=== PATIENT | male | born 1990 | race Caucasian/White ===

== ENCOUNTER 2017-01-29 08:45 | Emergency (ER) | payer OTHER ==
[~2017-01-29] VITALS: Ht 175.3 cm; Wt 83.9 kg
[~2017-01-29 08:45] MED LIST: LEVETIRACETAM500 MG PO; ONDANSETRON ODT8 MG PO; PHENYTOIN SODI100 MG PO; PHENYTOIN SODI300 MG PO; ZOFRAN ODT4 MG PO
== END 2017-01-29 14:54 | disposition home or self-care (01) ==
LOC: ED 08:45
DX: G40.909 Epilepsy, unspecified, not intractable, without status epilepticus (principal); S00.83XA Contusion of other part of head, initial encounter; X58.XXXA Exposure to other specified factors, initial encounter; Z79.899 Other long term (current) drug therapy
CPT/HCPCS: 70486; 80048; 80185; 81001; 85025; 86703; 96361; 96365; 96372; 99284; J1165; J3486; J7030; J7050

== ENCOUNTER 2019-05-11 05:39 | Emergency (ER) | payer OTHER ==
[~2019-05-11] VITALS: Ht 175.3 cm; Wt 83.9 kg
--- OUTSIDE RECORDS SUMMARY | 2019-05-11 05:42 | XMS ---
PreManage Notification: ANGELO KRAUS Security Certified Credit Counselor Events No recent Security Events currently on file CRITERIA MET - Group Notification CARE PROVIDERS APOLLO DIAS Primary Care 08/08/2016-Current PHONE: [phone] Rudolph has no Care Guidelines for this patient. E.DJenn VISIT COUNT (12 MO.) [address] [facility] 1 [facility] 1 BE Valdez Jenn TOTAL 3 NOTE: Visits indicate total known visits. ED/UCC VISIT TRACKING (12 MO.) 05/11/2019 05:[address] [facility] [address] [facility] TYPE: Emergency COMPLAINT: - SEIZURE 08/25/2018 07:04 [facility] Marga RHODES TYPE: Emergency DIAGNOSES: - Unspecified convulsions - Elevated white blood cell count, unspecified 06/16/2018 20:09 [facility] TYPE: Emergency DIAGNOSES: - Unspecified convulsions - Contusion of eyeball and orbital tissues, right eye, init - Seizures - seizure INPATIENT VISIT TRACKING (12 MO.) No inpatient visits to display in this time frame [id number]
[2019-05-11] MEDS ORDERED: TRILEPTAL300 MG PO (05:49)
== END 2019-05-11 07:01 | disposition home or self-care (01) ==
LOC: ED 05:39
DX: G40.909 Epilepsy, unspecified, not intractable, without status epilepticus (principal); Z79.899 Other long term (current) drug therapy
CPT/HCPCS: 80156; 82542; 96374; 99284-25; J1953; J7060

== ENCOUNTER 2019-07-15 06:37 | Emergency (ER) | payer OTHER ==
[~2019-07-15] VITALS: Ht 175.3 cm; Wt 83.9 kg
[~2019-07-15 06:37] MED LIST changes: +TRILEPTAL300 MG PO
--- OUTSIDE RECORDS SUMMARY | 2019-07-15 06:38 | XMS ---
PreManage Notification: ANGELO KRAUS Security Crystal Evaluator Events No recent Security Events currently on file CRITERIA MET - Group Notification CARE PROVIDERS APOLLO DIAS Nurse Practitioner: Family 05/12/2019-Current PHONE: Unknown APOLLO DIAS Primary Care 08/08/2016-Current PHONE: [phone] Rudolph has no Care Guidelines for this patient. Care History Medical/Surgical 05/12/2019 [facility] - PATIENT HAS AN ESTABLISHING CARE APT WITH APOLLO DIAS ON 05/15/19 @ 10: 00AM. - Patient is currently established with [facility]. If patient is seen in the ED during business hours. Please contact CHWs at [facility]. Care Recommendation: If this patient has had 5 or more Emergency Department visits in the last 12 months.\T\nbsp; Patient will require education on the scope and purpose of the ED as an acute care provider not a Primary Care Provider and should not be utilized for chronic conditions.\T\nbsp; These are guidelines and the provider should exercise clinical judgment when providing care. E.D. VISIT COUNT (12 MO.) 1 [facility] 2 BE [facility]ello TOTAL 3 NOTE: Visits indicate total known visits. ED/UCC VISIT TRACKING (12 MO.) 07/15/2019 06:37 [facility] [place] [place] TYPE: Emergency COMPLAINT: - SEIZURE 05/11/2019 05:39 [facility] TYPE: Emergency COMPLAINT: - SEIZURE DIAGNOSES: - Epilepsy, unsp, not intractable, without status epilepticus - Unspecified convulsions - Other terminal supervisor (current) drug therapy [facility] DIAGNOSES: - Unspecified convulsions - Elevated white blood cell count, unspecified INPATIENT VISIT TRACKING (12 MO.) No inpatient visits to display in this time frame [id number]
--- NOTE | 2019-07-15 13:27 | NUR ---
WAS CONTACTED BY BEAN BOURNE REGARDING POSSIBLE RIDE FOR PTS' MOTHER CARMEN TO [facility]. PT IS BEING TRANSFERRED THERE AND FEELS SHE NEEDS TO BE WITH HIM BECAUSE OF HOW HE REACTIONS AFTER SEIZURES. WORKING WITH CM, THEY WERE ABLE TO OBTAIN A RIDE FOR MOM IN AMBULANCE DURING TRANSFER. WILL FOLLOW NEEDED
== END 2019-07-15 13:47 | disposition short-term general hospital (02) ==
LOC: ED 06:37
DX: G40.409 Other generalized epilepsy and epileptic syndromes, not intractable, without status epilepticus (principal); Z79.899 Other long term (current) drug therapy
CPT/HCPCS: 70450; 80053; 80176; 81001; 84443; 85025; 96361; 96365; 96375; 96376; 99285-25; G0480; J1200; J1630; J1953; J2060; J2250; J2405; J2765; J7030

== ENCOUNTER 2019-08-27 07:45 | Emergency (ER) | payer OTHER ==
[~2019-08-27] VITALS: Ht 175.3 cm; Wt 83.9 kg
--- OUTSIDE RECORDS SUMMARY | 2019-08-27 07:48 | XMS ---
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 Care History Medical/Surgical 07/16/2019 [facility] Patient has scheduled appointment with Apollo Dias on 08/12/2019.\T\nbsp;\T\ nbsp;Transferred to\T\nbsp;inpatient care\T\nbsp;at [facility] 05/12/2019 [facility] - PATIENT HAS AN ESTABLISHING CARE APT WITH APOLLO DIAS ON 05/15/19 @ 10: 00AM. - Patient is currently established with [facility]. If patient is seen in the ED during business hours. Please contact CHWs at [facility]. Care Recommendation: If this patient has had [...] care. E.D. VISIT COUNT (12 MO.) 1 [facility] 3 BE [facility]ello TOTAL 4 NOTE: Visits indicate total known visits. ED/UCC VISIT TRACKING (12 MO.) 08/27/2019 07:46 [facility] [place] TYPE: Emergency COMPLAINT: - SEIZURE 07/15/2019 14:59 [facility] TYPE: Emergency DIAGNOSES: - Seizure (Adult - Prior Hx Of) - Epilepsy, unsp, intractable, without status epilepticus 07/15/2019 06:37 [facility] [place] TYPE: Emergency COMPLAINT: - SEIZURE DIAGNOSES: - Other intermediate (current) drug therapy - Epilepsy, unsp, not intractable, without status epilepticus - Oth generalized epilepsy, not intractable, w/o stat epi 05/11/2019 05:39 [facility] [place] [place] TYPE: Emergency COMPLAINT: - SEIZURE DIAGNOSES: - Epilepsy, unsp, not intractable, without status epilepticus - Unspecified convulsions - Other intermediate (current) drug therapy INPATIENT VISIT TRACKING (12 MO.) No inpatient visits to display in this time frame [email or web address]
[2019-08-27] MEDS ORDERED: LEVETIRACETAM1000 MG PO (07:53)
[2019-08-27] MEDS ORDERED: KEPPRA500 MG PO (09:12)
--- NOTE | 2019-08-27 15:58 | EKG ---
[facility] [address] [facility] [place], [place] [address] Signed Normal sinus rhythm Normal ECG No previous ECGs available Confirmed by TAMIKO NAVARRO DO ([id number]) on 08/27/2019 3:57:54 PM Electronically Signed By: TAMIKO NAVARRO DO 08/27/19 1558 PATIENT NAME: ANGELO KRAUS Electrocardiogram DATE OF : [birth year] PHYSICIAN: TAMIKO NAVARRO DO REPORT #: [id number] REPORT IS CONFIDENTIAL AND NOT TO BE RELEASED WITHOUT AUTHORIZATION
== END 2019-08-27 09:34 | disposition home or self-care (01) ==
LOC: ED 07:45
DX: G40.909 Epilepsy, unspecified, not intractable, without status epilepticus (principal); Z79.899 Other long term (current) drug therapy
CPT/HCPCS: 80053; 82542; 85025; 93005; 93010; 99284-25

== ENCOUNTER 2020-03-20 05:10 | Emergency (ER) | payer OTHER ==
[~2020-03-20] VITALS: Ht 175.3 cm; Wt 81.6 kg
--- OUTSIDE RECORDS SUMMARY | ~2020-03-20 | XMS | Encounter Summary ---
Demographics + + + | Address | [address] | | | [place] [address] | + + + | Home Phone | | + + + | Preferred Language | Unknown | + + + | Marital Status | Single | + + + | Anabaptism Affiliation | [id number] | + + + | Race | White | + + + | Ethnic Group | Not or | + + + Author + + + | Author | [facility] | | | and [place] | + + + | Organization | [facility] | | | and [place] | + + + | Address | Unknown | + + + | Phone | Unavailable | + + + Support + + +---------+ + | Name | Relationship | Address | Phone | + + +---------+ + | Cherelle Howe | ECON | Unknown | | + + +---------+ + Care Team Providers + +------+ + | Care Dev Ops Engineer Name | Role | Phone | + +------+ + | Adria Artis NP | PCP | | + +------+ + Reason for Visit +--------+--------+ + | Reason | Onset | Comments | | | Date | | +--------+--------+ + | Other | 08/26/ | | | | 2020 | | +--------+--------+ + Encounter Details +--------+ + + + + | Date | Type | Department | Care Team | Description | +--------+ + + + + | 08/26/ | Telephone | [facility] | Mendoza Mcgarry MD | Other | | 2020 | | HOSPITAL NEUROLOGY | [address] | | | | | CL[address] | [place] | | | | | [address] [place], | [address] | | | | | [place] [address] | | | | | | [phone] | | | +--------+ + + + + Social History + +-------+ +--------+------+ | Tobacco Use | Types | Packs/Day | Years | Date | | | | | Used | | + +-------+ +--------+------+ | Never Smoker | | | | | + +-------+ +--------+------+ + +---+---+---+ | Smokeless Tobacco: | | | | | Never Used | | | | + +---+---+---+ + + +---------+ + | Alcohol Use | Drinks/Week | oz/Week | Comments | + + +---------+ + | Yes | | | Alcoholic | | | | | Drinks/day: heavy | | | | | drinker 18-19 years, | | | | | 12 packs of beer/ | | | | | week | + + +---------+ + + + + + | Alcohol Habits | Answer | Date Recorded | + + + + | How often do you have a drink containing | Monthly or less | 08/05/2019 | | alcohol? | | | + + + + | How many drinks containing alcohol do you | 1 or 2 | 08/05/2019 | | have on a typical day when you are | | | | drinking? | | | + + + + | How often do you have six or more drinks on | Never | 08/05/2019 | | one occasion? | | | + + + + + + + | Sex Assigned at | Date Recorded | | | | + + + | Not on file | | + + + documented as of this encounter Miscellaneous Notes Telephone Encounter - Gifty Ayala - 08/27/2019 8:19 AM Jamshid Peñaloza called from th e ED at [facility] in [place]. He would like to speak with Dr Mcgarry about the mutual pt. Please call [phone] signed by Gifty Ayala at 08/27/2019 8:20 AM PDTdocumented in this encounter Plan of Treatment +--------+---------+ + + + | Date | Type | Specialty | Care Team | Description | +--------+---------+ + + + | 07/04/ | Office | Neurology | Mendoza Mcgarry MD | | | 2020 | Visit | | [address] | | | | | | [place] | | | | | | [address] | | | | | | | | +--------+---------+ + + + documented as of this encounter Visit Diagnoses Not on filedocumented in this encounter"
--- OUTSIDE RECORDS SUMMARY | ~2020-03-20 | XMS | Encounter Summary ---
Demographics + + + | Address | [address] | | | [place] [address] | + + + | Home Phone | | + + + | Preferred Language | Unknown | + + + | Marital Status | Unknown | + + + | Taoist Affiliation | Unknown | + + + | Race | Unknown | + + + | Ethnic Group | Unknown | + + + Author + + + | Author | [facility] | + + + | Organization | [facility] | + + + | Address | Unknown | + + + | Phone | Unavailable | + + + Care Team Providers + +------+ + | Care Basketball Commentator Name | Role | Phone | + +------+ + PCP | Unavailable | + +------+ + Encounter Details +--------+ + + + + | Date | Type | Department | Care Team | Description | +--------+ + + + + | 07/27/ | Document-Sc | Neurophysiology | Adria Artis, | | | 2017 | anned | EEG at [facility] [address] | [address] | | | | | [address] | [facility] | | | | | [facility] | CLINIC [address] | | | | | [place], [address] | [place], [place] | | | | | [place], [place] | [address] | | | | | [address] | | | | | | [phone] | | | +--------+ + + + + Social History + +-------+ +--------+------+ | Tobacco Use | Types | Packs/Day | Years | Date | | | | | Used | | + +-------+ +--------+------+ | Never Assessed | | | | | + +-------+ +--------+------+ + + + | Sex Assigned at | Date Recorded | | | | + + + | Not on file | | + + + documented as of this encounter Plan of Treatment Not on filedocumented as of this encounter Visit Diagnoses Not on filedocumented in this encounter"
--- OUTSIDE RECORDS SUMMARY | ~2020-03-20 | XMS | Clinical Summary ---
Demographics + + + | Address | [address] | | | [place] [address] | + + + | Home Phone | | + + + | Preferred Language | Unknown | + + + | Marital Status | Unknown | + + + | Samaritan Affiliation | Unknown | + + + | Race | Unknown | + + + | Ethnic Group | Unknown | + + + Author + + + | Author | [facility] | + + + | Organization | [facility] | + + + | Address | Unknown | + + + | Phone | Unavailable | + + + Care Team Providers + +------+ + | Care Clinical Psychologist Licensed Name | Role | Phone | + +------+ + PCP | Unavailable | + +------+ + Source Comments [facility] and [facility] Allergies Not on File Medications Not on file Active Problems Not on file Social History + +-------+ +--------+------+ | Tobacco [...] on file | | + + + Last Filed Vital Signs Not on file Plan of Treatment + + + + + | Health Maintenance | Due Date | Last | Comments | | | | Done | | + + + + + | Influenza (Flu) | | 07/16/19 | | | vaccination (#1) | 0 | 18 | | + + + + + | Pneumococcal | Aged Out | 07/18/19 | No longer eligible based on patient's age | | vaccination | | 18 | to complete this topic | + + + + + Results Not on filefrom Last 3 Months"
--- OUTSIDE RECORDS SUMMARY | ~2020-03-20 | XMS | Encounter Summary ---
Demographics + + + | Address | [address] | | | [place] [address] | + + + | Home Phone | | + + + | Preferred Language | Unknown | + + + | Marital Status | Single | + + + | Shinto Affiliation | 1041 | + + + | Race | White | + + + | Ethnic Group | Not or | + + + Author + + + | Author | [facility] | | | and [place] | + + + | Organization | [facility] | | | and [...] Team Providers + +------+ + | Care Sheet Metal Helper Name | Role | Phone | + +------+ + | Kun Artis MD | PCP | | + +------+ + Encounter Details +--------+ + + + + | Date | Type | Department | Care Team | Description | +--------+ + + + + | 08/17/ | Hospital | [facility] | Mendoza Mcgarry MD | Partial symptomatic | | 2019 | Encounter | HOSPITAL RESPIRATORY | [address] | epilepsy with | | | | THERAPY [address] | [place], [place] | complex partial | | | | [place], [place] | [address] | seizures, | | | | [address] | | intractable, without | | | | [phone] | | status epilepticus | | | | | | (HCC) | +--------+ + + + + Social [...] + + documented as of this encounter Medications at Time of Discharge + + + +---------+ + + | Medication | Sig | Dispensed | Refills | Start | End Date | | | | | | Date | | + + + +---------+ + + | levETIRAcetam | Take 1,000 mg by | | 0 | 08/14/19 | | | (KEPPRA) 1000 MG | mouth 2 times daily. | | | 20 | | | tablet | | | | | | + + + +---------+ + + | OXcarbazepine | TAKE 1 TABLET BY | | 0 | 06/22/19 | | | (TRILEPTAL) 300 mg | MOUTH TWICE DAILY | | | 20 | 0 | | tablet | FOR 30 DAYS | | | | | + + + +---------+ + + documented as of this encounter Progress Notes Magan Nye RRT - 08/18/2019 8:00 AM PDTAwake and drowsy EEG performed, patient maeve ated study well. docum ented in this encounter Procedure Notes Cherelle Best MD - 08/18/2019 8:00 AM PDTAssociated Order(s): EEGProcedure(s): EEGP re-Procedure Diagnose(s): Partial symptomatic epilepsy with complex partial seizures, intrac table, without status epilepticus (HCC)Name:Syed Shah [place] :1990 DATE OF SERVICE: 08/18/2019 STUDY: ELECTROENCEPHALOGRAM INTRODUCTION: This is a digital EEG recording with a record length of 20 minutes. The ace smith is a 28 y.o. year-old male with complex partial seizures. BACKGROUND RHYTHM: The patient has a well defined background pattern of 7-8 hz. This acti vity is more prominent posteriorly, symmetrical, and synchronous. It attenuates with eye op ening and returns with eye closing. Drowsiness is appreciated by the attenuation and furthe r slowing of the patient's background activities. ABNORMAL POTENTIALS: Occasional brief bursts of generalized theta-delta activity are noted throughout the recording. HYPERVENTILATION/PHOTIC STIMULATION: Hyperventilation was not completed as the patient com plained of dizziness. Photic stimulation was without significant effect. IMPRESSION: Abnormal EEG demonstrating the presence of mild bilateral cerebral dysfunction. No epileptiform discharges were seen. However, if seizures are strongly suspected clinica lly, a repeat EEG with prolonged sleep recording is recommended. Thank you for the opportunity to participate in the care of this patient. Cherelle Best MD08/18/20199:45 AM documented in thi s encounter Plan of Treatment +--------+---------+ + + + | Date | Type | Specialty | Care Team | Description | +--------+---------+ + + + | 07/04/ | Office | Neurology | Mendoza Mcgarry MD | | | 2020 | Visit | | [address] | | | | | | [place], [place] | | | | | | [address] | | | | | | | | +--------+---------+ + + + documented as of this encounter Procedures + +--------+ + + + | Procedure Name | Priori | Date/Time | Associated Diagnosis | Comments | | | ty | | | | + +--------+ + + + | EEG | Routin | 08/18/2019 | Partial | Results for this | | | e | 8:00 AM | symptomatic epilepsy | procedure are in the | | | | PDT | with complex | results section. | | | | | partial seizures, | | | | | | intractable, without | | | | | | status epilepticus | | | | | | (HCC) | | + +--------+ + + + documented in this encounter Results EEG (08/18/2019 8:00 AM PDT) + + + | Narrative | Performed At | + + + | Cherelle Best MD 08/18/2019 9:48 AM Name:Syed Shah | | | [place] :1990 DATE OF SERVICE: 08/18/2019 | | | STUDY: ELECTROENCEPHALOGRAM INTRODUCTION: This is a | | | digital EEG recording with a record length of 20 minutes. The | | | patient is a 28 y.o. year-old male with complex partial seizures. | | | BACKGROUND RHYTHM: The patient has a well defined background | | | pattern of 7-8 hz. This activity is more prominent posteriorly, | | | symmetrical, and synchronous. It attenuates with eye opening and | | | returns with eye closing. Drowsiness is appreciated by the | | | attenuation and further slowing of the patient's background | | | activities. ABNORMAL POTENTIALS: Occasional brief bursts of | | | generalized theta-delta activity are noted throughout the recording. | | | HYPERVENTILATION/PHOTIC STIMULATION: Hyperventilation was not | | | completed as the patient complained of dizziness. Photic | | | stimulation was without significant effect. IMPRESSION: Abnormal | | | EEG demonstrating the presence of mild bilateral cerebral | | | dysfunction. No epileptiform discharges were seen. However, if | | | seizures are strongly suspected clinically, a repeat EEG with | | | prolonged sleep recording is recommended. Thank you for the | | | opportunity to participate in the care of this patient. | | | Cherelle Best MD08/18/20199:45 AM Electronically signed | | + + + documented in this encounter Visit Diagnoses + + | Diagnosis | + + | Partial symptomatic epilepsy with complex partial seizures, intractable, without | | status epilepticus (HCC) | + + documented in this encounter"
--- OUTSIDE RECORDS SUMMARY | ~2020-03-20 | XMS | Encounter Summary ---
Demographics + + + | Address | [address] | | | [place] [address] | + + + | Home Phone | | + + + | Preferred Language | Unknown | + + + | Marital Status | Unknown | + + + | Restorationist Affiliation | Unknown | + + + | Race | Unknown | + + + | Ethnic Group | Unknown | + + + Author + + + | Author | [facility] | + + + | Organization | [facility] | + + + | Address | Unknown | + + + | Phone | Unavailable | + + + Care Team Providers + +------+ + | Care Machine Pack Assembler Name | Role | Phone | + +------+ + PCP | Unavailable | + +------+ + Encounter Details +--------+ + + + + | Date | Type | Department | Care Team | Description | +--------+ + + + + | 11/15/ | Document-Sc | Health Information | Unknown . | | | 2017 | anned | Services [id number] | | | | | | E[address]iel [address] | | | | | | Mailcode: [id number] | | | | | | [facility] | | | | | | [place], [place] | | | | | | [address] | | | | | | [phone] | | | +--------+ + + + [...]
--- OUTSIDE RECORDS SUMMARY | ~2020-03-20 | XMS | Encounter Summary ---
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 | Phone | + +------+ + PCP | Unavailable | + +------+ + Encounter Details +--------+ + + + + | Date | Type | Department | Care Team | Description | +--------+ + + + + | 07/15/ | Hospital | [facility] | Mohit Hernandez, | ABRAHAM (acute kidney | | 2016 - | Encounter | [facility] | MD Patricio CANNON | injury) ([facility]); | | | | CLINICAL DECISION | [place] [address] | Seizure disorder | | 07/22/ | | [address] | [phone] | ([facility]); Subarachnoid | | 2015 | | [place], [place] | | hemorrhage, | | | | [phone] | | nontraumatic ([facility]); | | | | [phone] | | Acidosis; Acute | | | | | | renal disease; Acute | | | | | | pulmonary edema | | | | | | ([facility]); Hypervolemia, | | | | | | unspecified | | | | | | hypervolemia type; | | | | | | Non-traumatic | | | | | | rhabdomyolysis | +--------+ + + + + Social History + +-------+ +--------+------+ | Tobacco Use | Types | Packs/Day | Years | Date | | | | | Used | | + +-------+ +--------+------+ | Current Some Day | | | | | | Smoker | | | | | + +-------+ +--------+------+ + + + | Sex Assigned at | Date Recorded | | | | + + + | Not on file | | + + + documented as of this encounter Last Filed Vital Signs + + + + + | Vital Sign | Reading | Time Taken | Comments | + + + + + | Blood Pressure | 122/88 | 07/22/2015 7:05 AM | | | | | PST | | + + + + + | Pulse | 75 | 07/22/2015 7:05 AM | | | | | PST | | + + + + + | Temperature | 36.6 C (97.8 F) | 07/22/2015 7:05 AM | | | | | PST | | + + + + + | Respiratory Rate | 16 | 07/22/2015 7:05 AM | | | | | PST | | + + + + + | Oxygen Saturation | - | - | | + + + + + | Inhaled Oxygen | - | - | | | Concentration | | | | + + + + + | Weight | 69.4 kg (153 lb) | 07/22/2015 7:05 AM | | | | | PST | | + + + + + | Height | 175.3 cm (5' 9") | 07/22/2015 7:05 AM | | | | | PST | | + + + + + | Body Mass Index | 22.59 | 07/22/2015 7:05 AM | | | | | PST | | + + + + + documented in this encounter Discharge Summaries Nia Carter MD - 07/22/2015 10:57 AM PST Discharge Summaries by Nia Carter MD at 07/22/15 1057 Author: Nia Carter MD Service: (none) Author Type: Physician Filed: 07/22/15 1608 Date of Service: 07/22/15 1057 Status: Signed Gusset Ripper: Nia Carter MD (Physician) Related Notes: Original Note by Nia Carter MD (Physician) filed at 07/22/[address] [place] [address] Service: Hospitalist Physician Discharge Summary Patient ID: Syed Koenig 1990 24 y.o. Admit date: 07/15/2015 Discharge date: 07/22/2015 Admitting Physician: Mohit Hernandez MD Discharge Physician: Nia Carter MD Consultants: Treatment Team: Consulting Physician: Josué Lima MD Admitting Provider: Mohit Hernandez MD Primary Discharge Diagnoses: Subarachnoid hemorrhage, nontraumatic (HCC) Secondary Discharge Diagnoses: Rhabdomyolysis Seizure disorder (HCC) ABRAHAM (acute kidney injury) (HCC) resolved Acute pulmonary edema (HCC) resolved HPI and Hospital Course: This is a 24-year-old male with a history of seizure disorder diagnosed 2 years ago. He was transferred from an outside facility after a witnessed seizure. The patient had not taken h is Keppra for several days and was given Ativan and Haldol. Keppra was also given after he b ecame agitated. CT scan at the outside facility showed subarachnoid hemorrhage in the cerebe llum bilaterally, and the patient was transferred to the intensive care unit with neurosurge ry consult. HOSPITAL COURSE The patient was admitted to the Intensive Care Unit with subarachnoid hemorrhage. Neurosurg misha was consulted. He did not require any surgical intervention. Neurology was also consulte d, and he was started IV Keppra at 750 mg twice daily. The patient subsequently went into acute renal failure secondary to rhabdomyolysis and acut e pulmonary edema requiring emergent dialysis. This is completely resolved. His creatinine i s back to normal. He was significantly polyuric, which has also subsided. I discussed with n ephrology, and he is stable for discharge. He will be discharged on an increased dose of Kep pra and will follow up with his neurologist in [place]. The patient also was noted to be hypertensive and was started on Norvasc. The patient plan has been discussed in detail with the patient. All data was reviewed with him. All questions have been answered. Past Medical History: No past medical history on file. No past surgical history on file. Discharged Condition: Stable for discharge as stated above. Significant Diagnostic Studies: Cta Head Neck 07/16/[address] without with contrast: Stable appearance to blood products within the p osterior fossa bilaterally, no evidence of interval hemorrhage. No abnormal enhancement. 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 CT angiogram neck: No carotid or vertebral artery narrowing in the neck. No evidence of dissection. CT angiogram brain: No evidence of major vessel stenosis, occlus ion, aneurysm, dissection, thrombi or vascular malformation. No abnormal vascularity in the posterior fossa. Findings discussed with Dr. Hernandez by telephone at 0535 hours. Electron icallmarco a signed by Mohit Loepz MD on Jul 16 2015 5:45AM Referring Provider Line: [phone] 5SITE ID: [id number] X-ray Chest 2 View Frontal & Lateral 07/18/2015 1. Findings suggestive of pulmonary edema. Given history of subarachnoid hemorr dago, these findings may indicate neurogenic pulmonary edema. Differential considerations i nclude atypical infection such as viral pneumonia or interstitial lung disease. Electronica lly signed by Sarah Tovar on 07/18/2015 11:42 AM X-ray Chest Ap Only 07/18/2015 1. No pneumothorax. 2. Mild worsening pulmonary edema. Ultrasound Kidneys And Bladder 07/17/2015 1. Increased echogenicity of both kidneys as can be seen with medical renal dis ease . Mild right perinephric fluid. No hydronephrosis. RADIA Electronically signed by Andres Hamm MD on Jul 17 2015 12:38AM Referring Provider Line: [phone] ID: [id number] Discharge Vitals: Filed Vitals: 07/21/15 1907 07/21/15 2259 07/22/15 0251 07/22/15 0705 BP: 146/94 138/70 131/82 122/88 Pulse: 77 78 73 75 Temp: 97.8 F (36.6 C) 98 F (36.7 C) 98.3 F (36.8 C) 97.8 F (36.6 C) TempSrc: Oral Oral Oral Oral Resp: 18 18 18 16 Height: Weight: 69.4 kg (153 lb) SpO2: 99% 94% 97% 98% Discharge Exam: General: Well nourished. Psych: Alert and oriented x 3. Calm, cooperative. Cardiovascular: Regular rate and rhythm, no murmurs, no thrills. Normal PMI. Respiratory: Clear to auscultation, no wheezing or crackles, breathing non labored. Gastrointestinal: Soft, non-tender, non-distended, positive bowel sounds. No HSM. Musculoskeletal: No edema in bilateral lower extremities. No joint swelling. Skin: Warm and dry, no rashes. Neck: No JVD, Trachea midline. Neurological: Non focal. Motor grossly intact. LABS: Recent Labs Lab 07/20/15 0508 07/19/15 0422 07/18/15 0405 WBC 10.20 14.43* 12.90* RBC 3.83* 3.88* 3.86* HGB 11.9* 12.2* 11.9* HCT 35.6* 35.3* 34.6* MCV 92.9 91.1 89.6 MCH 31.2 31.3 30.9 MCHC 33.6 34.4 34.5 RDW 39.8 39.4 38.5 PLT 167 146* 155 MPV 9.3 9.5 9.3 DIFFTYPE MANUAL AUTOMATED AUTOMATED Recent Labs Lab 07/22/15 0418 07/21/15 0524 07/20/15 1302 07/20/15 0508 NA 136 134* -- 134* K 3.9 3.8 3.7 3.3* CL 102 100 -- 98* CO2 29 25 -- 28 BUN 22 20 -- 24 CREATININE 1.20 1.40* -- 2.19* GLUF 90 98 -- 102* Recent Labs Lab 07/17/15 0823 07/16/15 2350 07/16/15 1547 CKTOTAL 3420* 4365* 5606* Recent Labs Lab 07/22/158 07/21/15 0524 07/20/15 0508 PHOS 3.5 2.4 2.9 Recent Labs Lab 07/22/158 07/21/15 0524 07/20/15 0508 MG 1.7 1.9 2.1 Invalid input(s): ABG Disposition: Home Follow up: Tal Dias MD [facility] [address] Schedule an appointment as soon as possible for a visit in 2 days Raji Moore MD [address] [facility] [address] Schedule an appointment as soon as possible for a visit in 1 week Medication List START taking these medications amLODIPine 5 MG tablet QTY: 30 tablet Refills: 0 Commonly known as: NORVASC Take 1 tablet by mouth daily. CHANGE how you take these medications levetiracetam 750 MG tablet QTY: 60 tablet Refills: 0 Commonly known as: KEPPRA Take 1 tablet by mouth 2 (two) times daily. 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 You may get the following medications from any pharmacy - amLODIPine 5 MG tablet - levetiracetam 750 MG tablet Nia Carter MD 07/22/2015 10:57 AM Discharge took 40 minutes, to include final examination, discussion of admission, and prep aration of prescriptions, instructions for ongoing care, follow up and dictation of summary. This entry has been created using [employer] Speech Recognition software and [employer]. The entry has been reviewed and there may still exist sound alike word errors. documented in th is encounter Medications at Time of Discharge + + + +---------+ + + | Medication | Sig | Dispensed | Refills | Start | End Date | | | | | | Date | | + + + +---------+ + + | amLODIPine | Take 5 mg by mouth. | | 0 | 07/22/19 | | | (NORVASC) 5 mg | | | | 16 | 0 | | tablet | | | | | | + + + +---------+ + + documented as of this encounter Progress Notes Conversion Transaction, Provider Unknown - 07/22/2015 4:03 PM PSTFormatting of this note m ight be different from the original. Case Management by Su Nam RN at 07/22/15 0655 Author: Su Nam RN Service: (none) Author Type: Registered Nurse Filed: 02/12/16 1605 Date of Service: 07/22/15 1603 Status: Signed Gusset Ripper: Su Nam RN (Registered Nurse) Case Management: Pt has been discharged and left the hospital. Noted a case management co nsult "for discharge planning" placed by MD today. Reviewed chart and no dc concerns noted. Pt has medication coverage thru his insurance. Has family to assist. No needs determine d. SU NAM 07/22/2015 4:05 PM onver gina Transaction, Provider Unknown - 07/22/2015 11:13 AM PST Nurse Progress Note by Teena Haynes RN at 07/22/151112 Author: Teena Haynes RN Service: (none) Author Type: Registered Nurse Filed: 07/22/151115 Date of Service: 07/22/151112 Status: Signed Gusset Ripper: Teena Haynes RN (Registered Nurse) Pt's VSS and afebrile throughout shift. Asked pt if he'd like something for constipation d /t his last BM being 07/18, he refused saying he'll probably go when he gets home. Education given on stroke and seizure. Gave krames print out on new medications amlodipine and keppra (not new, just had questions). Assessment complete, visualized hourly, call light within reach, IV removed, escorted to or chard pavilion entrance. Jacey Bella MD - 07/22/2015 8:11 AM PSTFormatting of this note might be different from th e original. Progress Notes by Jacey Batres MD at 07/22/15 0811 Author: Jacey Batres MD Service: Nephrology Author Type: Physician Filed: 07/25/152155 Date of Service: 07/22/15810 Status: Signed Gusset Ripper: Jacey Batres MD (Physician) [facility] Service: Nephrology Progress Note Hospital Problem List: Principal Problem: Subarachnoid hemorrhage, nontraumatic (HCC) Active Problems: Rhabdomyolysis Seizure disorder (HCC) ABRAHAM (acute kidney injury) (HCC) The patient says that he feels 'ok' today. he denies any cp, sob, abd pain, n/v. his urine output is adequate. The following portions of the patient's history were reviewed and updated as appropriate: l aboratory data, radiologic studies, allergies, current medications, and problem list. As in History of Present Illness & Assessment below. All the pertinent systems were reviewe d and were otherwise negative. P.E. BP 122/88 mmHg | Pulse 75 | Temp(Src) 97.8 F (36.6 C) (Oral) | Resp 16 | Ht 1.753 m (5' 9") | Wt 69.4 kg (153 lb) | BMI 22.58 kg/m2 | SpO2 98% General appearance: Pleasant, not in acute distress. Neck: Supple without tracheal deviation or jugular venous distension. Head and ENT: Head is atraumatic. The oropharynx is without erythema or thrush. Eyes: Anicteric. The extraocular muscle movements are normal. Lungs: Clear to auscultation bilaterally. There are no wheezes. Heart: Regular rate and rhythm without any rub, gallop. no murmur. Abdominal exam: Soft and nontender with normal bowel sounds. Musculoskeletal: No costovertebral angle tenderness bilaterally. Extremities: Warm to touch with no leg edema. There is no cyanosis. Skin: There are no rashes, petechiae, or ecchymosis. Neurological: Awake, alert, and oriented to time, place, and person. Normal gross motor po wer. There is no asterixis. Psychiatric: The patient s behavior is normal. Judgment and thought content are normal. Lab Results Component Value Date BUN 22 07/22/2015 CREATININE 1.20 07/22/2015 EGFR >60 07/22/2015 NA 136 07/22/2015 K 3.9 07/22/2015 CL 102 07/22/2015 CO2 29 07/22/2015 CA 9.3 07/22/2015 PHOS 3.5 07/22/2015 MG 1.7 07/22/2015 ALB 4.0 07/16/2015 HGB 11.9* 07/20/2015 Assessment: Mr. Koenig is a 24 y.o. male patient with an improved stage 3 (severe) ABRAHAM (acute kidney i njury). RENAL FUNCTION: Almost to normal GFR BLOOD PRESSURE: ok ELECTROLYTES: Improved. Normal now ALBUMIN: ok ANEMIA: mild URINALYSIS: Minimal microscopic hematuria; no UTI VOLUME STATUS: euvolumic Recommendations: 1. No acute DIRECTOR INPATIENT HEADACHE PROGRAM indication 2. No Epo need 3. No PRBC transfusion need 4. Close monitoring of resting BP's 5. 6. Strict I/O & daily weights. 7. Dose all of his meds to his current estimated GFR. 8. Continue to avoid all kinds of nephrotoxins. 9. Target euvolumia with a MAP>75 mmHg as possible. 10. Given his tendency for anasarca: Encourage adequate intake & close dietitian F/U. Encou rage ambulation safely. Encourage the adequate use of an incentive spirometer. I discussed with the primary team the case at the time of this encounter this morning. I spent 35 total minutes today in interviewing & examining the patient, reviewing & updatin g the patient's chart, formulating a plan, in addition to patient education and discussions with the primary/consulting team. JACEY BATRES MD 07/22/2015 onversion Transa ction, Provider Unknown - 07/21/2015 6:05 PM PST Nurse Progress Note by Teena Haynes RN at 07/21/151804 Author: Teena Haynes RN Service: (none) Author Type: Registered Nurse Filed: 07/21/151807 Date of Service: 07/21/151804 Status: Signed Gusset Ripper: Teena Haynes RN (Registered Nurse) Pt's VSS with one slight febrile episode at noon (99.1), not treated and resolved on its ow n. Kaushik catheter removed, pt tolerated well, dressing in place. Plan is to discharge pt home tomorrow. Continue to monitor electrolytes, urine output, and kidney function. Assessment complete, visualized hourly, call light within reach, pt calls appropriately, wi ll continue to monitor. onver gina Transaction, Provider Unknown - 07/21/2015 3:15 PM PST Therapy Progress Note by Yasmine Wheat PTA at 07/21/15 1515 Author: Yasmine Wheat PTA Service: (none) Author Type: It Audit Manager Filed: 07/21/15 1533 Date of Service: 07/21/155 Status: Signed Gusset Ripper: Yasmine Wheat PTA (It Audit Manager) 07/21/15 1515 PT Last Visit PT Received On 07/21/15 Reason for Treatment Stroke Requires PT Follow Up No Follow up PT Only? No Other Comments Comments Pt sitting at EOB with RN in room agreeable to PT. Pt reports that he has been ind ep in his room and with showering. He reports that he has no longer been light headed or diz zy. BP at start of session 144/94. Pt performed stairs and returned to room sitting at EOB. BP at end of session 140/91, HR 82 bpm. No pain reported at his right knee during session. Cognition Overall Cognitive Status WFL Orientation Level Oriented Transfers Sit to/from Stand Modified independent Mobility Weight Bearing Status WBAT RLE;WBAT LLE Ambulation Assistance Modified independent Maximal Ambulation Distance (feet) 350 Total Ambulation Distance (feet) 350 Distance limited by? Therapist/staff discretion Pattern WFL Assistive Device None Stairs Assistance Supervision Number of Stairs 12 Number of stairs limited by? Therapist/staff discretion Stair Management Technique [id number];Rail on right ascending Activity Tolerance Activity Tolerance Patient tolerated treatment without report of fatigue Nurse Made Aware yes Plan Treatment/Interventions Discharge skilled PT services Recommendation Recommendations Prior Setting Equipment Recommended None PT Ready for Discharge Yes Nia Lovelace MD - 07/21/2015 9:59 AM PSTFormatting of this note might be different from t blanca original. Progress Notes by Nia Carter MD at 07/21/15 2459 Author: Nia Carter MD Service: (none) Author Type: Physician Filed: 07/21/15 1408 Date of Service: 07/21/1559 Status: Signed Gusset Ripper: Nia Carter MD (Physician) [facility] Service: Hospitalist Progress Note Hospital Day: LOS: 6 days SUBJECTIVE Patient Summary: 24-year-old male with history of seizure disorder admitted to the in tensive care unit with the seizure and subarachnoid hemorrhage. Neurosurgery and neurology were consulted. Nephrology consulted for acute renal failure injury to rhabdomyolysis. He has been initiated on hemodialysis. Events Overnight: Patient denies shortness of breath. Doing well. He wants to go ho me. Scheduled Medications amLODIPine 5 mg Oral Daily heparin (porcine) Intracatheter Daily levETIRAcetam 750 mg Oral BID Continuous Infusions PRN Medications acetaminophen OR acetaminophen, diphenhydrAMINE, ipratropium-albuterol, labetalol, Britton zepam, magnesium sulfate OR magnesium sulfate OR magnesium sulfate, ondansetron OR ondansetron, [DISCONTINUED] potassium OR [DISCONTINUED] potassium OR [DISCONTINUE D] potassium OR potassium chloride OR potassium chloride OR potassium chloride, prochlorperazine, promethazine, sodium chloride 0.9 % OBJECTIVE Vital Signs: BP 137/85 mmHg | Pulse 76 | Temp(Src) 98.1 F (36.7 C) (Oral) | Resp 16 | Ht 1.753 m (5' 9") | Wt 69.718 kg (153 lb 11.2 oz) | BMI 22.69 kg/m2 | SpO2 97% Patient Vitals for the past 24 hrs: BP Temp Temp src Pulse Resp SpO2 Weight 07/21/15 0735 137/85 mmHg 98.1 F (36.7 C) Oral 76 16 97 % - 07/21/15 0400 - - - - - - 69.718 kg (153 lb 11.2 oz) 07/21/15 0357 145/81 mmHg 97.9 F (36.6 C) Oral 80 18 97 % - 07/20/15 2326 (!) 146/98 mmHg 98.6 F (37 C) Oral 79 16 97 % - 07/20/15 1918 146/90 mmHg 98.6 F (37 C) Oral 90 18 95 % - 07/20/15 1539 (!) 146/92 mmHg 98.3 F (36.8 C) Oral 86 20 96 % - 07/20/15 1200 (!) 154/103 mmHg 98.1 F (36.7 C) Axillary 84 18 96 % - 07/20/15 1152 (!) 137/99 mmHg - - - - - 69.4 kg (153 lb) 07/20/15 1145 (!) 132/95 mmHg - - - - - - 07/20/15 1130 143/89 mmHg - - - - - - 07/20/15 1115 (!) 139/102 mmHg - - - - 97 % - 07/20/15 1100 (!) 154/103 mmHg - - - - - - 07/20/15 1045 (!) 153/98 mmHg - - - - 96 % - 07/20/15 1030 (!) 140/91 mmHg - - - - - - 07/20/15 1015 (!) 149/107 mmHg - - - - - - 07/20/15 1000 149/88 mmHg - - - - - - Intake/Output Summary (Last 24 hours) at 07/21/15 0959 Last data filed at 07/21/15 0950 Gross per 24 hour Intake 4290 ml Output 8025 ml Net -3735 ml Physical Exam: Constitutional: Alert and oriented to person, place, and time. Appears well-developed and w ell-nourished. HEENT: Neck supple, no JVD, non icteric sclera. Cardiovascular: Normal rate, regular rhythm, normal heart sounds with S1 and S2, Exam re veals no gallop and no friction rub. No murmur heard. No S3, No S4 Pulmonary/Chest: Effort normal and bilaterally clear to auscultation. Abdominal: Soft. Bowel sounds are normal. exhibits no distension and no mass. There is no t enderness. There is no rebound and no guarding. Extremeties/Musculoskeletal: Normal range of motion. exhibits no edema. Neurological: Alert and oriented to person, place, and time. Skin: Skin is warm and dry. Psychiatric: Has a normal mood and affect. DATA Recent Labs Lab 07/20/15 0508 07/19/15 0422 07/18/15 0405 WBC 10.20 14.43* 12.90* RBC 3.83* 3.88* 3.86* HGB 11.9* 12.2* 11.9* HCT 35.6* 35.3* 34.6* MCV 92.9 91.1 89.6 MCH 31.2 31.3 30.9 MCHC 33.6 34.4 34.5 RDW 39.8 39.4 38.5 PLT 167 146* 155 MPV 9.3 9.5 9.3 DIFFTYPE MANUAL AUTOMATED AUTOMATED Recent Labs Lab 07/21/15 0524 07/20/15 1302 07/20/15 0508 07/19/15 0422 NA 134* -- 134* 134* K 3.8 3.7 3.3* 3.2* CL 100 -- 98* 95* CO2 25 -- 28 29 BUN 20 -- 24 29* CREATININE 1.40* -- 2.19* 3.24* GLUF 98 -- 102* 109* Recent Labs Lab 07/17/15 0823 07/16/15 2350 07/16/15 1547 CKTOTAL 3420* 4365* 5606* Recent Labs Lab 07/21/15 0524 07/20/15 0508 07/19/15 0422 PHOS 2.4 2.9 3.3 Recent Labs Lab 07/21/15 0524 07/20/15 0508 07/19/15 0422 MG 1.9 2.1 2.1 Invalid input(s): ABG PROBLEM LIST Principal Problem: Subarachnoid hemorrhage, nontraumatic (HCC) Active Problems: Rhabdomyolysis Seizure disorder (HCC) ABRAHAM (acute kidney injury) (HCC) Hypervolemia Acute pulmonary edema (HCC) ASSESSMENT & PLAN Cerebellar hemorrhage on CT scan. No surgical intervention needed at this time. Seizure disorder. Will continue Keppra. Acute renal failure secondary to rhabdomyolysis. Acute Renal failure is resolving. Patien t continues to have significant urine output. Discussed with Dr. Lima , will monitor for 24 hours Management per nephrology DVT prophylaxis will use only mechanical agents Hypertension. Blood pressure controlled on Norvasc The plan has explained in detail to the patient , all questions were answered.All data was reviewed. Disposition: Inpatient Code Status: Full Code Nia Carter MD 07/21/2015 9:59 AM This entry has been created using [employer] Speech [employer]ognition software and [employer]. The entry has been reviewed and there may still exist sound alike word errors. Josué Bauer ed, MD - 07/21/2015 9:32 AM PST . Progress Notes by Josué Lima MD at 07/21/15931 Author: Josué Lima MD Service: Nephrology Author Type: Physician Filed: 07/21/15 2318 Date of Service: 07/21/15931 Status: Signed Gusset Ripper: Josué Lima MD (Physician) [facility] Service: NEPHROLOGY Progress Note Syed Koenig 24 y.o. [id number] male TAL [facility] Day: LOS: 6 days 24-year-old male with past medical history significant for seizure disorder diagnosed about 2 years ago admitted with Seizure/ ABRAHAM/ ACUTE RHABDOMYOLYSIS. Nephrology consulted for evaluation and management of ABRAHAM Lab Results Component Value Date BUN 20 07/21/2015 BUN 24 07/20/2015 BUN 29* 07/19/2015 BUN 30* 07/18/2015 BUN 49* 07/18/2015 CREATININE 1.40* 07/21/2015 CREATININE 2.19* 07/20/2015 CREATININE 3.24* 07/19/2015 CREATININE 3.4* 07/18/2015 CREATININE 4.95* 07/18/2015 ONSET ACUTE severity SEVERE Associated with fluid electrolyte acid base imbalances RF: ACUTE RHABDOMYOLYSIS/ CT angiogram on July 16, 2015 Seen and examined Off hd now, improving renal function Says feel better, Wants to go home High urine output Denies cp, nausea, vomiting, diarrhea, fever, headache, rash No past medical history on file. No past surgical history on file. Prescriptions prior to admission Medication Sig Dispense Refill Last Dose levETIRAcetam (KEPPRA) 500 MG tablet Take 500 mg by mouth 2 (two) times daily. Indicati ons: Prevention of Seizures After Bleed in Brain Unknown at Unknown time No Known Allergies Family History Problem Relation Age of Onset Other (see comments) Mother cerebral bleed Alcohol abuse Mother Kidney disease Neg Hx History Social History Marital Status: Unknown Spouse Name: N/A Number of Children: N/A Years of Education: N/A Occupational History Not on file. 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 Single No kids Scheduled Medications amLODIPine 5 mg Oral Daily heparin (porcine) Intracatheter Daily levETIRAcetam 750 mg Oral BID Continuous Infusions PRN Medications acetaminophen OR acetaminophen, diphenhydrAMINE, ipratropium-albuterol, labetalol, Britton zepam, magnesium sulfate OR magnesium sulfate OR magnesium sulfate, ondansetron OR ondansetron, [DISCONTINUED] potassium OR [DISCONTINUED] potassium OR [DISCONTINUE D] potassium OR potassium chloride OR potassium chloride OR potassium chloride, prochlorperazine, promethazine, sodium chloride 0.9 % Allergy: No Known Allergies OBJECTIVE Vital Signs: BP 137/85 mmHg | Pulse 76 | Temp(Src) 98.1 F (36.7 C) (Oral) | Resp 16 | Ht 1.753 m (5' 9") | Wt 69.718 kg (153 lb 11.2 oz) | BMI 22.69 kg/m2 | SpO2 97% I&O Detailed Table: I/O last 3 completed shifts: In: 5910 [P.O.:3610; Other:2300] Out: 7950 [Urine:2950; Other:5000] Weight change: -4.8 kg (-10 lb 9.3 oz) Examination: APPEARANCE: The patient is lying in no apparent distress VITALS: Reviewed as listed. HEAD: NC/AT. EYES: Non-icteric sclera. ENT: No gross ear or nasal problems noted. NECK: Supple. No raised JVD LUNGS: Good A/E on auscultation bilaterally. HEART: S1, S2, no pericardial rub noted. ABDOMEN: Full, soft, no tenderness. Bowel sounds are present. EXTREMITIES: trace pedal edema noted. SKIN: Warm to touch. No rash or ecchymosis noted. NEUROLOGIC: No gross focal motor deficit noted. PSYCH: The patient is alert and oriented x 3, mood and affect looks ok BACK: no CVA tenderness noted R IJ NON TUNNELED CATHETER IN PLACE LABS: Recent Results (from the past 24 hour(s)) Potassium Collection Time: 07/20/15 1:02 PM Result Value Ref Range POTASSIUM 3.7 3.5 - 4.9 mmol/L Basic metabolic panel Collection Time: 07/21/15 5:24 AM Result Value Ref Range SODIUM 134 (L) 135 - 143 mmol/L POTASSIUM 3.8 3.5 - 4.9 mmol/L CHLORIDE 100 99 - 109 mmol/L CO2 25 23 - 32 mmol/L ANION GAP AGAP 13 5 - 20 mmol/L GLUCOSE 98 65 - 99 mg/dL BUN 20 8 - 25 mg/dL CREATININE 1.40 (H) 0.70 - 1.30 mg/dL BUN/CREAT 14 CALCIUM 9.2 8.5 - 10.5 mg/dL EGFR >60 >60 mL/min/1.73m2 Magnesium Collection Time: 07/21/15 5:24 AM Result Value Ref Range MAGNESIUM 1.9 1.7 - 2.4 mg/dL Phosphorus Collection Time: 07/21/15 5:24 AM Result Value Ref Range PHOSPHORUS 2.4 2.3 - 4.8 mg/dL IMAGING: Cta Head Neck 07/16/2015 CT angiogram head and neck without and with contrast. INDICATION: Posterior fos sa hemorrhage. Seizure. Technique: Head CT without contrast. CT angiogram from the vertex t o the aortic arch after 100 cc Isovue-300 IV. 3-D MIP reconstructions. NASCET criteria used for stenosis measurements. Head CT after contrast. COMPARISON: Outside study 07/15/2015, 18 52 hours FINDINGS: Head CT without and with contrast: Stable, linear regions of blood produ cts are seen within the cerebellar hemispheres bilaterally, left more so right. These may be intraparenchymal, at least in part. Subarachnoid blood products could have a similar appear ance. There is no significant mass effect. No evidence of interval hemorrhage or hydrocephal us. No abnormal enhancement. Supratentorium is unremarkable. CT angiogram neck: Aortic arch and origins of the great vessels are patent. Brachiocephalic and both subclavian arteries are patent Both common carotid arteries, their bifurcations and both internal carotid arter ies are patent without evidence of stenosis Both vertebral arteries are patent throughout t he neck, they are codominant. No evidence of dissection CT angiogram brain: Vertebral jan riaz are codominant. Basilar artery and both posterior cerebral arteries are patent and unre markable. There is a patent posterior communicating artery on the left. Right posterior comm unicating artery is not seen Both internal carotid arteries, anterior and middle cerebral a rteries are patent and unremarkable. A definite anterior communicating artery is not seen N o abnormal vascularity is identified in the posterior fossa to explain the patient's hemorrh ages. Dural venous sinuses appear patent and unremarkable 07/16/[address] without with contrast: Stable appearance to blood products within the p osterior fossa bilaterally, no evidence of interval hemorrhage. No abnormal enhancement. 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 CT angiogram neck: No carotid or vertebral artery narrowing in the neck. No evidence of dissection. CT angiogram brain: No evidence of major vessel stenosis, occlus ion, aneurysm, dissection, thrombi or vascular malformation. No abnormal vascularity in the posterior fossa. Findings discussed with Dr. Hernandez by telephone at 0535 hours. Electron ically signed by Mohit Lopez MD on Jul 16 2015 5:45AM Referring Provider Line: [phone] 5SITE ID: [id number] X-ray Chest 2 View Frontal & Lateral 07/18/2015 SYED HOWE XR CHEST 2 VIEW FRONTAL AND LATERAL 07/18/2015 11:28 AM HISTORY: 24 years. Male. New cough TECHNIQUE: XR CHEST 2 VIEW FRONTAL AND LATERAL. 2 view(s) obta ined. COMPARISON: None. FINDINGS: Normal cardiac size. There is no widening of vascular pe dicles. There are diffuse interstitial opacities in both lungs. Diffuse bronchial wall thick ening with peribronchial cuffing. Mild thickening of lung fissures. No pleural effusion or p neumothorax. No focal airspace opacity. No acute fracture. Visualized portion of abdomen is unremarkable. 07/18/2015 1. Findings suggestive of pulmonary edema. Given history of subarachnoid hemorr dago, these findings may indicate neurogenic pulmonary edema. Differential considerations i nclude atypical infection such as viral pneumonia or interstitial lung disease. Electronica lly signed by Sarah Tovar on 07/18/2015 11:[address] Head Without Contrast 07/15/2015 This is a non-reportable procedure without a radiologist report and is used for image storage only X-ray Chest Ap Only 07/18/2015 SYED HOWE XR CHEST 1 VIEW HISTORY: 24 years. Male. Dialysis catheter plac ement. TECHNIQUE: Single portable anterior view of the chest was obtained. COMPARISON: 07/18 FINDINGS: The heart is normal in size. Right IJ central venous catheter tip located i n region of the superior vena cava. Diffuse interstitial opacities to likely represent inter stitial edema which is minimally progressed from the previous examination. No pneumothorax. No pleural effusion. 07/18/2015 1. No pneumothorax. 2. Mild worsening pulmonary edema. Ultrasound Kidneys And Bladder 07/17/2015 EXAM: RENAL ULTRASOUND EXAM DATE: 07/16/2015 10:40 PM. CLINICAL HISTORY: Acute r enal failure COMPARISON: None. TECHNIQUE: Real-time scanning was performed with static harris ges obtained. FINDINGS: Right Kidney: 10.5 x 6 x 5.8 cm. Volume 191.3 cc . Increased echog enicity diffusely. Mild amount of right perinephric fluid . No masses identified. No hydrone phrosis. Left Kidney: 10.8 x 6.9 x 5.9 cm. Volume 230.2 cc. No hydronephrosis. Increased ec hogenicity of the kidney diffusely. Bladder: Bilateral jets seen. The prevoid bladder volum e was 144 cc cc. The postvoid bladder volume was 0 cc. 07/17/2015 1. Increased echogenicity of both kidneys as can be seen with medical renal dis ease . Mild right perinephric fluid. No hydronephrosis. RADIA Electronically signed by Andres Hamm MD on Jul 17 2015 12:38AM Referring Provider Line: [phone] ID: [id number] Patient's old records and labs were reviewed in detail and summarized. PROBLEM LIST Principal Problem: Subarachnoid hemorrhage, nontraumatic (HCC) Active Problems: Rhabdomyolysis Seizure disorder (HCC) ABRAHAM (acute kidney injury) (HCC) Hypervolemia Acute pulmonary edema (HCC) ASSESSMENT & PLAN FLUID OVERLOAD/ pulmonary EDEMA Improved with hd with uf, no need for hd/uf any more Will remove hd catheter today Improving urine out put LOW NA DIET 2GM/ 24 HOURS FLUID RESTRICTION 1.2 LITERS / 24 HOURS DAILY WEIGHTS STRICT I/O ABRAHAM Improving renal fucntion Likely in the setting of acute rhabdomyolysis/ ATN We will watch renal function closely as patient got CT head with IV contrast 07/16/15 Ruled out HYDRONEPHROSIS per us renal reviewed Serological w/u neg except low c3 S/p hd x 3 treatments Will remove hd catheter today Improving urine out put NO ROBERTO CARLOS-I/ ARBS Urine studies reviewed Strict I & O, Daily weights Daily RFP Renal diet AVOID NSAIDS/ BRITTON-2 INHIBITORS AVOID NEPHROTOXIC MEDS INCLUDING AMINOGLYCOSIDES/ IV CONTRAST Assess daily for need for hd Lab Results Component Value Date BUN 20 07/21/2015 BUN 24 07/20/2015 BUN 29* 07/19/2015 BUN 30* 07/18/2015 BUN 49* 07/18/2015 CREATININE 1.40* 07/21/2015 CREATININE 2.19* 07/20/2015 CREATININE 3.24* 07/19/2015 CREATININE 3.4* 07/18/2015 CREATININE 4.95* 07/18/2015 Acute rhabdomyolysis improving likely in this setting of acute seizure follow serial CPKs closely Acidosis resolved Likely the setting of worsening renal failure Lab Results Component Value Date CO2 25 07/21/2015 CO2 28 07/20/2015 CO2 29 07/19/2015 Hyponatremia Likely in the setting of renal failure Watch closely for now Lab Results Component Value Date NA 134* 07/21/2015 NA 134* 07/20/2015 NA 134* 07/19/2015 SEIZURE controlled per neurology and hospitalist CASE DISCUSSED IN DETAIL WITH PATIENT/ HOSPITALIST, ANSWERS ALL QUESTIONS IN DETAIL, VERBAL IZES UNDERSTANDING JOSUÉ LIMA MD 07/21/2015 TAL DIAS onversion Transa ction, Provider Unknown - 07/20/2015 5:05 PM PST Progress Notes by Laura Echols RN at 07/20/151704 Author: Laura Echols RN Service: (none) Author Type: Registered Nurse Filed: 07/20/151704 Date of Service: 07/20/151704 Status: Signed Gusset Ripper: Laura Echols RN (Registered Nurse) Vitals stable and patient denied pain. No changes from this morning's assessment. Laura Echols RN onver gina Transaction, Provider Unknown - 07/20/2015 12:41 PM PST Progress Notes by Laura Echols RN at 07/20/15 1241 Author: Laura Echols RN Service: (none) Author Type: Registered Nurse Filed: 07/20/15 1242 Date of Service: 07/20/15 1241 Status: Signed Gusset Ripper: Laura Echols RN (Registered Nurse) Patient had dialysis today tolerated well. 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 Will recheck potassium before replacing per protocol. Will continue to monitor. Te Echols RN Nia Lovelace MD - 07/20/2015 12:28 PM PSTFormatting of this note might be different from t he original. Progress Notes by Nia Carter MD at 07/20/15 1228 Author: Nia Carter MD Service: (none) Author Type: Physician Filed: 07/20/15 1450 Date of Service: 07/20/15 1228 Status: Signed Gusset Ripper: Nia Carter MD (Physician) [facility] Service: Hospitalist Progress Note Hospital Day: LOS: 5 days SUBJECTIVE Patient Summary: 24-year-old male with history of seizure disorder admitted to the in tensive care unit with the seizure and subarachnoid hemorrhage. Neurosurgery and neurology were consulted. Nephrology consulted for acute renal failure injury to rhabdomyolysis. He has been initiated on hemodialysis. Events Overnight: Patient denies shortness of breath. He states that he feels well. Scheduled Medications heparin (porcine) Intracatheter Daily ipratropium-albuterol 3 mL Nebulization Q6H levETIRAcetam 750 mg Intravenous Q12H Continuous Infusions PRN Medications acetaminophen OR acetaminophen, diphenhydrAMINE, labetalol, LORazepam, magnesium sulfat e OR magnesium sulfate OR magnesium sulfate, ondansetron OR ondansetron, [DISCON TINUED] potassium OR [DISCONTINUED] potassium OR [DISCONTINUED] potassium OR pot assium chloride OR potassium chloride OR potassium chloride, prochlorperazine, prome thazine, sodium chloride 0.9 % OBJECTIVE Vital Signs: BP 154/103 mmHg | Pulse 84 | Temp(Src) 98.1 F (36.7 C) (Axillary) | Resp 18 | Ht 1.753 m (5' 9") | Wt 69.4 kg (153 lb) | BMI 22.58 kg/m2 | SpO2 96% Patient Vitals for the past 24 hrs: BP Temp Temp src Pulse Resp SpO2 Weight 07/20/15 1200 (!) 154/103 mmHg 98.1 F (36.7 C) Axillary 84 18 96 % - 07/20/15 1152 (!) 137/99 mmHg - - - - - 69.4 kg (153 lb) 07/20/15 1145 (!) 132/95 mmHg - - - - - - 07/20/15 1130 143/89 mmHg - - - - - - 07/20/15 1115 (!) 139/102 mmHg - - - - 97 % - 07/20/15 1100 (!) 154/103 mmHg - - - - - - 07/20/15 1045 (!) 153/98 mmHg - - - - 96 % - 07/20/15 1030 (!) 140/91 mmHg - - - - - - 07/20/15 1015 (!) 149/107 mmHg - - - - - - 07/20/15 1000 149/88 mmHg - - - - - - 07/20/15 0945 (!) 143/95 mmHg - - - - - - 07/20/15 0930 (!) 146/95 mmHg - - - - - - 07/20/15 0915 (!) 143/93 mmHg - - - - - - 07/20/15 0900 (!) 147/94 mmHg - - - - - - 07/20/15 0845 (!) 155/107 mmHg - - - - - - 07/20/15 0830 (!) 150/104 mmHg - - - - - - 07/20/15 0822 (!) 155/106 mmHg - - - - - - 07/20/15 0800 (!) 146/101 mmHg 98.8 F (37.1 C) Oral 101 18 94 % 72.7 kg (160 lb 4.4 oz) 07/20/15 0727 - - - 90 16 93 % - 07/20/15 0721 - - - 90 16 97 % - 07/20/15 0348 (!) 146/101 mmHg 99.4 F (37.4 C) Oral 92 16 96 % 72.2 kg (159 lb 2.8 oz) 07/20/15 0103 - - - 88 16 - - 07/20/15 0055 - - - 88 16 93 % - 07/19/15 2342 (!) 145/97 mmHg 99.5 F (37.5 C) Oral 87 18 94 % - 07/19/15 194 - - - 94 18 - - 07/19/15 1938 (!) 152/115 mmHg 98.9 F (37.2 C) Oral 92 22 97 % - 07/19/15 1930 - - - 94 18 - - 07/19/15 1641 (!) 143/108 mmHg 98.2 F (36.8 C) Oral 93 19 95 % - 07/19/15 1340 - - - 96 20 99 % - 07/19/15 1335 (!) 150/109 mmHg 98.1 F (36.7 C) Oral 86 19 - - 07/19/15 1330 (!) 147/102 mmHg - - - - - 74 kg (163 lb 2.3 oz) 07/19/15 1329 - - - 77 20 97 % - 07/19/15 1315 130/88 mmHg - - - - - - 07/19/15 1300 148/89 mmHg - - - - - - 07/19/15 1245 (!) 138/98 mmHg - - - - - - 07/19/15 1230 (!) 138/100 mmHg - - - - - - Intake/Output Summary (Last 24 hours) at 07/20/15 1228 Last data filed at 07/20/15 1152 Gross per 24 hour Intake 5220 ml Output 63596 ml Net -5755 ml Physical Exam: Constitutional: Alert and oriented to person, place, and time. Appears well-developed and w ell-nourished. HEENT: Neck supple, no JVD, non icteric sclera. Cardiovascular: Normal rate, regular rhythm, normal heart sounds with S1 and S2, Exam re veals no gallop and no friction rub. No murmur heard. No S3, No S4 Pulmonary/Chest: Effort normal and bibasilar Rales present. Abdominal: Soft. Bowel sounds are normal. exhibits no distension and no mass. There is no t enderness. There is no rebound and no guarding. Extremeties/Musculoskeletal: Normal range of motion. exhibits no edema. Neurological: Alert and oriented to person, place, and time. Skin: Skin is warm and dry. Psychiatric: Has a normal mood and affect. DATA Recent Labs Lab 07/20/15 05007/19/1542107/18/15 0405 WBC 10.20 14.43* 12.90* RBC 3.83* 3.88* 3.86* HGB 11.9* 12.2* 11.9* HCT 35.6* 35.3* 34.6* MCV 92.9 91.1 89.6 MCH 31.2 31.3 30.9 MCHC 33.6 34.4 34.5 RDW 39.8 39.4 38.5 PLT 167 146* 155 MPV 9.3 9.5 9.3 DIFFTYPE MANUAL AUTOMATED AUTOMATED Recent Labs Lab 07/20/15 05007/19/1542107/18/15 2312 NA 134* 134* 135 K 3.3* 3.2* 2.9* CL 98* 95* 94* CO2 28 29 31 BUN 24 29* 30* CREATININE 2.19* 3.24* 3.4* GLUF 102* 109* 103* Recent Labs Lab 07/17/15 0823 07/16/15 2350 07/16/15 1547 CKTOTAL 3420* 4365* 5606* Recent Labs Lab 07/20/15 0508 07/19/15 0422 07/18/15 0405 PHOS 2.9 3.3 3.6 Recent Labs Lab 07/20/15 05007/19/15 0422 07/18/15 0405 MG 2.1 2.1 2.5* Invalid input(s): ABG PROBLEM LIST Principal Problem: Subarachnoid hemorrhage, nontraumatic (HCC) Active Problems: Rhabdomyolysis Seizure disorder (HCC) ABRAHAM (acute kidney injury) (HCC) Hypervolemia Acute pulmonary edema (HCC) ASSESSMENT & PLAN Cerebellar hemorrhage on CT scan. No surgical intervention needed at this time. Seizure disorder. Will continue Keppra. Acute renal failure secondary to rhabdomyolysis. Patient initiated on hemodialysis. Manag ement per nephrology Leukocytosis. Resolved. Hypokalemia. Will replenish Acute pulmonary edema leading to acute hypoxic respiratory failure resolved. DVT prophylaxis will use only mechanical agents Hypertension. We will monitor. Will start patient on Norvasc. The plan has explained in detail to the patient , all questions were answered.All data was reviewed. Disposition: Inpatient Code Status: Full Code Nia Carter MD 07/20/2015 12:28 PM This entry has been created using [employer] Speech Recognition software and [employer]. The entry has been reviewed and there may still exist sound alike word errors. Josué Bauer ed, MD - 07/20/2015 9:57 AM PST . Progress Notes by Josué Lima MD at 07/20/15956 Author: Josué Lima MD Service: Nephrology Author Type: Physician Filed: 07/27/152009 Date of Service: 07/20/15956 Status: Signed Gusset Ripper: Josué Lima MD (Physician) [facility] Service: NEPHROLOGY Dialysis Note Syed Ingram Jaspreetfranciscorajat 24 y.o. [phone]/[id number] male TAL Vinod [facility] Day: LOS: 5 days 24-year-old male with past medical history significant for seizure disorder diagnosed about 2 years ago admitted with Seizure/ ABRAHAM/ ACUTE RHABDOMYOLYSIS. Nephrology consulted for evaluation and management of ABRAHAM Lab Results Component Value Date BUN 24 07/20/2015 BUN 29* 07/19/2015 BUN 30* 07/18/2015 BUN 49* 07/18/2015 BUN 45* 07/17/2015 CREATININE 2.19* 07/20/2015 CREATININE 3.24* 07/19/2015 CREATININE 3.4* 07/18/2015 CREATININE 4.95* 07/18/2015 CREATININE 4.47* 07/17/2015 ONSET ACUTE severity SEVERE Associated with fluid electrolyte acid base imbalances RF: ACUTE RHABDOMYOLYSIS Watch renal function closely as patient got CT angiogram today on July 16, 2015 Seen and examined on hd tolerating hd/ uf well Access functioning well HD FLOW SHEET REVIEWED Says feel weak, improved sob after uf with hd yesterday Improving urine output Denies cp, nausea, vomiting, diarrhea, fever, headache, rash No past medical history on file. No past surgical history on file. Prescriptions prior to admission Medication Sig Dispense Refill Last Dose levETIRAcetam (KEPPRA) 500 MG tablet Take 500 mg by mouth 2 (two) times daily. Indicati ons: Prevention of Seizures After Bleed in Brain Unknown at Unknown time No Known Allergies Family History Problem Relation Age of Onset Other (see comments) Mother cerebral bleed Alcohol abuse Mother Kidney disease Neg Hx History Social History Marital Status: Unknown Spouse Name: N/A Number of Children: N/A Years of Education: N/A Occupational History Not on file. 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 Single No kids Scheduled Medications docusate sodium 100 mg Oral BID Or docusate 100 mg Per OG Tube BID heparin (porcine) Intracatheter Daily ipratropium-albuterol 3 mL Nebulization Q6H levETIRAcetam 750 mg Intravenous Q12H Continuous Infusions PRN Medications acetaminophen OR acetaminophen, diphenhydrAMINE, labetalol, LORazepam, magnesium sulfat e OR magnesium sulfate OR magnesium sulfate, ondansetron OR ondansetron, [DISCON TINUED] potassium OR [DISCONTINUED] potassium OR [DISCONTINUED] potassium OR pot assium chloride OR potassium chloride OR potassium chloride, prochlorperazine, prome thazine, sodium chloride 0.9 % Allergy: No Known Allergies OBJECTIVE Vital Signs: BP 146/95 mmHg | Pulse 101 | Temp(Src) 98.8 F (37.1 C) (Oral) | Resp 18 | Ht 1.753 m (5 ' 9") | Wt 72.7 kg (160 lb 4.4 oz) | BMI 23.66 kg/m2 | SpO2 94% I&O Detailed Table: I/O last 3 completed shifts: In: 5200 [P.O.:2600; Other:2600] Out: 20026 [Urine:3575; Other:8100] Weight change: -0.7 kg (-1 lb 8.7 oz) Examination: SEEN ON HD WITH HD RN APPEARANCE: The patient is lying in no apparent distress on fm o2. VITALS: Reviewed as listed. HEAD: NC/AT. EYES: Non-icteric sclera. ENT: No gross ear or nasal problems noted. NECK: Supple. No raised JVD LUNGS: Bibasilar rales on auscultation bilaterally. HEART: S1, S2, no pericardial rub noted. ABDOMEN: Full, soft, no tenderness. Bowel sounds are present. EXTREMITIES: +ve trace pedal edema noted. SKIN: Warm to touch. No rash or ecchymosis noted. NEUROLOGIC: No gross focal motor deficit noted. PSYCH: The patient is alert and oriented x 3, mood and affect looks ok BACK: no CVA tenderness noted R IJ NON TUNNELED CATHETER FUNCTIONING WELL LABS: Recent Results (from the past 24 hour(s)) Basic metabolic panel Collection Time: 07/20/15 5:08 AM Result Value Ref Range SODIUM 134 (L) 135 - 143 mmol/L POTASSIUM 3.3 (L) 3.5 - 4.9 mmol/L CHLORIDE 98 (L) 99 - 109 mmol/L CO2 28 23 - 32 mmol/L ANION GAP AGAP 11 5 - 20 mmol/L GLUCOSE 102 (H) 65 - 99 mg/dL BUN 24 8 - 25 mg/dL CREATININE 2.19 (H) 0.70 - 1.30 mg/dL BUN/CREAT 11 CALCIUM 8.6 8.5 - 10.5 mg/dL EGFR 40 (L) >60 mL/min/1.73m2 CBC w/auto diff (reflex to manual) Collection Time: 07/20/15 5:08 AM Result Value Ref Range WBC 10.20 3.80 - 11.00 K/uL RBC 3.83 (L) 4.20 - 5.70 M/uL HGB 11.9 (L) 13.2 - 17.0 g/dL HCT 35.6 (L) 39.0 - 50.0 % MCV 92.9 80.0 - 100.0 fl MCH 31.2 27.0 - 34.0 pg MCHC 33.6 32.0 - 35.5 g/dL RDW SD 39.8 37 - 53 fl PLT 167 150 - 400 K/uL MPV 9.3 fl DIFF TYPE MANUAL Neutrophils Manual 66 % Lymphocytes Manual 20 % Monocytes Manual 13 % Eosinophils Manual 1 % Neutrophils Absolute 6.73 1.90 - 7.40 K/uL Lymphocytes Absolute 2.04 1.00 - 3.90 K/uL Monocytes Absolute 1.33 (H) 0.00 - 0.80 K/uL Eosinophils Absolute 0.10 0.00 - 0.50 K/uL MORPHOLOGY RBC AND PLT MORPHOLOGY APPEAR NORMAL Magnesium Collection Time: 07/20/15 5:08 AM Result Value Ref Range MAGNESIUM 2.1 1.7 - 2.4 mg/dL Phosphorus Collection Time: 07/20/15 5:08 AM Result Value Ref Range PHOSPHORUS 2.9 2.3 - 4.8 mg/dL IMAGING: Cta Head Neck 07/16/2015 CT angiogram head and neck without and with contrast. INDICATION: Posterior fos sa hemorrhage. Seizure. Technique: Head CT without contrast. CT angiogram from the vertex t o the aortic arch after 100 cc Isovue-300 IV. 3-D MIP reconstructions. NASCET criteria used for stenosis measurements. Head CT after contrast. COMPARISON: Outside study 07/15/2015, 18 52 hours FINDINGS: Head CT without and with contrast: Stable, linear regions of blood produ cts are seen within the cerebellar hemispheres bilaterally, left more so right. These may be intraparenchymal, at least in part. Subarachnoid blood products could have a similar appear ance. There is no significant mass effect. No evidence of interval hemorrhage or hydrocephal us. No abnormal enhancement. Supratentorium is unremarkable. CT angiogram neck: Aortic arch and origins of the great vessels are patent. Brachiocephalic and both subclavian arteries are patent Both common carotid arteries, their bifurcations and both internal carotid arter ies are patent without evidence of stenosis Both vertebral arteries are patent throughout t he neck, they are codominant. No evidence of dissection CT angiogram brain: Vertebral jan riaz are codominant. Basilar artery and both posterior cerebral arteries are patent and unre markable. There is a patent posterior communicating artery on the left. Right posterior comm unicating artery is not seen Both internal carotid arteries, anterior and middle cerebral a rteries are patent and unremarkable. A definite anterior communicating artery is not seen N o abnormal vascularity is identified in the posterior fossa to explain the patient's hemorrh ages. Dural venous sinuses appear patent and unremarkable 07/16/[address] without with contrast: Stable appearance to blood products within the p osterior fossa bilaterally, no evidence of interval hemorrhage. No abnormal enhancement. 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 CT angiogram neck: No carotid or vertebral artery narrowing in the neck. No evidence of dissection. CT angiogram brain: No evidence of major vessel stenosis, occlus ion, aneurysm, dissection, thrombi or vascular malformation. No abnormal vascularity in the posterior fossa. Findings discussed with Dr. Hernandez by telephone at 0535 hours. Electron ically signed by Mohit Lopez MD on Jul 16 2015 5:45AM Referring Provider Line: [phone] 5SITE ID: [id number] X-ray Chest 2 View Frontal & Lateral 07/18/2015 SYED T ROTELLO XR CHEST 2 VIEW FRONTAL AND LATERAL 07/18/2015 11:28 AM HISTORY: 24 years. Male. New cough TECHNIQUE: XR CHEST 2 VIEW FRONTAL AND LATERAL. 2 view(s) obta ined. COMPARISON: None. FINDINGS: Normal cardiac size. There is no widening of vascular pe dicles. There are diffuse interstitial opacities in both lungs. Diffuse bronchial wall thick ening with peribronchial cuffing. Mild thickening of lung fissures. No pleural effusion or p neumothorax. No focal airspace opacity. No acute fracture. Visualized portion of abdomen is unremarkable. 07/18/2015 1. Findings suggestive of pulmonary edema. Given history of subarachnoid hemorr dago, these findings may indicate neurogenic pulmonary edema. Differential considerations i nclude atypical infection such as viral pneumonia or interstitial lung disease. Electronica lly signed by Sarah Tovar on 07/18/2015 11:[address] Head Without Contrast 07/15/2015 This is a non-reportable procedure without a radiologist report and is used for image storage only X-ray Chest Ap Only 07/18/2015 SYED T ROTELLO XR CHEST 1 VIEW HISTORY: 24 years. Male. Dialysis catheter plac ement. TECHNIQUE: Single portable anterior view of the chest was obtained. COMPARISON: 07/18 FINDINGS: The heart is normal in size. Right IJ central venous catheter tip located i n region of the superior vena cava. Diffuse interstitial opacities to likely represent inter stitial edema which is minimally progressed from the previous examination. No pneumothorax. No pleural effusion. 07/18/2015 1. No pneumothorax. 2. Mild worsening pulmonary edema. Ultrasound Kidneys And Bladder 07/17/2015 EXAM: RENAL ULTRASOUND EXAM DATE: 07/16/2015 10:40 PM. CLINICAL HISTORY: Acute r enal failure COMPARISON: None. TECHNIQUE: Real-time scanning was performed with static harris ges obtained. FINDINGS: Right Kidney: 10.5 x 6 x 5.8 cm. Volume 191.3 cc . Increased echog enicity diffusely. Mild amount of right perinephric fluid . No masses identified. No hydrone phrosis. Left Kidney: 10.8 x 6.9 x 5.9 cm. Volume 230.2 cc. No hydronephrosis. Increased ec hogenicity of the kidney diffusely. Bladder: Bilateral jets seen. The prevoid bladder volum e was 144 cc cc. The postvoid bladder volume was 0 cc. 07/17/2015 1. Increased echogenicity of both kidneys as can be seen with medical renal dis ease . Mild right perinephric fluid. No hydronephrosis. RADIA Electronically signed by Andres Hamm MD on Jul 17 2015 12:38AM Referring Provider Line: [phone] ID: [id number] Patient's old records and labs were reviewed in detail and summarized. PROBLEM LIST Principal Problem: Subarachnoid hemorrhage, nontraumatic (HCC) Active Problems: Rhabdomyolysis Seizure disorder (HCC) ABRAHAM (acute kidney injury) (HCC) Hypervolemia Acute pulmonary edema (HCC) ASSESSMENT & PLAN FLUID OVERLOAD/ pulmonary EDEMA Getting hd with uf Seen and examined on hd tolerating hd/ uf well Access functioning well HD FLOW SHEET REVIEWED LOW NA DIET 2GM/ 24 HOURS FLUID RESTRICTION 1.2 LITERS / 24 HOURS DAILY WEIGHTS STRICT I/O ABRAHAM Worsening got fluid overload Getting daily hd with uf Improving urine output Likely in the setting of acute rhabdomyolysis/ ATN We will watch renal function closely as patient got CT head with IV contrast 07/16/15 Ruled out HYDRONEPHROSIS per us renal reviewed Serological w/u neg except low c3 STOP IV FLUIDS NO ROBERTO CARLOS-I/ ARBS Urine studies reviewed Strict I & O, Daily weights Daily RFP Renal diet AVOID NSAIDS/ BRITTON-2 INHIBITORS AVOID NEPHROTOXIC MEDS INCLUDING AMINOGLYCOSIDES/ IV CONTRAST Assess daily for need for hd Dose all meds for crcl less than 15 mls/min Lab Results Component Value Date BUN 24 07/20/2015 BUN 29* 07/19/2015 BUN 30* 07/18/2015 BUN 49* 07/18/2015 BUN 45* 07/17/2015 CREATININE 2.19* 07/20/2015 CREATININE 3.24* 07/19/2015 CREATININE 3.4* 07/18/2015 CREATININE 4.95* 07/18/2015 CREATININE 4.47* 07/17/2015 Acute rhabdomyolysis improved likely in this setting of acute seizure follow serial CPKs closely Acidosis resolved Likely the setting of worsening renal failure On hd Lab Results Component Value Date CO2 28 07/20/2015 CO2 29 07/19/2015 CO2 31 07/18/2015 Hyponatremia Likely in the setting of renal failure Watch closely for now Lab Results Component Value Date NA 134* 07/20/2015 NA 134* 07/19/2015 NA 135 07/18/2015 SEIZURE per neurology and hospitalist CASE DISCUSSED IN DETAIL WITH PATIENT/ HOSPITALIST, ANSWERS ALL QUESTIONS IN DETAIL, VERBAL IZES UNDERSTANDING JOSUÉ LIMA MD 07/20/2015 TAL DIAS onversion Transa ction, Provider Unknown - 07/20/2015 6:52 AM PST Nurse Progress Note by Pam Villar RN at 07/20/1552 Author: Pam Villar RN Service: (none) Author Type: Registered Nurse Filed: 07/20/15 0657 Date of Service: 07/20/15651 Status: Signed Gusset Ripper: Pam Villar RN (Registered Nurse) Patient remains hypertensive SBP in 140s DBP 90-100. Tmax 99.5F. Patient weaned down on o xygen demands and maintaining O2 sats >92% on 8L Oxymask. New IV placed in R forearm. Anamika ent is to receive third round of dialysis today. Will continue to monitor. Pam Villar RN onver gina Transaction, Provider Unknown - 07/19/2015 6:51 PM PST Progress Notes by Rosie Santos RN at 07/19/151850 Author: Rosie Santos RN Service: (none) Author Type: Registered Nurse Filed: 07/19/151852 Date of Service: 07/19/151850 Status: Signed Gusset Ripper: Rosie Santos RN (Registered Nurse) Pt received HD again today, 3 L removed. Pt continues to require 10L oxygen via oxy mask. P t SBP remains elevated 140-150. Pt reports feeling significantly better than day before. No seizures, Neuros WNL. No other acute changes from previous assessment. Will continue to mon itor.ROSIE SANTOS RN onver gina Transaction, Provider Unknown - 07/19/2015 3:53 PM PST Case Management by Leila Roy RN at 07/19/15 4352 Author: Leila Roy RN Service: (none) Author Type: Registered Nurse Filed: 07/19/15 1601 Date of Service: 07/19/15 1553 Status: Signed Gusset Ripper: Leila Roy RN (Registered Nurse) Spoke with patient about discharge plans. He will discharge to home in [place] where he lives and patient's Mother will provide transportation. Patient's Father, Rebel will provi de airline ticket to [place] where Rebel lives and works with hemodialysis patients. Yessenia Friend PT - 07/19/2015 2:05 PM PSTFormatting of this note might be different from th e original. Therapy Progress Note by Yessenia Apple PT at 07/19/15 3077 Author: Yessenia L Wells, PT Service: (none) Author Type: Physical Therapist Filed: 07/19/15 1415 Date of Service: 07/19/15 1405 Status: Signed Gusset Ripper: Yessenia Apple PT (Physical Therapist) 07/19/15 1405 PT Last Visit PT Received On 07/19/15 Reason for Treatment Stroke Requires PT Follow Up On hold Other Comments Comments PT went into see patient he was in agreement, but then B/P too high 154/111 and HR 125- spoke with Rosie CASTAÑEDA Nia Perez MD - 07/19/2015 11:22 AM PST . Progress Notes by Nia Carter MD at 07/19/15 1122 Author: Nia Carter MD Service: (none) Author Type: Physician Filed: 07/19/15 1537 Date of Service: 07/19/15 1122 Status: Signed Gusset Ripper: Nia Carter MD (Physician) [facility] Service: Hospitalist Progress Note Hospital Day: LOS: 4 days SUBJECTIVE Patient Summary: 24-year-old male with history of seizure disorder admitted to the in tensive care unit with the seizure and subarachnoid hemorrhage. Neurosurgery and neurology were consulted. Nephrology consulted for acute renal failure injury to rhabdomyolysis. He has been initiated on hemodialysis. Events Overnight: Patient states that he feels much better today. He denies shortnes s of breath. He states he was able to eat. Denies any cough. Scheduled Medications docusate sodium 100 mg Oral BID Or docusate 100 mg Per OG Tube BID heparin (porcine) Intracatheter Daily ipratropium-albuterol 3 mL Nebulization Q6H levETIRAcetam 750 mg Intravenous Q12H Continuous Infusions PRN Medications acetaminophen OR acetaminophen, diphenhydrAMINE, labetalol, LORazepam, magnesium sulfat e OR magnesium sulfate OR magnesium sulfate, ondansetron OR ondansetron, [DISCON TINUED] potassium OR [DISCONTINUED] potassium OR [DISCONTINUED] potassium OR pot assium chloride OR potassium chloride OR potassium chloride, prochlorperazine, prome thazine, sodium chloride 0.9 % OBJECTIVE Vital Signs: BP 149/104 mmHg | Pulse 89 | Temp(Src) 98.1 F (36.7 C) (Oral) | Resp 18 | Ht 1.753 m (5 ' 9") | Wt 77.5 kg (170 lb 13.7 oz) | BMI 25.22 kg/m2 | SpO2 97% Patient Vitals for the past 24 hrs: BP Temp Temp src Pulse Resp SpO2 Weight 07/19/15 1115 (!) 149/104 mmHg - - - - - - 07/19/15 1100 (!) 153/108 mmHg - - - - - - 07/19/15 1045 (!) 165/111 mmHg - - - - - - 07/19/15 1030 (!) 131/98 mmHg - - - - - - 07/19/15 1020 (!) 146/113 mmHg 98.1 F (36.7 C) Oral 89 18 - 77.5 kg (170 lb 13.7 oz) 07/19/15 0813 131/85 mmHg 98.3 F (36.8 C) Oral 89 17 97 % - 07/19/15 0716 - - - 82 18 97 % - 07/19/15 0500 - - - - - 94 % - 07/19/15 0337 147/87 mmHg 98.6 F (37 C) Oral 86 22 90 % - 07/19/15 0050 (!) 153/96 mmHg 99.5 F (37.5 C) Oral 84 22 97 % - 07/19/15 0045 (!) 147/99 mmHg - - - - - 77.5 kg (170 lb 13.7 oz) 07/19/15 0030 (!) 146/96 mmHg - - - - - - 07/19/15 0015 (!) 147/95 mmHg - - - - - - 07/19/15 0000 (!) 147/96 mmHg - - - - - - 07/18/15 2349 - - - - - 95 % - 07/18/15 2345 144/90 mmHg - - - - - - 07/18/15 2330 (!) 146/99 mmHg - - - - - - 07/18/15 2315 (!) 146/100 mmHg - - - - - - 07/18/15 2300 (!) 145/95 mmHg - - - - - - 07/18/15 2245 (!) 152/102 mmHg - - - - - - 07/18/15 2230 (!) 150/105 mmHg - - - - - - 07/18/15 2215 (!) 158/112 mmHg - - - - - - 07/18/15 2201 (!) 153/110 mmHg - - - - - - 07/18/15 2130 (!) 160/110 mmHg 98.6 F (37 C) Axillary 89 18 - 78.2 kg (172 lb 6.4 oz) 07/18/152015 - - - 80 28 98 % - 07/18/15 1636 (!) 165/115 mmHg 99.6 F (37.6 C) Oral 90 - 97 % - 07/18/15 1544 (!) 160/107 mmHg 99.4 F (37.4 C) Oral 98 22 91 % - 07/18/15 1253 177/83 mmHg 98.6 F (37 C) Oral 74 (!) 32 95 % - Intake/Output Summary (Last 24 hours) at 07/19/15 1134 Last data filed at 07/19/15 0553 Gross per 24 hour Intake 4267.81 ml Output 7075 ml Net -2807.19 ml Physical Exam: Constitutional: Alert and oriented to person, place, and time. Appears well-developed and w ell-nourished. HEENT: Neck supple, no JVD, non icteric sclera. Cardiovascular: Normal rate, regular rhythm, normal heart sounds with S1 and S2, Exam re veals no gallop and no friction rub. No murmur heard. No S3, No S4 Pulmonary/Chest: Effort normal and bibasilar Rales present. Abdominal: Soft. Bowel sounds are normal. exhibits no distension and no mass. There is no t enderness. There is no rebound and no guarding. Extremeties/Musculoskeletal: Normal range of motion. exhibits no edema. Neurological: Alert and oriented to person, place, and time. Skin: Skin is warm and dry. Psychiatric: Has a normal mood and affect. DATA Recent Labs Lab 07/19/15 0422 07/18/15 0405 07/17/15 0433 WBC 14.43* 12.90* 11.77* RBC 3.88* 3.86* 4.11* HGB 12.2* 11.9* 12.8* HCT 35.3* 34.6* 38.1* MCV 91.1 89.6 92.6 MCH 31.3 30.9 31.1 MCHC 34.4 34.5 33.6 RDW 39.4 38.5 40.3 PLT 146* 155 163 MPV 9.5 9.3 9.3 DIFFTYPE AUTOMATED AUTOMATED AUTOMATED Recent Labs Lab 07/19/15 0422 07/18/15 2312 07/18/15 1342 07/18/15 0405 NA 134* 135 -- 133* K 3.2* 2.9* 3.0* 3.0* CL 95* 94* -- 92* CO2 29 31 -- 32 BUN 29* 30* -- 49* CREATININE 3.24* 3.4* -- 4.95* GLUF 109* 103* -- 143* Recent Labs Lab 07/17/15 0823 07/16/15 2350 07/16/15 1547 CKTOTAL 3420* 4365* 5606* Recent Labs Lab 07/19/15 0422 07/18/15 0405 07/17/15 0433 PHOS 3.3 3.6 6.2* Recent Labs Lab 07/19/15 0422 07/18/15 0405 07/17/15 0433 MG 2.1 2.5* 2.9* Invalid input(s): ABG Cta Head Neck 07/16/[address] without with contrast: Stable appearance to blood products within the p osterior fossa bilaterally, no evidence of interval hemorrhage. No abnormal enhancement. 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 CT angiogram neck: No carotid or vertebral artery narrowing in the neck. No evidence of dissection. CT angiogram brain: No evidence of major vessel stenosis, occlus ion, aneurysm, dissection, thrombi or vascular malformation. No abnormal vascularity in the posterior fossa. Findings discussed with Dr. Hernandez by telephone at 0535 hours. Electron ically signed by Mohit Lopez MD on Jul 16 2015 5:45AM Referring Provider Line: [phone] 5SITE ID: [id number] X-ray Chest 2 View Frontal & Lateral 07/18/2015 1. Findings suggestive of pulmonary edema. Given history of subarachnoid hemorr dago, these findings may indicate neurogenic pulmonary edema. Differential considerations i nclude atypical infection such as viral pneumonia or interstitial lung disease. Electronica lly signed by Sarah Tovar on 07/18/2015 11:42 AM Ultrasound Kidneys And Bladder 07/17/2015 1. Increased echogenicity of both kidneys as can be seen with medical renal dis ease . Mild right perinephric fluid. No hydronephrosis. RADIA Electronically signed by Andres Hamm MD on Jul 17 2015 12:38AM Referring Provider Line: [phone] ID: [id number] PROBLEM LIST Principal Problem: Subarachnoid hemorrhage, nontraumatic (HCC) Active Problems: Rhabdomyolysis Seizure disorder (HCC) ABRAHAM (acute kidney injury) (HCC) ASSESSMENT & PLAN Cerebellar hemorrhage on CT scan. No surgical intervention needed at this time. Seizure disorder. Will continue Keppra. EEG shows diffuse slowing. Acute renal failure secondary to rhabdomyolysis. Patient initiated on hemodialysis. Manag ement per nephrology Leukocytosis. We will monitor. Pro-calcitonin level is low. He remains afebrile chest x- ray shows no pneumonia . Possibly reactive. Hypokalemia. Will replenish Acute pulmonary edema leading to acute hypoxic respiratory failure improving. We will try to wean down oxygen. DVT prophylaxis will use only mechanical agents Hypertension. We will monitor. The plan has explained in detail to the patient and his mother, all questions were answered .All data was reviewed. Disposition: Inpatient Code Status: Full Code Nia Carter MD 07/19/2015 11:34 AM This entry has been created using [employer] Speech Recognition software and [employer]. The entry has been reviewed and there may still exist sound alike word errors. Josué Bauer ed, MD - 07/19/2015 9:22 AM PST . Progress Notes by Josué Lima MD at 07/19/15 2028 Author: Josué Lima MD Service: Nephrology Author Type: Physician Filed: 07/19/15 1205 Date of Service: 07/19/15921 Status: Addendum Gusset Ripper: Josué Lima MD (Physician) Related Notes: Original Note by Josué Lima MD (Physician) filed at 07/19/15 1204 [facility] Service: NEPHROLOGY Dialysis Note Syed Howe 24 y.o. [id number]/[id number] male TAL [facility] Day: LOS: 4 days 24-year-old male with past medical history significant for seizure disorder diagnosed about 2 years ago admitted with Seizure/ ABRAHAM/ ACUTE RHABDOMYOLYSIS. Nephrology consulted for evaluation and management of ABRAHAM Lab Results Component Value Date BUN 29* 07/19/2015 BUN 30* 07/18/2015 BUN 49* 07/18/2015 BUN 45* 07/17/2015 BUN 37* 07/16/2015 CREATININE 3.24* 07/19/2015 CREATININE 3.4* 07/18/2015 CREATININE 4.95* 07/18/2015 CREATININE 4.47* 07/17/2015 CREATININE 3.91* 07/16/2015 ONSET ACUTE severity SEVERE Associated with fluid electrolyte acid base imbalances RF: ACUTE RHABDOMYOLYSIS Watch renal function closely as patient got CT angiogram today on July 16, 2015 Seen and examined on hd tolerating hd/ uf well Access functioning well HD FLOW SHEET REVIEWED Says feel weak, improved sob after uf with hd last night Improving urine output Denies cp, nausea, vomiting, diarrhea, fever, headache, rash No past medical history on file. No past surgical history on file. Prescriptions prior to admission Medication Sig Dispense Refill Last Dose levETIRAcetam (KEPPRA) 500 MG tablet Take 500 mg by mouth 2 (two) times daily. Indicati ons: Prevention of Seizures After Bleed in Brain Unknown at Unknown time No Known Allergies Family History Problem Relation Age of Onset Other (see comments) Mother cerebral bleed Alcohol abuse Mother Kidney disease Neg Hx History Social History Marital Status: Unknown Spouse Name: N/A Number of Children: N/A Years of Education: N/A Occupational History Not on file. 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 Single No kids Scheduled Medications docusate sodium 100 mg Oral BID Or docusate 100 mg Per OG Tube BID heparin (porcine) Intracatheter Daily ipratropium-albuterol 3 mL Nebulization Q6H levETIRAcetam 750 mg Intravenous Q12H Continuous Infusions PRN Medications acetaminophen OR acetaminophen, diphenhydrAMINE, labetalol, LORazepam, magnesium sulfat e OR magnesium sulfate OR magnesium sulfate, ondansetron OR ondansetron, [DISCON TINUED] potassium OR [DISCONTINUED] potassium OR [DISCONTINUED] potassium OR pot assium chloride OR potassium chloride OR potassium chloride, prochlorperazine, prome thazine, sodium chloride 0.9 % Allergy: No Known Allergies OBJECTIVE Vital Signs: BP 147/102 mmHg | Pulse 89 | Temp(Src) 98.1 F (36.7 C) (Oral) | Resp 18 | Ht 1.753 m (5 ' 9") | Wt 77.5 kg (170 lb 13.7 oz) | BMI 25.22 kg/m2 | SpO2 97% I&O Detailed Table: I/O last 3 completed shifts: In: 7543.8 [P.O.:1400; I.V.:4543.8; Other:1600] Out: 7675 [Urine:3575; Other:4100] Weight change: 2.2 kg (4 lb 13.6 oz) Examination: SEEN ON HD WITH HD RN APPEARANCE: The patient is lying in no apparent distress on fm o2. VITALS: Reviewed as listed. HEAD: NC/AT. EYES: Non-icteric sclera. ENT: No gross ear or nasal problems noted. NECK: Supple. No raised JVD LUNGS: Bibasilar rales on auscultation bilaterally. HEART: S1, S2, no pericardial rub noted. ABDOMEN: Full, soft, no tenderness. Bowel sounds are present. EXTREMITIES: +ve pedal edema noted. SKIN: Warm to touch. No rash or ecchymosis noted. NEUROLOGIC: No gross focal motor deficit noted. PSYCH: The patient is alert and oriented x 3, mood and affect looks ok BACK: no CVA tenderness noted R IJ NON TUNNELED CATHETER FUNCTIONING WELL LABS: Recent Results (from the past 24 hour(s)) Potassium Collection Time: 07/18/15 1:42 PM Result Value Ref Range POTASSIUM 3.0 (L) 3.5 - 4.9 mmol/L Brain natriuretic peptide Collection Time: 07/18/15 1:43 PM Result Value Ref Range BRAIN NATRIURETIC PEPTIDE 2340 (H) 0 - 100 pg/mL POC Arterial Blood Gas Collection Time: 07/18/15 4:43 PM Result Value Ref Range POC FIO2 60 % pH, Art 7.456 (H) 7.350 - 7.450 POC PCO2 47 (H) 35 - 45 mmHg POC p02 83 80 - 105 mmHg POC HCO3 33 (H) 22 - 26 mmol/L POC TCO2 34 (H) 23 - 27 mEq/L POC BASE EXCESS 9 (H) 0 - 3 mEq/L POC S02 97 95 - 98 % Basic metabolic panel Collection Time: 07/18/15 11:12 PM Result Value Ref Range SODIUM 135 135 - 143 mmol/L POTASSIUM 2.9 (L) 3.5 - 4.9 mmol/L CHLORIDE 94 (L) 99 - 109 mmol/L CO2 31 23 - 32 mmol/L ANION GAP AGAP 13 5 - 20 mmol/L GLUCOSE 103 (H) 65 - 99 mg/dL BUN 30 (H) 8 - 25 mg/dL CREATININE 3.4 (H) 0.70 - 1.30 mg/dL BUN/CREAT 9 CALCIUM 7.6 (L) 8.5 - 10.5 mg/dL EGFR 24 (L) >60 mL/min/1.73m2 Basic metabolic panel Collection Time: 07/19/15 4:22 AM Result Value Ref Range SODIUM 134 (L) 135 - 143 mmol/L POTASSIUM 3.2 (L) 3.5 - 4.9 mmol/L CHLORIDE 95 (L) 99 - 109 mmol/L CO2 29 23 - 32 mmol/L ANION GAP AGAP 13 5 - 20 mmol/L GLUCOSE 109 (H) 65 - 99 mg/dL BUN 29 (H) 8 - 25 mg/dL CREATININE 3.24 (H) 0.70 - 1.30 mg/dL BUN/CREAT 9 CALCIUM 8.0 (L) 8.5 - 10.5 mg/dL EGFR 26 (L) >60 mL/min/1.73m2 CBC w/auto diff (reflex to manual) Collection Time: 07/19/15 4:22 AM Result Value Ref Range WBC 14.43 (H) 3.80 - 11.00 K/uL RBC 3.88 (L) 4.20 - 5.70 M/uL HGB 12.2 (L) 13.2 - 17.0 g/dL HCT 35.3 (L) 39.0 - 50.0 % MCV 91.1 80.0 - 100.0 fl MCH 31.3 27.0 - 34.0 pg MCHC 34.4 32.0 - 35.5 g/dL RDW SD 39.4 37 - 53 fl PLT 146 (L) 150 - 400 K/uL MPV 9.5 fl DIFF TYPE AUTOMATED NEUTROPHILS 84.61 % LYMPHOCYTES 7.21 % MONOCYTES 8.10 % EOSINOPHILS 0.01 % BASOPHILS 0.07 % NEUTROPHILS ABS 12.21 (H) 1.90 - 7.40 K/uL LYMPHOCYTES ABS 1.04 1.00 - 3.90 K/uL MONOCYTES ABS 1.17 (H) 0.00 - 0.80 K/uL EOSINOPHILS ABS 0.00 0.00 - 0.50 K/uL BASOPHILS ABS 0.01 0.00 - 0.10 K/uL Magnesium Collection Time: 07/19/15 4:22 AM Result Value Ref Range MAGNESIUM 2.1 1.7 - 2.4 mg/dL Phosphorus Collection Time: 07/19/15 4:22 AM Result Value Ref Range PHOSPHORUS 3.3 2.3 - 4.8 mg/dL IMAGING: Cta Head Neck 07/16/2015 CT angiogram head and neck without and with contrast. INDICATION: Posterior fos sa hemorrhage. Seizure. Technique: Head CT without contrast. CT angiogram from the vertex t o the aortic arch after 100 cc [id number]-300 IV. 3-D MIP reconstructions. NASCET criteria used for stenosis measurements. Head CT after contrast. COMPARISON: Outside study 07/15/2015, 18 52 hours FINDINGS: Head CT without and with contrast: Stable, linear regions of blood produ cts are seen within the cerebellar hemispheres bilaterally, left more so right. These may be intraparenchymal, at least in part. Subarachnoid blood products could have a similar appear ance. There is no significant mass effect. No evidence of interval hemorrhage or hydrocephal us. No abnormal enhancement. Supratentorium is unremarkable. CT angiogram neck: Aortic arch and origins of the great vessels are patent. Brachiocephalic and both subclavian arteries are patent Both common carotid arteries, their bifurcations and both internal carotid arter ies are patent without evidence of stenosis Both vertebral arteries are patent throughout t he neck, they are codominant. No evidence of dissection CT angiogram brain: Vertebral jan riaz are codominant. Basilar artery and both posterior cerebral arteries are patent and unre markable. There is a patent posterior communicating artery on the left. Right posterior comm unicating artery is not seen Both internal carotid arteries, anterior and middle cerebral a rteries are patent and unremarkable. A definite anterior communicating artery is not seen N o abnormal vascularity is identified in the posterior fossa to explain the patient's hemorrh ages. Dural venous sinuses appear patent and unremarkable 07/16/[address] without with contrast: Stable appearance to blood products within the p osterior fossa bilaterally, no evidence of interval hemorrhage. No abnormal enhancement. 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 CT angiogram neck: No carotid or vertebral artery narrowing in the neck. No evidence of dissection. CT angiogram brain: No evidence of major vessel stenosis, occlus ion, aneurysm, dissection, thrombi or vascular malformation. No abnormal vascularity in the posterior fossa. Findings discussed with Dr. Hernandez by telephone at 0535 hours. Electron ically signed by Mohit Lopez MD on Jul 16 2015 5:45AM Referring Provider Line: [phone] 5SITE ID: [id number] X-ray Chest 2 View Frontal & Lateral 07/18/2015 SYED HOWE XR CHEST 2 VIEW FRONTAL AND LATERAL 07/18/2015 11:28 AM HISTORY: 24 years. Male. New cough TECHNIQUE: XR CHEST 2 VIEW FRONTAL AND LATERAL. 2 view(s) obta ined. COMPARISON: None. FINDINGS: Normal cardiac size. There is no widening of vascular pe dicles. There are diffuse interstitial opacities in both lungs. Diffuse bronchial wall thick ening with peribronchial cuffing. Mild thickening of lung fissures. No pleural effusion or p neumothorax. No focal airspace opacity. No acute fracture. Visualized portion of abdomen is unremarkable. 07/18/2015 1. Findings suggestive of pulmonary edema. Given history of subarachnoid hemorr dago, these findings may indicate neurogenic pulmonary edema. Differential considerations i nclude atypical infection such as viral pneumonia or interstitial lung disease. Electronica lly signed by Sarah Tovar on 07/18/2015 11:[address] Head Without Contrast 07/15/2015 This is a non-reportable procedure without a radiologist report and is used for image storage only X-ray Chest Ap Only 07/18/2015 SYED T ROTELIZABET XR CHEST 1 VIEW HISTORY: 24 years. Male. Dialysis catheter plac ement. TECHNIQUE: Single portable anterior view of the chest was obtained. COMPARISON: 07/18 FINDINGS: The heart is normal in size. Right IJ central venous catheter tip located i n region of the superior vena cava. Diffuse interstitial opacities to likely represent inter stitial edema which is minimally progressed from the previous examination. No pneumothorax. No pleural effusion. 07/18/2015 1. No pneumothorax. 2. Mild worsening pulmonary edema. Ultrasound Kidneys And Bladder 07/17/2015 EXAM: RENAL ULTRASOUND EXAM DATE: 07/16/2015 10:40 PM. CLINICAL HISTORY: Acute r enal failure COMPARISON: None. TECHNIQUE: Real-time scanning was performed with static harris ges obtained. FINDINGS: Right Kidney: 10.5 x 6 x 5.8 cm. Volume 191.3 cc . Increased echog enicity diffusely. Mild amount of right perinephric fluid . No masses identified. No hydrone phrosis. Left Kidney: 10.8 x 6.9 x 5.9 cm. Volume 230.2 cc. No hydronephrosis. Increased ec hogenicity of the kidney diffusely. Bladder: Bilateral jets seen. The prevoid bladder volum e was 144 cc cc. The postvoid bladder volume was 0 cc. 07/17/2015 1. Increased echogenicity of both kidneys as can be seen with medical renal dis ease . Mild right perinephric fluid. No hydronephrosis. RADIA Electronically signed by Andres Hamm MD on Jul 17 2015 12:38AM Referring Provider Line: [phone] ID: [id number] Patient's old records and labs were reviewed in detail and summarized. PROBLEM LIST Principal Problem: Subarachnoid hemorrhage, nontraumatic (HCC) Active Problems: Rhabdomyolysis Seizure disorder (HCC) ABRAHAM (acute kidney injury) ([facility]) ASSESSMENT & PLAN FLUID OVERLOAD/ pulmonary EDEMA Getting hd with uf Seen and examined on hd tolerating hd/ uf well Access functioning well HD FLOW SHEET REVIEWED LOW NA DIET 2GM/ 24 HOURS FLUID RESTRICTION 1.2 LITERS / 24 HOURS DAILY WEIGHTS STRICT I/O ABRAHAM Worsening got fluid overload Likely in the setting of acute rhabdomyolysis/ ATN We will watch renal function closely as patient got CT head with IV contrast 07/16/15 Ruled out HYDRONEPHROSIS per us renal reviewed Serological w/u neg except low c3 STOP IV FLUIDS NO ROBERTO CARLOS-I/ ARBS Urine studies reviewed Strict I & O, Daily weights Daily RFP Renal diet AVOID NSAIDS/ BRITTON-2 INHIBITORS AVOID NEPHROTOXIC MEDS INCLUDING AMINOGLYCOSIDES/ IV CONTRAST Assess daily for need for hd Dose all meds for crcl less than 15 mls/min Lab Results Component Value Date BUN 29* 07/19/2015 BUN 30* 07/18/2015 BUN 49* 07/18/2015 BUN 45* 07/17/2015 BUN 37* 07/16/2015 CREATININE 3.24* 07/19/2015 CREATININE 3.4* 07/18/2015 CREATININE 4.95* 07/18/2015 CREATININE 4.47* 07/17/2015 CREATININE 3.91* 07/16/2015 Acute rhabdomyolysis likely in this setting of acute seizure follow serial CPKs closely Acidosis resolved Likely the setting of worsening renal failure On hd Lab Results Component Value Date CO2 29 07/19/2015 CO2 31 07/18/2015 CO2 32 07/18/2015 Hyponatremia Likely in the setting of renal failure Watch closely for now Lab Results Component Value Date NA 134* 07/19/2015 NA 135 07/18/2015 NA 133* 07/18/2015 SEIZURE per neurology and hospitalist CASE DISCUSSED IN DETAIL WITH PATIENT/ HOSPITALIST, ANSWERS ALL QUESTIONS IN DETAIL, VERBAL IZES UNDERSTANDING JOSUÉ LIMA MD 07/19/2015 TAL DIAS onversion Transa ction, Provider Unknown - 07/19/2015 7:00 AM PST Nurse Progress Note by Pam Villar RN at 07/19/15 0700 Author: Pam Villar RN Service: (none) Author Type: Registered Nurse Filed: 07/19/15 07 Date of Service: 07/19/15 07 Status: Signed Gusset Ripper: Pam Villar RN (Registered Nurse) Patient received emergent dialysis last night, 2.5L taken off per dialysis nurse. Patient put on CPAP last night d/t flash pulmonary edema and respiratory distress. Patient now on 1 2L Oxymask and sating in the 90s. Patient no longer complaining of nausea. States he feels much better this morning. Will continue to monitor closely. Pam Villar RN onver gina Transaction, Provider Unknown - 07/18/2015 7:42 PM PST Progress Notes by Rosie Santos RN at 07/18/151941 Author: Rosie Santos RN Service: (none) Author Type: Registered Nurse Filed: 07/18/152014 Date of Service: 07/18/151941 Status: Signed Gusset Ripper: Rosie Santos RN (Registered Nurse) Temporary HD catheter placed by ICU, pt moved to room 324 for HD, pt placed of CPAP, pt hav ing pink frothy sputum. Pt having nausea and vomiting. Pt medicated. Pt received a total eleazar ft dose of 140 mg IV lasix, pt total urine out put this shift 1,225 mL. Report given to ct strickland RN. Josué Apple MD - 07/18/2015 9:31 AM PSTFormatting of this note might be different from th e original. Progress Notes by Josué Lima MD at 07/18/15930 Author: Josué Lima MD Service: Nephrology Author Type: Physician Filed: 07/19/15 1156 Date of Service: 07/18/15930 Status: Signed Gusset Ripper: Josué Lima MD (Physician) [facility] Service: NEPHROLOGY Progress Note Syed Howe 24 y.o. [id number] male TAL [facility] Day: LOS: 3 days 24-year-old male with past medical history significant for seizure disorder diagnosed about 2 years ago admitted with Seizure/ ABRAHAM/ ACUTE RHABDOMYOLYSIS. Nephrology consulted for evaluation and management of ABRAHAM Lab Results Component Value Date BUN 49* 07/18/2015 BUN 45* 07/17/2015 BUN 37* 07/16/2015 BUN 32* 07/16/2015 BUN 29* 07/16/2015 CREATININE 4.95* 07/18/2015 CREATININE 4.47* 07/17/2015 CREATININE 3.91* 07/16/2015 CREATININE 3.8* 07/16/2015 CREATININE 2.25* 07/16/2015 ONSET ACUTE severity SEVERE, worsening Associated with fluid electrolyte acid base imbalances RF: ACUTE RHABDOMYOLYSIS Watch renal function closely as patient got CT angiogram today on July 16, 2015 Patient seen and examined Says feel weak, c/o sob on movement Denies cp, nausea, vomiting, diarrhea, fever, headache, rash No past medical history on file. No past surgical history on file. Prescriptions prior to admission Medication Sig Dispense Refill Last Dose levETIRAcetam (KEPPRA) 500 MG tablet Take 500 mg by mouth 2 (two) times daily. Indicati ons: Prevention of Seizures After Bleed in Brain Unknown at Unknown time No Known Allergies Family History Problem Relation Age of Onset Other (see comments) Mother cerebral bleed Alcohol abuse Mother Kidney disease Neg Hx History Social History Marital Status: Unknown Spouse Name: N/A Number of Children: N/A Years of Education: N/A Occupational History Not on file. 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 Single No kids Scheduled Medications docusate sodium 100 mg Oral BID Or docusate 100 mg Per OG Tube BID levETIRAcetam 750 mg Intravenous Q12H pneumococcal 23-valent vaccine 0.5 mL Intramuscular Once Immunization potassium chloride 40 mEq Intravenous Once Continuous Infusions sodium bicarbonate drip 100 mEq/1000 mL 200 mL/hr at 07/18/15 0448 PRN Medications acetaminophen OR acetaminophen, magnesium sulfate OR magnesium sulfate OR magne sium sulfate, ondansetron OR ondansetron, [DISCONTINUED] potassium OR [DISCONTINUED] potassium OR [DISCONTINUED] potassium OR potassium chloride OR potassium chlori de OR potassium chloride, prochlorperazine, sodium chloride 0.9 % Allergy: No Known Allergies OBJECTIVE Vital Signs: BP 165/108 mmHg | Pulse 82 | Temp(Src) 98.3 F (36.8 C) (Oral) | Resp 20 | Ht 1.753 m (5 ' 9") | Wt 76 kg (167 lb 8.8 oz) | BMI 24.73 kg/m2 | SpO2 91% I&O Detailed Table: I/O last 3 completed shifts: In: 53276.2 [P.O.:1520; I.V.:22980.2] Out: 1530 [Urine:1530] Weight change: -0.386 kg (-13.6 oz) Examination: APPEARANCE: The patient is lying in no apparent distress. VITALS: Reviewed as listed. HEAD: NC/AT. EYES: Non-icteric sclera. ENT: No gross ear or nasal problems noted. NECK: Supple. No raised JVD or thyromegaly. LYMPHATIC: No palpable lymphadenopathy. LUNGS: Bibasilar rales on auscultation bilaterally. HEART: S1, S2, no pericardial rub noted. ABDOMEN: Full, soft, no tenderness. Bowel sounds are present. EXTREMITIES: +ve pedal edema noted. SKIN: Warm to touch. No rash or ecchymosis noted. NEUROLOGIC: No gross focal motor deficit noted. PSYCH: The patient is alert and oriented x 3, mood and affect looks ok BACK: no CVA tenderness noted LABS: Recent Results (from the past 24 hour(s)) Basic metabolic panel Collection Time: 07/18/15 4:05 AM Result Value Ref Range SODIUM 133 (L) 135 - 143 mmol/L POTASSIUM 3.0 (L) 3.5 - 4.9 mmol/L CHLORIDE 92 (L) 99 - 109 mmol/L CO2 32 23 - 32 mmol/L ANION GAP AGAP 12 5 - 20 mmol/L GLUCOSE 143 (H) 65 - 99 mg/dL BUN 49 (H) 8 - 25 mg/dL CREATININE 4.95 (H) 0.70 - 1.30 mg/dL BUN/CREAT 10 CALCIUM 7.7 (L) 8.5 - 10.5 mg/dL EGFR 16 (L) >60 mL/min/1.73m2 CBC w/auto diff (reflex to manual) Collection Time: 07/18/15 4:05 AM Result Value Ref Range WBC 12.90 (H) 3.80 - 11.00 K/uL RBC 3.86 (L) 4.20 - 5.70 M/uL HGB 11.9 (L) 13.2 - 17.0 g/dL HCT 34.6 (L) 39.0 - 50.0 % MCV 89.6 80.0 - 100.0 fl MCH 30.9 27.0 - 34.0 pg MCHC 34.5 32.0 - 35.5 g/dL RDW SD 38.5 37 - 53 fl PLT 155 150 - 400 K/uL MPV 9.3 fl DIFF TYPE AUTOMATED NEUTROPHILS 80.46 % LYMPHOCYTES 7.21 % MONOCYTES 12.10 % EOSINOPHILS 0.07 % BASOPHILS 0.16 % NEUTROPHILS ABS 10.38 (H) 1.90 - 7.40 K/uL LYMPHOCYTES ABS 0.93 (L) 1.00 - 3.90 K/uL MONOCYTES ABS 1.56 (H) 0.00 - 0.80 K/uL EOSINOPHILS ABS 0.01 0.00 - 0.50 K/uL BASOPHILS ABS 0.02 0.00 - 0.10 K/uL Magnesium Collection Time: 07/18/15 4:05 AM Result Value Ref Range MAGNESIUM 2.5 (H) 1.7 - 2.4 mg/dL Phosphorus Collection Time: 07/18/15 4:05 AM Result Value Ref Range PHOSPHORUS 3.6 2.3 - 4.8 mg/dL IMAGING: Cta Head Neck 07/16/2015 CT angiogram head and neck without and with contrast. INDICATION: Posterior fos sa hemorrhage. Seizure. Technique: Head CT without contrast. CT angiogram from the vertex t o the aortic arch after 100 cc Isovue-300 IV. 3-D MIP reconstructions. NASCET criteria used for stenosis measurements. Head CT after contrast. COMPARISON: Outside study 07/15/2015, 18 52 hours FINDINGS: Head CT without and with contrast: Stable, linear regions of blood produ cts are seen within the cerebellar hemispheres bilaterally, left more so right. These may be intraparenchymal, at least in part. Subarachnoid blood products could have a similar appear ance. There is no significant mass effect. No evidence of interval hemorrhage or hydrocephal us. No abnormal enhancement. Supratentorium is unremarkable. CT angiogram neck: Aortic arch and origins of the great vessels are patent. Brachiocephalic and both subclavian arteries are patent Both common carotid arteries, their bifurcations and both internal carotid arter ies are patent without evidence of stenosis Both vertebral arteries are patent throughout t he neck, they are codominant. No evidence of dissection CT angiogram brain: Vertebral jan riaz are codominant. Basilar artery and both posterior cerebral arteries are patent and unre markable. There is a patent posterior communicating artery on the left. Right posterior comm unicating artery is not seen Both internal carotid arteries, anterior and middle cerebral a rteries are patent and unremarkable. A definite anterior communicating artery is not seen N o abnormal vascularity is identified in the posterior fossa to explain the patient's hemorrh ages. Dural venous sinuses appear patent and unremarkable 07/16/[address] without with contrast: Stable appearance to blood products within the p osterior fossa bilaterally, no evidence of interval hemorrhage. No abnormal enhancement. 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 CT angiogram neck: No carotid or vertebral artery narrowing in the neck. No evidence of dissection. CT angiogram brain: No evidence of major vessel stenosis, occlus ion, aneurysm, dissection, thrombi or vascular malformation. No abnormal vascularity in the posterior fossa. Findings discussed with Dr. Hernandez by telephone at 0535 hours. Electron ically signed by Mohit Lopez MD on Jul 16 2015 5:45AM Referring Provider Line: [phone] [id number] ID: [id number] Ct Head Without Contrast 07/15/2015 This is a non-reportable procedure without a radiologist report and is used for image storage only Ultrasound Kidneys And Bladder 07/17/2015 EXAM: RENAL ULTRASOUND EXAM DATE: 07/16/2015 10:40 PM. CLINICAL HISTORY: Acute r enal failure COMPARISON: None. TECHNIQUE: Real-time scanning was performed with static harris ges obtained. FINDINGS: Right Kidney: 10.5 x 6 x 5.8 cm. Volume 191.3 cc . Increased echog enicity diffusely. Mild amount of right perinephric fluid . No masses identified. No hydrone phrosis. Left Kidney: 10.8 x 6.9 x 5.9 cm. Volume 230.2 cc. No hydronephrosis. Increased ec hogenicity of the kidney diffusely. Bladder: Bilateral jets seen. The prevoid bladder volum e was 144 cc cc. The postvoid bladder volume was 0 cc. 07/17/2015 1. Increased echogenicity of both kidneys as can be seen with medical renal dis ease . Mild right perinephric fluid. No hydronephrosis. RADIA Electronically signed by Andres Hamm MD on Jul 17 2015 12:38AM Referring Provider Line: [phone] ID: [id number] Patient's old records and labs were reviewed in detail and summarized. PROBLEM LIST Principal Problem: Subarachnoid hemorrhage, nontraumatic (HCC) Active Problems: Rhabdomyolysis Seizure disorder (HCC) ABRAHAM (acute kidney injury) (HCC) ASSESSMENT & PLAN ABRAHAM Worsening getting fluid overload Likely in the setting of acute rhabdomyolysis/ ATN We will watch renal function closely as patient got CT head with IV contrast 07/16/15 Ruled out HYDRONEPHROSIS per us renal reviewed Serological w/u neg except low c3 STOP IV FLUIDS NO ROBERTO CARLOS-I/ ARBS Urine studies reviewed Strict I & O, Daily weights Daily RFP Renal diet AVOID NSAIDS/ BRITTON-2 INHIBITORS AVOID NEPHROTOXIC MEDS INCLUDING AMINOGLYCOSIDES/ IV CONTRAST Assess daily for need for hd Dose all meds for crcl less than 15 mls/min Lab Results Component Value Date BUN 49* 07/18/2015 BUN 45* 07/17/2015 BUN 37* 07/16/2015 BUN 32* 07/16/2015 BUN 29* 07/16/2015 CREATININE 4.95* 07/18/2015 CREATININE 4.47* 07/17/2015 CREATININE 3.91* 07/16/2015 CREATININE 3.8* 07/16/2015 CREATININE 2.25* 07/16/2015 Acute rhabdomyolysis likely in this setting of acute seizure IV hydration with sodium bicarbonate drip Will follow serial CPKs closely Acidosis resolved Likely the setting of worsening renal failure Stop nahco3 drip Lab Results Component Value Date CO2 32 07/18/2015 CO2 18* 07/17/2015 CO2 18* 07/16/2015 Hyponatremia Likely in the setting of renal failure improved with Iv fluids Lab Results Component Value Date NA 133* 07/18/2015 NA 132* 07/17/2015 NA 130* 07/16/2015 SEIZURE per neurology and hospitalist ADD; SEEN IN AFTERNOON GETTING MORE SOB , PUT ON FM O2 GIVEN LASIX 40 MG IV X 1 MINIMAL RESPONSE/ THEN 100 MG IV X 1 WITH MINIMAL RESPONSE SPOKE WITH DR TRAN IN DETAIL AND PATIENT, WILL PUT HD CATHETER WITH URGENT HD ICU TEAM KINDLY AGREED TO PUT CATHETER ANOTHER LASIX 100 MG IV X 1 GIVEN SEEN AGAIN ON DIALYSIS AROUND 10 PM WITH ARABELLA HD RN , GERARDO HD/UF WELL, URINATING BETTER LAS IX IMPROVING SOB CASE DISCUSSED IN DETAIL WITH PATIENT/ FAMILY/HOSPITALIST, ANSWERS ALL QUESTIONS IN DETAIL, VERBALIZES UNDERSTANDING Time spend over 35 minutes of time spent evaluating the patient, reviewing the data, formul ating a plan and discussion with patient and CARE team, more than half of it spend in coun selling and coordination of care. JOSUÉ LIMA MD 07/18/2015 TAL DIAS onversion Transa ction, Provider Unknown - 07/18/2015 9:14 AM PST Progress Notes by Lucie Sheehan RPH at 07/18/15913 Author: Lucie Sheehan RPH Service: (none) Author Type: Pharmacist Filed: 07/18/15913 Date of Service: 07/18/15913 Status: Signed Gusset Ripper: Lucie Sheehan RPH (Pharmacist) crcl ~ 23.4 ml/min based on scr of 4.95 Changed electrolyte replacement to less aggressive institutional protocol rather than the I CU protocol since patient has now transferred out of ICU. No other changes made at this time. River Moss MD - 07/18/2015 8:30 AM PSTFormatting of this note might be different from the o riginal. Progress Notes by River Harding MD at 07/18/15829 Author: River Harding MD Service: Hospitalist Author Type: Physician Filed: 07/18/15 1823 Date of Service: 02/08/16 0830 Status: Signed Gusset Ripper: River Harding MD (Physician) [facility] Service: Hospitalist Progress Note RIVER HARDING MD 07/18/2015Pt. Name/Age/: Syed Howe 24 y.o. 1990 Med. Record Number: [id number] Date of admission: 07/15/2015 Hospital Day: 4 24 year old male with H./O seizure disorder but not taking keppra for several days because he did not know his BCBS would pay for medication. He was admitted to ICU service on 07/15 for traumatic SAH in posterior fossa r/o aneurysm per CTA head and neck. Patient was transferre d to our service this afternoon. Noted today having CPK in 5000s and ABRAHAM probably due to rha bdo. Repeat cr is higher therefore Nephrology consult is obtained. Case DW Dr. Lima and we a re appreciative of his help. Also updated mom and dad () Subjective: + nausea and vomiting , coughthis am. Now new erythema petechial like rash on face and part of upper chest. Midday he developed SOB, CXR revealed pul edema. He did not responded lasix 40 mg X1. I discussed w Dr. Lima, we stopped IVF and gave pt additional 100 mg of Lasix. Dani davis refuses uribe cath. Late afternoon he requires 60 % FIO2, good ABG but has to sit up due to orthopnea. DW Dr. Lima again for urgent HD. 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 H opefully nephro will get the HD access for him some time this evening. Pt speaks > 12 words sentences. Objective: Temp: 98.3 F (36.8 C), Heart Rate: 82, Resp: 20, BP: (!) 165/108 mmHg, SpO2 91 % on a t flow rate L/min Temp Min: 98.3 F (36.8 C) Max: 99.2 F (37.3 C) Intake/Output Summary (Last 24 hours) at 07/18/15 1050 Last data filed at 07/18/15 0700 Gross per 24 hour Intake 5336 ml Output 800 ml Net 4536 ml Current Weight:76 kg (167 lb 8.8 oz) Admit Weight: 68.8 kg (151 lb 10.8 oz) Exam: Gen Poppy - pleasant Eyes: pink conjunctiva ENT: moist oral mucosa, light erythema rash on face around eyes and cheeck Neck: supple Lungs - poor air movement with coarse breaht sounds Heart - RRR, S1, S2 WNL; No S3 or S3; No murmurs or rubs; PMI WNL Abdomen - Soft, NT,ND + normoactive bowel sounds in 4 quadrants, no masses palpated Extremities - No wounds, cyanosis or edema Neurologic - alert and oriented X3, nonfocal Psychiatric - affect is WNL Diagnostic Studies: U/S kidneys: IMPRESSION: 1. Increased echogenicity of both kidneys as can be seen with medical renal disease . Mild right perinephric fluid. No hydronephrosis. RADIA Electronically signed by Melida Hamm MD on Jul 17 2015 12:38AM Referring Provider Line: [phone] ID: [id number] Recent Labs Lab 07/18/1540407/17/15 0433 07/16/15 0415 WBC 12.90* 11.77* 14.27* HGB 11.9* 12.8* 13.7 HCT 34.6* 38.1* 40.4 PLT 155 163 185 Recent Labs Lab 07/18/155 07/17/15 0433 07/16/15 1541 07/16/15 1340 NA 133* 132* 130* 134* K 3.0* 3.5 4.2 3.8 CL 92* 100 102 103 CO2 32 18* 18* 19* BUN 49* 45* 37* 32* CREATININE 4.95* 4.47* 3.91* 3.8* PHOS 3.6 6.2* -- 5.5* Recent Labs Lab 07/18/15 0405 07/17/15 0433 07/16/15 1340 07/16/15 0415 MG 2.5* 2.9* -- 3.4* PHOS 3.6 6.2* 5.5* 4.7 RA -ve C3 76 (low) CPK 4365 <- 5606 U eosinophils: pending [place]: P ANCA:P GBM: P Recent Labs Lab 07/17/15 0823 07/16/15 2350 07/16/15 1547 CKTOTAL 3420* 4365* 5606* No results for input(s): APTT, INR, PTT in the last 168 hours. No results found for: POCGLU Current Facility-Administered Medications Medication Dose Route Frequency Provider Last Rate Last Dose acetaminophen (TYLENOL) tablet 650 mg 650 mg Oral Q6H PRN Mohit Hernandez MD Or acetaminophen (TYLENOL) suppository 650 mg 650 mg Rectal Q6H PRN Mohit Hernandez MD diphenhydrAMINE (BENADRYL) capsule 25 mg 25 mg Oral Q6H PRN River Harding MD diphenhydrAMINE (BENADRYL) injection 25 mg 25 mg Intravenous Once River Harding MD docusate sodium (COLACE) capsule 100 mg 100 mg Oral BID Mohit Hernandez MD 100 mg a t 07/17/15 2203 Or docusate (COLACE) 50 mg/5 mL liquid 100 mg 100 mg Per OG Tube BID Mohit Hernandez MD levETIRAcetam (KEPPRA) 750 mg in sodium chloride (IV) 0.9 % 100 mL IVPB 750 mg Intrave nous Q12H RUTH Flanagan 750 mg at 07/18/15 0526 LORazepam (ATIVAN) injection 0.5-1 mg 0.5-1 mg Intravenous Q4H PRN Corinna Isabel magnesium sulfate 1 g/50 mL IVPB 1 g Intravenous PRN River Harding MD Or magnesium sulfate 2 g/50 mL IVPB 2 g Intravenous PRN River Harding MD Or magnesium sulfate 3 g/50 mL IVPB 3 g Intravenous PRN River Harding MD ondansetron (ZOFRAN) tablet 4 mg 4 mg Oral Q6H PRN Mohit Hernandez MD Or ondansetron (ZOFRAN) injection 4 mg 4 mg Intravenous Q6H PRN Mohit Hernandez MD 4 m g at 07/18/15 1013 pneumococcal 23-valent vaccine (PNEUMOVAX-23) latex free injection 0.5 mL 0.5 mL Intra muscular Once Immunization River Harding MD potassium chloride 40 mEq in 520 mL IVPB 40 mEq Intravenous Once River Harding MD 40 mEq at 07/18/15 1017 potassium chloride oral solution 20 mEq 20 mEq Oral PRN River Harding MD Or potassium chloride oral solution 40 mEq 40 mEq Oral PRN River Harding MD Or potassium chloride oral solution 60 mEq 60 mEq Oral PRN River Harding MD prochlorperazine (COMPAZINE) injection 10 mg 10 mg Intravenous Q6H PRN River colin MD sodium bicarbonate 150 mEq in dextrose 5 % 1,000 mL infusion Intravenous Continuous F christopher Lima MD 200 mL/hr at 07/18/15 1017 sodium chloride 0.9 % flush 10 mL 10 mL Intravenous PRN Mohit Hernandez MD Assessment and Plan: Principal Problem: Subarachnoid hemorrhage, nontraumatic (HCC) Active Problems: Rhabdomyolysis Seizure disorder (HCC) ABRAHAM (acute kidney injury) (HCC) Acidosis Hypo-osmolality and or hyponatremia Resolved Problems: Acute renal disease # Acute kidney injury due to rhabdo - Cr continues to rise, now developing volume overload -- was on HCO3 fluid now off due to pulmonary edema -- most likely urgent HD tonight as discuss with Nephro -- no nephrotoxic med # Seizure DO - stable on Keppra -- mom request nocturnal EEG, will start normal EEG fist. DVT Prophylaxis - SCD Code Status - Full Disposition - Home when Cr trending down Reviewed above with patient/family present - mom requested to be inform on 07/19/2015 @ [phone]. Dad lives in [place]. Portions of this chart may have been copied from previous note for continuity purpose. onversion Transacti on, Provider Unknown - 07/18/2015 7:58 AM PSTFormatting of this note might be different fro m the original. Nurse Progress Note by Meghna Vaughn RN at 07/18/15 0758 Author: Meghna Vaughn RN Service: (none) Author Type: Registered Nurse Filed: 07/18/15 0802 Date of Service: 07/18/15 0758 Status: Signed Gusset Ripper: Meghna Vaughn RN (Registered Nurse) Primary concerns this shift involved intractable nausea with emesis. Patient received one dose of IV Zofran and Cathi Aparna, with minimal relief. Patient described emesis as "yellow" and containing blood. TMax 99.2 (trending downward without intervention) and BP's slightly elevated; VS otherwise stable. No further concerns identified. Will continue to monitor. Meghna Vaughn RN onver gina Transaction, Provider Unknown - 07/17/2015 7:23 PM PST Progress Notes by Cherry Black RN at 07/17/151922 Author: Cherry Black RN Service: (none) Author Type: Registered Nurse Filed: 07/17/151924 Date of Service: 07/17/151922 Status: Signed Gusset Ripper: Cherry Black RN (Registered Nurse) Pt resting in bed. No complaints of pain during shift. Pt continues with IVF at 200 mL/hr. VSS with elevated SPB at beginning of shift. Pt educated on importance of monitoring outp ut and verbalized understanding Cherry Black RN onver gina Transaction, Provider Unknown - 07/17/2015 4:39 PM PST Case Management by MARCUS Mg at 07/17/15 1639 Author: MARCUS Mg Service: (none) Author Type: Rides Attendant Filed: 07/17/15 1640 Date of Service: 07/17/15 1639 Status: Signed Gusset Ripper: MARCUS Mg (Rides Attendant) 07/17/15 1600 Discharge Planning Evaluation Admitting Diagnosis (Subarachnoid hemorrhage, nontraumatic ) Readmission No Living Arrangements Friends (2 roommates) Support Systems Parent;Family members (Cherelle Howe, mother, ) Type of Residence Private residence Independent with ADL's Yes Independent with Mobility Yes Home Care Services No Mental Status Oriented Prior functional status Patient lists his brother as a support also, Roque Koenig, ; patient is a 24 yo male independent with Adls and mobility. 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 Resources Transportation issues [place] [facility] Jennifer Saulon Anticipated Disposition Facility Type Home Met with: patient and discussed discharge planning. Pt is a 24 y.o., male with a hx of sei zure disorder and has recently become noncompliant with his meds. Patient's PCP is: TAL DIAS Patient's insurance: Yoyo Coverage concerns: N Medication coverage/concerns: Y/N Community resources utilized / needed: TBD Assistance in transportation: Mother will transport Identification of any specific education / training: TBD Barriers to Discharge / Alternative housing needed: Nothing noted during assessment. Anticipated DCP: Return home Saima Muñozia SOFTWARE TEST ANALYST River Moss MD - 07/17/2015 11:45 AM PSTFormatting of this note might be different from the o riginal. Progress Notes by River Harding MD at 07/17/15 1145 Author: River Harding MD Service: Hospitalist Author Type: Physician Filed: 07/17/15 1156 Date of Service: 07/17/15 1145 Status: Signed Gusset Ripper: River Harding MD (Physician) [facility] Service: Hospitalist Progress Note RIVER HARDING MD 07/17/2015Pt. Name/Age/: Syed Howe 24 y.o. 1990 Med. Record Number: [id number] Date of admission: 07/15/2015 Hospital Day: 3 24 year old male with H./O seizure disorder but not taking keppra for several days because he did not know his BS would pay for medication. He was admitted to ICU service on 07/15 for traumatic SAH in posterior fossa r/o aneurysm per CTA head and neck. Patient was transferre d to our service this afternoon. Noted today having CPK in 5000s and ABRAHAM probably due to rha bdo. Repeat cr is higher therefore Nephrology consult is obtained. Case DW Dr. Lima and we a re appreciative of his help. Also update pt and mom. Subjective: He feels fine, have to urinate a lot due to IVF. Urine color is light yellow. Objective: Temp: 98.5 F (36.9 C), Heart Rate: 52, Resp: 16, BP: (!) 175/91 mmHg, SpO2 96 % on at flow rate L/min Temp Min: 97.6 F (36.4 C) Max: 98.5 F (36.9 C) Intake/Output Summary (Last 24 hours) at 07/17/15 1145 Last data filed at 07/17/15 1029 Gross per 24 hour Intake 7971.76 ml Output 1130 ml Net 6841.76 ml Current Weight:76.386 kg (168 lb 6.4 oz) Admit Weight: 68.8 kg (151 lb 10.8 oz) Exam: Gen Poppy - pleasant Eyes: pink conjunctiva ENT: moist oral mucosa Neck: supple Lungs - clear Heart - RRR, S1, S2 WNL; No S3 or S3; No murmurs or rubs; PMI WNL Abdomen - Soft, NT,ND + normoactive bowel sounds in 4 quadrants, no masses palpated Extremities - No wounds, cyanosis or edema Neurologic - alert and oriented X3, nonfocal Psychiatric - affect is WNL Diagnostic Studies: U/S kidneys: IMPRESSION: 1. Increased echogenicity of both kidneys as can be seen with medical renal disease . Mild right perinephric fluid. No hydronephrosis. RADIA Electronically signed by Melida Hamm MD on Jul 17 2015 12:38AM Referring Provider Line: [phone] ID: [id number] Recent Labs Lab 07/17/15 04307/16/15 0415 WBC 11.77* 14.27* HGB 12.8* 13.7 HCT 38.1* 40.4 PLT 163 185 Recent Labs Lab 07/17/15 0433 07/16/15 1541 07/16/15 1340 07/16/15 0415 NA 132* 130* 134* 136 K 3.5 4.2 3.8 3.5 CL 100 102 103 104 CO2 18* 18* 19* 18* BUN 45* 37* 32* 29* CREATININE 4.47* 3.91* 3.8* 2.25* PHOS 6.2* -- 5.5* 4.7 Recent Labs Lab 07/17/15 0433 07/16/15 1340 07/16/15 0415 MG 2.9* -- 3.4* PHOS 6.2* 5.5* 4.7 RA -ve C3 76 (low) CPK 4365 <- 5606 U eosinophils: pending [place]da: P ANCA:P GBM: P Recent Labs Lab 07/17/15 0823 07/16/15 2350 07/16/15 1547 CKTOTAL 3420* 4365* 5606* No results for input(s): APTT, INR, PTT in the last 168 hours. No results found for: POCGLU Current Facility-Administered Medications Medication Dose Route Frequency Provider Last Rate Last Dose acetaminophen (TYLENOL) tablet 650 mg 650 mg Oral Q6H PRN Mohit Hernandez MD Or acetaminophen (TYLENOL) suppository 650 mg 650 mg Rectal Q6H PRN Mohit Hernandez MD docusate sodium (COLACE) capsule 100 mg 100 mg Oral BID Mohit Hernandez MD 100 mg a t 07/17/15 0834 Or docusate (COLACE) 50 mg/5 mL liquid 100 mg 100 mg Per OG Tube BID Mohit Hernandez MD levETIRAcetam (KEPPRA) 750 mg in sodium chloride (IV) 0.9 % 100 mL IVPB 750 mg Intrave nous Q12H Abbie Moss, DIRECTOR OF EDUCATION AND TRAINING 750 mg at 07/17/15 0519 lip moisturizer (CHAPSTICK) ointment Topical PRN Mohit Hernandez MD magnesium sulfate 1 g/50 mL IVPB 1 g Intravenous PRN Mohit Hernandez MD Or magnesium sulfate 2 g/50 mL IVPB 2 g Intravenous PRN Mohit Hernandez MD Or magnesium sulfate 3 g/50 mL IVPB 3 g Intravenous PRN Mohit Hernandez MD Or magnesium sulfate IVPB 4 g 4 g Intravenous PRN Mohit Hernandez MD nystatin (MYCOSTATIN) 769053 UNIT/ML suspension 500,000 Units 5 mL Mouth/Throat 4x Annette ly PRN Mohit Hernandez MD nystatin (MYCOSTATIN) cream Topical TID PRShawn Hernandez MD ondansetron (ZOFRAN) tablet 4 mg 4 mg Oral Q6H PRN Mohit Hernandez MD Or ondansetron (ZOFRAN) injection 4 mg 4 mg Intravenous Q6H PRN Mohit Hernandez MD 4 m g at 07/16/15 0510 potassium chloride (K-DUR) CR tablet 20 mEq 20 mEq Oral PRN Mohit Hernandez MD Or potassium chloride (K-DUR) CR tablet 40 mEq 40 mEq Oral PRN Mohit Hernandez MD Or potassium chloride (K-DUR) CR tablet 60 mEq 60 mEq Oral PRN Mohit Hernandez MD Or potassium chloride oral solution 20 mEq 20 mEq Oral PRN Mohit Hernandez MD Or potassium chloride oral solution 40 mEq 40 mEq Oral PRShawn Hernandez MD Or potassium chloride oral solution 60 mEq 60 mEq Oral PRShawn Hernandez MD sodium bicarbonate 150 mEq in dextrose 5 % 1,000 mL infusion Intravenous Continuous F christopher Lima MD 200 mL/hr at 07/17/15 1001 sodium chloride 0.9 % flush 10 mL 10 mL Intravenous PRN Mohit Hernandez MD Assessment and Plan: Principal Problem: Subarachnoid hemorrhage, nontraumatic (HCC) Active Problems: Rhabdomyolysis Seizure disorder (HCC) ABRAHAM (acute kidney injury) (HCC) Acidosis Hypo-osmolality and or hyponatremia Resolved Problems: Acute renal disease # Acute kidney injury due to rhabdo - Cr continues to rise, work up is pending -- on HCO3 fluid per nephro -- no nephrotoxic med # Seizure DO - stable on Keppra DVT Prophylaxis - SCD Code Status - Full Disposition - Home when Cr trending down Reviewed above with patient/family present Portions of this chart may have been copied from previous note for continuity purpose. Josué Bauer MD - 07/17/2015 10:25 AM PST Progress Notes by Josué Lima MD at 07/17/15 1025 Author: Josué Lima MD Service: Nephrology Author Type: Physician Filed: 07/24/15 1201 Date of Service: 07/17/15 1025 Status: Signed Gusset Ripper: Josué Lima MD (Physician) [facility] Service: NEPHROLOGY Progress Note Syed Howe 24 y.o. [id number] 320/[id number] male No primary care provider on file. Hospital Day: LOS: 2 days 24-year-old male with past medical history significant for seizure disorder diagnosed about 2 years ago admitted with seizures/ ABRAHAM/ ACUTE RHABDOMYOLYSIS. Nephrology consulted for evaluation and management of ABRAHAM Lab Results Component Value Date BUN 45* 07/17/2015 BUN 37* 07/16/2015 BUN 32* 07/16/2015 BUN 29* 07/16/2015 CREATININE 4.47* 07/17/2015 CREATININE 3.91* 07/16/2015 CREATININE 3.8* 07/16/2015 CREATININE 2.25* 07/16/2015 ONSET ACUTE severity SEVERE, worsening Associated with fluid electrolyte acid base imbalances RF: ACUTE RHABDOMYOLYSIS Watch renal function closely as patient got CT angiogram today on July 16, 2015 Patient seen and examined Says feel weak Denies cp, sob, nausea, vomiting, diarrhea, fever, headache, rash, cough No past medical history on file. No past surgical history on file. Prescriptions prior to admission Medication Sig Dispense Refill Last Dose levETIRAcetam (KEPPRA) 500 MG tablet Take 500 mg by mouth 2 (two) times daily. Indicati ons: Prevention of Seizures After Bleed in Brain Unknown at Unknown time No Known Allergies Family History Problem Relation Age of Onset Other (see comments) Mother cerebral bleed Alcohol abuse Mother Kidney disease Neg Hx History Social History Marital Status: Unknown Spouse Name: N/A Number of Children: N/A Years of Education: N/A Occupational History Not on file. 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 Single No kids Scheduled Medications docusate sodium 100 mg Oral BID Or docusate 100 mg Per OG Tube BID levETIRAcetam 750 mg Intravenous Q12H Continuous Infusions sodium bicarbonate drip 100 mEq/1000 mL 200 mL/hr at 07/17/15 1001 PRN Medications acetaminophen OR acetaminophen, lip moisturizer, magnesium sulfate OR magnesium sul fate OR magnesium sulfate OR magnesium sulfate, nystatin, nystatin, ondansetron OR ondansetron, potassium OR potassium OR potassium OR potassium chloride OR potassium chloride OR potassium chloride, sodium chloride 0.9 % Allergy: No Known Allergies OBJECTIVE Vital Signs: BP 185/83 mmHg | Pulse 54 | Temp(Src) 97.8 F (36.6 C) (Oral) | Resp 16 | Ht 1.753 m (5' 9") | Wt 76.386 kg (168 lb 6.4 oz) | BMI 24.86 kg/m2 | SpO2 99% I&O Detailed Table: I/O last 3 completed shifts: In: 8651.8 [P.O.:600; I.V.:7651.8; IV Piggyback:400] Out: 850 [Urine:850] Weight change: 7.586 kg (16 lb 11.6 oz) Examination: APPEARANCE: The patient is lying in no apparent distress. VITALS: Reviewed as listed. HEAD: NC/AT. EYES: Non-icteric sclera. ENT: Buccal mucosa is moist. No gross ear or nasal problems noted. NECK: Supple. No raised JVD LUNGS: Clear to auscultation bilaterally. HEART: S1, S2, no pericardial rub noted. ABDOMEN: Full, soft, no tenderness. Bowel sounds are present. EXTREMITIES: no pedal edema noted. SKIN: Warm to touch. No rash or ecchymosis noted. NEUROLOGIC: No gross focal motor deficit noted. PSYCH: The patient is alert and oriented x 3, mood and affect looks ok BACK: no CVA tenderness noted LABS: Recent Results (from the past 24 hour(s)) Renal function panel Collection Time: 07/16/15 1:40 PM Result Value Ref Range SODIUM 134 (L) 135 - 143 mmol/L POTASSIUM 3.8 3.5 - 4.9 mmol/L CHLORIDE 103 99 - 109 mmol/L CO2 19 (L) 23 - 32 mmol/L ANION GAP AGAP 16 5 - 20 mmol/L GLUCOSE 89 65 - 99 mg/dL BUN 32 (H) 8 - 25 mg/dL CREATININE 3.8 (H) 0.70 - 1.30 mg/dL CALCIUM 7.5 (L) 8.5 - 10.5 mg/dL Albumin 4.0 3.6 - 5.0 g/dL PHOSPHORUS 5.5 (H) 2.3 - 4.8 mg/dL EGFR 21 (L) >60 mL/min/1.73m2 Basic metabolic panel Collection Time: 07/16/15 3:41 PM Result Value Ref Range SODIUM 130 (L) 135 - 143 mmol/L POTASSIUM 4.2 3.5 - 4.9 mmol/L CHLORIDE 102 99 - 109 mmol/L CO2 18 (L) 23 - 32 mmol/L ANION GAP AGAP 14 5 - 20 mmol/L GLUCOSE 89 65 - 99 mg/dL BUN 37 (H) 8 - 25 mg/dL CREATININE 3.91 (H) 0.70 - 1.30 mg/dL BUN/CREAT 9 CALCIUM 8.5 8.5 - 10.5 mg/dL EGFR 21 (L) >60 mL/min/1.73m2 CPK Collection Time: 07/16/15 3:47 PM Result Value Ref Range CPK 5606 (H) 55 - 400 U/L Drugs of Abuse Screen, UR Hospital and ED Only Collection Time: 07/16/15 7:57 PM Result Value Ref Range AMPHETAMINE/METHAMPHETAMINE NEGATIVE NEGATIVE BARBITUATES NEGATIVE NEGATIVE BENZODIAZEPINE NEGATIVE NEGATIVE COCAINE NEGATIVE NEGATIVE METHADONE NEGATIVE NEGATIVE OPIATES NEGATIVE NEGATIVE PCP NEGATIVE NEGATIVE THC POSITIVE (A) NEGATIVE Urinalysis w/microscopic (reflex to culture) Collection Time: 07/16/15 7:59 PM Result Value Ref Range COLOR UA YELLOW CLARITY CLEAR Specific [place], UA 1.014 1.002 - 1.030 LEUKOCYTE ESTERASE NEGATIVE NEGATIVE NITRITE NEGATIVE NEGATIVE UROBILINOGEN 0.2 <1.1 mg/dL PROTEIN 100 (A) NEGATIVE mg/dL PH,URINE 6.0 5.0 - 8.0 BLOOD MODERATE (A) NEGATIVE KETONES NEGATIVE NEGATIVE mg/dL BILIRUBIN NEGATIVE NEGATIVE GLUCOSE NEGATIVE NEGATIVE mg/dL WBC 0-2 0 - 5 /hpf RBC 6-10 0 - 2 /hpf EPITHELIAL 6-10 /lpf BACTERIA NONE SEEN NONE SEEN Hyaline Cast NONE SEEN Sodium, urine, random Collection Time: 07/16/15 8:01 PM Result Value Ref Range UR SODIUM,RANDOM 22 (L) 90 - 104 mmol/L CPK Collection Time: 07/16/15 11:50 PM Result Value Ref Range CPK 4365 (H) 55 - 400 U/L Basic metabolic panel Collection Time: 07/17/15 4:33 AM Result Value Ref Range SODIUM 132 (L) 135 - 143 mmol/L POTASSIUM 3.5 3.5 - 4.9 mmol/L CHLORIDE 100 99 - 109 mmol/L CO2 18 (L) 23 - 32 mmol/L ANION GAP AGAP 18 5 - 20 mmol/L GLUCOSE 101 (H) 65 - 99 mg/dL BUN 45 (H) 8 - 25 mg/dL CREATININE 4.47 (H) 0.70 - 1.30 mg/dL BUN/CREAT 10 CALCIUM 7.8 (L) 8.5 - 10.5 mg/dL EGFR 18 (L) >60 mL/min/1.73m2 CBC w/auto diff (reflex to manual) Collection Time: 07/17/15 4:33 AM Result Value Ref Range WBC 11.77 (H) 3.80 - 11.00 K/uL RBC 4.11 (L) 4.20 - 5.70 M/uL HGB 12.8 (L) 13.2 - 17.0 g/dL HCT 38.1 (L) 39.0 - 50.0 % MCV 92.6 80.0 - 100.0 fl MCH 31.1 27.0 - 34.0 pg MCHC 33.6 32.0 - 35.5 g/dL RDW SD 40.3 37 - 53 fl PLT 163 150 - 400 K/uL MPV 9.3 fl DIFF TYPE AUTOMATED NEUTROPHILS 74.23 % LYMPHOCYTES 12.50 % MONOCYTES 13.01 % EOSINOPHILS 0.14 % BASOPHILS 0.12 % NEUTROPHILS ABS 8.74 (H) 1.90 - 7.40 K/uL LYMPHOCYTES ABS 1.47 1.00 - 3.90 K/uL MONOCYTES ABS 1.53 (H) 0.00 - 0.80 K/uL EOSINOPHILS ABS 0.02 0.00 - 0.50 K/uL BASOPHILS ABS 0.01 0.00 - 0.10 K/uL Magnesium Collection Time: 07/17/15 4:33 AM Result Value Ref Range MAGNESIUM 2.9 (H) 1.7 - 2.4 mg/dL Phosphorus Collection Time: 02/07/16 4:33 AM Result Value Ref Range PHOSPHORUS 6.2 (H) 2.3 - 4.8 mg/dL C3 and C4 complement Collection Time: 07/17/15 4:33 AM Result Value Ref Range COMPLEMENT C3 76 (L) 90 - 180 mg/dL COMPLEMENT C4 15.6 10 - 40 mg/dL RA titer Collection Time: 07/17/15 4:33 AM Result Value Ref Range RA TITER <5 <14 IU/mL Hepatitis panel, chronic Collection Time: 07/17/15 4:33 AM Result Value Ref Range Hep A Total Ab NON REACTIVE NON REACTIVE HEP B SURFACE AG NON REACTIVE NON REACTIVE HEP B CORE AB,TOTAL NON REACTIVE NON REACTIVE HEP B SURFACE ANTIBODY 1.45 (H) <1.00 IV HEPATITIS C NON REACTIVE NON REACTIVE HEPATITIS INTERP No serologic evidence of HAV or HCV infection. Reactive anti HBs suggests vaccine or prev ious Hepatitis B. CPK Collection Time: 07/17/15 8:23 AM Result Value Ref Range CPK 3420 (H) 55 - 400 U/L IMAGING: Cta Head Neck 07/16/2015 CT angiogram head and neck without and with contrast. INDICATION: Posterior fos sa hemorrhage. Seizure. Technique: Head CT without contrast. CT angiogram from the vertex t o the aortic arch after 100 cc Isovue-300 IV. 3-D MIP reconstructions. NASCET criteria used for stenosis measurements. Head CT after contrast. COMPARISON: Outside study 07/15/2015, 18 52 hours FINDINGS: Head CT without and with contrast: Stable, linear regions of blood produ cts are seen within the cerebellar hemispheres bilaterally, left more so right. These may be intraparenchymal, at least in part. Subarachnoid blood products could have a similar appear ance. There is no significant mass effect. No evidence of interval hemorrhage or hydrocephal us. No abnormal enhancement. Supratentorium is unremarkable. CT angiogram neck: Aortic arch and origins of the great vessels are patent. Brachiocephalic and both subclavian arteries are patent Both common carotid arteries, their bifurcations and both internal carotid arter ies are patent without evidence of stenosis Both vertebral arteries are patent throughout t he neck, they are codominant. No evidence of dissection CT angiogram brain: Vertebral jan riaz are codominant. Basilar artery and both posterior cerebral arteries are patent and unre markable. There is a patent posterior communicating artery on the left. Right posterior comm unicating artery is not seen Both internal carotid arteries, anterior and middle cerebral a rteries are patent and unremarkable. A definite anterior communicating artery is not seen N o abnormal vascularity is identified in the posterior fossa to explain the patient's hemorrh ages. Dural venous sinuses appear patent and unremarkable 07/16/[address] without with contrast: Stable appearance to blood products within the p osterior fossa bilaterally, no evidence of interval hemorrhage. No abnormal enhancement. 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 CT angiogram neck: No carotid or vertebral artery narrowing in the neck. No evidence of dissection. CT angiogram brain: No evidence of major vessel stenosis, occlus ion, aneurysm, dissection, thrombi or vascular malformation. No abnormal vascularity in the posterior fossa. Findings discussed with Dr. Hernandez by telephone at 0535 hours. Electron ically signed by Mohit Lopez MD on Jul 16 2015 5:45AM Referring Provider Line: [phone] 5SITE ID: [id number] Ct Head Without Contrast 07/15/2015 This is a non-reportable procedure without a radiologist report and is used for image storage only Ultrasound Kidneys And Bladder 07/17/2015 EXAM: RENAL ULTRASOUND EXAM DATE: 07/16/2015 10:40 PM. CLINICAL HISTORY: Acute r enal failure COMPARISON: None. TECHNIQUE: Real-time scanning was performed with static harris ges obtained. FINDINGS: Right Kidney: 10.5 x 6 x 5.8 cm. Volume 191.3 cc . Increased echog enicity diffusely. Mild amount of right perinephric fluid . No masses identified. No hydrone phrosis. Left Kidney: 10.8 x 6.9 x 5.9 cm. Volume 230.2 cc. No hydronephrosis. Increased ec hogenicity of the kidney diffusely. Bladder: Bilateral jets seen. The prevoid bladder volum e was 144 cc cc. The postvoid bladder volume was 0 cc. 07/17/2015 1. Increased echogenicity of both kidneys as can be seen with medical renal dis ease . Mild right perinephric fluid. No hydronephrosis. RADIA Electronically signed by Andres Hamm MD on Jul 17 2015 12:38AM Referring Provider Line: [phone] ID: [id number] Patient's old records and labs were reviewed in detail and summarized. PROBLEM LIST Principal Problem: Subarachnoid hemorrhage, nontraumatic (HCC) Active Problems: Rhabdomyolysis Seizure disorder (HCC) ABRAHAM (acute kidney injury) (HCC) Acidosis Hypo-osmolality and or hyponatremia ASSESSMENT & PLAN ABRAHAM worsening Likely in the setting of acute rhabdomyolysis We will watch renal function closely as patient got CT head with IV contrast 07/16/15 Ruled out HYDRONEPHROSIS per us renal reviewed IV FLUIDS watch closely for cardiopulmonary status NO ROBERTO CARLOS-I/ ARBS Urine studies reviewed Strict I & O, Daily weights Daily RFP Renal diet AVOID NSAIDS/ BRITTON-2 INHIBITORS AVOID NEPHROTOXIC MEDS INCLUDING AMINOGLYCOSIDES/ IV CONTRAST Assess daily for need for hd Dose all meds for crcl less than 15 mls/min Lab Results Component Value Date BUN 45* 07/17/2015 BUN 37* 07/16/2015 BUN 32* 07/16/2015 BUN 29* 07/16/2015 CREATININE 4.47* 07/17/2015 CREATININE 3.91* 07/16/2015 CREATININE 3.8* 07/16/2015 CREATININE 2.25* 07/16/2015 Acute rhabdomyolysis likely in this setting of acute seizure IV hydration with sodium bicarbonate drip Will follow serial CPKs every 8 hours Acidosis Likely the setting of worsening renal failure nahco3 drip Lab Results Component Value Date CO2 18* 07/17/2015 CO2 18* 07/16/2015 CO2 19* 07/16/2015 Hyponatremia Likely in the setting of renal failure Iv fluids Lab Results Component Value Date NA 132* 07/17/2015 NA 130* 07/16/2015 NA 134* 07/16/2015 SEIZURE per neurology and hospitalist CASE DISCUSSED IN DETAIL WITH PATIENT/ FAMILY/HOSPITALIST, ANSWERS ALL QUESTIONS IN DETAIL, VERBALIZES UNDERSTANDING JOSUÉ LIMA MD 07/17/2015 No primary care provider on file. onversion Transa ction, Provider Unknown - 07/17/2015 6:38 AM PST Nurse Progress Note by Yamilka Sanford RN at 07/17/15637 Author: Yamilka Sanford RN Service: (none) Author Type: Registered Nurse Filed: 07/17/1540 Date of Service: 07/17/15637 Status: Signed Gusset Ripper: Yamilka Sanford RN (Registered Nurse) Patient resting in bed. Vital signs have been stable. She has been afebrile. No complaint s of nausea, vomiting, or pain. Patient voiding clear, yellow urine. No acute changes fro m previous assessment. Patient visualized hourly and needs addressed. Yamilka Sanford RN 07/17/2015 6:40 AM onver gina Transaction, Provider Unknown - 07/16/2015 7:55 PM PST Progress Notes by Rosie Santos RN at 07/16/151954 Author: Rosie Santos RN Service: (none) Author Type: Registered Nurse Filed: 07/16/152002 Date of Service: 07/16/151954 Status: Signed Gusset Ripper: Rosie Santos RN (Registered Nurse) VSS, afebrile. Pt resting comfortably in bed, neuros WNL, no seizures. Pt urinated 200 ml, post residual bladder scan 0ml. 100 ml NS bolus given . CPK remains elevated. No other acut e changes noted. Will continue to monitor.ROSIE SANTOS RN River Moss MD - 07/16/2015 6:41 PM PSTFormatting of this note might be different from the o riginal. Significant Event by River Harding MD at 07/16/151840 Author: River Harding MD Service: Hospitalist Author Type: Physician Filed: 07/16/151844 Date of Service: 07/16/151840 Status: Signed Gusset Ripper: River Harding MD (Physician) 24 year old male with H./O seizure disorder but not taking keppra for several days because he did not know his BCBS would pay for medication. He was admitted to ICU service on 07/15 for traumatic SAH in posterior fossa r/o aneurysm per CTA head and neck. Patient was transferre d to our service this afternoon. Noted today having CPK in 5000s and ABRAHAM probably due to rha bdo. Repeat cr is higher therefore Nephrology consult is obtained. Case DW Dr. Lima and we a re appreciative of his help. Also update pt and mom. Yoli Harding MD onversion Transacti on, Provider Unknown - 07/16/2015 12:19 PM PSTFormatting of this note might be different fro m the original. Progress Notes by Yessenia Nicole RN at 07/16/15 1219 Author: Yessenia Nicole RN Service: (none) Author Type: Registered Nurse Filed: 07/16/15 1222 Date of Service: 07/16/15 1219 Status: Signed Gusset Ripper: Yessenia Nicole RN (Registered Nurse) Report called to MADDY Chiu. Pt transferred to 320 via w/c. VSS and assessment unchan ged. Pt denies and pain or discomfort at this time. YESSENIA NICOLE RN Yessenia Friend PT - 07/16/2015 9:50 AM PSTFormatting of this note might be different from th e original. Therapy Progress Note by Yessenia Apple PT at 07/16/15 0950 Author: Yessenia Apple PT Service: (none) Author Type: Physical Therapist Filed: 07/16/15 1101 Date of Service: 07/16/15 0950 Status: Signed Gusset Ripper: Yessenia Apple PT (Physical Therapist) 07/16/15 0950 PT Last Visit PT Received On 07/16/15 Reason for Treatment Other (comment) (seizuresx 2yrs) Requires PT Follow Up Awaiting tx order (follow up) Follow up PT Only? 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) RUE Assessment RUE Assessment WFL LUE Assessment LUE Assessment WFL RLE Assessment RLE Assessment WFL LLE Assessment LLE Assessment WFL Cognition Overall Cognitive Status WFL Orientation Level Oriented (responses were a little delayed- especially as session progr) Sensation Additional Comments patient reported light headness during session Vision-Basic Assessment Current Vision Other (comment) (patient reported no tingling/numbness at baseline or now) Assessment of Patient Status Assessment of Patient Status Decreased endurance;Pain;Decreased insight into deficits;Decre ased ability to follow commands Prognosis Should progress with skilled therapy intervention;Limited by multiple medical com plications;Limited by lack of family support (lives with best friend and best friends girl friend) Restraints Initially in Place No (call crowell in reach) Precautions Other Precautions high fall risk Tinetti SHIVAM-- so patient is at risk for falls- but h e had not eaten and stated he felt a little light headed-no food since yesterday- spoke cecy Burt Activity Tolerance Endurance Fair Sitting Balance Supports self with one upper extremity Plan Treatment/Interventions Continue with skilled PT services;Assist d/c plannning;Balance norma mayda;Bed mobility training;Family training;Gait training;Transfer training;Therapeutic exerc ise;Stair training;Set goals;Provide HEP;Review precautions Progress Slow progress, decreased activity tolerance PT Frequency 5-7x/wk;Twice a day;Once per day Care Duration (# of days) 7 # of days Recommendation Recommendations Defer (do not anticipate need for skilled PT after hosp) Equipment Recommended Other (Comment) (so not expect need for DME) Barriers to Discharge Neurological Impairment (see comment) (seizure control) PT Ready for Discharge Yes Recommendation Comments patient needs to be able to do a flight of stairs; until his R-knee began to hurt- would have thought he would not need additional PT; PT will F/U as census av ailable 07/16/15 0950 PT Last Visit PT Received On 07/16/15 Reason for Treatment Other (comment) (seizuresx 2yrs) Requires PT Follow Up Awaiting tx order (follow up) Follow up PT Only? 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; initially did not think he would need PT F/U, but balance with Tinetti SHIVAM - he is still high rish for fall- and troubling sudden/severe R-knee pain decreased his balance Cognition Overall Cognitive Status WFL Orientation Level Oriented (responses were a little delayed- especially as session progr) Bed Mobility Rolling Modified independent Supine to Sit Modified independent Sit to Supine Modified independent Scooting Anterior/posterior;Lateral;Modified independent Transfers Sit to/from Stand Modified independent Mobility Weight Bearing Status WBAT RLE;WBAT LLE Ambulation Assistance Verbal instruction;Minimal assist;Modified independent Maximal Ambulation Distance (feet) [id number] Total Ambulation Distance (feet) 200ft Distance limited by? Patient's ability;Therapist/staff discretion Pattern Alternating Assistive Device None Stairs Assistance DARIEN Balance Balance Yes Dynamic Standing Balance Dynamic Standing-Comments/Duration Tinetti SHIVAM-- so patient is at risk for falls- but he had not eaten and stated he felt a little light headed-no food since yesterday- spoke latricia Burt Modalities Modalities Other therapy Other Therapy instructions for need to be mobile- slow down a little; balance issues Activity Tolerance Activity Tolerance Patient limited by fatigue;Patient limited by pain Medical Staff Made Aware spoke with second PT in ICU today -possible second session -if julia vangie allows Nurse Made Aware spoke with Carmel CASTAÑEDA before and after PT session Restraints Initially in Place No (call crowell in reach) Plan Treatment/Interventions Continue with skilled PT services;Assist d/c plannning;Balance norma mayda;Bed mobility training;Family training;Gait training;Transfer training;Therapeutic exerc ise;Stair training;Set goals;Provide HEP;Review precautions Progress Slow progress, decreased activity tolerance PT Frequency 5-7x/wk;Twice a day;Once per day Care Duration (# of days) 7 # of days Recommendation Recommendations Defer (do not anticipate need for skilled PT after hosp) Equipment Recommended Other (Comment) (so not expect need for DME) Barriers to Discharge Neurological Impairment (see comment) (seizure control) PT Ready for Discharge Yes Recommendation Comments patient needs to be able to do a flight of stairs; until his R-knee began to hurt- would have thought he would not need additional PT; PT will F/U as census av ailable Pre PT Post PT 5 minutes post PT B/P 128/94 141/105 141/80 Marium Gregory OTR/L - 07/16/2015 9:21 AM PST Therapy Progress Note by COLETTE Esposito at 07/16/15920 Author: COLETTE Esposito Service: (none) Author Type: Occupational Therapist Filed: 07/16/15923 Date of Service: 07/16/15920 Status: Signed Gusset Ripper: COLETTE Esposito (Occupational Therapist) 07/16/15899 OT Last Visit OT Received On 07/16/15 Requires OT Follow Up On hold Plan Requires OT Follow Up On hold Recommendation Recommendation Defer at this time OT Ready for Discharge Yes orders received, chart reviewed. Pt is most likely candidate for skilled OT, at least evalu ation for possible needs in the home. Due to pt acuity and nature of his disposition at this time. It appears when pt transfers out of ICU to medical floor unit, this patient may be a candidate for skill OT. Discharge at this time, however, recommending new orders to evaluate and treat as needed on ce admitted to medical floor. Hailey Llamas RP H - 07/16/2015 5:51 AM PST Progress Notes by Hailey Womack RPH at 07/16/15550 Author: Hailey Womack RPH Service: (none) Author Type: Pharmacist Filed: 07/16/15550 Date of Service: 07/16/15550 Status: Signed Gusset Ripper: Hailey Womack RPH (Pharmacist) Renal Dosing Monitoring: Syed Juan Jose Rotello 24 y.o. male Pharmacy dosing for renal function per Dr. Hernandez Plan per protocol: Crcl=50.1ml/min No medications need to be renally adjusted at this time Pharmacy will continue monitoring patient for appropriate dosing per renal function. 07/16/2015 5:51 AM Pharmacist: HAILEY WOMACK documentrussell brock in this encounter H&P Notes Mohit Hernandez MD - 07/15/2015 11:02 PM PSTFormatting of this note might be different fr om the original. H&P by Mohit Hernandez MD at 07/15/152301 Author: Mohit Hernandez MD Service: Learning And Development Consultant Author Type: Learning And Development Consultant Filed: 07/16/15 0249 Date of Service: 07/15/152301 Status: Signed Gusset Ripper: Mohit Hernandez MD (Physician) [facility] Service: Learning And Development Consultant Admission History & Physical Syed Howe 24 y.o. Date of Admission: 07/15/2015 Requesting Physician: Clifford Waggoner MD. [facility] Indication for ICU Admission: SAH History Obtained From: chart review CHIEF COMPLAINT: AMS & Seizure HISTORY OF PRESENT ILLNESS The patient is a 24 y.o. male with significant past medical history of seizure disorder marco antonio gnosed 2 years ago who presents to OSH after a witnessed seizure at home. Today at work he w as disoriented.He takes keppra 500 mg bid but hasn't taken his medications for several days. In the ED he became combative after family entered his room, he was given ativan and haldol .Keppra [address] Head at OSH with subarachnoid hemorrhage in the cerebellum oralia aterally. No masses or edema. Labs with WBC 24k, Plt 230 Na 137 Tox screen positive for THC. Dr. Richardson from neurosurgery accepted patient transfer to [facility] ICU. REVIEW OF SYSTEMS Review of systems not obtained due to lack of cooperation. PAST MEDICAL HISTORY No past medical history on file. PAST SURGICAL HISTORY No past surgical history on file. ALLERGIES No Known Allergies MEDICATIONS PRIOR TO ADMISSION Prior to Admission medications Not on File FAMILY HISTORY OF SIGNIFICANCE No family history on file. SOCIAL HISTORY History Social History Marital Status: Unknown Spouse Name: N/A Number of Children: N/A Years of Education: N/A Occupational History Not on file. Social History Main Topics Smoking status: Not on file Smokeless tobacco: Not on file Alcohol Use: Not on file Drug Use: Not on file Sexual Activity: Not on file Other Topics Concern Not on file Social History Narrative No narrative on file PHYSICAL EXAM VITAL SIGNS Temp: [98.2 F (36.8 C)] 98.2 F (36.8 C) Heart Rate: [60-91] 67 Resp: [15-34] 31 BP: (107-147)/(71-101) 147/75 mmHg EXAM GEN: asleep, wakes up to command but falls back asleep NEURO: PERRLA, EOMI, no facial asymmetry, moves all extremities well. Not cooperative to pe rform dysmetria and gait testing. No nystagmus GCS: 14 HEENT: sclerae clear, nonicteric, oral mmm, pink, no exudates NECK: supple, trachea midline HEART: RRR, S1/S2, no murmur, rub or gallop LUNGS: clear b/l, no wheezing, rales or rhonchi, symmetric chest expansion, even/unlabored respirations ABD: soft, nondistended, nontender to palpation, no masses, no hepatosplenomegaly EXTR: no edema, clubbing or cyanosis SKIN: warm, dry, no rash or mottling; no e/o skin breakdown over the occiput, scapulae, elb ows, sacrum or heels LINES/TUBES: PIV DATA No results for input(s): WBC, RBC, HGB, HCT, MCV, MCH, MCHC, RDW, PLT, MPV, BANDSABS, NEUTR OABS, LYMPHSABS, ATYPLYMPABS, MONOSABS, BASOSABS, EOSABS, MORPH in the last 168 hours. No results for input(s): NA, K, CL, CO2, ANIONGAP, GLUF, BUN, CREATININE, BCR, CA, ALB, JACLYN B, AG, PROT, BILITOT, ALKPHOS, ALT, AST, EGFR, PHOS, MG in the last 168 hours. No results for input(s): INR in the last 168 hours. IMAGING PROBLEM LIST Principal Problem: Subarachnoid hemorrhage, nontraumatic (HCC) ASSESSMENT & PLAN NEURO: ICU for close observation Neurosurgery consultation/Dr. Richardson Continue keppra 500 mg bid CTA r/o aneurysmal SAH Isotonic fluids or hypertonic fluids according to Na levels Neurochecks per protocol Keep SBP<160 CV: Keep SBP <160 PULM: Protecting airway GI/NUTRITION: NPO Swallow evaluation RENAL/LYTES: Keep Na >140 ID: No acute issues HEME: No use of NSAIDs or anticoagulants ENDO: Monitor BS MUSC/SKIN: Routine skin care PROPHYLAXIS: Stress ulcer prophylaxis: H2B DVT prophylaxis: SCDs VAP bundle: NA Disposition: ICU Code Status: Full Code Primary Care Physician: No primary care provider on file. *Please bill 40 minutes of critical care time spent evaluating the patient, reviewing the d jake and formulating a plan exclusive of all other procedures. Mohit Hernandez MD 07/16/2015 2:44 AM documented in this encounter Procedure Notes Conversion Transaction, Provider Unknown - 07/19/2015 7:55 AM PSTFormatting of this note m ight be different from the original. Procedures by Sheila MeiEEG/EP TJenn at 07/19/15754 Author: Sheila MeiEEG/EP TJenn Service: Neurology Author Type: Registered EEG and Evoked Potential Tech Filed: 07/19/15754 Date of Service: 07/19/15754 Status: Signed Gusset Ripper: Sheila MeiEEG/EP TJenn (Registered EEG and Evoked Potential Tech) Procedure Orders: 1. EEG [[id number]] ordered by River Harding MD at 07/18/15 1241 Patient: Syed Howe ID: [id number] : 1990 [age]: [age] Gender: Male Height: Weight: BMI: --- Physician: Sandie FRANCOIS House Coordinator: Elizabeth Referring Physician: Amanda Recording Date: 07/18/2015 Time: 7:26 PM Report Date: 07/18/2015 Recorded Time: 14.8 min. Medications: lasix, keppra (given during EEG) History: Pt with history of seizures, was out of his Keppra and might have had seizures that brought him to the hospital. Pt is also in acute renal failure awaiting emergent diaylsis. Acute Rh abdomyolysis, tox screen was positive for THC, ABRAHAM, Acidosis CT-head bilateral cerebellar hemorrhage and minimal subacachnoid hemorrhage Comments: pt is in distress, coughing due to fluid on his lungs, talking to parents who live out of t own before his emergent diyalsis. no HV or PS ROOM 320 EEG REPORT GENERAL DESCRIPTION: This was a 19 channel awake EEG recording with International 10/20 celestine ctrode placements. The background activity consisted of diffuse low to moderate amplitude T heta throughout the recording. ACTIVATION & SLEEP: No Drowsiness or sleep was noted. OTHER DATA: No epileptiform discharges were noted. CLINICAL IMPRESSION: This EEG is abnormal. Diffuse slowing is suggestive of a diffuse encephalopathy of metaboli c, degenerative or vascular origin.The absence of epileptiform discharges during the EEG rec ording does not rule out the diagnosis of a seizure disorder.Clinical correlation is recomme nded. Thank you for the courtesy of this referral. Sincerely, Sandie FRANCOIS arrer Sarah bui MD - 07/18/2015 8:12 PM PSTFormatting of this note might be different from t blanca original. Procedures by Sarah Diaz MD at 07/18/152011 Author: Sarah Diaz MD Service: Learning And Development Consultant Author Type: Physician Filed: 07/18/152013 Date of Service: 07/18/152011 Status: Signed Gusset Ripper: Sarah Diaz MD (Physician) Procedure Orders: 1. Central line [[id number]] ordered by Sarah Diaz MD at 07/18/152011 Post-procedure Diagnoses: 1. ABRAHAM (acute kidney injury) (HCC) [N17.9] 2. Acidosis [E87.2] [facility] Service: Learning And Development Consultant BEDSIDE PROCEDURE NOTE Central Line Date/Time: 07/18/2015 8:12 PM Performed by: SARAH DIAZ Authorized by: SARAH DIAZ Consent: The procedure was performed in an emergent situation. Verbal consent obtained. Wri tten consent obtained. Risks and benefits: risks, benefits and alternatives were discussed Consent given by: patient Patient identity confirmed: verbally with patient Time out: Immediately prior to procedure a "time out" was called to verify the correct anamika ent, procedure, equipment, supportive employment case manager and site/side marked as required. Indications: vascular access Anesthesia: local infiltration Local anesthetic: lidocaine 1% without epinephrine Anesthetic total: 3 ml Patient sedated: no Preparation: skin prepped with 2% chlorhexidine Skin prep agent dried: skin prep agent completely dried prior to procedure Sterile barriers: all five maximum sterile barriers used - cap, mask, sterile gown, sterile gloves, and large sterile sheet Hand hygiene: hand hygiene performed prior to central venous catheter insertion Location details: right internal jugular Patient position: flat Catheter type: triple lumen Catheter size: 12 Fr Ultrasound guidance: yes Sterile ultrasound techniques: sterile gel and sterile probe covers were used Number of attempts: 1 Successful placement: yes Post-procedure: line sutured and dressing applied Assessment: blood return through all ports, free fluid flow, placement verified by x-ray and no pneumothorax on x-ray Patient tolerance: Patient tolerated the procedure well with no immediate complications Comments: Biopatch placed. Sarah Diaz MD 07/18/2015 documented in th is encounter Consult Notes Josué Lima MD - 07/16/2015 6:29 PM PST Consult* by Josué Lima MD at 07/16/151828 Author: Josué Lima MD Service: Nephrology Author Type: Physician Filed: 07/16/15 1950 Date of Service: 07/16/151828 Status: Signed Gusset Ripper: Josué Lima MD (Physician) [facility] Service: NEPHROLOGY CONSULT Note Syed Howe 24 y.o. [id number] 320/320-2 male No primary care provider on file. Hospital Day: LOS: 1 day Date of Consultation: 07/16/2015 Requesting Physician: Hospitalist Reason for CONSULTATION: ABRAHAM History Obtained From: patient, family, care team, records HISTORY OF PRESENT ILLNESS 24-year-old male with past medical history significant for seizure disorder diagnosed about 2 years ago who presented to [facility] emergency room after a witnessed seizure at [facility]. Today at work patient was found to be disoriented he generally takes Keppra 500 mg twic e a day but has not taken his medication for several days as patient did not have money to b uy more medication. In the ER patient became combative after family entered his room he was given Ativan and Haldol as well as Keppra. CT head done at outside hospital showed bilater al cerebellar hemorrhage and minimal subarachnoid hemorrhage. Dr. Richardson neurosurgery was c onsulted as well as Dr. Padilla from neurology. Patient underwent CTA of the head and neck sh owed remote cerebellar hemorrhages, no carotid or vertebral artery narrowing noted no eviden ce of major vessel stenosis occlusion aneurysm dissection thrombi or vascular malformation n oted. Tox screen positive for THC. During the course of admission patient noted to have worsening renal failure with a creatin ine going up to 3.91 today as well as high CPK level noted. Nephrology consulted for evaluation and management of ABRAHAM Lab Results Component Value Date BUN 37* 07/16/2015 BUN 32* 07/16/2015 BUN 29* 07/16/2015 CREATININE 3.91* 07/16/2015 CREATININE 3.8* 07/16/2015 CREATININE 2.25* 07/16/2015 ONSET ACUTE severity SEVERE, worsening Associated with fluid electrolyte acid base imbalances RF: ACUTE RHABDOMYOLYSIS Watch renal function closely as patient got CT angiogram today on July 16, 2015 Review of Systems Constitutional: Positive for fatigue and abnormal labs Negative for fever, chills Eyes: Negative for vision changes Nose: Negative for congestion, nosebleeds Throat: Negative for sore throat CV/Resp: Negative for chest pain, cough, sob GI: Negative for abdominal pain, nausea, vomiting, or diarrhea : Negative for urinary problems Musculoskeletal: Negative for back pain, joint pain Skin: Negative for rash Neuro/Psych: Negative for headache positive for seizure Endo/heme/Lymph: Negative for swollen lymph nodes, easy bruising 14 point ROS REVIEWED NEGATIVE EXCEPT LISTED ABOVE No past medical history on file. No past surgical history on file. Prescriptions prior to admission Medication Sig Dispense Refill Last Dose levETIRAcetam (KEPPRA) 500 MG tablet Take 500 mg by mouth 2 (two) times daily. Indicati ons: Prevention of Seizures After Bleed in Brain Unknown at Unknown time No Known Allergies Family History Problem Relation Age of Onset Other (see comments) Mother cerebral bleed Alcohol abuse Mother Kidney disease Neg Hx History Social History Marital Status: Unknown Spouse Name: N/A Number of Children: N/A Years of Education: N/A Occupational History Not on file. 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 Single No kids Scheduled Medications docusate sodium 100 mg Oral BID Or docusate 100 mg Per OG Tube BID levETIRAcetam 750 mg Intravenous Q12H sodium chloride (bolus) 1,000 mL Intravenous Once Continuous Infusions sodium bicarbonate drip 100 mEq/1000 mL PRN Medications acetaminophen OR acetaminophen, lip moisturizer, magnesium sulfate OR magnesium sul fate OR magnesium sulfate OR magnesium sulfate, nystatin, nystatin, ondansetron OR ondansetron, potassium OR potassium OR potassium OR potassium chloride OR potassium chloride OR potassium chloride, sodium chloride 0.9 % Allergy: No Known Allergies OBJECTIVE Vital Signs: BP 136/91 mmHg | Pulse 52 | Temp(Src) 98.1 F (36.7 C) (Oral) | Resp 16 | Ht 1.753 m (5' 9") | Wt 68.8 kg (151 lb 10.8 oz) | BMI 22.39 kg/m2 | SpO2 100% I&O Detailed Table: I/O last 3 completed shifts: In: 800 [I.V.:400; IV Piggyback:400] Out: - Weight change: Examination: APPEARANCE: The patient is lying in no apparent distress. VITALS: Reviewed as listed. HEAD: NC/AT. EYES: PERRLA. EOMI. Non-icteric sclera. ENT: No oropharyngeal erythema. Buccal mucosa is moist. No gross ear or nasal prob lems noted. NECK: Supple. No raised JVD or thyromegaly. LYMPHATIC: No palpable lymphadenopathy. LUNGS: Clear to auscultation bilaterally. HEART: S1, S2, no pericardial rub noted. ABDOMEN: Full, soft, no tenderness. Bowel sounds are present. No organomegaly or bruit s noted. EXTREMITIES: no pedal edema noted. No cyanosis or clubbing. Peripheral pulses palpable SKIN: Warm to touch. No rash or ecchymosis noted. NEUROLOGIC: No gross focal motor deficit noted. PSYCH: The patient is alert and oriented x 3, mood and affect looks ok, memory seems to be intact. BACK: no CVA tenderness noted LABS: Recent Results (from the past 24 hour(s)) MRSA by PCR Collection Time: 07/15/15 11:21 PM Result Value Ref Range SOURCE NARES(NOSE) MRSA PCR NEGATIVE NEGATIVE Basic metabolic panel Collection Time: 07/16/15 4:15 AM Result Value Ref Range SODIUM 136 135 - 143 mmol/L POTASSIUM 3.5 3.5 - 4.9 mmol/L CHLORIDE 104 99 - 109 mmol/L CO2 18 (L) 23 - 32 mmol/L ANION GAP AGAP 18 5 - 20 mmol/L GLUCOSE 103 (H) 65 - 99 mg/dL BUN 29 (H) 8 - 25 mg/dL CREATININE 2.25 (H) 0.70 - 1.30 mg/dL BUN/CREAT 13 CALCIUM 8.6 8.5 - 10.5 mg/dL EGFR 39 (L) >60 mL/min/1.73m2 CBC w/auto diff (reflex to manual) Collection Time: 07/16/15 4:15 AM Result Value Ref Range WBC 14.27 (H) 3.80 - 11.00 K/uL RBC 4.35 4.20 - 5.70 M/uL HGB 13.7 13.2 - 17.0 g/dL HCT 40.4 39.0 - 50.0 % MCV 92.8 80.0 - 100.0 fl MCH 31.6 27.0 - 34.0 pg MCHC 34.0 32.0 - 35.5 g/dL RDW SD 41.6 37 - 53 fl PLT 185 150 - 400 K/uL MPV 8.9 fl DIFF TYPE AUTOMATED NEUTROPHILS 80.75 % LYMPHOCYTES 7.64 % MONOCYTES 11.49 % EOSINOPHILS 0.04 % BASOPHILS 0.08 % NEUTROPHILS ABS 11.53 (H) 1.90 - 7.40 K/uL LYMPHOCYTES ABS 1.09 1.00 - 3.90 K/uL MONOCYTES ABS 1.64 (H) 0.00 - 0.80 K/uL EOSINOPHILS ABS 0.01 0.00 - 0.50 K/uL BASOPHILS ABS 0.01 0.00 - 0.10 K/uL Magnesium Collection Time: 07/16/15 4:15 AM Result Value Ref Range MAGNESIUM 3.4 (H) 1.7 - 2.4 mg/dL Phosphorus Collection Time: 07/16/15 4:15 AM Result Value Ref Range PHOSPHORUS 4.7 2.3 - 4.8 mg/dL CPK Collection Time: 07/16/15 4:15 AM Result Value Ref Range CPK 5369 (H) 55 - 400 U/L Renal function panel Collection Time: 07/16/15 1:40 PM Result Value Ref Range SODIUM 134 (L) 135 - 143 mmol/L POTASSIUM 3.8 3.5 - 4.9 mmol/L CHLORIDE 103 99 - 109 mmol/L CO2 19 (L) 23 - 32 mmol/L ANION GAP AGAP 16 5 - 20 mmol/L GLUCOSE 89 65 - 99 mg/dL BUN 32 (H) 8 - 25 mg/dL CREATININE 3.8 (H) 0.70 - 1.30 mg/dL CALCIUM 7.5 (L) 8.5 - 10.5 mg/dL Albumin 4.0 3.6 - 5.0 g/dL PHOSPHORUS 5.5 (H) 2.3 - 4.8 mg/dL EGFR 21 (L) >60 mL/min/1.73m2 Basic metabolic panel Collection Time: 07/16/15 3:41 PM Result Value Ref Range SODIUM 130 (L) 135 - 143 mmol/L POTASSIUM 4.2 3.5 - 4.9 mmol/L CHLORIDE 102 99 - 109 mmol/L CO2 18 (L) 23 - 32 mmol/L ANION GAP AGAP 14 5 - 20 mmol/L GLUCOSE 89 65 - 99 mg/dL BUN 37 (H) 8 - 25 mg/dL CREATININE 3.91 (H) 0.70 - 1.30 mg/dL BUN/CREAT 9 CALCIUM 8.5 8.5 - 10.5 mg/dL EGFR 21 (L) >60 mL/min/1.73m2 CPK Collection Time: 07/16/15 3:47 PM Result Value Ref Range CPK 5606 (H) 55 - 400 U/L IMAGING: Cta Head Neck 07/16/2015 CT angiogram head and neck without and with contrast. INDICATION: Posterior fos sa hemorrhage. Seizure. Technique: Head CT without contrast. CT angiogram from the vertex t o the aortic arch after 100 cc Isovue-300 IV. 3-D MIP reconstructions. NASCET criteria used for stenosis measurements. Head CT after contrast. COMPARISON: Outside study 07/15/2015, 18 52 hours FINDINGS: Head CT without and with contrast: Stable, linear regions of blood produ cts are seen within the cerebellar hemispheres bilaterally, left more so right. These may be intraparenchymal, at least in part. Subarachnoid blood products could have a similar appear ance. There is no significant mass effect. No evidence of interval hemorrhage or hydrocephal us. No abnormal enhancement. Supratentorium is unremarkable. CT angiogram neck: Aortic arch and origins of the great vessels are patent. Brachiocephalic and both subclavian arteries are patent Both common carotid arteries, their bifurcations and both internal carotid arter ies are patent without evidence of stenosis Both vertebral arteries are patent throughout t he neck, they are codominant. No evidence of dissection CT angiogram brain: Vertebral jan riaz are codominant. Basilar artery and both posterior cerebral arteries are patent and unre markable. There is a patent posterior communicating artery on the left. Right posterior comm unicating artery is not seen Both internal carotid arteries, anterior and middle cerebral a rteries are patent and unremarkable. A definite anterior communicating artery is not seen N o abnormal vascularity is identified in the posterior fossa to explain the patient's hemorrh ages. Dural venous sinuses appear patent and unremarkable 07/16/[address] without with contrast: Stable appearance to blood products within the p osterior fossa bilaterally, no evidence of interval hemorrhage. No abnormal enhancement. 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 CT angiogram neck: No carotid or vertebral artery narrowing in the neck. No evidence of dissection. CT angiogram brain: No evidence of major vessel stenosis, occlus ion, aneurysm, dissection, thrombi or vascular malformation. No abnormal vascularity in the posterior fossa. Findings discussed with Dr. Hernandez by telephone at 0535 hours. Electron ically signed by Mohit Lopez MD on Jul 16 2015 5:45AM Referring Provider Line: [phone] 5SITE ID: [id number] Ct Head Without Contrast 07/15/2015 This is a non-reportable procedure without a radiologist report and is used for image storage only Patient's old records and labs were reviewed in detail and summarized. PROBLEM LIST Principal Problem: Subarachnoid hemorrhage, nontraumatic (HCC) Active Problems: Rhabdomyolysis Seizure disorder (HCC) ABRAHAM (acute kidney injury) (HCC) Acidosis Hypo-osmolality and or hyponatremia ASSESSMENT & PLAN ABRAHAM Likely in the setting of acute rhabdomyolysis We will watch renal function closely as patient got CT head with IV contrast 07/16/15 R.O AIN R.O POST INFECTIOUS GLOMERULONEPHRITIS/ RPGN R.O HYDRONEPHROSIS IV FLUIDS NO Diuretics/ ROBERTO CARLOS-I/ ARBS Urine studies ordered C3, C4 levels US Renal R.O hydropnephrosis Strict I & O, Daily weights Daily RFP Renal diet AVOID NSAIDS/ BRITTON-2 INHIBITORS AVOID NEPHROTOXIC MEDS INCLUDING AMINOGLYCOSIDES/ IV CONTRAST Assess daily for need for hd Dose all meds for crcl less than 15 mls/min Lab Results Component Value Date BUN 37* 07/16/2015 BUN 32* 07/16/2015 BUN 29* 07/16/2015 CREATININE 3.91* 07/16/2015 CREATININE 3.8* 07/16/2015 CREATININE 2.25* 07/16/2015 Acute rhabdomyolysis likely in this setting of acute seizure IV hydration with sodium bicarbonate drip Will follow serial CPKs every 8 hours Acidosis Likely the setting of worsening renal failure Start nahco3 drip Lab Results Component Value Date CO2 18* 07/16/2015 CO2 19* 07/16/2015 CO2 18* 07/16/2015 Hyponatremia Likely in the setting of renal failure Iv fluids Lab Results Component Value Date NA 130* 07/16/2015 NA 134* 07/16/2015 NA 136 07/16/2015 SEIZURE per neurology and hospitalist CASE DISCUSSED IN DETAIL WITH PATIENT/ FAMILY/HOSPITALIST, ANSWERS ALL QUESTIONS IN DETAIL, VERBALIZES UNDERSTANDING I thank Dr TRAN for giving me the opportunity to take part in the care of this elva patien t with multiple complex medical problems JOSUÉ LIMA MD 07/16/2015 No primary care provider on file. Jan Quesada - 07/16/2015 9:46 AM PST Consult* by Jan Padilla MD at 07/16/15945 Author: Jan Padilla MD Service: Neurology Author Type: Physician Filed: 07/16/15 1100 Date of Service: 07/16/15945 Status: Signed Gusset Ripper: Jan Padilla MD (Physician) [facility] Service: Neurology Initial Consult Note Date of Admission: 07/15/2015 Reason for Consultation: Breakthrough seizure Requesting Physician: Mohit Hernandez MD, Hospitalist History Obtained From: chart review, discussed with Mohit Hernandez MD, patient CHIEF COMPLAINT: No chief complaint on file. HISTORY OF PRESENT ILLNESS The patient is a 24 y.o. male with significant past medical history of seizure disorder who presents with a breakthrough seizure and abnormal CT of the brain with evidence of cerebell ar hemorrhage. He reports developed first seizure about two years ago of unclear etiology. He has been seen by Dr. Moore at [place], he has been treated with Keppra 500 mg bid. He reports total four episodes of generalized tonic-clonic seizure over the last two years. The prior seizure was about three months ago. He ran out of the medication about one week ag o. Yesterday, he had a breakthrough seizure and was sent to emergency room. He was combative but he denies any clear injury. His CT of the brain revealed bilateral cerebellar hemorrhage and minimal subarachnoid hemor rhage. CTA no evidence of vascular abnormality. He is asymptomatic and denies any complaints. The patient denies difficulty with speech, vi gina loss, diplopia, dysethesia, weakness, vertigo, hearing loss, dysphasia, bowel or bladde r dysfunction. REVIEW OF SYSTEMS Denies headaches nor neck pain. No past medical history on file. No past surgical history on file. No Known Allergies Prescriptions prior to admission Medication Sig Dispense Refill Last Dose levETIRAcetam (KEPPRA) 500 MG tablet Take 500 mg by mouth 2 (two) times daily. Indicati ons: Prevention of Seizures After Bleed in Brain Unknown at Unknown time Scheduled Medications chlorhexidine gluconate 15 mL Mouth/Throat Q12H docusate sodium 100 mg Oral BID Or docusate 100 mg Per OG Tube BID influenza vaccine quadrivalent 0.5 mL Intramuscular Once Immunization levETIRAcetam 750 mg Intravenous Q12H Continuous Infusions sodium chloride (IV) 150 mL/hr at 07/16/15 0853 PRN Medications acetaminophen OR acetaminophen, lip moisturizer, magnesium sulfate OR magnesium sul fate OR magnesium sulfate OR magnesium sulfate, nystatin, nystatin, ondansetron OR ondansetron, petrolatum, potassium OR potassium OR potassium OR potassium chl oride OR potassium chloride OR potassium chloride, sodium chloride 0.9 % No family history on file. History Social History Marital Status: Unknown Spouse Name: N/A Number of Children: N/A Years of Education: N/A Occupational History Not on file. Social History Main Topics Smoking status: Not on file Smokeless tobacco: Not on file Alcohol Use: Not on file Drug Use: Not on file Sexual Activity: Not on file Other Topics Concern Not on file Social History Narrative No narrative on file History Smoking status Not on file Smokeless tobacco Not on file History Alcohol Use: Not on file PHYSICAL EXAM Vital Signs: BP 121/71 mmHg | Pulse 72 | Temp(Src) 98.4 F (36.9 C) (Oral) | Resp 26 | Ht 1.753 m (5' 9") | Wt 68.8 kg (151 lb 10.8 oz) | BMI 22.39 kg/m2 | SpO2 98% Temp: [98.2 F (36.8 C)-98.4 F (36.9 C)] 98.4 F (36.9 C) (07/16 799) BP: (107-147)/(69-101) 121/71 mmHg (07/16 799) Heart Rate: [60-96] 72 (07/16 799) Resp: [15-34] 26 (07/16 799) SpO2: [95 %-98 %] 98 % (07/16 799) Height: [175.3 cm (5' 9")] 175.3 cm (5' 9") (07/15 2239) Weight: [68.8 kg (151 lb 10.8 oz)] 68.8 kg (151 lb 10.8 oz) (07/15 2239) BMI (Calculated): [22.4] 22.4 (07/15 2239) Neurological Examination: Neurological Examination: Alert with normal cognitive function. Normal speech. Provide medical history without diff iculty. Neck supple. CN: II-XII grossly intact. Of note, normal visual acuity OU, PERRLA, EOMI, visual field full to confrontation. Sensory symmetrical to pinprick, light touch and temperature. No faci al asymmetry or weakness. Hearing symmetrical. Tongue midline. Palate elevation symmetrical. Head movement symmetrical. Motor: Normal muscle tone and bulk. No fasciculation. Motor strength 5/5 throughout. DTR: Symmetry. 1+ all. Sensory: Symmetry to light touch, pinprick, temperature, vibration and proprioception. No level detected. Motor integration: No dysmetria with finger to nose, heel to landry tests. No abnormal move ment. No dysdiadochokinesis. Gait: NT EKG: CBC: Lab Results Component Value Date WBC 14.27* 07/16/2015 RBC 4.35 07/16/2015 HGB 13.7 07/16/2015 HCT 40.4 07/16/2015 MCV 92.8 07/16/2015 MCH 31.6 07/16/2015 MCHC 34.0 07/16/2015 RDW 41.6 07/16/2015 PLT 185 07/16/2015 MPV 8.9 07/16/2015 DIFFTYPE AUTOMATED 07/16/2015 CMP: Lab Results Component Value Date NA 136 07/16/2015 K 3.5 07/16/2015 CL 104 07/16/2015 CO2 18* 07/16/2015 ANIONGAP 18 07/16/2015 GLUF 103* 07/16/2015 BUN 29* 07/16/2015 CREATININE 2.25* 07/16/2015 BCR 13 07/16/2015 CA 8.6 07/16/2015 EGFR 39* 07/16/2015 No results found for: HDL, TRIGSCR, LDLCALC, CHOL, CHOLHDL, VLDL, NONHDLCHOLVL No results found for: LDLCALC No results found for: ALBCSF, CEFTRIAXONECSF No results found for: GLUCCSF, PROTEINCSF, RBCCSF, WBCCSF Cta Head Neck 07/16/[address] without with contrast: Stable appearance to blood products within the p osterior fossa bilaterally, no evidence of interval hemorrhage. No abnormal enhancement. 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 CT angiogram neck: No carotid or vertebral artery narrowing in the neck. No evidence of dissection. CT angiogram brain: No evidence of major vessel stenosis, occlus ion, aneurysm, dissection, thrombi or vascular malformation. No abnormal vascularity in the posterior fossa. Findings discussed with Dr. Hernandez by telephone at 0535 hours. eBttie ically signed by Mohit Lopez MD on Jul 16 2015 5:45AM Referring Provider Line: [phone] 5SITE ID: [id number] PROBLEM LIST Principal Problem: Subarachnoid hemorrhage, nontraumatic (HCC) ASSESSMENT & PLAN The patient is a 24 yo man with history of seizure disorder, diagnosed about two years ago and sees Dr. Moore in [place]. He was on Keppra 500 mg bid and reports infrequent break through seizure. He ran out of his Keppra for about one week and had one seizure yesterday. He was combative yesterday, his CT of the brain revealed small cerebellar hemorrhage and min imal subarachnoid hemorrhage which is stable on repeated CT today. CTA negative for vascular anomaly. Clinically, he is nonfocal and denies headaches or nuchal rigidity. Recommendations: 1. Agree with Keppra 750 mg bid for better seizure control. 2. Continue neuro check to monitor any neurological changes. May repeat CT if needed. 3. Discussed about seizure precaution and try to avoid any provocative factors like sleepin g deprivation, missing medications. Also discussed about driving safety. No driving until s eizure free for six months. 4. Follow up with Dr. Moore after discharge. I spent more than 50% of this visit counseling the patient about the clinical course of on going neurological symptoms and answering a number of questions. Please call for any new neurological changes or questions. Code Status: Full Code Primary Care Physician: No primary care provider on file. Thank you for allowing me to participate in the care of this patient. I have discussed my recommendations with the attending physician. JAVAN PADILLA MD 07/16/2015 tRocío cotton - 11/2015 7:04 AM PST Consult* by Rocío Richardson MD at 07/16/15 0704 Author: Rocío Richardson MD Service: Neurosurgery Author Type: Physician Filed: 07/16/15 0757 Date of Service: 07/16/15703 Status: Signed Gusset Ripper: Rocío Richardson MD (Physician) [facility] Service: Neurosurgery Initial Consult Note Date of Admission: 07/15/2015 Reason for Consultation: Abnormal head CT Requesting Physician: , Emergency Department History Obtained From: chart review CHIEF COMPLAINT: HISTORY OF PRESENT ILLNESS The patient is a 24 y.o. white male with significant past medical history of seizure diso rder (diagnosed 2 years ago) who was transferred yesterday from an [facility] after a seizure, fol lowed by "violent" activity, with the patient throwing himself into bagley, etc, as reported by the ED physician. The patient states he had run out of Keppra earlier in the week, and d id not have money to buy more medication. This morning, he denies headache. He states that he is hungry. 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 REVIEW OF SYSTEMS Review of Systems No past medical history on file. No past surgical history on file. No Known Allergies Prescriptions prior to admission Medication Sig Dispense Refill Last Dose levETIRAcetam (KEPPRA) 500 MG tablet Take 500 mg by mouth 2 (two) times daily. Indicati ons: Prevention of Seizures After Bleed in Brain Unknown at Unknown time Scheduled Medications chlorhexidine gluconate 15 mL Mouth/Throat Q12H docusate sodium 100 mg Oral BID Or docusate 100 mg Per OG Tube BID influenza vaccine quadrivalent 0.5 mL Intramuscular Once Immunization levETIRAcetam 500 mg Intravenous Q12H Continuous Infusions sodium chloride (IV) 110 mL/hr at 07/15/15 2331 PRN Medications acetaminophen OR acetaminophen, lip moisturizer, magnesium sulfate OR magnesium sul fate OR magnesium sulfate OR magnesium sulfate, nystatin, nystatin, ondansetron OR ondansetron, petrolatum, potassium OR potassium OR potassium OR potassium chl oride OR potassium chloride OR potassium chloride, sodium chloride 0.9 % No family history on file. PHYSICAL EXAM Vital Signs: BP 128/74 mmHg | Pulse 74 | Temp(Src) 98.4 F (36.9 C) (Oral) | Resp 31 | Ht 1.753 m (5' 9") | Wt 68.8 kg (151 lb 10.8 oz) | BMI 22.39 kg/m2 | SpO2 95% Physical Exam Neurologic Exam The patient is calm and cooperative. The pt is A,A,Ox3. Speech is fluent. EOMI. Facies symmetric. Moves all 4 extremities to command. Negative pronator drift of the BUEs. DATA Cta Head Neck 07/16/[address] without with contrast: Stable appearance to blood products within the p osterior fossa bilaterally, no evidence of interval hemorrhage. No abnormal enhancement. 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 CT angiogram neck: No carotid or vertebral artery narrowing in the neck. No evidence of dissection. CT angiogram brain: No evidence of major vessel stenosis, occlus ion, aneurysm, dissection, thrombi or vascular malformation. No abnormal vascularity in the posterior fossa. Findings discussed with Dr. Hernandez by telephone at 0535 hours. Electron ically signed by Mohit Lopez MD on Jul 16 2015 5:45AM Referring Provider Line: [phone] 5SITE ID: [id number] Current Labs: CBC: Lab Results Component Value Date WBC 14.27* 07/16/2015 RBC 4.35 07/16/2015 HGB 13.7 07/16/2015 HCT 40.4 07/16/2015 MCV 92.8 07/16/2015 MCH 31.6 07/16/2015 MCHC 34.0 07/16/2015 RDW 41.6 07/16/2015 PLT 185 07/16/2015 MPV 8.9 07/16/2015 DIFFTYPE AUTOMATED 07/16/2015 BMP: Lab Results Component Value Date NA 136 07/16/2015 K 3.5 07/16/2015 CL 104 07/16/2015 CO2 18* 07/16/2015 ANIONGAP 18 07/16/2015 GLUF 103* 07/16/2015 BUN 29* 07/16/2015 CREATININE 2.25* 07/16/2015 BCR 13 07/16/2015 CA 8.6 07/16/2015 EGFR 39* 07/16/2015 PT/INR: No results found for: PROTIME, INR PTT: No results found for: APTT[APTT} PROBLEM LIST Principal Problem: Subarachnoid hemorrhage, nontraumatic (HCC) ASSESSMENT & PLAN S/P bilateral cerebellar thin probable SAH There is no neurosurgical intervention required. The patient may begin a diet, from my perspective. Likely is safe for transfer out of unit. Continue Keppra. Code Status: Full Code Primary Care Physician: No primary care provider on file. Thank you for this consult. ROCÍO RICHARDSON MD 07/16/2015 documented in this en counter Miscellaneous Notes Plan of Care - Conversion Transaction, Provider Unknown - 07/17/2015 2:25 AM PST Plan of Care by Yamilka Sanford RN at 07/17/15224 Author: Yamilka Sanford RN Service: (none) Author Type: Registered Nurse Filed: 07/17/15224 Date of Service: 07/17/15224 Status: Signed Gusset Ripper: Yamilka Sanford RN (Registered Nurse) Problem: Safety Goal: Patient will be injury free during hospitalization Assess and monitor vitals signs, neurological status including level of consciousness and o rientation. Assess patient s risk for falls and implement fall prevention plan of care and interventions per hospital policy. Ensure arm band on, uncluttered walking paths in room, adequate room lighting, call light a nd overbed table within reach, bed in low position, wheels locked, side rails up per policy, and non-skid footwear provided. Outcome: Progressing Patient educated automation qtp tester light use. Juma light within reach. Bed in lowest and locked posi tion. Non skid footwear use encouraged. Room cleared of extra items. Hourly rounding done . docume nted in this encounter Plan of Treatment +--------+---------+ + + + | Date | Type | Specialty | Care Team | Description | +--------+---------+ + + + | 07/04/ | Office | Neurology | Mendoza Mcgarry MD | | | 2020 | Visit | | [address] | | | | | | [place] | | | | | | [address] | | | | | | | | +--------+---------+ + + + documented as of this encounter Procedures + +--------+ + + + | Procedure Name | Priori | Date/Time | Associated Diagnosis | Comments | | | ty | | | | + +--------+ + + + | PHOSPHORUS | Routin | 07/22/2015 | | Results for this | | | e | 4:18 AM | | procedure are in the | | | | PST | | results section. | + +--------+ + + + | MAGNESIUM | Routin | 07/22/2015 | | Results for this | | | e | 4:18 AM | | procedure are in the | | | | PST | | results section. | + +--------+ + + + | BASIC METABOLIC | Routin | 07/22/2015 | | Results for this | | PANEL | e | 4:18 AM | | procedure are in the | | | | PST | | results section. | + +--------+ + + + | PHOSPHORUS | Routin | 07/21/2015 | | Results for this | | | e | 5:24 AM | | procedure are in the | | | | PST | | results section. | + +--------+ + + + | MAGNESIUM | Routin | 07/21/2015 | | Results for this | | | e | 5:24 AM | | procedure are in the | | | | PST | | results section. | + +--------+ + + + | BASIC METABOLIC | Routin | 07/21/2015 | | Results for this | | PANEL | e | 5:24 AM | | procedure are in the | | | | PST | | results section. | + +--------+ + + + | POTASSIUM | Routin | 07/20/2015 | | Results for this | | | e | 1:02 PM | | procedure are in the | | | | PST | | results section. | + +--------+ + + + | EXTERNAL LAB: CBC | Routin | 07/20/2015 | | Results for this | | | e | 5:08 AM | | procedure are in the | | | | PST | | results section. | + +--------+ + + + | PHOSPHORUS | Routin | 07/20/2015 | | Results for this | | | e | 5:08 AM | | procedure are in the | | | | PST | | results section. | + +--------+ + + + | MAGNESIUM | Routin | 07/20/2015 | | Results for this | | | e | 5:08 AM | | procedure are in the | | | | PST | | results section. | + +--------+ + + + | BASIC METABOLIC | Routin | 07/20/2015 | | Results for this | | PANEL | e | 5:08 AM | | procedure are in the | | | | PST | | results section. | + +--------+ + + + | EXTERNAL LAB: CBC | Routin | 07/19/2015 | | Results for this | | | e | 4:22 AM | | procedure are in the | | | | PST | | results section. | + +--------+ + + + | PROCALCITONIN, SERUM | Routin | 07/19/2015 | | Results for this | | | e | 4:22 AM | | procedure are in the | | | | PST | | results section. | + +--------+ + + + | PHOSPHORUS | Routin | 07/19/2015 | | Results for this | | | e | 4:22 AM | | procedure are in the | | | | PST | | results section. | + +--------+ + + + | MAGNESIUM | Routin | 07/19/2015 | | Results for this | | | e | 4:22 AM | | procedure are in the | | | | PST | | results section. | + +--------+ + + + | BASIC METABOLIC | Routin | 07/19/2015 | | Results for this | | PANEL | e | 4:22 AM | | procedure are in the | | | | PST | | results section. | + +--------+ + + + | BASIC METABOLIC | Routin | 07/18/2015 | | Results for this | | PANEL | e | 11:12 PM | | procedure are in the | | | | PST | | results section. | + +--------+ + + + | XR CHEST 1 VIEW | Routin | 07/18/2015 | | Results for this | | | e | 6:42 PM | | procedure are in the | | | | PST | | results section. | + +--------+ + + + | B TYPE NATRIURETIC | Routin | 07/18/2015 | | Results for this | | PEPTIDE | e | 1:43 PM | | procedure are in the | | | | PST | | results section. | + +--------+ + + + | POTASSIUM | Routin | 07/18/2015 | | Results for this | | | e | 1:42 PM | | procedure are in the | | | | PST | | results section. | + +--------+ + + + | XR CHEST 2 VIEWS | Routin | 07/18/2015 | | Results for this | | | e | 11:28 AM | | procedure are in the | | | | PST | | results section. | + +--------+ + + + | EXTERNAL LAB: CBC | Routin | 07/18/2015 | | Results for this | | | e | 4:05 AM | | procedure are in the | | | | PST | | results section. | + +--------+ + + + | PHOSPHORUS | Routin | 07/18/2015 | | Results for this | | | e | 4:05 AM | | procedure are in the | | | | PST | | results section. | + +--------+ + + + | MAGNESIUM | Routin | 07/18/2015 | | Results for this | | | e | 4:05 AM | | procedure are in the | | | | PST | | results section. | + +--------+ + + + | BASIC METABOLIC | Routin | 07/18/2015 | | Results for this | | PANEL | e | 4:05 AM | | procedure are in the | | | | PST | | results section. | + +--------+ + + + | CK TOTAL | Routin | 07/17/2015 | | Results for this | | | e | 8:23 AM | | procedure are in the | | | | PST | | results section. | + +--------+ + + + | EXTERNAL LAB: CBC | Routin | 07/17/2015 | | Results for this | | | e | 4:33 AM | | procedure are in the | | | | PST | | results section. | + +--------+ + + + | DIMAS PROFILE, REFLEX | Routin | 07/17/2015 | | Results for this | | | e | 4:33 AM | | procedure are in the | | | | PST | | results section. | + +--------+ + + + | KAPPA AND LAMBDA | Routin | 07/17/2015 | | Results for this | | LIGHT CHAIN RATIO | e | 4:33 AM | | procedure are in the | | | | PST | | results section. | + +--------+ + + + | HEPATITIS PANEL, | Routin | 07/17/2015 | | Results for this | | CHRONIC | e | 4:33 AM | | procedure are in the | | | | PST | | results section. | + +--------+ + + + | C3 AND C4 | Routin | 07/17/2015 | | Results for this | | | e | 4:33 AM | | procedure are in the | | | | PST | | results section. | + +--------+ + + + | GLOMERULAR BASEMENT | Routin | 07/17/2015 | | Results for this | | MEMBRANE AB, IGG | e | 4:33 AM | | procedure are in the | | | | PST | | results section. | + +--------+ + + + | RHEUMATOID FACTOR, | Routin | 07/17/2015 | | Results for this | | QUANT | e | 4:33 AM | | procedure are in the | | | | PST | | results section. | + +--------+ + + + | PHOSPHORUS | Routin | 07/17/2015 | | Results for this | | | e | 4:33 AM | | procedure are in the | | | | PST | | results section. | + +--------+ + + + | MAGNESIUM | Routin | 07/17/2015 | | Results for this | | | e | 4:33 AM | | procedure are in the | | | | PST | | results section. | + +--------+ + + + | BASIC METABOLIC | Routin | 07/17/2015 | | Results for this | | PANEL | e | 4:33 AM | | procedure are in the | | | | PST | | results section. | + +--------+ + + + | CK TOTAL | Routin | 07/16/2015 | | Results for this | | | e | 11:50 PM | | procedure are in the | | | | PST | | results section. | + +--------+ + + + | US RENAL LIMITED | Routin | 07/16/2015 | | Results for this | | | e | 10:40 PM | | procedure are in the | | | | PST | | results section. | + +--------+ + + + | SODIUM, URINE, | Routin | 07/16/2015 | | Results for this | | RANDOM | e | 8:01 PM | | procedure are in the | | | | PST | | results section. | + +--------+ + + + | URINALYSIS WITH | Routin | 07/16/2015 | | Results for this | | MICROSCOPIC WITH | e | 7:59 PM | | procedure are in the | | CULTURE IF INDICATED | | PST | | results section. | + +--------+ + + + | EOSINOPHIL SMEAR, | Routin | 07/16/2015 | | Results for this | | URINE | e | 7:59 PM | | procedure are in the | | | | PST | | results section. | + +--------+ + + + | DRUGS OF ABUSE | Routin | 07/16/2015 | | Results for this | | SCREEN, URINE (H) | e | 7:57 PM | | procedure are in the | | | | PST | | results section. | + +--------+ + + + | CK TOTAL | Routin | 07/16/2015 | | Results for this | | | e | 3:47 PM | | procedure are in the | | | | PST | | results section. | + +--------+ + + + | BASIC METABOLIC | Routin | 07/16/2015 | | Results for this | | PANEL | e | 3:41 PM | | procedure are in the | | | | PST | | results section. | + +--------+ + + + | RENAL FUNCTION PANEL | Routin | 07/16/2015 | | Results for this | | | e | 1:40 PM | | procedure are in the | | | | PST | | results section. | + +--------+ + + + | CT ANGIOGRAM HEAD | Routin | 07/16/2015 | | Results for this | | NECK W CONTRAST | e | 5:01 AM | | procedure are in the | | | | PST | | results section. | + +--------+ + + + | EXTERNAL LAB: CBC | Routin | 07/16/2015 | | Results for this | | | e | 4:15 AM | | procedure are in the | | | | PST | | results section. | + +--------+ + + + | PHOSPHORUS | Routin | 07/16/2015 | | Results for this | | | e | 4:15 AM | | procedure are in the | | | | PST | | results section. | + +--------+ + + + | MAGNESIUM | Routin | 07/16/2015 | | Results for this | | | e | 4:15 AM | | procedure are in the | | | | PST | | results section. | + +--------+ + + + | CK TOTAL | Routin | 07/16/2015 | | Results for this | | | e | 4:15 AM | | procedure are in the | | | | PST | | results section. | + +--------+ + + + | BASIC METABOLIC | Routin | 07/16/2015 | | Results for this | | PANEL | e | 4:15 AM | | procedure are in the | | | | PST | | results section. | + +--------+ + + + | MRSA NAAT | Routin | 07/15/2015 | | Results for this | | | e | 11:21 PM | | procedure are in the | | | | PST | | results section. | + +--------+ + + + documented in this encounter Results Phosphorus (07/22/2015 4:18 AM PST) + + + + + + | Component | Value | Ref Range | Performed | Pathologist | | | | | At | Signature | + + + + + + | PHOSPHORUS | 3.5Comment: Testing | 2.3 - 4.8 mg/dL | EXTERNAL | | | | performed at [facility], [address] | | LAB | | | | [address], | | | | | | [place] [address] | | | | + + + + + + + + | Specimen | + + | Blood specimen | | (specimen) | + + + +---------+ + + | Performing | Address | City/State/Zipcode | Phone Number | | Organization | | | | + +---------+ + + | EXTERNAL LAB | | | | + +---------+ + + Magnesium (07/22/2015 4:18 AM PST) + + + + + + | Component | Value | Ref Range | Performed | Pathologist | | | | | At | Signature | + + + + + + | Magnesium | 1.7Comment: Testing | 1.7 - 2.4 mg/dL | EXTERNAL | | | | performed at [facility], [address] | | LAB | | | | [address], | | | | | | [place] [address] | | | | + + + + + + + + | Specimen | + + | Blood specimen | | (specimen) | + + + +---------+ + + | Performing | Address | City/State/Zipcode | Phone Number | | Organization | | | | + +---------+ + + | EXTERNAL LAB | | | | + +---------+ + + Basic Metabolic Panel (07/22/2015 4:18 AM PST) + + + + + + | Component | Value | Ref Range | Performed | Pathologist | | | | | At | Signature | + + + + + + | Na | 136Comment: Testing | 135 - 143 | EXTERNAL | | | | performed at [facility], [address] | mmol/L | LAB | | | | [address], | | | | | | [place] [address] | | | | + + + + + + | K | 3.9Comment: Testing | 3.5 - 4.9 | EXTERNAL | | | | performed at [facility], [address] | mmol/L | LAB | | | | [address], | | | | | | [place] [address] | | | | + + + + + + | Cl | 102Comment: Testing | 99 - 109 mmol/L | EXTERNAL | | | | performed at [facility], [address] | | LAB | | | | [address], | | | | | | [place] [address] | | | | + + + + + + | CO2 | 29Comment: Testing | 23 - 32 mmol/L | EXTERNAL | | | | performed at [facility], [address] | | LAB | | | | [address], | | | | | | [place] [address] | | | | + + + + + + | Anion Gap | 9Comment: Testing | 5 - 20 mmol/L | EXTERNAL | | | | performed at [facility], [address] | | LAB | | | | [address], | | | | | | [place] [address] | | | | + + + + + + | Glucose, | 90Comment: Testing | 65 - 99 mg/dL | EXTERNAL | | | Fasting | performed at [facility], [address] | | LAB | | | | [address], | | | | | | [place] [address] | | | | + + + + + + | BUN | 22Comment: Testing | 8 - 25 mg/dL | EXTERNAL | | | | performed at [facility], [address] | | LAB | | | | [address], | | | | | | [place] [address] | | | | + + + + + + | Creatinine | 1.20Comment: Testing | 0.70 - 1.30 | EXTERNAL | | | | performed at [facility], [address] | mg/dL | LAB | | | | [address], | | | | | | [place] [address] | | | | + + + + + + | BUN/Creatin | 18Comment: Testing | | EXTERNAL | | | ine Ratio | performed at [facility], [address] | | LAB | | | | [address], | | | | | | [place] [address] | | | | + + + + + + | Calcium | 9.3Comment: Testing | 8.5 - 10.5 | EXTERNAL | | | | performed at [facility], [address] | mg/dL | LAB | | | | [address], | | | | | | [place] [address] | | | | + + + + + + | Estimated | >60Comment: GFR <60: | mL/min/1.73m2 | EXTERNAL | | | GFR | CHRONIC KIDNEY DISEASE, | | LAB | | | | IF FOUND OVER A 3 MONTH | | | | | | PERIOD.GFR <15: KIDNEY | | | | | | FAILURE.FOR | | | | | | AMERICANS, MULTIPLY THE | | | | | | CALCULATED GFR BY | | | | | | 1.210.Testing performed | | | | | | at [facility], [address] | | | | | | [facility], | | | | | | [place] [address] | | | | + + + + + + + + | Specimen | + + | Blood specimen | | (specimen) | + + + +---------+ + + | Performing | Address | City/State/Zipcode | Phone Number | | Organization | | | | + +---------+ + + | EXTERNAL LAB | | | | + +---------+ + + Phosphorus (07/21/2015 5:24 AM PST) + + + + + + | Component | Value | Ref Range | Performed | Pathologist | | | | | At | Signature | + + + + + + | PHOSPHORUS | 2.4Comment: Testing | 2.3 - 4.8 mg/dL | EXTERNAL | | | | performed at [facility], [address] | | LAB | | | | [address], | | | | | | [place] [address] | | | | + + + + + + + + | Specimen | + + | Blood specimen | | (specimen) | + + + +---------+ + + | Performing | Address | City/State/Zipcode | Phone Number | | Organization | | | | + +---------+ + + | EXTERNAL LAB | | | | + +---------+ + + Magnesium (07/21/2015 5:24 AM PST) + + + + + + | Component | Value | Ref Range | Performed | Pathologist | | | | | At | Signature | + + + + + + | Magnesium | 1.9Comment: Testing | 1.7 - 2.4 mg/dL | EXTERNAL | | | | performed at [facility], [address] | | LAB | | | | [address], | | | | | | [place] [address] | | | | + + + + + + + + | Specimen | + + | Blood specimen | | (specimen) | + + + +---------+ + + | Performing | Address | City/State/Zipcode | Phone Number | | Organization | | | | + +---------+ + + | EXTERNAL LAB | | | | + +---------+ + + Basic Metabolic Panel (07/21/2015 5:24 AM PST) + + + + + + | Component | Value | Ref Range | Performed | Pathologist | | | | | At | Signature | + + + + + + | Na | 134 (L)Comment: Testing | 135 - 143 | EXTERNAL | | | | performed at [facility], [address] | mmol/L | LAB | | | | [address], | | | | | | [place] [address] | | | | + + + + + + | K | 3.8Comment: Testing | 3.5 - 4.9 | EXTERNAL | | | | performed at [facility], [address] | mmol/L | LAB | | | | [address], | | | | | | [place] [address] | | | | + + + + + + | Cl | 100Comment: Testing | 99 - 109 mmol/L | EXTERNAL | | | | performed at [facility], [address] | | LAB | | | | [address], | | | | | | [place] [address] | | | | + + + + + + | CO2 | 25Comment: Testing | 23 - 32 mmol/L | EXTERNAL | | | | performed at [facility], [address] | | LAB | | | | [address], | | | | | | [place] [address] | | | | + + + + + + | Anion Gap | 13Comment: Testing | 5 - 20 mmol/L | EXTERNAL | | | | performed at [facility], [address] | | LAB | | | | [address], | | | | | | [place] [address] | | | | + + + + + + | Glucose, | 98Comment: Testing | 65 - 99 mg/dL | EXTERNAL | | | Fasting | performed at [facility], [address] | | LAB | | | | [address], | | | | | | [place] [address] | | | | + + + + + + | BUN | 20Comment: Testing | 8 - 25 mg/dL | EXTERNAL | | | | performed at [facility], [address] | | LAB | | | | [address], | | | | | | [place] [address] | | | | + + + + + + | Creatinine | 1.40 (H)Comment: Testing | 0.70 - 1.30 | EXTERNAL | | | | performed at [facility], [address] | mg/dL | LAB | | | | [address], | | | | | | [place] [address] | | | | + + + + + + | BUN/Creatin | 14Comment: Testing | | EXTERNAL | | | ine Ratio | performed at [facility], [address] | | LAB | | | | [address], | | | | | | [place] [address] | | | | + + + + + + | Calcium | 9.2Comment: Testing | 8.5 - 10.5 | EXTERNAL | | | | performed at [facility], [address] | mg/dL | LAB | | | | [address], | | | | | | [place] [address] | | | | + + + + + + | Estimated | >60Comment: GFR <60: | mL/min/1.73m2 | EXTERNAL | | | GFR | CHRONIC KIDNEY DISEASE, | | LAB | | | | IF FOUND OVER A 3 MONTH | | | | | | PERIOD.GFR <15: KIDNEY | | | | | | FAILURE.FOR | | | | | | AMERICANS, MULTIPLY THE | | | | | | CALCULATED GFR BY | | | | | | 1.210.Testing performed | | | | | | at [facility], [address] | | | | | | [address], | | | | | | [place] [address] | | | | + + + + + + + + | Specimen | + + | Blood specimen | | (specimen) | + + + +---------+ + + | Performing | Address | City/State/Zipcode | Phone Number | | Organization | | | | + +---------+ + + | EXTERNAL LAB | | | | + +---------+ + + Potassium (07/20/2015 1:02 PM PST) + + + + + + | Component | Value | Ref Range | Performed | Pathologist | | | | | At | Signature | + + + + + + | K | 3.7Comment: Testing | 3.5 - 4.9 | EXTERNAL | | | | performed at [facility], [address] | mmol/L | LAB | | | | [address], | | | | | | [place] [address] | | | | + + + + + + + + | Specimen | + + | Blood specimen | | (specimen) | + + + +---------+ + + | Performing | Address | City/State/Zipcode | Phone Number | | Organization | | | | + +---------+ + + | EXTERNAL LAB | | | | + +---------+ + + External Lab: CBC (07/20/2015 5:08 AM PST) + + + + + + | Component | Value | Ref Range | Performed | Pathologist | | | | | At | Signature | + + + + + + | WBC | 10.20Comment: Testing | 3.80 - 11.00 | EXTERNAL | | | | performed at [facility], [address] | K/uL | LAB | | | | [address], | | | | | | [place] [address] | | | | + + + + + + | Non- | 3.83 (L)Comment: Testing | 4.20 - 5.70 | EXTERNAL | | | Red Blood | performed at [facility], [address] | M/uL | LAB | | | Cells | [address], | | | | | Counted | [place] [address] | | | | + + + + + + | Hemoglobin | 11.9 (L)Comment: Testing | 13.2 - 17.0 | EXTERNAL | | | | performed at [facility], [address] | g/dL | LAB | | | | [address], | | | | | | [place] [address] | | | | + + + + + + | Hematocrit, | 35.6 (L)Comment: Testing | 39.0 - 50.0 % | EXTERNAL | | | POC | performed at [facility], [address] | | LAB | | | | [address], | | | | | | [place] [address] | | | | + + + + + + | MCV | 92.9Comment: Testing | 80.0 - 100.0 fl | EXTERNAL | | | | performed at [facility], [address] | | LAB | | | | [address], | | | | | | [place] [address] | | | | + + + + + + | MCH | 31.2Comment: Testing | 27.0 - 34.0 pg | EXTERNAL | | | | performed at [facility], [address] | | LAB | | | | [address], | | | | | | [place] [address] | | | | + + + + + + | MCHC | 33.6Comment: Testing | 32.0 - 35.5 | EXTERNAL | | | | performed at [facility], [address] | g/dL | LAB | | | | [address], | | | | | | [place] [address] | | | | + + + + + + | RDW-CV | 39.8Comment: Testing | 37 - 53 fl | EXTERNAL | | | | performed at [facility], [address] | | LAB | | | | [address], | | | | | | [place] [address] | | | | + + + + + + | Platelet | 167Comment: Testing | 150 - 400 K/uL | EXTERNAL | | | Count | performed at [facility], [address] | | LAB | | | Plasma | [address], | | | | | | [place] [address] | | | | + + + + + + | MPV | 9.3Comment: Testing | fl | EXTERNAL | | | | performed at [facility], [address] | | LAB | | | | [address], | | | | | | [place] [address] | | | | + + + + + + | Differentia | MANUALComment: Testing | | EXTERNAL | | | l Type | performed at [facility], [address] | | LAB | | | | [address], | | | | | | [place] [address] | | | | + + + + + + | Segmented | 66Comment: Testing | % | EXTERNAL | | | Neutrophils | performed at [facility], [address] | | LAB | | | Manual | [address], | | | | | | [place] [address] | | | | + + + + + + | Lymphocytes | 20Comment: Testing | % | EXTERNAL | | | Manual | performed at [facility], [address] | | LAB | | | | [address], | | | | | | [place] [address] | | | | + + + + + + | Monocytes | 13Comment: Testing | % | EXTERNAL | | | Manual | performed at [facility], [address] | | LAB | | | | [address], | | | | | | [place] [address] | | | | + + + + + + | Eosinophils | 1Comment: Testing | % | EXTERNAL | | | Manual | performed at [facility], [address] | | LAB | | | | [address], | | | | | | [place] [address] | | | | + + + + + + | Absolute | 6.73Comment: Testing | 1.90 - 7.40 | EXTERNAL | | | Neutrophils | performed at [facility], [address] | K/uL | LAB | | | | [address], | | | | | | [place] [address] | | | | + + + + + + | Absolute | 2.04Comment: Testing | 1.00 - 3.90 | EXTERNAL | | | Lymphocytes | performed at [facility], [address] | K/uL | LAB | | | | [address], | | | | | | [place] [address] | | | | + + + + + + | Absolute | 1.33 (H)Comment: Testing | 0.00 - 0.80 | EXTERNAL | | | Monocytes | performed at [facility], [address] | K/uL | LAB | | | | [address], | | | | | | [place] [address] | | | | + + + + + + | Absolute | 0.10Comment: Testing | 0.00 - 0.50 | EXTERNAL | | | Eosinophils | performed at [facility], [address] | K/uL | LAB | | | | [address], | | | | | | [place] [address] | | | | + + + + + + | RBC | RBC AND PLT MORPHOLOGY | | EXTERNAL | | | Morphology | APPEAR NORMALComment: | | LAB | | | | Testing performed at | | | | | | [facility], [address] [facility] | | | | | | [place] | | | | | | [address] | | | | + + + + + + + + | Specimen | + + | Blood specimen | | (specimen) | + + + +---------+ + + | Performing | Address | City/State/Zipcode | Phone Number | | Organization | | | | + +---------+ + + | EXTERNAL LAB | | | | + +---------+ + + Phosphorus (07/20/2015 5:08 AM PST) + + + + + + | Component | Value | Ref Range | Performed | Pathologist | | | | | At | Signature | + + + + + + | PHOSPHORUS | 2.9Comment: Testing | 2.3 - 4.8 mg/dL | EXTERNAL | | | | performed at [facility], [address] | | LAB | | | | [address], | | | | | | [place] [address] | | | | + + + + + + + + | Specimen | + + | Blood specimen | | (specimen) | + + + +---------+ + + | Performing | Address | City/State/Zipcode | Phone Number | | Organization | | | | + +---------+ + + | EXTERNAL LAB | | | | + +---------+ + + Magnesium (07/20/2015 5:08 AM PST) + + + + + + | Component | Value | Ref Range | Performed | Pathologist | | | | | At | Signature | + + + + + + | Magnesium | 2.1Comment: Testing | 1.7 - 2.4 mg/dL | EXTERNAL | | | | performed at [facility], [address] | | LAB | | | | [address], | | | | | | [place] [address] | | | | + + + + + + + + | Specimen | + + | Blood specimen | | (specimen) | + + + +---------+ + + | Performing | Address | City/State/Zipcode | Phone Number | | Organization | | | | + +---------+ + + | EXTERNAL LAB | | | | + +---------+ + + Basic Metabolic Panel (07/20/2015 5:08 AM PST) + + + + + + | Component | Value | Ref Range | Performed | Pathologist | | | | | At | Signature | + + + + + + | Na | 134 (L)Comment: Testing | 135 - 143 | EXTERNAL | | | | performed at [facility], [address] | mmol/L | LAB | | | | [address], | | | | | | [place] [address] | | | | + + + + + + | K | 3.3 (L)Comment: Testing | 3.5 - 4.9 | EXTERNAL | | | | performed at [facility], [address] | mmol/L | LAB | | | | [address], | | | | | | [place] [address] | | | | + + + + + + | Cl | 98 (L)Comment: Testing | 99 - 109 mmol/L | EXTERNAL | | | | performed at [facility], [address] | | LAB | | | | [address], | | | | | | [place] [address] | | | | + + + + + + | CO2 | 28Comment: Testing | 23 - 32 mmol/L | EXTERNAL | | | | performed at [facility], [address] | | LAB | | | | [address], | | | | | | [place] [address] | | | | + + + + + + | Anion Gap | 11Comment: Testing | 5 - 20 mmol/L | EXTERNAL | | | | performed at [facility], [address] | | LAB | | | | [address], | | | | | | [place] [address] | | | | + + + + + + | Glucose, | 102 (H)Comment: Testing | 65 - 99 mg/dL | EXTERNAL | | | Fasting | performed at [facility], [address] | | LAB | | | | [address], | | | | | | [place] [address] | | | | + + + + + + | BUN | 24Comment: Testing | 8 - 25 mg/dL | EXTERNAL | | | | performed at [facility], [address] | | LAB | | | | [address], | | | | | | [place] [address] | | | | + + + + + + | Creatinine | 2.19 (H)Comment: Testing | 0.70 - 1.30 | EXTERNAL | | | | performed at [facility], [address] | mg/dL | LAB | | | | [address], | | | | | | [place] [address] | | | | + + + + + + | BUN/Creatin | 11Comment: Testing | | EXTERNAL | | | ine Ratio | performed at [facility], [address] | | LAB | | | | [address], | | | | | | [place] [address] | | | | + + + + + + | Calcium | 8.6Comment: Testing | 8.5 - 10.5 | EXTERNAL | | | | performed at [facility], [address] | mg/dL | LAB | | | | [address], | | | | | | [place] [address] | | | | + + + + + + | Estimated | 40 (L)Comment: GFR <60: | mL/min/1.73m2 | EXTERNAL | | | GFR | CHRONIC KIDNEY DISEASE, | | LAB | | | | IF FOUND OVER A 3 MONTH | | | | | | PERIOD.GFR <15: KIDNEY | | | | | | FAILURE.FOR | | | | | | AMERICANS, MULTIPLY THE | | | | | | CALCULATED GFR BY | | | | | | 1.210.Testing performed | | | | | | at [facility], [address] | | | | | | [address], | | | | | | [place] [address] | | | | + + + + + + + + | Specimen | + + | Blood specimen | | (specimen) | + + + +---------+ + + | Performing | Address | City/State/Zipcode | Phone Number | | Organization | | | | + +---------+ + + | EXTERNAL LAB | | | | + +---------+ + + Procalcitonin (07/19/2015 4:22 AM PST) + + + + + + | Component | Value | Ref Range | Performed | Pathologist | | | | | At | Signature | + + + + + + | PROCALCITON | 0.30Comment: | ng/mL | EXTERNAL | | | IN | INTERPRETIVE | | LAB | | | | INFORMATION: | | | | | | PROCALCITONIN PCT <= | | | | | | 0.5 ng/mL: Low risk | | | | | | for progression to | | | | | | severe systemic | | | | | | bacterial infection | | | | | | (severe sepsis/septic | | | | | | shock). Does not | | | | | | exclude an infection, | | | | | | because localized | | | | | | infections may be | | | | | | associated with such low | | | | | | levels. If PCT is | | | | | | measured very early | | | | | | after bacterial | | | | | | challenge (usually <6 | | | | | | hours), results may | | | | | | still be low and | | | | | | should re-assess PCT | | | | | | 6-24 hours later. PCT | | | | | | >0.5 and <= 2 ng/mL: | | | | | | Moderate risk for | | | | | | progression to severe | | | | | | systemic infection | | | | | | (severe sepsis/septic | | | | | | shock). Other | | | | | | conditions are known | | | | | | to elevate PCT, patient | | | | | | should be closely | | | | | | monitored both | | | | | | clinically and by | | | | | | re-assessing PCT | | | | | | within 6-24 hours. PCT > | | | | | | 2 ng/mL: High | | | | | | likelihood for | | | | | | progression to severe | | | | | | systemic bacterial | | | | | | infection (severe | | | | | | sepsis/septic shock). | | | | | | PCT >= 10 ng/mL: | | | | | | High likelihood of | | | | | | severe sepsis or septic | | | | | | shock.Testing performed | | | | | | at [facility];[address] [place] [address] | | | | | | [facility];[place] [address] | | | | + + + + + + + + | Specimen | + + | | + + + +---------+ + + | Performing | Address | City/State/Zipcode | Phone Number | | Organization | | | | + +---------+ + + | EXTERNAL LAB | | | | + +---------+ + + External Lab: SOY (07/19/2015 4:22 AM PST) + + + + + + | Component | Value | Ref Range | Performed | Pathologist | | | | | At | Signature | + + + + + + | WBC | 14.43 (H)Comment: | 3.80 - 11.00 | EXTERNAL | | | | Testing performed at | K/uL | LAB | | | | [facility], [address] [facility] | | | | | | [place] | | | | | | [address] | | | | + + + + + + | Non- | 3.88 (L)Comment: Testing | 4.20 - 5.70 | EXTERNAL | | | Red Blood | performed at [facility], [address] | M/uL | LAB | | | Cells | [address], | | | | | Counted | [place] [address] | | | | + + + + + + | Hemoglobin | 12.2 (L)Comment: Testing | 13.2 - 17.0 | EXTERNAL | | | | performed at [facility], [address] | g/dL | LAB | | | | [address], | | | | | | [place] [address] | | | | + + + + + + | Hematocrit, | 35.3 (L)Comment: Testing | 39.0 - 50.0 % | EXTERNAL | | | POC | performed at [facility], [address] | | LAB | | | | [address], | | | | | | [place] [address] | | | | + + + + + + | MCV | 91.1Comment: Testing | 80.0 - 100.0 fl | EXTERNAL | | | | performed at [facility], [address] | | LAB | | | | [address], | | | | | | [place] [address] | | | | + + + + + + | MCH | 31.3Comment: Testing | 27.0 - 34.0 pg | EXTERNAL | | | | performed at [facility], [address] | | LAB | | | [address], | | | | | | [place] [address] | | | | + + + + + + | MCHC | 34.4Comment: Testing | 32.0 - 35.5 | EXTERNAL | | | | performed at [facility], [address] | g/dL | LAB | | | | [address], | | | | | | [place] [address] | | | | + + + + + + | RDW-CV | 39.4Comment: Testing | 37 - 53 fl | EXTERNAL | | | | performed at [facility], [address] | | LAB | | | | [address], | | | | | | [place] [address] | | | | + + + + + + | Platelet | 146 (L)Comment: Testing | 150 - 400 K/uL | EXTERNAL | | | Count | performed at [facility], [address] | | LAB | | | Plasma | [address], | | | | | | [place] [address] | | | | + + + + + + | MPV | 9.5Comment: Testing | fl | EXTERNAL | | | | performed at [facility], [address] | | LAB | | | | [address] [place], | | | | | | [place] [address] | | | | + + + + + + | Differentia | AUTOMATEDComment: | | EXTERNAL | | | l Type | Testing performed at | | LAB | | | | [facility], [address] | | | | | | [place] | | | | | | [address] | | | | + + + + + + | % Segmented | 84.61Comment: Testing | % | EXTERNAL | | | | performed at [facility], [address] | | LAB | | | Neutrophils | [address], | | | | | | [place] [address] | | | | + + + + + + | % | 7.21Comment: Testing | % | EXTERNAL | | | Lymphocytes | performed at [facility], [address] | | LAB | | | | [address], | | | | | | [place], [place] [address] | | | | + + + + + + | % Monocytes | 8.10Comment: Testing | % | EXTERNAL | | | | performed at [facility], [address] | | LAB | | | | [address], | | | | | | [place], [place] [address] | | | | + + + + + + | % | 0.01Comment: Testing | % | EXTERNAL | | | Eosinophils | performed at [facility], [address] | | LAB | | | | [address], | | | | | | [place], [place] [address] | | | | + + + + + + | % Basophils | 0.07Comment: Testing | % | EXTERNAL | | | | performed at [facility], [address] | | LAB | | | | [address], | | | | | | [place], [place] [address] | | | | + + + + + + | Absolute | 12.21 (H)Comment: | 1.90 - 7.40 | EXTERNAL | | | Segmented | Testing performed at | K/uL | LAB | | | Neutrophils | [facility], [address] | | | | | | [place] | | | | | | [address] | | | | + + + + + + | Absolute | 1.04Comment: Testing | 1.00 - 3.90 | EXTERNAL | | | Lymphocytes | performed at [facility], [address] | [facility] | LAB | | | | [address], | | | | | | [place] [address] | | | | + + + + + + | Absolute | 1.17 (H)Comment: Testing | 0.00 - 0.80 | EXTERNAL | | | Monocytes | performed at [facility], [address] | [address] | LAB | | | | [address], | | | | | | [place] [address] | | | | + + + + + + | Absolute | 0.00Comment: Testing | 0.00 - 0.50 | EXTERNAL | | | Eosinophils | performed at [facility], [address] | [address] | LAB | | | | [address], | | | | | | [place] [address] | | | | + + + + + + | Absolute | 0.01Comment: Testing | 0.00 - 0.10 | EXTERNAL | | | Basophils | performed at [facility], [address] | [address] | LAB | | | | [address], | | | | | | [place] [address] | | | | + + + + + + + + | Specimen | + + | Blood specimen | | (specimen) | + + + +---------+ + + | Performing | Address | City/State/Zipcode | Phone Number | | Organization | | | | + +---------+ + + | EXTERNAL LAB | | | | + +---------+ + + Phosphorus (07/19/2015 4:22 AM PST) + + + + + + | Component | Value | Ref Range | Performed | Pathologist | | | | | At | Signature | + + + + + + | PHOSPHORUS | 3.3Comment: Testing | 2.3 - 4.8 mg/dL | EXTERNAL | | | | performed at [facility], [address] | | LAB | | | | [address], | | | | | | [place] [address] | | | | + + + + + + + + | Specimen | + + | Blood specimen | | (specimen) | + + + +---------+ + + | Performing | Address | City/State/Zipcode | Phone Number | | Organization | | | | + +---------+ + + | EXTERNAL LAB | | | | + +---------+ + + Magnesium (07/19/2015 4:22 AM PST) + + + + + + | Component | Value | Ref Range | Performed | Pathologist | | | | | At | Signature | + + + + + + | Magnesium | 2.1Comment: Testing | 1.7 - 2.4 mg/dL | EXTERNAL | | | | performed at [facility], [address] | | LAB | | | | [address], | | | | | | [place] [address] | | | | + + + + + + + + | Specimen | + + | Blood specimen | | (specimen) | + + + +---------+ + + | Performing | Address | City/State/Zipcode | Phone Number | | Organization | | | | + +---------+ + + | EXTERNAL LAB | | | | + +---------+ + + Basic Metabolic Panel (07/19/2015 4:22 AM PST) + + + + + + | Component | Value | Ref Range | Performed | Pathologist | | | | | At | Signature | + + + + + + | Na | 134 (L)Comment: Testing | 135 - 143 | EXTERNAL | | | | performed at [facility], [address] | mmol/L | LAB | | | | [address], | | | | | | [place] [address] | | | | + + + + + + | K | 3.2 (L)Comment: Testing | 3.5 - 4.9 | EXTERNAL | | | | performed at [facility], [address] | mmol/L | LAB | | | | [address], | | | | | | [place] [address] | | | | + + + + + + | Cl | 95 (L)Comment: Testing | 99 - 109 mmol/L | EXTERNAL | | | | performed at [facility], [address] | | LAB | | | | [address], | | | | | | [place] [address] | | | | + + + + + + | CO2 | 29Comment: Testing | 23 - 32 mmol/L | EXTERNAL | | | | performed at [facility], [address] | | LAB | | | | [address], | | | | | | [place] [address] | | | | + + + + + + | Anion Gap | 13Comment: Testing | 5 - 20 mmol/L | EXTERNAL | | | | performed at [facility], [address] | | LAB | | | | [address], | | | | | | [place] [address] | | | | + + + + + + | Glucose, | 109 (H)Comment: Testing | 65 - 99 mg/dL | EXTERNAL | | | Fasting | performed at [facility], [address] | | LAB | | | | [address], | | | | | | [place] [address] | | | | + + + + + + | BUN | 29 (H)Comment: Testing | 8 - 25 mg/dL | EXTERNAL | | | | performed at [facility], [address] | | LAB | | | | [address], | | | | | | [place] [address] | | | | + + + + + + | Creatinine | 3.24 (H)Comment: Testing | 0.70 - 1.30 | EXTERNAL | | | | performed at [facility], [address] | mg/dL | LAB | | | | [address], | | | | | | [place] [address] | | | | + + + + + + | BUN/Creatin | 9Comment: Testing | | EXTERNAL | | | ine Ratio | performed at [facility], [address] | | LAB | | | | [address], | | | | | | [place] [address] | | | | + + + + + + | Calcium | 8.0 (L)Comment: Testing | 8.5 - 10.5 | EXTERNAL | | | | performed at [facility], [address] | mg/dL | LAB | | | | [facility], | | | | | | [place] [address] | | | | + + + + + + | Estimated | 26 (L)Comment: GFR <60: | mL/min/1.73m2 | EXTERNAL | | | GFR | CHRONIC KIDNEY DISEASE, | | LAB | | | | IF FOUND OVER A 3 MONTH | | | | | | PERIOD.GFR <15: KIDNEY | | | | | | FAILURE.FOR | | | | | | AMERICANS, MULTIPLY THE | | | | | | CALCULATED GFR BY | | | | | | 1.210.Testing performed | | | | | | at [facility], [address] | | | | | | [facility], | | | | | | [place] [address] | | | | + + + + + + + + | Specimen | + + | Blood specimen | | (specimen) | + + + +---------+ + + | Performing | Address | City/State/Zipcode | Phone Number | | Organization | | | | + +---------+ + + | EXTERNAL LAB | | | | + +---------+ + + Basic Metabolic Panel (07/18/2015 11:12 PM PST) + + + + + + | Component | Value | Ref Range | Performed | Pathologist | | | | | At | Signature | + + + + + + | Na | 135Comment: Testing | 135 - 143 | EXTERNAL | | | | performed at [facility];[address] | mmol/L | LAB | | | | [address];[place] | | | | | | [address] | | | | + + + + + + | K | 2.9 (L)Comment: Testing | 3.5 - 4.9 | EXTERNAL | | | | performed at [facility];[address] | mmol/L | LAB | | | | [address];[place] | | | | | | [address] | | | | + + + + + + | Cl | 94 (L)Comment: Testing | 99 - 109 mmol/L | EXTERNAL | | | | performed at [facility];[address] | | LAB | | | | [address];[place] | | | | | | [address] | | | | + + + + + + | CO2 | 31Comment: Testing | 23 - 32 mmol/L | EXTERNAL | | | | performed at [facility];[address] | | LAB | | | | [address];[place] | | | | | | [address] | | | | + + + + + + | Anion Gap | 13Comment: Testing | 5 - 20 mmol/L | EXTERNAL | | | | performed at [facility];[address] | | LAB | | | | [address];[place] | | | | | | [address] | | | | + + + + + + | Glucose, | 103 (H)Comment: Testing | 65 - 99 mg/dL | EXTERNAL | | | Fasting | performed at [facility];[address] | | LAB | | | | [address];[place] | | | | | | [address] | | | | + + + + + + | BUN | 30 (H)Comment: Testing | 8 - 25 mg/dL | EXTERNAL | | | | performed at [facility];[address] | | LAB | | | | [address];[place] | | | | | | [address] | | | | + + + + + + | Creatinine | 3.4 (H)Comment: Testing | 0.70 - 1.30 | EXTERNAL | | | | performed at [facility];[address] | mg/dL | LAB | | | | [address];[place] | | | | | | [address] | | | | + + + + + + | BUN/Creatin | 9Comment: Testing | | EXTERNAL | | | ine Ratio | performed at [facility];[address] | | LAB | | | | [address];[place] | | | | | | [address] | | | | + + + + + + | Calcium | 7.6 (L)Comment: Testing | 8.5 - 10.5 | EXTERNAL | | | | performed at [facility];[address] | mg/dL | LAB | | | | [address];[place] | | | | | | [address] | | | | + + + + + + | Estimated | 24 (L)Comment: GFR <60: | mL/min/1.73m2 | EXTERNAL | | | GFR | CHRONIC KIDNEY DISEASE, | | LAB | | | | IF FOUND OVER A 3 MONTH | | | | | | PERIOD.GFR <15: KIDNEY | | | | | | FAILURE.FOR | | | | | | AMERICANS, MULTIPLY THE | | | | | | CALCULATED GFR BY | | | | | | 1.210.Testing performed | | | | | | at [facility];[address];[place] [address] | | | | + + + + + + + + | Specimen | + + | Blood specimen | | (specimen) | + + + +---------+ + + | Performing | Address | City/State/Zipcode | Phone Number | | Organization | | | | + +---------+ + + | EXTERNAL LAB | | | | + +---------+ + + XR Chest 1 Vw (07/18/2015 6:42 PM PST) + + | Specimen | + + | | + + + + + | Impressions | Performed At | + + + | 1. No pneumothorax. 2. Mild worsening pulmonary edema. | | | | | + + + + + + | Narrative | Performed At | + + + | SYED HOWE XR CHEST 1 VIEW HISTORY: 24 years. Male. | | | Dialysis catheter placement. TECHNIQUE: Single portable anterior | | | view of the chest was obtained. COMPARISON: 07/18/2015 | | | FINDINGS: The heart is normal in size. Right IJ central venous | | | catheter tip located in region of the superior vena cava. Diffuse | | | interstitial opacities to likely represent interstitial edema which is | | | minimally progressed from the previous examination. No | | | pneumothorax. No pleural effusion. | | + + + + + | Procedure Note | + + | Joel, Rad Conversion - 01/22/2019 5:14 PM PDT SY[facility] VARGAS CHEST 1 VIEW | | HISTORY:24 years. Male. Dialysis catheter placement. TECHNIQUE:Single portable anterior | | view of the chest was obtained. COMPARISON:07/18/2015 FINDINGS:The heart is normal in | | size. Right IJ central venous catheter tip located in region of the superior vena cava. | | Diffuse interstitial opacities to likely represent interstitial edema which is minimally | | progressed from the previous examination. No pneumothorax. No pleural effusion. | | IMPRESSION: 1. No pneumothorax.2. Mild worsening pulmonary edema. Electronically | | signed by aJrred Vega DO on 07/18/2015 6:48 PM | | | |COMPARISON: | |07/18/2015 | | | |FINDINGS: | |The heart is normal in size. Right IJ central venous catheter tip located in region of the superior vena cava. Diffuse interstitial opacities to likely represent interstitial edema wh ich is minimally progressed from the previous examination. No | |pneumothorax. No pleural effusion. | | | |IMPRESSION: | |1. No pneumothorax. | |2. Mild worsening pulmonary edema. | | | | | + + B Type Natriuretic Peptide (07/18/2015 1:43 PM PST) + + + + + + | Component | Value | Ref Range | Performed | Pathologist | | | | | At | Signature | + + + + + + | BNP | 2,340 (H)Comment: | 0 - 100 pg/mL | EXTERNAL | | | | Testing performed at | | LAB | | | | [facility];[address] | | | | | | [address];[place] [address] | | | | + + + + + + + + | Specimen | + + | Blood specimen | | (specimen) | + + + +---------+ + + | Performing | Address | City/State/Zipcode | Phone Number | | Organization | | | | + +---------+ + + | EXTERNAL LAB | | | | + +---------+ + + Potassium (07/18/2015 1:42 PM PST) + + + + + + | Component | Value | Ref Range | Performed | Pathologist | | | | | At | Signature | + + + + + + | K | 3.0 (L)Comment: Testing | 3.5 - 4.9 | EXTERNAL | | | | performed at [facility], [address] | mmol/L | LAB | | | | [address], | | | | | | [place] [address] | | | | + + + + + + + + | Specimen | + + | Blood specimen | | (specimen) | + + + +---------+ + + | Performing | Address | City/State/Zipcode | Phone Number | | Organization | | | | + +---------+ + + | EXTERNAL LAB | | | | + +---------+ + + XR Chest 2 Vws (07/18/2015 11:28 AM PST) + + | Specimen | + + | | + + + + + | Impressions | Performed At | + + + | 1. Findings suggestive of pulmonary edema. Given history of | | | subarachnoid hemorrhage, these findings may indicate neurogenic | | | pulmonary edema. Differential considerations include atypical | | | infection such as viral pneumonia or interstitial lung disease. | | | | | + + + + + + | Narrative | Performed At | + + + | SYED Ingram CHAO XR CHEST 2 VIEW FRONTAL AND LATERAL 07/18/2015 11:28 | | | AM HISTORY: 24 years. Male. New cough TECHNIQUE: XR | | | CHEST 2 VIEW FRONTAL AND LATERAL. 2 view(s) obtained. | | | COMPARISON: None. FINDINGS: Normal cardiac size. There is no | | | widening of vascular pedicles. There are diffuse interstitial | | | opacities in both lungs. Diffuse bronchial wall thickening with | | | peribronchial cuffing. Mild thickening of lung fissures. No pleural | | | effusion or pneumothorax. No focal airspace opacity. No acute | | | fracture. Visualized portion of abdomen is unremarkable. | | + + + + + | Procedure Note | + + | Joel, Rad Conversion - 01/22/2019 5:14 PM PDT SY[facility] Ingram ROTELLOXR CHEST 2 VIEW FRONTAL | | AND LATERAL07/18/2015 11:28 AM HISTORY:24 years. Male. New cough TECHNIQUE:XR CHEST 2 | | VIEW FRONTAL AND LATERAL. 2 view(s) obtained. COMPARISON:None. FINDINGS:Normal cardiac | | size. There is no widening of vascular pedicles. There are diffuse interstitial | | opacities in both lungs. Diffuse bronchial wall thickening with peribronchial cuffing. | | Mild thickening of lung fissures. No pleural effusion or pneumothorax. No focal airspace | | opacity. No acute fracture. Visualized portion of abdomen is unremarkable. IMPRESSION: | | 1. Findings suggestive of pulmonary edema. Given history of subarachnoid hemorrhage, | | these findings may indicate neurogenic pulmonary edema. Differential considerations | | include atypical infection such as viral pneumonia or interstitial lung disease. | | | |None. | | | |FINDINGS: | |Normal cardiac size. There is no widening of vascular pedicles. There are diffuse interstit ial opacities in both lungs. Diffuse bronchial wall thickening with peribronchial cuffing. M ild thickening of lung fissures. | |No pleural effusion or pneumothorax. | |No focal airspace opacity. No acute fracture. Visualized portion of abdomen is unremarkable . | | | |IMPRESSION: | |1. Findings suggestive of pulmonary edema. Given history of subarachnoid hemorrhage, these findings may indicate neurogenic pulmonary edema. | | | |Differential considerations include atypical infection such as viral pneumonia or interstit ial lung disease. | | | | | + + External Lab: SOY (07/18/2015 4:05 AM PST) + + + + + + | Component | Value | Ref Range | Performed | Pathologist | | | | | At | Signature | + + + + + + | WBC | 12.90 (H)Comment: | 3.80 - 11.00 | EXTERNAL | | | | Testing performed at | K/uL | LAB | | | | [facility], [address] [facility] | | | | | | [place] | | | | | | [address] | | | | + + + + + + | Non- | 3.86 (L)Comment: Testing | 4.20 - 5.70 | EXTERNAL | | | Red Blood | performed at [facility], [address] | M/uL | LAB | | | Cells | [address], | | | | | Counted | [place] [address] | | | | + + + + + + | Hemoglobin | 11.9 (L)Comment: Testing | 13.2 - 17.0 | EXTERNAL | | | | performed at [facility], [address] | g/dL | LAB | | | | [facility], | | | | | | [place] [address] | | | | + + + + + + | Hematocrit, | 34.6 (L)Comment: Testing | 39.0 - 50.0 % | EXTERNAL | | | POC | performed at [facility], [address] | | LAB | | | | [address], | | | | | | [place] [address] | | | | + + + + + + | MCV | 89.6Comment: Testing | 80.0 - 100.0 fl | EXTERNAL | | | | performed at [facility], [address] | | LAB | | | [address], | | | | | | [place] [address] | | | | + + + + + + | MCH | 30.9Comment: Testing | 27.0 - 34.0 pg | EXTERNAL | | | | performed at [facility], [address] | | LAB | | | | [address], | | | | | | [place] [address] | | | | + + + + + + | MCHC | 34.5Comment: Testing | 32.0 - 35.5 | EXTERNAL | | | | performed at [facility], [address] | g/dL | LAB | | | | [address], | | | | | | [place] [address] | | | | + + + + + + | RDW-CV | 38.5Comment: Testing | 37 - 53 fl | EXTERNAL | | | | performed at [facility], [address] | | LAB | | | | [address], | | | | | | [place] [address] | | | | + + + + + + | Platelet | 155Comment: Testing | 150 - 400 K/uL | EXTERNAL | | | Count | performed at [facility], [address] | | LAB | | | Plasma | [address], | | | | | | [place] [address] | | | | + + + + + + | MPV | 9.3Comment: Testing | fl | EXTERNAL | | | | performed at [facility], [address] | | LAB | | | | [address], | | | | | | [place] [address] | | | | + + + + + + | Differentia | AUTOMATEDComment: | | EXTERNAL | | | l Type | Testing performed at | | LAB | | | | [facility], [address] | | | | | | [place] | | | | | | [address] | | | | + + + + + + | % Segmented | 80.46Comment: Testing | % | EXTERNAL | | | | performed at [facility], [address] | | LAB | | | Neutrophils | [place], | | | | | | [place] [address] | | | | + + + + + + | % | 7.21Comment: Testing | % | EXTERNAL | | | Lymphocytes | performed at [facility], [address] | | LAB | | | | [address], | | | | | | [place] [address] | | | | + + + + + + | % Monocytes | 12.10Comment: Testing | % | EXTERNAL | | | | performed at [facility], [address] | | LAB | | | | [address], | | | | | | [place] [address] | | | | + + + + + + | % | 0.07Comment: Testing | % | EXTERNAL | | | Eosinophils | performed at [facility], [address] | | LAB | | | | [address], | | | | | | [place] [address] | | | | + + + + + + | % Basophils | 0.16Comment: Testing | % | EXTERNAL | | | | performed at [facility], [address] | | LAB | | | | [address], | | | | | | [place] [address] | | | | + + + + + + | Absolute | 10.38 (H)Comment: | 1.90 - 7.40 | EXTERNAL | | | Segmented | Testing performed at | K/uL | LAB | | | Neutrophils | [facility], [address] | | | | | | [place] | | | | | | [address] | | | | + + + + + + | Absolute | 0.93 (L)Comment: Testing | 1.00 - 3.90 | EXTERNAL | | | Lymphocytes | performed at [facility], [address] | K/uL | LAB | | | | [address], | | | | | | [place] [address] | | | | + + + + + + | Absolute | 1.56 (H)Comment: Testing | 0.00 - 0.80 | EXTERNAL | | | Monocytes | performed at [facility], [address] | K/uL | LAB | | | | [address], | | | | | | [place] [address] | | | | + + + + + + | Absolute | 0.01Comment: Testing | 0.00 - 0.50 | EXTERNAL | | | Eosinophils | performed at [facility], [address] | K/uL | LAB | | | | [address], | | | | | | [place] [address] | | | | + + + + + + | Absolute | 0.02Comment: Testing | 0.00 - 0.10 | EXTERNAL | | | Basophils | performed at [facility], [address] | K/uL | LAB | | | | [address], | | | | | | [place] [address] | | | | + + + + + + + + | Specimen | + + | Blood specimen | | (specimen) | + + + +---------+ + + | Performing | Address | City/State/Zipcode | Phone Number | | Organization | | | | + +---------+ + + | EXTERNAL LAB | | | | + +---------+ + + Phosphorus (07/18/2015 4:05 AM PST) + + + + + + | Component | Value | Ref Range | Performed | Pathologist | | | | | At | Signature | + + + + + + | PHOSPHORUS | 3.6Comment: Testing | 2.3 - 4.8 mg/dL | EXTERNAL | | | | performed at [facility], [address] | | LAB | | | | [address], | | | | | | [place] [address] | | | | + + + + + + + + | Specimen | + + | Blood specimen | | (specimen) | + + + +---------+ + + | Performing | Address | City/State/Zipcode | Phone Number | | Organization | | | | + +---------+ + + | EXTERNAL LAB | | | | + +---------+ + + Magnesium (07/18/2015 4:05 AM PST) + + + + + + | Component | Value | Ref Range | Performed | Pathologist | | | | | At | Signature | + + + + + + | Magnesium | 2.5 (H)Comment: Testing | 1.7 - 2.4 mg/dL | EXTERNAL | | | | performed at [facility], [address] | | LAB | | | | [place] [place], | | | | | | [place] [address] | | | | + + + + + + + + | Specimen | + + | Blood specimen | | (specimen) | + + + +---------+ + + | Performing | Address | City/State/Zipcode | Phone Number | | Organization | | | | + +---------+ + + | EXTERNAL LAB | | | | + +---------+ + + Basic Metabolic Panel (07/18/2015 4:05 AM PST) + + + + + + | Component | Value | Ref Range | Performed | Pathologist | | | | | At | Signature | + + + + + + | Na | 133 (L)Comment: Testing | 135 - 143 | EXTERNAL | | | | performed at [facility], [address] | mmol/L | LAB | | | | [address], | | | | | | [place] [address] | | | | + + + + + + | K | 3.0 (L)Comment: Testing | 3.5 - 4.9 | EXTERNAL | | | | performed at [facility], [address] | mmol/L | LAB | | | | [place] [place], | | | | | | [place] [address] | | | | + + + + + + | Cl | 92 (L)Comment: Testing | 99 - 109 mmol/L | EXTERNAL | | | | performed at [facility], [address] | | LAB | | | | [address], | | | | | | [place] [address] | | | | + + + + + + | CO2 | 32Comment: Testing | 23 - 32 mmol/L | EXTERNAL | | | | performed at [facility], [address] | | LAB | | | | [address], | | | | | | [place] [address] | | | | + + + + + + | Anion Gap | 12Comment: Testing | 5 - 20 mmol/L | EXTERNAL | | | | performed at [facility], [address] | | LAB | | | | [address], | | | | | | [place] [address] | | | | + + + + + + | Glucose, | 143 (H)Comment: Testing | 65 - 99 mg/dL | EXTERNAL | | | Fasting | performed at [facility], [address] | | LAB | | | | [address], | | | | | | [place] [address] | | | | + + + + + + | BUN | 49 (H)Comment: Testing | 8 - 25 mg/dL | EXTERNAL | | | | performed at [facility], [address] | | LAB | | | | [address], | | | | | | [place] [address] | | | | + + + + + + | Creatinine | 4.95 (H)Comment: Testing | 0.70 - 1.30 | EXTERNAL | | | | performed at [facility], [address] | mg/dL | LAB | | | | [address], | | | | | | [place] [address] | | | | + + + + + + | BUN/Creatin | 10Comment: Testing | | EXTERNAL | | | ine Ratio | performed at [facility], [address] | | LAB | | | | [address], | | | | | | [place] [address] | | | | + + + + + + | Calcium | 7.7 (L)Comment: Testing | 8.5 - 10.5 | EXTERNAL | | | | performed at [facility], [address] | mg/dL | LAB | | | | [address], | | | | | | [place] [address] | | | | + + + + + + | Estimated | 16 (L)Comment: GFR <60: | mL/min/1.73m2 | EXTERNAL | | | GFR | CHRONIC KIDNEY DISEASE, | | LAB | | | | IF FOUND OVER A 3 MONTH | | | | | | PERIOD.GFR <15: KIDNEY | | | | | | FAILURE.FOR | | | | | | AMERICANS, MULTIPLY THE | | | | | | CALCULATED GFR BY | | | | | | 1.210.Testing performed | | | | | | at [facility], [address] | | | | | | [address], | | | | | | [place] [address] | | | | + + + + + + + + | Specimen | + + | Blood specimen | | (specimen) | + + + +---------+ + + | Performing | Address | City/State/Zipcode | Phone Number | | Organization | | | | + +---------+ + + | EXTERNAL LAB | | | | + +---------+ + + CK Total (07/17/2015 8:23 AM PST) + + + + + + | Component | Value | Ref Range | Performed | Pathologist | | | | | At | Signature | + + + + + + | CK, Total | 3420 (H)Comment: Testing | 55 - 400 U/L | EXTERNAL | | | | performed at [facility];[address] | | LAB | | | | [address];[place], [place] | | | | | | [address] | | | | + + + + + + + + | Specimen | + + | Blood specimen | | (specimen) | + + + +---------+ + + | Performing | Address | City/State/Zipcode | Phone Number | | Organization | | | | + +---------+ + + | EXTERNAL LAB | | | | + +---------+ + + [place] and [employer] Ratio (07/17/2015 4:33 AM PST) + + + + + + | Component | Value | Ref Range | Performed | Pathologist | | | | | At | Signature | + + + + + + | KAPPA | 191Comment: Testing | 170 - 370 mg/dL | EXTERNAL | | | | performed at [facility], [address] | | LAB | | | | [facility] | | | | | | [place] [address] | | | | + + + + + + | LAMBDA | 126Comment: Testing | 90 - 210 mg/dL | EXTERNAL | | | | performed at [facility], [address] | | LAB | | | | [place] | | | | | | [place] [address] | | | | + + + + + + | KAPPA/LAMBD | 1.52Comment: Testing | 1.35 - 2.65 | EXTERNAL | | | A RATIO | performed at [facility], [address] | | LAB | | | | [place] | | | | | | [place] [address] | | | | + + + + + + + + | Specimen | + + | | + + + +---------+ + + | Performing | Address | City/State/Zipcode | Phone Number | | Organization | | | | + +---------+ + + | EXTERNAL LAB | | | | + +---------+ + + C3 and C4 (07/17/2015 4:33 AM PST) + + + + + + | Component | Value | Ref Range | Performed | Pathologist | | | | | At | Signature | + + + + + + | C3 | 76 (L)Comment: Testing | 90 - 180 mg/dL | EXTERNAL | | | COMPLEMENT | performed at [facility], [address] | | LAB | | | | [address] [place], | | | | | | [place] [address] | | | | + + + + + + | Complement | 15.6Comment: Testing | 10 - 40 mg/dL | EXTERNAL | | | Comp 4 | performed at [facility], [address] | | LAB | | | | [place] [place], | | | | | | [place] [address] | | | | + + + + + + + + | Specimen | + + | | + + + +---------+ + + | Performing | Address | City/State/Zipcode | Phone Number | | Organization | | | | + +---------+ + + | EXTERNAL LAB | | | | + +---------+ + + Hepatitis Panel, Chronic (07/17/2015 4:33 AM PST) + + + + + + | Component | Value | Ref Range | Performed | Pathologist | | | | | At | Signature | + + + + + + | Hep A Total | NON REACTIVEComment: | | EXTERNAL | | | Ab Interp | Testing performed at | | LAB | | | | [facility], [address] | | | | | | [place] | | | | | | [address] | | | | + + + + + + | HEP B | NON REACTIVEComment: | | EXTERNAL | | | SURFACE | Testing performed at | | LAB | | | ANTIBODY | [facility], [address] | | | | | | [place] | | | | | | [address] | | | | + + + + + + | Hepatitis B | NON REACTIVEComment: | | EXTERNAL | | | Core Ab | Testing performed at | | LAB | | | Total | [facility], [address] | | | | | | [place] | | | | | | [address] | | | | + + + + + + | HEP B | 1.45 (H)Comment: <1.00 | IV | EXTERNAL | | | SURFACE | Non | | LAB | | | ANTIBODY | Immune1.00 OR MORE | | | | | | Indicates vaccine | | | | | | response or response to | | | | | | HBV infection. An Index | | | | | | Value (IV) of 1.00 is | | | | | | equivalent to 10 mIU/mL. | | | | | | Samples with an IV of | | | | | | 1.00 or greater are | | | | | | considered reactive | | | | | | (protected) in | | | | | | accordance with CDC | | | | | | Guidelines.Testing | | | | | | performed at [facility], [facility] [address] | | | | | | [facility], | | | | | | [place] [address] | | | | + + + + + + | HCV Ab | NON REACTIVEComment: | | EXTERNAL | | | | Testing performed at | | LAB | | | | [facility], [facility] [address] [facility] | | | | | | [place] | | | | | | [address] | | | | + + + + + + | Hepatitis | No serologic evidence of | | EXTERNAL | | | Interpretat | HAV or HCV infection. | | LAB | | | ion | Reactive anti HBs | | | | | | suggests vaccine or | | | | | | previous Hepatitis | | | | | | B.Comment: Testing | | | | | | performed at [facility], [address] | | | | | [facility], | | | | | | [place] [address] | | | | + + + + + + + + | Specimen | + + | | + + + +---------+ + + | Performing | Address | City/State/Zipcode | Phone Number | | Organization | | | | + +---------+ + + | EXTERNAL LAB | | | | + +---------+ + + Glomerular Basement Membrane Ab, IgG (07/17/2015 4:33 AM PST) + + + + + + | Component | Value | Ref Range | Performed | Pathologist | | | | | At | Signature | + + + + + + | GBM AB | 3Comment: REFERENCE | 0 - 20 U/mL | EXTERNAL | | | | RANGE:0 - 20 | | LAB | | | | [id number] - 30 WEAK | | | | | | POSITIVE>30 | | | | | | MODERATE TO STRONG | | | | | | POSITIVETHIS TEST IS | | | | | | DESIGNED FOR THE IN | | | | | | VITRO MEASUREMENT OF | | | | | | SPECIFIC | | | | | | IGGAUTOANTIBODIES | | | | | | AGAINST THE GLOMERULAR | | | | | | BASEMENT MEMBRANE | | | | | | (GBM).IT IS INTENDED | | | | | | AN AID IN THE DIAGNOSIS | | | | | | OF GOODPASTURE'S | | | | | | SYNDROME.SOME PATIENTS | | | | | | WITH OTHER RENAL | | | | | | DISEASES MAY EXHIBIT | | | | | | POSITIVE | | | | | | RESULTS.GLOMERULAR | | | | | | BASEMENT MEMBRANE | | | | | | ANTIBODIES ARE NOT FOUND | | | | | | IN NORMALHEALTHY | | | | | | INDIVIDUALS.RESULTS WERE | | | | | | OBTAINED WITH THE | | | | | | [facility] [facility]ITE GBM | | | | | | [place].VALUES | | | | | | OBTAINED FROM DIFFERENT | | | | | | [employer] | | | | | | CANNOT BE | | | | | | USEDINTERCHANGEABLY. | | | | | | THE MAGNITUDE OF THE | | | | | | REPORTED IGG LEVELS | | | | | | CANNOT BECORRELATED TO | | | | | | AN ENDPOINT | | | | | | TITER.Testing performed | | | | | | at [facility], [address] | | | | | | [place] | | | | | | [address] | | | | + + + + + + + + | Specimen | + + | Blood specimen | | (specimen) | + + + +---------+ + + | Performing | Address | City/State/Zipcode | Phone Number | | Organization | | | | + +---------+ + + | EXTERNAL LAB | | | | + +---------+ + + DIMAS Romy, Reflex (07/17/2015 4:33 AM PST) + + + + + + | Component | Value | Ref Range | Performed | Pathologist | | | | | At | Signature | + + + + + + | DIMAS | NEGATIVEComment: A | | EXTERNAL | | | | MULTIPLEX SCREEN FOR 11 | | LAB | | | | AUTOANTIBODIES (DSDNA, | | | | | | SM, RIBOSOMAL | | | | | | P,CHROMATIN, LEAN MANUFACTURING COORDINATOR, SM | | | | | | LEAN MANUFACTURING COORDINATOR, SCL-70, CENTROMERE | | | | | | B, SSA, SSB AND LILLIE-1) | | | | | | WASPERFORMED AND NO | | | | | | AUTOANTIBODIES WERE | | | | | | DETECTED.Testing | | | | | | performed at [facility], [address] | | | | | | [place] | | | | | | [place] [address] | | | | + + + + + + | ANCA Screen | <1:20Comment: REFERENCE | | EXTERNAL | | | | RANGE: <1:20Testing | | LAB | | | | performed at [facility], [address] | | | | | | [place] | | | | | | [place] [address] | | | | + + + + + + | ANCA | 3Comment: NEGATIVE | Units | EXTERNAL | | | Proteinase | < 21WEAK | | LAB | | | 3 | TO MOD POS | | | | | | 21-30POSITIVE | | | | | | > 30PR3 | | | | | | ANTIBODY IS A MARKER FOR | | | | | | LYNDA'S | | | | | | GRANULOMATOSIS AND IS | | | | | | RARELYDETECTED IN | | | | | | MICROSCOPIC | | | | | | POLYARTERITIS.THE | | | | | | QUANTITY OF PR3 ANTIBODY | | | | | | GENERALLY PARALLELS | | | | | | DISEASE ACTIVITY,WHERE | | | | | | AN INCREASE IN DISEASE | | | | | | IS ACCOMPANIED BY | | | | | | INCREASING VALUES OFPR3 | | | | | | ANTIBODY.ANTIBODY TO PR3 | | | | | | AN ELASTINOLYTIC NEURAL | | | | | | SERINE PROTEASE, | | | | | | ISRESPONSIBLE FOR THE | | | | | | CYTOPLASMIC PATTERN OF | | | | | | ANTI NEUTROPHIL | | | | | | CYTOPLASMICANTIBODIES.Te | | | | | | sting performed at [facility], | | | | | | [address], | | | | | | [place] [address] | | | | + + + + + + | Myeloperoxi | 5Comment: NEGATIVE | Units | EXTERNAL | | | dase | < 21WEAK | | LAB | | | Antibody | TO MOD POS | | | | | | 21-30POSITIVE | | | | | | > 30ANTIBODY | | | | | | TO MPO IS ASSOCIATED | | | | | | WITH ORGAN LIMITED | | | | | | VASCULITIS | | | | | | INCLUDINGNECROTIZING AND | | | | | | CRESCENTIC | | | | | | GLOMERULONEPHRITIS.THIS | | | | | | ASSAY IS USEFUL IN | | | | | | CONFIRMING MPO SPECIFIC | | | | | | ANTIBODIES IN SERATHAT | | | | | | ARE POSITIVE FOR ANTI | | | | | | NEUTROPHIL CYTOPLASMIC | | | | | | ANTIBODIES OF | | | | | | THEPERINUCLEAR | | | | | | TYPE.TYPICALLY THE LEVEL | | | | | | OF MPO ANTIBODY | | | | | | PARALLELS DISEASE | | | | | | ACTIVITIES,WHERE | | | | | | INCREASING DISEASE | | | | | | ACTIVITY IS ASSOCIATED | | | | | | WITH INCREASING | | | | | | MPOANTIBODY | | | | | | LEVELS.Testing performed | | | | | | at [facility], [address] | | | | | | [place] | | | | | | [address] | | | | + + + + + + + + | Specimen | + + | Blood specimen | | (specimen) | + + + +---------+ + + | Performing | Address | City/State/Zipcode | Phone Number | | Organization | | | | + +---------+ + + | EXTERNAL LAB | | | | + +---------+ + + External Lab: CBC (07/17/2015 4:33 AM PST) + + + + + + | Component | Value | Ref Range | Performed | Pathologist | | | | | At | Signature | + + + + + + | WBC | 11.77 (H)Comment: | 3.80 - 11.00 | EXTERNAL | | | | Testing performed at | K/uL | LAB | | | | [facility], [address] [facility] | | | | | | [place] | | | | | | [address] | | | | + + + + + + | Non- | 4.11 (L)Comment: Testing | 4.20 - 5.70 | EXTERNAL | | | Red Blood | performed at [facility], [address] | M/uL | LAB | | | Cells | [address], | | | | | Counted | [place] [address] | | | | + + + + + + | Hemoglobin | 12.8 (L)Comment: Testing | 13.2 - 17.0 | EXTERNAL | | | | performed at [facility], [address] | g/dL | LAB | | | | [address], | | | | | | [place] [address] | | | | + + + + + + | Hematocrit, | 38.1 (L)Comment: Testing | 39.0 - 50.0 % | EXTERNAL | | | POC | performed at [facility], [address] | | LAB | | | | [address], | | | | | | [place] [address] | | | | + + + + + + | MCV | 92.6Comment: Testing | 80.0 - 100.0 fl | EXTERNAL | | | | performed at [facility], [address] | | LAB | | | | [address], | | | | | | [place] [address] | | | | + + + + + + | MCH | 31.1Comment: Testing | 27.0 - 34.0 pg | EXTERNAL | | | | performed at [facility], [address] | | LAB | | | | [address], | | | | | | [place] [address] | | | | + + + + + + | MCHC | 33.6Comment: Testing | 32.0 - 35.5 | EXTERNAL | | | | performed at [facility], [address] | g/dL | LAB | | | | [address], | | | | | | [place] [address] | | | | + + + + + + | RDW-CV | 40.3Comment: Testing | 37 - 53 fl | EXTERNAL | | | | performed at [facility], [address] | | LAB | | | | [address], | | | | | | [place] [address] | | | | + + + + + + | Platelet | 163Comment: Testing | 150 - 400 K/uL | EXTERNAL | | | Count | performed at [facility], [address] | | LAB | | | Plasma | [address] [place], | | | | | | [place] [address] | | | | + + + + + + | MPV | 9.3Comment: Testing | fl | EXTERNAL | | | | performed at [facility], [address] | | LAB | | | | [address], | | | | | | [place] [address] | | | | + + + + + + | Differentia | AUTOMATEDComment: | | EXTERNAL | | | l Type | Testing performed at | | LAB | | | | [facility], [address] | | | | | | [place] | | | | | | [address] | | | | + + + + + + | % Segmented | 74.23Comment: Testing | % | EXTERNAL | | | | performed at [facility], [address] | | LAB | | | Neutrophils | [address], | | | | | | [place] [address] | | | | + + + + + + | % | 12.50Comment: Testing | % | EXTERNAL | | | Lymphocytes | performed at [facility], [address] | | LAB | | | | [address], | | | | | | [place] [address] | | | | + + + + + + | % Monocytes | 13.01Comment: Testing | % | EXTERNAL | | | | performed at [facility], [address] | | LAB | | | | [address], | | | | | | [place] [address] | | | | + + + + + + | % | 0.14Comment: Testing | % | EXTERNAL | | | Eosinophils | performed at [facility], [address] | | LAB | | | | [address], | | | | | | [place] [address] | | | | + + + + + + | % Basophils | 0.12Comment: Testing | % | EXTERNAL | | | | performed at [facility], [address] | | LAB | | | | [address], | | | | | | [place] [address] | | | | + + + + + + | Absolute | 8.74 (H)Comment: Testing | 1.90 - 7.40 | EXTERNAL | | | Segmented | performed at [facility], [address] | K/uL | LAB | | | Neutrophils | [address], | | | | | | [place] [address] | | | | + + + + + + | Absolute | 1.47Comment: Testing | 1.00 - 3.90 | EXTERNAL | | | Lymphocytes | performed at [facility], [address] | K/uL | LAB | | | | [address], | | | | | | [place] [address] | | | | + + + + + + | Absolute | 1.53 (H)Comment: Testing | 0.00 - 0.80 | EXTERNAL | | | Monocytes | performed at [facility], [address] | K/uL | LAB | | | | [address], | | | | | | [place] [address] | | | | + + + + + + | Absolute | 0.02Comment: Testing | 0.00 - 0.50 | EXTERNAL | | | Eosinophils | performed at [facility], [address] | K/uL | LAB | | | | [address], | | | | | | [place] [address] | | | | + + + + + + | Absolute | 0.01Comment: Testing | 0.00 - 0.10 | EXTERNAL | | | Basophils | performed at [facility], [address] | K/uL | LAB | | | | [address], | | | | | | [place] [address] | | | | + + + + + + + + | Specimen | + + | Blood specimen | | (specimen) | + + + +---------+ + + | Performing | Address | City/State/Zipcode | Phone Number | | Organization | | | | + +---------+ + + | EXTERNAL LAB | | | | + +---------+ + + Rheumatoid Factor, Quant (07/17/2015 4:33 AM PST) + + + + + + | Component | Value | Ref Range | Performed | Pathologist | | | | | At | Signature | + + + + + + | RHEUMATOID | <5Comment: Testing | IU/mL | EXTERNAL | | | FACTOR | performed at [facility], [address] | | LAB | | | | [address], | | | | | | [place] [address] | | | | + + + + + + + + | Specimen | + + | Blood specimen | | (specimen) | + + + +---------+ + + | Performing | Address | City/State/Zipcode | Phone Number | | Organization | | | | + +---------+ + + | EXTERNAL LAB | | | | + +---------+ + + Phosphorus (07/17/2015 4:33 AM PST) + + + + + + | Component | Value | Ref Range | Performed | Pathologist | | | | | At | Signature | + + + + + + | PHOSPHORUS | 6.2 (H)Comment: Testing | 2.3 - 4.8 mg/dL | EXTERNAL | | | | performed at [facility], [address] | | LAB | | | | [address], | | | | | | [place] [address] | | | | + + + + + + + + | Specimen | + + | Blood specimen | | (specimen) | + + + +---------+ + + | Performing | Address | City/State/Zipcode | Phone Number | | Organization | | | | + +---------+ + + | EXTERNAL LAB | | | | + +---------+ + + Magnesium (07/17/2015 4:33 AM PST) + + + + + + | Component | Value | Ref Range | Performed | Pathologist | | | | | At | Signature | + + + + + + | Magnesium | 2.9 (H)Comment: Testing | 1.7 - 2.4 mg/dL | EXTERNAL | | | | performed at [facility], [address] | | LAB | | | | [address], | | | | | | [place] [address] | | | | + + + + + + + + | Specimen | + + | Blood specimen | | (specimen) | + + + +---------+ + + | Performing | Address | City/State/Zipcode | Phone Number | | Organization | | | | + +---------+ + + | EXTERNAL LAB | | | | + +---------+ + + Basic Metabolic Panel (07/17/2015 4:33 AM PST) + + + + + + | Component | Value | Ref Range | Performed | Pathologist | | | | | At | Signature | + + + + + + | Na | 132 (L)Comment: Testing | 135 - 143 | EXTERNAL | | | | performed at [facility], [address] | mmol/L | LAB | | | | [address], | | | | | | [place] [address] | | | | + + + + + + | K | 3.5Comment: Testing | 3.5 - 4.9 | EXTERNAL | | | | performed at [facility], [address] | mmol/L | LAB | | | | [address], | | | | | | [place] [address] | | | | + + + + + + | Cl | 100Comment: Testing | 99 - 109 mmol/L | EXTERNAL | | | | performed at [facility], [address] | | LAB | | | | [address], | | | | | | [place] [address] | | | | + + + + + + | CO2 | 18 (L)Comment: Testing | 23 - 32 mmol/L | EXTERNAL | | | | performed at [facility], [address] | | LAB | | | | [address], | | | | | | [place] [address] | | | | + + + + + + | Anion Gap | 18Comment: Testing | 5 - 20 mmol/L | EXTERNAL | | | | performed at [facility], [address] | | LAB | | | | [address], | | | | | | [place] [address] | | | | + + + + + + | Glucose, | 101 (H)Comment: Testing | 65 - 99 mg/dL | EXTERNAL | | | Fasting | performed at [facility], [address] | | LAB | | | | [address], | | | | | | [place] [address] | | | | + + + + + + | BUN | 45 (H)Comment: Testing | 8 - 25 mg/dL | EXTERNAL | | | | performed at [facility], [address] | | LAB | | | | [address], | | | | | | [place] [address] | | | | + + + + + + | Creatinine | 4.47 (H)Comment: Testing | 0.70 - 1.30 | EXTERNAL | | | | performed at [facility], [address] | mg/dL | LAB | | | | [address], | | | | | | [place] [address] | | | | + + + + + + | BUN/Creatin | 10Comment: Testing | | EXTERNAL | | | ine Ratio | performed at [facility], [address] | | LAB | | | | [address], | | | | | | [place] [address] | | | | + + + + + + | Calcium | 7.8 (L)Comment: Testing | 8.5 - 10.5 | EXTERNAL | | | | performed at [facility], [address] | mg/dL | LAB | | | | [address], | | | | | | [place] [address] | | | | + + + + + + | Estimated | 18 (L)Comment: GFR <60: | mL/min/1.73m2 | EXTERNAL | | | GFR | CHRONIC KIDNEY DISEASE, | | LAB | | | | IF FOUND OVER A 3 MONTH | | | | | | PERIOD.GFR <15: KIDNEY | | | | | | FAILURE.FOR | | | | | | AMERICANS, MULTIPLY THE | | | | | | CALCULATED GFR BY | | | | | | 1.210.Testing performed | | | | | | at [facility], [address] | | | | | | [address], | | | | | | [place] [address] | | | | + + + + + + + + | Specimen | + + | Blood specimen | | (specimen) | + + + +---------+ + + | Performing | Address | City/State/Zipcode | Phone Number | | Organization | | | | + +---------+ + + | EXTERNAL LAB | | | | + +---------+ + + CK Total (07/16/2015 11:50 PM PST) + + + + + + | Component | Value | Ref Range | Performed | Pathologist | | | | | At | Signature | + + + + + + | CK, Total | 4365 (H)Comment: Testing | 55 - 400 U/L | EXTERNAL | | | | performed at [facility];[address] | | LAB | | | | [address];[place] | | | | | | [address] | | | | + + + + + + + + | Specimen | + + | Blood specimen | | (specimen) | + + + +---------+ + + | Performing | Address | City/State/Zipcode | Phone Number | | Organization | | | | + +---------+ + + | EXTERNAL LAB | | | | + +---------+ + + US Renal Limited (07/16/2015 10:40 PM PST) + + | Specimen | + + | | + + + + + | Impressions | Performed At | + + + | 1. Increased echogenicity of both kidneys as can be seen with | | | medical renal disease . Mild right perinephric fluid. No | | | hydronephrosis. RADIA Electronically signed by Melida Hamm, | | | on Jul 17 2015 12:38AM Referring Provider Line: [phone] | | | ID: [id number] | | + + + + + + | Narrative | Performed At | + + + | EXAM: RENAL ULTRASOUND EXAM DATE: 07/16/2015 10:40 PM. | | | CLINICAL HISTORY: Acute renal failure COMPARISON: None. | | | TECHNIQUE: Real-time scanning was performed with static images | | | obtained. FINDINGS: Right Kidney: 10.5 x 6 x 5.8 cm. Volume 191.3 | | | cc . Increased echogenicity diffusely. Mild amount of right | | | perinephric fluid . No masses identified. No hydronephrosis. Left | | | Kidney: 10.8 x 6.9 x 5.9 cm. Volume 230.2 cc. No hydronephrosis. | | | Increased echogenicity of the kidney diffusely. Bladder: Bilateral | | | jets seen. The prevoid bladder volume was 144 cc cc. The postvoid | | | bladder volume was 0 cc. | | + + + + + | Procedure Note | + + | Joel, Rad Conversion - 01/22/2019 5:14 PM PDT EXAM:RENAL ULTRASOUND EXAM DATE: | | 07/16/2015 10:40 PM. CLINICAL HISTORY: Acute renal failure COMPARISON: None. TECHNIQUE: | | Real-time scanning was performed with static images obtained. FINDINGS:Right Kidney: | | 10.5 x 6 x 5.8 cm. Volume 191.3 cc . Increased echogenicity diffusely. Mild amount of | | right perinephric fluid . No masses identified. No hydronephrosis. Left Kidney: 10.8 x | | 6.9 x 5.9 cm. Volume 230.2 cc. No hydronephrosis. Increased echogenicity of the kidney | | diffusely. Bladder: Bilateral jets seen. The prevoid bladder volume was 144 cc cc. The | | postvoid bladder volume was 0 cc. IMPRESSION: 1. Increased echogenicity of both kidneys | | as can be seen with medical renal disease . Mild right perinephric fluid. No | | hydronephrosis. RADIA Electronically signed by Melida Hamm MD on Jul 17 2015 12:38AM | | Referring Provider Line: [phone] ID: [id number] | |FINDINGS: | |Right Kidney: 10.5 x 6 x 5.8 cm. Volume 191.3 cc . Increased echogenicity diffusely. Mild a mount of right perinephric fluid . No masses identified. No hydronephrosis. | | | |Left Kidney: 10.8 x 6.9 x 5.9 cm. Volume 230.2 cc. No hydronephrosis. Increased echogenicit y of the kidney diffusely. | | | |Bladder: Bilateral jets seen. The prevoid bladder volume was 144 cc cc. The postvoid bladde r volume was 0 cc. | | | |IMPRESSION: | | | |1. Increased echogenicity of both kidneys as can be seen with medical renal disease . Mild right perinephric fluid. No hydronephrosis. | | | |RADIA | | | | Electronically signed by Melida Hamm MD on Jul 17 2015 12:38AM Referring Provider Line: [phone] ID: [id number] | + + Sodium, Urine, Random (07/16/2015 8:01 PM PST) + + + + + + | Component | Value | Ref Range | Performed | Pathologist | | | | | At | Signature | + + + + + + | Sodium, | 22 (L)Comment: Testing | 90 - 104 mmol/L | EXTERNAL | | | Urine | performed at [facility], [address] | | LAB | | | Random | [address], | | | | | | [place] [address] | | | | + + + + + + + + | Specimen | + + | Urine specimen | | (specimen) | + + + +---------+ + + | Performing | Address | City/State/Zipcode | Phone Number | | Organization | | | | + +---------+ + + | EXTERNAL LAB | | | | + +---------+ + + Eosinophil Smear, Urine (07/16/2015 7:59 PM PST) + + + + + + | Component | Value | Ref Range | Performed | Pathologist | | | | | At | Signature | + + + + + + | Eosinophils | NO EOSINOPHILS | % | EXTERNAL | | | , Urine | SEENComment: Testing | | LAB | | | | performed at [facility], [address] | | | | | | [address], | | | | | | [place] [address] | | | | + + + + + + + + | Specimen | + + | | + + + +---------+ + + | Performing | Address | City/State/Zipcode | Phone Number | | Organization | | | | + +---------+ + + | EXTERNAL LAB | | | | + +---------+ + + Urinalysis with Microscopic with Culture if Indicated (07/16/2015 7:59 PM PST) + + + + + + | Component | Value | Ref Range | Performed | Pathologist | | | | | At | Signature | + + + + + + | Color | YELLOWComment: Testing | | EXTERNAL | | | | performed at [facility], [address] | | LAB | | | | [address], | | | | | | [place] [address] | | | | + + + + + + | Clarity, | CLEARComment: Testing | | EXTERNAL | | | Urine | performed at [facility], [address] | | LAB | | | | [address], | | | | | | [place] [address] | | | | + + + + + + | Specific | 1.014Comment: Testing | 1.002 - 1.030 | EXTERNAL | | | [place], | performed at [facility], [address] | | LAB | | | Urine | [address], | | | | | | [place] [address] | | | | + + + + + + | Leukocyte | NEGATIVEComment: Testing | | EXTERNAL | | | Esterase, | performed at [facility], [address] | | LAB | | | Urine | [address], | | | | | | [place] [address] | | | | + + + + + + | Nitrite, | NEGATIVEComment: Testing | | EXTERNAL | | | Urine | performed at [facility], [address] | | LAB | | | | [address], | | | | | | [place] [address] | | | | + + + + + + | Urobilinoge | 0.2Comment: Testing | mg/dL | EXTERNAL | | | n, Urine | performed at [facility], [address] | | LAB | | | | [address], | | | | | | [place] [address] | | | | + + + + + + | Protein, | 100 (A)Comment: Testing | mg/dL | EXTERNAL | | | Urine | performed at [facility], [address] | | LAB | | | | [address], | | | | | | [place] [address] | | | | + + + + + + | pH, Urine | 6.0Comment: Testing | 5.0 - 8.0 | EXTERNAL | | | | performed at [facility], [address] | | LAB | | | | [address], | | | | | | [place] [address] | | | | + + + + + + | Blood, | MODERATE (A)Comment: | | EXTERNAL | | | Urine | Testing performed at | | LAB | | | | [facility], [address] | | | | | | [place] | | | | | | [address] | | | | + + + + + + | Ketones | NEGATIVEComment: Testing | mg/dL | EXTERNAL | | | | performed at [facility], [address] | | LAB | | | | [address], | | | | | | [place] [address] | | | | + + + + + + | Bilirubin, | NEGATIVEComment: Testing | | EXTERNAL | | | Urine | performed at [facility], [address] | | LAB | | | | [address], | | | | | | [place] [address] | | | | + + + + + + | Glucose, | NEGATIVEComment: Testing | mg/dL | EXTERNAL | | | Urine | performed at [facility], [address] | | LAB | | | | [address], | | | | | | [place] [address] | | | | + + + + + + | WBC, UA | 0-2Comment: Testing | 0 - 5 /hpf | EXTERNAL | | | | performed at [facility], [address] | | LAB | | | [address], | | | | | | [place] [address] | | | | + + + + + + | RBC, UA | 6-10Comment: Testing | 0 - 2 /hpf | EXTERNAL | | | | performed at [facility], [address] | | LAB | | | [address], | | | | | | [place] [address] | | | | + + + + + + | Epithelial | 6-10Comment: Testing | /lpf | EXTERNAL | | | Cells | performed at [facility], [address] | | LAB | | | | [address], | | | | | | [place] [address] | | | | + + + + + + | Bacteria, | NONE SEENComment: | | EXTERNAL | | | UA | Testing performed at | | LAB | | | | [facility], [address] | | | | | | [place] | | | | | | [address] | | | | + + + + + + | HYALINE | NONE SEENComment: | | EXTERNAL | | | CASTS UA | Testing performed at | | LAB | | | | [facility], [address] | | | | | | [place] | | | | | | [address] | | | | + + + + + + + + | Specimen | + + | | + + + +---------+ + + | Performing | Address | City/State/Zipcode | Phone Number | | Organization | | | | + +---------+ + + | EXTERNAL LAB | | | | + +---------+ + + Drugs Of ABuse Screen, Urine (H) (07/16/2015 7:57 PM PST) + + + + + + | Component | Value | Ref Range | Performed | Pathologist | | | | | At | Signature | + + + + + + | Methampheta | NEGATIVEComment: | | EXTERNAL | | | mine/ | Positive cutoff for | | LAB | | | Amphetamine | AMP = 1000 ng/mLTesting | | | | | Screen, | performed at [facility] | | | | | UA, POC | [address];[place], [place] | | | | | | [id number] | | | | + + + + + + | Barbiturate | NEGATIVEComment: | | EXTERNAL | | | s Screen, | Positive cutoff for | | LAB | | | Urine | TERESE = 200 ng/mLTesting | | | | | | performed at [facility];[address];[place] | | | | | | [id number] | | | | + + + + + + | Benzodiazep | NEGATIVEComment: | | EXTERNAL | | | autumn | Positive cutoff for | | LAB | | | Screen, | BENZO = 200 ng/mLTesting | | | | | Urine | performed at [facility];[address] | | | | | | [address];[place] | | | | | | [address] | | | | + + + + + + | Cocaine | NEGATIVEComment: | | EXTERNAL | | | | Positive cutoff for | | LAB | | | | GARETH = 300 ng/mLTesting | | | | | | performed at [facility];[address] | | | | | | [address];[place] | | | | | | [address] | | | | + + + + + + | Methadone | NEGATIVEComment: | | EXTERNAL | | | | Positive cutoff for | | LAB | | | | MTD = 300 ng/mLTesting | | | | | | performed at [facility];[address] | | | | | | [address];[place] | | | | | | [address] | | | | + + + + + + | Opiates | NEGATIVEComment: | | EXTERNAL | | | | Positive cutoff for | | LAB | | | | OPI = 300 ng/mLTesting | | | | | | performed at [facility];[address] | [address];[place] | | | | | | [address] | | | | + + + + + + | PCP | NEGATIVEComment: | | EXTERNAL | | | | Positive cutoff for PCP | | LAB | | | | = 25 ng/mLTesting | | | | | | performed at [facility];[address];[place] | | | | | | [address] | | | | + + + + + + | Cannabinoid | POSITIVE (A)Comment: | | EXTERNAL | | | s Screen, | Positive cutoff for THC | | LAB | | | Serum | = 50 ng/mLThe above are | | | | | | unconfirmed screening | | | | | | results. These results | | | | | | are to be used only for | | | | | | medical | | | | | | (i.e.,treatment) | | | | | | purposes. Unconfirmed | | | | | | screening results must | | | | | | not be used for | | | | | | non-medical purposes | | | | | | (e.g., employment | | | | | | testing, legal | | | | | | testing).Testing | | | | | | performed at [facility] | | | | | | [facility];[place], [place] | | | | | | [address] | | | | + + + + + + + + | Specimen | + + | | + + + +---------+ + + | Performing | Address | City/State/Zipcode | Phone Number | | Organization | | | | + +---------+ + + | EXTERNAL LAB | | | | + +---------+ + + CK Total (07/16/2015 3:47 PM PST) + + + + + + | Component | Value | Ref Range | Performed | Pathologist | | | | | At | Signature | + + + + + + | CK, Total | 5606 (H)Comment: Testing | 55 - 400 U/L | EXTERNAL | | | | performed at [facility];[address] | | LAB | | | | [address];[place] | | | | | | [address] | | | | + + + + + + + + | Specimen | + + | Blood specimen | | (specimen) | + + + +---------+ + + | Performing | Address | City/State/Zipcode | Phone Number | | Organization | | | | + +---------+ + + | EXTERNAL LAB | | | | + +---------+ + + Basic Metabolic Panel (07/16/2015 3:41 PM PST) + + + + + + | Component | Value | Ref Range | Performed | Pathologist | | | | | At | Signature | + + + + + + | Na | 130 (L)Comment: Testing | 135 - 143 | EXTERNAL | | | | performed at [facility], [address] | mmol/L | LAB | | | | [address], | | | | | | [place] [address] | | | | + + + + + + | K | 4.2Comment: Testing | 3.5 - 4.9 | EXTERNAL | | | | performed at [facility], [address] | mmol/L | LAB | | | | [address], | | | | | | [place] [address] | | | | + + + + + + | Cl | 102Comment: Testing | 99 - 109 mmol/L | EXTERNAL | | | | performed at [facility], [address] | | LAB | | | | [address], | | | | | | [place] [address] | | | | + + + + + + | CO2 | 18 (L)Comment: Testing | 23 - 32 mmol/L | EXTERNAL | | | | performed at [facility], [address] | | LAB | | | | [address], | | | | | | [place] [address] | | | | + + + + + + | Anion Gap | 14Comment: Testing | 5 - 20 mmol/L | EXTERNAL | | | | performed at [facility], [address] | | LAB | | | | [address], | | | | | | [place] [address] | | | | + + + + + + | Glucose, | 89Comment: Testing | 65 - 99 mg/dL | EXTERNAL | | | Fasting | performed at [facility], [address] | | LAB | | | | [address], | | | | | | [place] [address] | | | | + + + + + + | BUN | 37 (H)Comment: Testing | 8 - 25 mg/dL | EXTERNAL | | | | performed at [facility], [address] | | LAB | | | | [address], | | | | | | [place] [address] | | | | + + + + + + | Creatinine | 3.91 (H)Comment: Testing | 0.70 - 1.30 | EXTERNAL | | | | performed at [facility], [address] | mg/dL | LAB | | | | [address], | | | | | | [place] [address] | | | | + + + + + + | BUN/Creatin | 9Comment: Testing | | EXTERNAL | | | ine Ratio | performed at [facility], [address] | | LAB | | | | [address], | | | | | | [place] [address] | | | | + + + + + + | Calcium | 8.5Comment: Testing | 8.5 - 10.5 | EXTERNAL | | | | performed at [facility], [address] | mg/dL | LAB | | | | [address], | | | | | | [place] [address] | | | | + + + + + + | Estimated | 21 (L)Comment: GFR <60: | mL/min/1.73m2 | EXTERNAL | | | GFR | CHRONIC KIDNEY DISEASE, | | LAB | | | | IF FOUND OVER A 3 MONTH | | | | | | PERIOD.GFR <15: KIDNEY | | | | | | FAILURE.FOR | | | | | | AMERICANS, MULTIPLY THE | | | | | | CALCULATED GFR BY | | | | | | 1.210.Testing performed | | | | | | at [facility], [address] | | | | | | [address], | | | | | | [place] [address] | | | | + + + + + + + + | Specimen | + + | Blood specimen | | (specimen) | + + + +---------+ + + | Performing | Address | City/State/Zipcode | Phone Number | | Organization | | | | + +---------+ + + | EXTERNAL LAB | | | | + +---------+ + + Renal Function Panel (07/16/2015 1:40 PM PST) + + + + + + | Component | Value | Ref Range | Performed | Pathologist | | | | | At | Signature | + + + + + + | Na | 134 (L)Comment: Testing | 135 - 143 | EXTERNAL | | | | performed at [facility];[address] | mmol/L | LAB | | | | [address];[place] | | | | | | [address] | | | | + + + + + + | K | 3.8Comment: Testing | 3.5 - 4.9 | EXTERNAL | | | | performed at [facility];[address] | mmol/L | LAB | | | | [address];[place] | | | | | | [address] | | | | + + + + + + | Cl | 103Comment: Testing | 99 - 109 mmol/L | EXTERNAL | | | | performed at [facility];[address] | | LAB | | | | [address];[place] | | | | | | [address] | | | | + + + + + + | CO2 | 19 (L)Comment: Testing | 23 - 32 mmol/L | EXTERNAL | | | | performed at [facility];[address] | | LAB | | | | [address];[place] | | | | | | [address] | | | | + + + + + + | Anion Gap | 16Comment: Testing | 5 - 20 mmol/L | EXTERNAL | | | | performed at [facility];[address] | | LAB | | | | [address];[place] | | | | | | [address] | | | | + + + + + + | Glucose, | 89Comment: Testing | 65 - 99 mg/dL | EXTERNAL | | | Fasting | performed at [facility];[address] | | LAB | | | | [address];[place] | | | | | | [address] | | | | + + + + + + | BUN | 32 (H)Comment: Testing | 8 - 25 mg/dL | EXTERNAL | | | | performed at [facility];[address] | | LAB | | | | [address];[place] | | | | | | [address] | | | | + + + + + + | Creatinine | 3.8 (H)Comment: Testing | 0.70 - 1.30 | EXTERNAL | | | | performed at [facility];[address] | mg/dL | LAB | | | | [address];[place] | | | | | | [address] | | | | + + + + + + | Calcium | 7.5 (L)Comment: Testing | 8.5 - 10.5 | EXTERNAL | | | | performed at [facility];[address] | mg/dL | LAB | | | | [address];[place] | | | | | | [address] | | | | + + + + + + | Albumin | 4.0Comment: Testing | 3.6 - 5.0 g/dL | EXTERNAL | | | | performed at [facility];[address] | | LAB | | | | [address];[place] | | | | | | [address] | | | | + + + + + + | PHOSPHORUS | 5.5 (H)Comment: Testing | 2.3 - 4.8 mg/dL | EXTERNAL | | | | performed at [facility];[address] | | LAB | | | | [address];[place] | | | | | | [address] | | | | + + + + + + | Estimated | 21 (L)Comment: GFR <60: | mL/min/1.73m2 | EXTERNAL | | | GFR | CHRONIC KIDNEY DISEASE, | | LAB | | | | IF FOUND OVER A 3 MONTH | | | | | | PERIOD.GFR <15: KIDNEY | | | | | | FAILURE.FOR | | | | | | AMERICANS, MULTIPLY THE | | | | | | CALCULATED GFR BY | | | | | | 1.210.Testing performed | | | | | | at [facility];[address] | | | | | | [address];[place] [address] | | | | + + + + + + + + | Specimen | + + | Blood specimen | | (specimen) | + + + +---------+ + + | Performing | Address | City/State/Zipcode | Phone Number | | Organization | | | | + +---------+ + + | EXTERNAL LAB | | | | + +---------+ + + CT Angiogram Head and Neck w Contrast (07/16/2015 5:01 AM PST) + + | Specimen | + + | | + + + + + | Impressions | Performed At | + + + | Head CT without with contrast: Stable appearance to blood | | | products within the posterior fossa bilaterally, no evidence of | | | interval hemorrhage. No abnormal enhancement. 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 CT angiogram neck: No carotid or vertebral | | | artery narrowing in the neck. No evidence of dissection. CT | | | angiogram brain: No evidence of major vessel stenosis, occlusion, | | | aneurysm, dissection, thrombi or vascular malformation. No abnormal | | | vascularity in the posterior fossa. Findings discussed with | | | David by telephone at 0535 hours. Electronically signed by | | | Mohit Lopez MD on Jul 16 2015 5:45AM Referring Provider Line: | | | [phone] ID: [id number] | | + + + + + + | Narrative | Performed At | + + + | CT angiogram head and neck without and with contrast. | | | INDICATION: Posterior fossa hemorrhage. Seizure. Technique: Head | | | CT without contrast. CT angiogram from the vertex to the aortic arch | | | after 100 cc Isovue-300 IV. 3-D MIP reconstructions. NASCET criteria | | | used for stenosis measurements. Head CT after contrast. | | | COMPARISON: Outside study 07/15/2015, 1852 hours FINDINGS: Head | | | CT without and with contrast: Stable, linear regions of blood | | | products are seen within the cerebellar hemispheres bilaterally, left | | | more so right. These may be intraparenchymal, at least in part. | | | Subarachnoid blood products could have a similar appearance. There is | | | no significant mass effect. No evidence of interval hemorrhage or | | | hydrocephalus. No abnormal enhancement. Supratentorium is | | | unremarkable. CT angiogram neck: Aortic arch and origins of the | | | great vessels are patent. Brachiocephalic and both subclavian | | | arteries are patent Both common carotid arteries, their | | | bifurcations and both internal carotid arteries are patent without | | | evidence of stenosis Both vertebral arteries are patent throughout | | | the neck, they are codominant. No evidence of dissection CT | | | angiogram brain: Vertebral arteries are codominant. Basilar artery | | | and both posterior cerebral arteries are patent and unremarkable. | | | There is a patent posterior communicating artery on the left. Right | | | posterior communicating artery is not seen Both internal carotid | | | arteries, anterior and middle cerebral arteries are patent and | | | unremarkable. A definite anterior communicating artery is not seen | | | No abnormal vascularity is identified in the posterior fossa to | | | explain the patient's hemorrhages. Dural venous sinuses appear | | | patent and unremarkable | | + + + + + | Procedure Note | + + | Joel, Rad Conversion - 01/22/2019 5:[address] angiogram head and neck without and | | with contrast. INDICATION: Posterior fossa hemorrhage. Seizure. Technique: Head CT | | without contrast. CT angiogram from the vertex to the aortic arch after 100 cc | | Isovue-300 IV. 3-D MIP reconstructions. NASCET criteria used for stenosis measurements. | | Head CT after contrast. COMPARISON: Outside study 07/15/2015, 1852 hours FINDINGS:Head | | CT without and with contrast:Stable, linear regions of blood products are seen within | | the cerebellar hemispheres bilaterally, left more so right. These may be | | intraparenchymal, at least in part. Subarachnoid blood products could have a similar | | appearance. There is no significant mass effect. No evidence of interval hemorrhage or | | hydrocephalus. No abnormal enhancement. Supratentorium is unremarkable. CT angiogram | | neck:Aortic arch and origins of the great vessels are patent. Brachiocephalic and both | | subclavian arteries are patent Both common carotid arteries, their bifurcations and both | | internal carotid arteries are patent without evidence of stenosis Both vertebral | | arteries are patent throughout the neck, they are codominant. No evidence of dissection | | CT angiogram brain:Vertebral arteries are codominant. Basilar artery and both posterior | | cerebral arteries are patent and unremarkable. There is a patent posterior communicating | | artery on the left. Right posterior communicating artery is not seen Both internal | | carotid arteries, anterior and middle cerebral arteries are patent and unremarkable. A | | definite anterior communicating artery is not seen No abnormal vascularity is identified | | in the posterior fossa to explain the patient's hemorrhages. Dural venous sinuses | | appear patent and unremarkable IMPRESSION: Head CT without with contrast:Stable | | appearance to blood products within the posterior fossa bilaterally, no evidence of | | interval hemorrhage. No abnormal enhancement. Findings are reminiscent of remote | | cerebellar hemorrhages, please correlate with the patient's clinical history. CT | | angiogram neck:No carotid or vertebral artery narrowing in the neck. No evidence of | | dissection. CT angiogram brain:No evidence of major vessel stenosis, occlusion, | | aneurysm, dissection, thrombi or vascular malformation. No abnormal vascularity in the | | posterior fossa. Findings discussed with Dr. Hernandez by telephone at 0535 hours. | | Electronically signed by Mohit Lopez MD on Jul 16 2015 5:45AM Referring Provider Line: | | [phone] ID: [id number] | | | |Dural venous sinuses appear patent and unremarkable | | | |IMPRESSION: | | | |Head CT without with contrast: | |Stable appearance to blood products within the posterior fossa bilaterally, no evidence of interval hemorrhage. No abnormal enhancement. 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 | | | |CT angiogram neck: | |No carotid or vertebral artery narrowing in the neck. No evidence of dissection. | | | |CT angiogram brain: | |No evidence of major vessel stenosis, occlusion, aneurysm, dissection, thrombi or vascular malformation. No abnormal vascularity in the posterior fossa. | | | |Findings discussed with Dr. Hernandez by telephone at 0535 hours. | | | | Electronically signed by Mohit Lopez MD on Jul 16 2015 5:45AM Referring Provider Line: [phone] ID: [id number] | + + External Lab: CBC (07/16/2015 4:15 AM PST) + + + + + + | Component | Value | Ref Range | Performed | Pathologist | | | | | At | Signature | + + + + + + | WBC | 14.27 (H)Comment: | 3.80 - 11.00 | EXTERNAL | | | | Testing performed at | K/uL | LAB | | | | [facility], [address] [facility] | | | | | | [place] | | | | | | [address] | | | | + + + + + + | Non- | 4.35Comment: Testing | 4.20 - 5.70 | EXTERNAL | | | Red Blood | performed at [facility], [address] | M/uL | LAB | | | Cells | [facility], | | | | | Counted | [place] [address] | | | | + + + + + + | Hemoglobin | 13.7Comment: Testing | 13.2 - 17.0 | EXTERNAL | | | | performed at [facility], [address] | g/dL | LAB | | | | [address], | | | | | | [place] [address] | | | | + + + + + + | Hematocrit, | 40.4Comment: Testing | 39.0 - 50.0 % | EXTERNAL | | | POC | performed at [facility], [address] | | LAB | | | | [address], | | | | | | [place] [address] | | | | + + + + + + | MCV | 92.8Comment: Testing | 80.0 - 100.0 fl | EXTERNAL | | | | performed at [facility], [address] | | LAB | | | | [address], | | | | | | [place] [address] | | | | + + + + + + | MCH | 31.6Comment: Testing | 27.0 - 34.0 pg | EXTERNAL | | | | performed at [facility], [address] | | LAB | | | | [address], | | | | | | [place] [address] | | | | + + + + + + | MCHC | 34.0Comment: Testing | 32.0 - 35.5 | EXTERNAL | | | | performed at [facility], [address] | g/dL | LAB | | | | [address], | | | | | | [place] [address] | | | | + + + + + + | RDW-CV | 41.6Comment: Testing | 37 - 53 fl | EXTERNAL | | | | performed at [facility], [address] | | LAB | | | | [address], | | | | | | [place] [address] | | | | + + + + + + | Platelet | 185Comment: Testing | 150 - 400 K/uL | EXTERNAL | | | Count | performed at [facility], [address] | | LAB | | | Plasma | [address], | | | | | | [place] [address] | | | | + + + + + + | MPV | 8.9Comment: Testing | fl | EXTERNAL | | | | performed at [facility], [address] | | LAB | | | | [address], | | | | | | [place] [address] | | | | + + + + + + | Differentia | AUTOMATEDComment: | | EXTERNAL | | | l Type | Testing performed at | | LAB | | | | [facility], [address] | | | | | | [place] | | | | | | [address] | | | | + + + + + + | % Segmented | 80.75Comment: Testing | % | EXTERNAL | | | | performed at [facility], [address] | | LAB | | | Neutrophils | [address] [place], | | | | | | [place] [address] | | | | + + + + + + | % | 7.64Comment: Testing | % | EXTERNAL | | | Lymphocytes | performed at [facility], [address] | | LAB | | | | [address], | | | | | | [place] [address] | | | | + + + + + + | % Monocytes | 11.49Comment: Testing | % | EXTERNAL | | | | performed at [facility], [address] | | LAB | | | | [address], | | | | | | [place] [address] | | | | + + + + + + | % | 0.04Comment: Testing | % | EXTERNAL | | | Eosinophils | performed at [facility], [address] | | LAB | | | | [address], | | | | | | [place] [address] | | | | + + + + + + | % Basophils | 0.08Comment: Testing | % | EXTERNAL | | | | performed at [facility], [address] | | LAB | | | | [address], | | | | | | [place] [address] | | | | + + + + + + | Absolute | 11.53 (H)Comment: | 1.90 - 7.40 | EXTERNAL | | | Segmented | Testing performed at | K/uL | LAB | | | Neutrophils | [facility], [address] | | | | | | [place] | | | | | | [address] | | | | + + + + + + | Absolute | 1.09Comment: Testing | 1.00 - 3.90 | EXTERNAL | | | Lymphocytes | performed at [facility], [address] | K/uL | LAB | | | | [address], | | | | | | [place] [address] | | | | + + + + + + | Absolute | 1.64 (H)Comment: Testing | 0.00 - 0.80 | EXTERNAL | | | Monocytes | performed at [facility], [address] | K/uL | LAB | | | | [address], | | | | | | [place] [address] | | | | + + + + + + | Absolute | 0.01Comment: Testing | 0.00 - 0.50 | EXTERNAL | | | Eosinophils | performed at [facility], [address] | K/uL | LAB | | | | [address], | | | | | | [place] [address] | | | | + + + + + + | Absolute | 0.01Comment: Testing | 0.00 - 0.10 | EXTERNAL | | | Basophils | performed at [facility], [address] | K/uL | LAB | | | | [address], | | | | | | [place] [address] | | | | + + + + + + + + | Specimen | + + | Blood specimen | | (specimen) | + + + +---------+ + + | Performing | Address | City/State/Zipcode | Phone Number | | Organization | | | | + +---------+ + + | EXTERNAL LAB | | | | + +---------+ + + Phosphorus (07/16/2015 4:15 AM PST) + + + + + + | Component | Value | Ref Range | Performed | Pathologist | | | | | At | Signature | + + + + + + | PHOSPHORUS | 4.7Comment: Testing | 2.3 - 4.8 mg/dL | EXTERNAL | | | | performed at [facility], [address] | | LAB | | | | [place] [place], | | | | | | [place] [address] | | | | + + + + + + + + | Specimen | + + | Blood specimen | | (specimen) | + + + +---------+ + + | Performing | Address | City/State/Zipcode | Phone Number | | Organization | | | | + +---------+ + + | EXTERNAL LAB | | | | + +---------+ + + Magnesium (07/16/2015 4:15 AM PST) + + + + + + | Component | Value | Ref Range | Performed | Pathologist | | | | | At | Signature | + + + + + + | Magnesium | 3.4 (H)Comment: Testing | 1.7 - 2.4 mg/dL | EXTERNAL | | | | performed at [facility], [address] | | LAB | | | | [place], | | | | | | [place] [address] | | | | + + + + + + + + | Specimen | + + | Blood specimen | | (specimen) | + + + +---------+ + + | Performing | Address | City/State/Zipcode | Phone Number | | Organization | | | | + +---------+ + + | EXTERNAL LAB | | | | + +---------+ + + CK Total (07/16/2015 4:15 AM PST) + + + + + + | Component | Value | Ref Range | Performed | Pathologist | | | | | At | Signature | + + + + + + | CK, Total | 5369 (H)Comment: Testing | 55 - 400 U/L | EXTERNAL | | | | performed at [facility];[address] | | LAB | | | | [address];[place], [place] | | | | | | [address] | | | | + + + + + + + + | Specimen | + + | Blood specimen | | (specimen) | + + + +---------+ + + | Performing | Address | City/State/Zipcode | Phone Number | | Organization | | | | + +---------+ + + | EXTERNAL LAB | | | | + +---------+ + + Basic Metabolic Panel (07/16/2015 4:15 AM PST) + + + + + + | Component | Value | Ref Range | Performed | Pathologist | | | | | At | Signature | + + + + + + | Na | 136Comment: Testing | 135 - 143 | EXTERNAL | | | | performed at [facility], [address] | mmol/L | LAB | | | | [place] [place], | | | | | | [place] [address] | | | | + + + + + + | K | 3.5Comment: Testing | 3.5 - 4.9 | EXTERNAL | | | | performed at [facility], [address] | mmol/L | LAB | | | | [address], | | | | | | [place] [address] | | | | + + + + + + | Cl | 104Comment: Testing | 99 - 109 mmol/L | EXTERNAL | | | | performed at [facility], [address] | | LAB | | | | [address], | | | | | | [place] [address] | | | | + + + + + + | CO2 | 18 (L)Comment: Testing | 23 - 32 mmol/L | EXTERNAL | | | | performed at [facility], [address] | | LAB | | | | [address], | | | | | | [place] [address] | | | | + + + + + + | Anion Gap | 18Comment: Testing | 5 - 20 mmol/L | EXTERNAL | | | | performed at [facility], [address] | | LAB | | | | [address], | | | | | | [place] [address] | | | | + + + + + + | Glucose, | 103 (H)Comment: Testing | 65 - 99 mg/dL | EXTERNAL | | | Fasting | performed at [facility], [address] | | LAB | | | | [address], | | | | | | [place] [address] | | | | + + + + + + | BUN | 29 (H)Comment: Testing | 8 - 25 mg/dL | EXTERNAL | | | | performed at [facility], [address] | | LAB | | | | [address], | | | | | | [place] [address] | | | | + + + + + + | Creatinine | 2.25 (H)Comment: Testing | 0.70 - 1.30 | EXTERNAL | | | | performed at [facility], [address] | mg/dL | LAB | | | | [address], | | | | | | [place] [address] | | | | + + + + + + | BUN/Creatin | 13Comment: Testing | | EXTERNAL | | | ine Ratio | performed at [facility], [address] | | LAB | | | | [place], | | | | | | [place] [address] | | | | + + + + + + | Calcium | 8.6Comment: Testing | 8.5 - 10.5 | EXTERNAL | | | | performed at [facility], [address] | mg/dL | LAB | | | | [address], | | | | | | [place] [address] | | | | + + + + + + | Estimated | 39 (L)Comment: GFR <60: | mL/min/1.73m2 | EXTERNAL | | | GFR | CHRONIC KIDNEY DISEASE, | | LAB | | | | IF FOUND OVER A 3 MONTH | | | | | | PERIOD.GFR <15: KIDNEY | | | | | | FAILURE.FOR | | | | | | AMERICANS, MULTIPLY THE | | | | | | CALCULATED GFR BY | | | | | | 1.210.Testing performed | | | | | | at [facility], [address] | | | | | | [address], | | | | | | [place] [address] | | | | + + + + + + + + | Specimen | + + | Blood specimen | | (specimen) | + + + +---------+ + + | Performing | Address | City/State/Zipcode | Phone Number | | Organization | | | | + +---------+ + + | EXTERNAL LAB | | | | + +---------+ + + MRSA NAAT (07/15/2015 11:21 PM PST) + + | Specimen | + + | | + + + + + | Narrative | Performed At | + + + | SOURCE [facility]ARES(NOSE) | EXTERNAL LAB | | Testing performed at [facility];[address] [place] [address];[place] [address] MRSA PCR | | | NEGATIVE Testing performed at | | | [address];[place] [address] | | + + + + +---------+ + + | Performing | Address | City/State/Zipcode | Phone Number | | Organization | | | | + +---------+ + + | EXTERNAL LAB | | | | + +---------+ + + documented in this encounter Visit Diagnoses + + | Diagnosis | + + | ABRAHAM (acute kidney injury) (HCC) Acute kidney failure, unspecified | + + | Seizure disorder (HCC) Unspecified epilepsy without mention of intractable epilepsy | + + | Subarachnoid hemorrhage, nontraumatic (HCC) Subarachnoid hemorrhage | + + | Acidosis | + + | Acute renal disease Unspecified disorder of kidney and ureter | + + | Acute pulmonary edema (HCC) Acute edema of lung, unspecified | + + | Hypervolemia, unspecified hypervolemia type | + + | Non-traumatic rhabdomyolysis | + + documented in this encounter
--- OUTSIDE RECORDS SUMMARY | ~2020-03-20 | XMS | Encounter Summary ---
Demographics + + + | Address | [address] | | | [place] [address] | + + + | Home Phone | | + + + | Preferred Language | Unknown | + + + | Marital Status | Single | + + + | Advent Affiliation | 1041 | + + + | Race | White | + + + | Ethnic Group | Not or | + + + Author + + + | Author | [facility] | | | and [place]ana | + + + | Organization | [facility] | | | [...] Team Providers + +------+ + | Care Numerical Control Router Operator Name | Role | Phone | + +------+ + | Adria Artis NP | PCP | | + +------+ + Reason for Visit + + + | Reason | Comments | + + + | Medication Refill | | + + + Encounter Details +--------+--------+ + + + | Date | Type | Department | Care Team | Description | +--------+--------+ + + + | 01/23/ | Refill | [facility] | Mendoza Mcgarry MD | Medication Refill | | 2019 | | [facility] | [address] | | | | | CLINIC [address] | [place] | | | | | [place], | [address] | | | | | [place] [address] | | | | | | [phone] | | | +--------+--------+ + + + Social History + +-------+ [...] this encounter Miscellaneous Notes Telephone Encounter - Jermaine Trivedi CC [facility] - 01/25/2020 8:26 AM PDT Requested Prescriptions Pending Prescriptions Disp Refills OXcarbazepine (TRILEPTAL) 300 mg tablet [Pharmacy Med Name: OXcarbazepine 300 MG Oral T ablet] 90 tablet 0 Sig: TAKE 1 TABLET BY MOUTH THREE TIMES DAILY Last filled: 01/04/20 Last seen: 12/22/19 Obando Next appt: 07/04/20 Zeferino Trivedi CMA documented in t his encounter Plan of Treatment +--------+---------+ + + + | Date | Type | Specialty | Care Team | Description | +--------+---------+ + + + | 07/04/ | Office | Neurology | Mendoza Mcgarry MD | | | 2020 | Visit | | [address] | | | | | | [place] | | | | | | [phone] | | | | | | | | +--------+---------+ + + + documented as of this encounter Visit Diagnoses Not on filedocumented in this encounter"
--- OUTSIDE RECORDS SUMMARY | ~2020-03-20 | XMS | Encounter Summary ---
Demographics + + + | Address | [address] | | | [place] [address] | + + + | Home Phone | | + + + | Preferred Language | Unknown | + + + | Marital Status | Single | + + + | Christianity Affiliation | 1041 | + + + | Race | White | + + + | Ethnic Group | Not or | + + + Author + + + | Author | [facility] | | | and [place] | + + + | Organization | [facility] | | | [...] Team Providers + +------+ + | Care Windows Server Specialist Name | Role | Phone | + +------+ + | Kun Artis MD | PCP | | + +------+ + Encounter Details +--------+ + + + + | Date | Type | Department | Care Team | Description | +--------+ + + + + | 08/24/ | Hospital | [facility] | Mendoza Mcgarry MD | Partial symptomatic | | 2019 | Encounter | HOSPITAL RESP[facility]AT[facility] | [address] | epilepsy with | | | | THERAPY [address] | [place], [place] | complex partial | | | | [place], [place] | [address] | seizures, | | | | [address] | | intractable, without | | | | [phone] | | status epilepticus | | | [...] encounter Progress Notes Magan Nye RRT - 08/25/2019 10:00 AM PDTDownload Ambulatory EEG for neurologist to in [facility]. Diagnostic video hours were 20.96 out of 22.24 hours EEG recording time minus imped ance setup time. Patient had 94% video time during EEG. Magan Blas R RT - 08/25/2019 10:00 AM PDT Setup Ambulatory EEG with video. Explain use of equipment to e patient. Syed will return EEG equipment tomorrow and staff will download study. Peter rivera signed by Magan Nye RRT at 08/25/2019 11:34 AM PDTdocumented in this encounter Procedure Notes Cherelle Best MD - 08/25/2019 10:00 AM PDTAssociated Order(s): EEG AMBULATORY MONITO RINGPre-Procedure Diagnose(s): Partial symptomatic epilepsy with complex partial seizures, i ntractable, without status epilepticus (HCC)Name:Syed Koenig :1990 DATE OF SERVICE: 08/25/2019 24 HOUR ELECTROENCEPHALOGRAM INTRODUCTION: This a digital ambulatory video EEG recording of a 28 y.o. year-old male with complex parti al seizures. This study was performed to further ascertain the nature of the patient's spel ls. This study utilized 20 channels of EEG derived from 21 scalp electrodes placed over the fro ntal, temporal, parietal, occipital, and central regions. The International 10 20 system of electrode placement was used. The recording was started at 11:08 AM on 08/25/2019 and ended at 9:38 AM on 08/26/2019 for a total record duration of approximately 22.5 hours. More than 80% of the study included maximilian rded video. RESULTS: The study was reviewed using the QPD EEG digital system. During the awake portion s of the recording, a normal background pattern consisting of 9 hz was noted. The patient w as asleep between 1:14 PM and 4:07 PM, between 7:52 PM and 8:24 PM, between 10:46 PM and 11: 48 PM, between 12:23 AM and 5:08 AM, and between 5:48 AM and 7:33 AM. ABNORMAL POTENTIALS: Occasional transient bursts of generalized 5 to 6 Hz theta activity were noted, particularl y during wakefulness. No epileptiform discharges were seen. PUSH BUTTON/VOICE ENTRY EVENTS: There were none IMPRESSION: Abnormal video ambulatory EEG study. Intermittent generalized slowing was noted, indicatin g the presence of mild bilateral cerebral dysfunction. However, there was no electrographic evidence of a seizure disorder during the 22.5 hour duration of this recording. Thank you for the opportunity to participate in the care of this patient. Cherelle Best MD08/26/201911:46 AM documented in thi s encounter Plan [...] [place] | | | | | | [phone] | | | | | | | | +--------+---------+ + + + documented as of this encounter Procedures + +--------+ + + + | Procedure Name | Priori | Date/Time | Associated Diagnosis | Comments | | | ty | | | | + +--------+ + + + | *TERMED* NV EEG | Routin | 08/25/2019 | Partial | Results for this | | MONITORING/VIDEORECO | e | 10:00 AM | symptomatic epilepsy | procedure are in the | | RD | | PDT | with complex | results section. | | | | | partial seizures, | | | | | | intractable, without | | | | | | status epilepticus | | | | | | ([facility]) | | + +--------+ + + + documented in this encounter Results EEG 24 HR AMBULATORY MONITORING (08/25/2019 10:00 AM PDT) + + + | Narrative | Performed At | + + + | Cherelle Best MD 08/26/2019 11:48 AM Name:Syed Shah | | | [place] :1990 DATE OF SERVICE: 08/25/2019 | | | 24 HOUR ELECTROENCEPHALOGRAM INTRODUCTION: This a digital | | | ambulatory video EEG recording of a 28 y.o. year-old male with | | | complex partial seizures. This study was performed to further | | | ascertain the nature of the patient's spells. This study | | | utilized 20 channels of EEG derived from 21 scalp electrodes placed | | | over the frontal, temporal, parietal, occipital, and central | | | regions. The International 10 | | | | | | 20 system of electrode placement was used. The recording was | | | started at 11:08 AM on 08/25/2019 and ended at 9:38 AM on 08/26/2019 | | | for a total record duration of approximately 22.5 hours. More than | | | 80% of the study included recorded video. RESULTS: The study was | | | reviewed using the QPD EEG digital system. During the | | | awake portions of the recording, a normal background pattern | | | consisting of 9 hz was noted. The patient was asleep between 1:14 | | | PM and 4:07 PM, between 7:52 PM and 8:24 PM, between 10:46 PM and | | | 11:48 PM, between 12:23 AM and 5:08 AM, and between 5:48 AM and 7:33 | | | AM. ABNORMAL POTENTIALS: Occasional transient bursts of | | | generalized 5 to 6 Hz theta activity were noted, particularly during | | | wakefulness. No epileptiform discharges were seen. PUSH | | | BUTTON/VOICE ENTRY EVENTS: There were none IMPRESSION: Abnormal | | | video ambulatory EEG study. Intermittent generalized slowing was | | | noted, indicating the presence of mild bilateral cerebral | | | dysfunction. However, there was no electrographic evidence of a | | | seizure disorder during the 22.5 hour duration of this recording. | | | Thank you for the opportunity to participate in the care of this | | | patient. Cherelle Best MD311:46 AM Electronically | | | signed | | + + + documented in this encounter Visit Diagnoses + + | Diagnosis | + + | Partial symptomatic epilepsy with complex partial seizures, intractable, without | | status epilepticus (HCC) | + + documented in this encounter"
--- OUTSIDE RECORDS SUMMARY | ~2020-03-20 | XMS | Encounter Summary ---
Demographics + + + | Address | [address] | | | [place] [address] | + + + | Home Phone [...] Author + + + | Author | [facility] | | | and [place] | + + + | Organization | [facility] | | | and [...] Team Providers + +------+ + | Care Material Disposition Inspector Name | Role | Phone | + +------+ + | Adria Artis NP | PCP | | + +------+ + Reason for Visit + +--------+ + | Reason | Onset | Comments | | | Date | | + +--------+ + | Lab Results | 01/04/ | | | | 2020 | | + +--------+ + Encounter Details +--------+ + + + + | Date | Type | Department | Care Team | Description | +--------+ + + + + | 01/04/ | Telephone | [facility] | Elba Obando NP | Lab Results | | 2019 | | HOSPITAL NEUROLOGY | [address] | | | | | CLINIC [address] | [place] | | | | | [address] [place], | [address] | | | | | [place] [address] | [phone] | | | | | [phone] | | | +--------+ + + + [...] this encounter Miscellaneous Notes Telephone Encounter - Mavis Marina LPN - 01/05/2020 9:36 AM PDTAttempted to make con tact with pt regarding lab results. No Answer. Per [facility] contact form a simple VM was left wit h call back instrcutions. Antonina Kelleyectronically signed by Mavis Marina LPN at 01/05/2020 9:40 AM PDTdocumented in this encounter Plan of [...] [place] | | | | | | [phone] | | | | | | | | +--------+---------+ + + + documented as of this encounter Visit Diagnoses Not on filedocumented in this encounter"
--- OUTSIDE RECORDS SUMMARY | ~2020-03-20 | XMS | Encounter Summary ---
Demographics + + + | Address | [address] | | | [place] [address] | + + + | Home Phone | | + + + | Preferred Language | Unknown | + + + | Marital Status | Unknown | + + + | Episcopalian Affiliation | Unknown | + + + | Race | Unknown | + + + | Ethnic Group | Unknown | + + + Author + + + | Author | [facility] | + + + | Organization | [facility] | + + + | Address | Unknown | + + + | Phone | Unavailable | + + + Care Team Providers + +------+ + | Care Supply Chain Specialist Name | Role | Phone | + +------+ + PCP | Unavailable | + +------+ + Encounter Details +--------+ + + + + | Date | Type | Department | Care Team | Description | +--------+ + + + + | 07/26/ | Abstract | Neurology at | Clinic, Neurology | | | 2016 | | [facility] & | | | | | | Healing [address] | | | | | | [facility] | | | | | | Health and Healing, | | | | | | Building | | | | | | Floor [place], [place] | | | | | | [address] | | | | | | [phone] | | | +--------+ + + + [...]
--- OUTSIDE RECORDS SUMMARY | ~2020-03-20 | XMS | Encounter Summary ---
Demographics + + + | Address | [address] | | | [place] [address] | + + + | Home Phone | | + + + | Preferred Language | Unknown | + + + | Marital Status | Single | + + + | Baptism Affiliation | [id number] | + + + | Race | White | + + + | Ethnic Group | Not or | + + + Author + + + | Author | [facility] | | | and Chrisana | + + + | Organization | [facility] | | | [...] Team Providers + +------+ + | Care Life Skills Worker Name | Role | Phone | + +------+ + | Kun Artis MD | PCP | | + +------+ + Reason for Visit + + + | Reason | Comments | + + + | Seizure (Adult - | | | Prior Hx Of) | | + + + Encounter Details +--------+ + + + + | Date | Type | Department | Care Team | Description | +--------+ + + + + | 02/05/ | Emergency | [facility] | Victoriano Lucia | Breakthrough seizure | | 2020 | | MEDICAL CENTER | DO Sam [address] | ([facility]) (Primary Dx) | | | | EMERGENCY CENTER | [address] | | | | | [address] | [place], [place] | | | | | [place], [place] | [address] | | | | | [address] | [phone] | | | | | [phone] | | | +--------+ + + + [...] Comments | + + +---------+ + | Not Currently | | | Alcoholic | | | | | Drinks/day: heavy | | | | | drinker 16-19 years, | | | | | 12 packs of beer/ | | | | | week | + + +---------+ + + + + | Sex Assigned at | Date Recorded | | | | + + + | Not on file | | + + + documented as of this encounter Last Filed Vital Signs + + + + + | Vital Sign | Reading | Time Taken | Comments | + + + + + | Blood Pressure | 100/58 | 07/15/2019 5:30 PM | | | | | PST | | + + + + + | Pulse | 62 | 07/15/2019 5:30 PM | | | | | PST | | + + + + + | Temperature | 37.4 C (99.3 F) | 07/15/2019 5:06 PM | | | | | PST | | + + + + + | Respiratory Rate | 18 | 07/15/2019 3:06 PM | | | | | PST | | + + + + + | Oxygen Saturation | 93% | 07/15/2019 5:30 PM | | | | | PST | | + + + + + | Inhaled Oxygen | - | - | | | Concentration | | | | + + + + + | Weight | 74.8 kg (165 lb) | 07/15/2019 3:06 PM | | | | | PST | | + + + + + | Height | - | - | | + + + + + | Body Mass Index | 24.37 | 07/22/2015 7:05 AM | | | | | PST | | + + + + + documented in this encounter Discharge Instructions AttachmentsThe following attachments cannot be sent through Care Everywhere.Epilepsy, Self- Care for (Amharic)documented in this encounter Medications at Time of Discharge [...] +---------+ + + | levETIRAcetam | Take 1 tablet by | 60 | 0 | 07/15/19 | | | (KEPPRA) 1000 MG | mouth 2 times daily | tablet | | 20 | 0 | | tablet | for 30 days. | | | | | + + + +---------+ + + | levETIRAcetam | TAKE 1 TABLET BY | | 0 | 06/22/19 | | | (KEPPRA) 750 MG | MOUTH TWICE DAILY | | | [...] + + documented as of this encounter ED Notes Aaliyah Valderrama RN - 07/15/2019 3:40 PM PSTPt slightly agitated, moving around, attempting to pull arm away as this RN was attempting to pull blood out of the iv. Assistance needed. Pt aware of where he is and able to give date of . Continues to be slightly confused , needing to be redirected with verbal cuesElectronically signed by Aaliyah Valderrama RN at 10/2019 4:11 PM PSTVictoriano Lucia DO - 07/15/2019 3:00 PM PST [facility] Department of Emergency Medicine Procedures No flowsheet data found. 3:01 PM History of Present Illness Patient Identification Syed Koenig is a 28 y.o. male. Patient information was obtained from patient, parent and EMS. History/Exam limitations: none. Patient presented to the Emergency Department by: Chief Complaint Chief Complaint Patient presents with Seizure (Adult - Prior Hx Of) The patient presents to ED with complaints of seizure. Onset of symptoms was 5:50 AM, with a resolved course since that time. The symptoms are described to be of mild to moderate erika rity. The patient describes the quality and location of the symptoms as the followin epi sodes of seizures where he turned to his left side and his whole body was shaking lasting ab out a minute witnessed by mom. Nothing makes the symptoms/pain better, and nothing makes sym ptoms/pain worse. Pt reports pain/symptoms does not radiate. Patient denies any other sympto ms at this time. Mother states patient has had seizures as of 5 years ago. and is prescribed Keppra 750 mg and 300 mg of Trileptal twice a day. Patient's mother report the patient has been taking his medications as prescribed, but may have missed his morning dose this morning . Patient's mother states the seizures today were similar to his seizures in the past. EMS s benoit that the patient is known to be aggressive post ictal and was combative and aggressive this morning. Mother states the patient was taken to the [facility] and had anot her seizure. Mother states the patient has been evaluated by neurology in the past and has h ad multiple MRI's and EEG's then started on his medications. She states before starting the medications the patient was having monthly seizures, but after starting the medications he w as having them every 6 months. Mother states the patient's last seizure was in May, 9. Mother denies the patient using any illicit drugs, smoking, or alcohol use. Mother states the patient does use marijuana. Records from [facility] show the patient was given Zofran 4 mg, Reglan 10 mg, benadryl 2 5 mg, Ativan 2 mg, Keppra 1000 mg, Versed 2 mg, Haldol 5 mg, and Ativan 1 mg between the luma es of 7:00 AM and 12:00 PM. Labs obtained there show CBC had a WBC of 11.5 otherwise normal, his glucose was 156, creatinine was 1.16, and CO2 was 16. PCP: Kun Artis MD Past Medical History: Diagnosis Date Seizures (HCC) History reviewed. No pertinent surgical history. Prior to Admission medications Not on File No Known Allergies Social History Socioeconomic History Marital status: Unknown Spouse name: Not on file Number of children: Not on file Years of education: Not on file Highest education level: Not on file Occupational History Not on file Social Needs Financial resource strain: Not on file Food insecurity: Worry: Not on file Inability: Not on file Transportation needs: Medical: Not on file Non-medical: Not on file Tobacco Use Smoking status: Never Smoker Smokeless tobacco: Never Used Substance and Sexual Activity Alcohol use: Not Currently Comment: Alcoholic Drinks/day: heavy drinker 16-19 years, 12 packs of beer/ week Drug use: Yes Types: Marijuana Comment: Drug use: Yes Sexual activity: Not on file Lifestyle Physical activity: Days per week: Not on file Minutes per session: Not on file Stress: Not on file Relationships Social connections: Talks on phone: Not on file Gets together: Not on file Attends hinduism service: Not on file Active member of club or organization: Not on file Attends meetings of clubs or organizations: Not on file Relationship status: Not on file Intimate partner violence: Fear of current or ex partner: Not on file Emotionally abused: Not on file Physically abused: Not on file Forced sexual activity: Not on file Other Topics Concern Not on file Social History Narrative 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 Single No kids Family History Problem Relation Age of Onset Other (see comment) Mother Other (see comments) - cerebral bleed Alcohol abuse Mother Kidney disease Neg Hx Review of Systems Constitutional: Negative for fever Eyes: Negative for vision changes Nose: Negative for congestion Throat: Negative for sore throat CV/Resp: Negative for chest pain, [id number], cough GI: Negative for abdominal pain, nausea, vomiting, or diarrhea : Negative for urinary problems Musculoskeletal: Negative for joint pain Skin: Negative for rash Neuro/Psych: Positive for seizure Negative for headache Endo/heme/Lymph: Negative for easy bruising All other systems reviewed and negative except as noted. Physical Exam Temp: (!) 38 C (100.4 F) Pulse: 84 Resp: 18 BP: 124/69 SpO2: 95 % Vital signs interpretation: febrile, elevated BP, otherwise WNL Pulse Oximetry interpretation: Normal General: Alert, in no apparent distress, slightly somnolent, but easily arousable Eyes: Normal inspection ENT: MMM Neck: Normal inspection Cardiovascular: Rate and rhythm normal Respiratory: Breath sounds normal bilaterally Abdomen: Soft, non-tender, non-distended No guarding or rebound Genitourinary: Deferred Rectal exam: Deferred Back: Normal inspection Extremities: No edema Distal pulses intact Skin: Color normal Warm and dry No rash Neuro: Alert and Oriented x 3 Speech is clear and appropriate No aphasia or dysarthria No facial droop PERRLA, EOMI, no nystagmus CN II-XII intact Motor strength 5/5 upper and lower extremities No pronator drift No lower extremity drift No sensory deficits Intact finger to nose and heel to landry Normal gait Medical Decision Making and Emergency Department Course Patient presents to ED with complaints of seizure. Will order labs, contact neurology, and reevaluate the patient. The pt had a low grade fever upon arrival. Pt has no meningismus. No other infectious sym ptoms. Will obtain CXR. I have low suspicion for meningitis or serious bacterial illness. 3:24 PM Discussed the patient with Dr. España, neurology who recommends increase the patien t's dose of Keppra to 1000 mg twice a day and keep the Trileptal dose the same. Recommends c hecking for other causes of fever. 4:00 PM CBC shows elevated WBC at 11.73 and elevated absolute neutrophils at 9.85. 4:06 PM CMP shows elevated AST at 46, otherwise unremarkable. 4:30 PM CXR shows cardiomegaly with mild interstitial edema. No superimposed acute infiltra te. 4:50 PM Patient reevaluation. Patient is back to his baseline per mother and answering ques tions appropriately. Updated the patient on results. 5:45 PM Patient reevaluation. Patient is stable and feeling better at this time. Feels back to his baseline. I discussed all ED results and my clinical impression with the patient. Dani davis is ready for discharge. I advised patient to follow up with a PCP and we discussed the emergent signs and symptoms that would necessitate a return to ED. All questions and concer ns addressed. Will discharge home with Rx for Keppra. ED Medication Administration from 07/15/2019 1459 to 07/16/2019 0712 Date/Time Order Dose Route Action Action by 07/15/2019 1739 levETIRAcetam (KEPPRA) tablet 1,000 mg 1,000 mg Oral Given Courtney Valdivia RN 07/15/2019 1739 OXcarbazepine (TRILEPTAL) tablet 300 mg 300 mg Oral Given Courtney Valdivia RN Records Reviewed Old medical records. Nursing notes. Previous ED visits for similar and unrelated complaints. Laboratory Evaluation Results Procedure Component Value Ref Range Date/Time Comprehensive Metabolic Panel [[id number]] (Abnormal) Collected: 07/15/191541 Order Status: Completed Specimen: Blood Updated: 07/15/19 1607 Na 139 135 - 145 mmol/L K 4.3 3.5 - 4.9 mmol/L Cl 106 99 - 109 mmol/L CO2 26 23 - 32 mmol/L Anion Gap 11 5 - 20 mmol/L Glucose 104 65 - 99 mg/dL BUN 10 8 - 25 mg/dL Creatinine 1.09 0.70 - 1.30 mg/dL BUN/Creatinine Ratio 9 Calcium 9.2 8.5 - 10.5 mg/dL Protein, Total 6.9 6.3 - 8.2 g/dL Albumin 4.7 3.6 - 5.0 g/dL Globulin 2.2 1.3 - 4.9 g/dL A/G Ratio 2.1 1.0 - 2.4 BILIRUBIN, TOTAL 0.4 0.1 - 1.5 mg/dL ALK PHOS 87 35 - 115 U/L AST 46 10 - 45 U/L ALT 28 10 - 65 U/L Estimated GFR >60 >60 mL/min/1.73m2 CBC with Differential [[id number]] (Abnormal) Collected: 07/15/191541 Order Status: Completed Specimen: Blood Updated: 07/15/19 1601 WBC 11.73 3.80 - 11.00 K/uL RBC 4.50 4.20 - 5.70 M/uL Hemoglobin 14.2 13.2 - 17.0 g/dL Hematocrit 41.9 39.0 - 50.0 % MCV 93.1 80.0 - 100.0 fl MCH 31.7 27.0 - 34.0 pg MCHC 34.0 32.0 - 35.5 g/dL RDW-SD 40.7 37 - 53 fl Platelet Count 204 150 - 400 K/uL MPV 8.4 fl Diff Type AUTOMATED % Neutrophils 83.95 % % Lymphocytes 9.26 % Monocyte % 6.56 % Eosinophils % 0.04 % Basophils % 0.19 % Neutrophils, Absolute 9.85 1.90 - 7.40 K/uL Absolute Lymphocytes 1.09 1.00 - 3.90 K/uL Absolute Monocytes 0.77 0.00 - 0.80 K/uL Eosinophils, Absolute 0.00 0.00 - 0.50 K/uL Basophils, Absolute 0.02 0.00 - 0.10 K/uL I personally reviewed the lab results and they have been posted to the chart. Pertinent po sitive and negative findings have been addressed appropriately. Radiology and EKG Evaluation Imaging Results XR Chest 1 Vw (Final result) Result time 07/15/19 16:30:08 Procedure changed from XR Chest PA and Lateral Final result by Arash Ellsworth MD (07/15/19 16:30:08) Impression: Cardiomegaly with mild interstitial edema No superimposed acute infiltrate Signed by: May Ellsworth, Arash Sign Date/Time: 07/15/2019 4:30 PM Narrative: CHEST ONE VIEW CLINICAL INFORMATION: Fever, History of seizure. COMPARISON: XR CHEST 1 VIEW (07/18/2015); XR CHEST 2 VIEW (07/18/2015); FINDINGS: Cardiac size appears generous even accounting for the AP lordotic projection. Pulmonary vascular prominence and indistinctness consistent with a interstitial edema pattern. No segmental infiltrate. No pneumothorax or significant effusion evident. ED Diagnosis Final diagnoses: Breakthrough seizure (HCC) Disposition: ED Disposition ED Disposition Condition Comment Discharge Stable Follow-up Information Schedule an appointment as soon as possible for a visit with Kun Artis MD. Specialty: Internal Medicine Why: As needed Contact information: [address] [place] [address] Go to [facility]. Specialty: Emergency Medicine Why: If symptoms worsen Contact information: [address] [facility] [address] Guadalupe España MD. Specialty: Neurology Why: Call and schedule next available appointment. Contact information: [address] [facility] [address] Discharge Medications: Discharge Medication List as of 07/15/2019 5:46 PM START taking these medications Details !! levETIRAcetam (KEPPRA) 1000 MG tablet Take 1 tablet by mouth 2 times daily for 30 days.D isp-60 tablet, R-0, Print !! - Potential duplicate medications found. Please discuss with provider. Dictation software, [employer], used which may contain error for similar sounding words even af ter review. Personal communication requested for any clarification. Attending Provider Note: IVictoriano DO personally performed the services d escribed in this documentation, as scribed by Trini Cleaning in my presence, and it is both a ccurate and complete. Chart Reviewed and Completed 07/16/2019 7:12 AM. Scribe: Aleksey Morales, scribing for and in the presence of Victoriano Lucia DO. Completed by: Aleksey Barbosa 07/15/2019 5:45 PM Victoriano Lucia DO 07/16/19 0712 Warner Enrique RN - 07/15/2019 2:59 PM PSTBed: ED03 Expected date: Expected time: Means of arrival: Comments: arren Mota DO - 07/15/2019 9:51 AM PST9:51 [facility], patient recently moved from [place] to [place]. No established with neurologist in t his location. Patient has a history of grand mal seizures. Patient was prescribed Trilepta l and Keppra, has run out of medications as he is not established with specialty services in the [place] area. The physician relates that the patient had 1 seizure that was seen by EMS, patient was given 1/2 mg of Ativan. When the patient arrived in the emergency departme he had a 2-minute tonic-clonic seizure that was visualized was provided an additional dos e of 1.5 mg Ativan and at this time is reported to be postictal. Patient had oxygen saturat ion of 85% while having seizure and this is returned to 98% on room air with a heart rate of 92 and blood pressure within normal limits at this time. Patient is received a loading dos e of 1 g Keppra IV and a head CT is currently being done. The physician reports no metaboli c abnormalities. The physician is requesting transfer to our facility because the patient h as had 2 seizures today. We have discussed and clarified that the patient is no longer in s eizure and therefore is not in status epilepticus. I have recommended that the patient be p rovided a prescription for his previously dosed Trileptal and Keppra with referral to outpat ient neurology. The position relates he is uncomfortable discharging the patient and would like to have the patient admitted for a period of observation and to obtain possible neurolo gy consultation. I have shared with him that the patient has known seizure disorder, was st able on medications prescribed in [place], and likely had seizure secondary to noncompliance with medications. The physician indicates that he is not concerned that there is new intrac erebral pathology or metabolic encephalopathy, or metabolic abnormality. On this basis I reno ve offered that the patient may present to our emergency department where we will likely obs erve the patient and if no further seizure activity is noted the patient will likely be disc harged with prescriptions for Trileptal and Keppra with referral to outpatient neurology to establish care. The physician is aware that the patient has not been accepted for admission , rather will be seen as an emergency department patient with no guarantee of admission. Darren Martinez DO 07/15/19 1007 documented in this enc ounter Miscellaneous Notes Plan of Care - Poornima Saba MSW - 07/15/2019 4:58 PM PSTMet with patient and mother at bedside per provider referral. Arranged [place] Medicaid Transport through 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 Patient and mother in agreement with plan. Provider notified. do cumented in this encounter Plan of Treatment +--------+---------+ + + + | Date | Type | Specialty | Care Team | Description | +--------+---------+ + + + | 07/04/ | Office | Neurology | Mendoza Mcgarry MD | | | 2020 | Visit | | [address] | | | | | | [place] | | | | | | [address] | | | | | | | | +--------+---------+ + + + + +------+--------+ + + | Name | Type | Priori | Associated Diagnoses | Date/Time | | | | ty | | | + +------+--------+ + + | ED INFORMATION | GEGE | Routin | | 07/15/2019 3:42 PM | | EXCHANGE | | e | | PST | + +------+--------+ + + documented as of this encounter Procedures + +--------+ + + + | Procedure Name | Priori | Date/Time | Associated Diagnosis | Comments | | | ty | | | | + +--------+ + + + | XR CHEST 1 VIEW | MARTÍN | 07/15/2019 | | Results for this | | | | 4:22 PM | | procedure are in the | | | | PST | | results section. | + +--------+ + + + | ED INFORMATION | Routin | 07/15/2019 | | | | EXCHANGE | e | 3:42 PM | | | | | | PST | | | + +--------+ + + + +---+--------+ | | | | | Proced | | | ure | | | Note - | | | Joel, | | | Lab In | | | | | | Hlseve | | | n - | | | 02/05/ | | | 2020 | | | 3:43 | | | PM PST | | | | | | Format | | | ting | | | of | | | this | | | note | | | might | | | be | | | differ | | | ent | | | from | | | the | | | origin | | | al.COL | | | LECTIV | | | E?NOTI | | | FICATI | | | ON?02/ | | | 05/ | | | 0 | | | 14:59? | | | ROTTEL | | | O, | | | SYED | | | T?MRN: | | | | | | [id number] | | | [id number] | | | riteri | | | a Met | | | 2 in | | | 2Secur | | | ity | | | and | | | Safety | | | No | | | recent | | | | | | Securi | | | ty | | | Events | | | | | | curren | | | tly on | | | | | | fileED | | | Care | | | Guidel | | | inesTh | | | ere | | | are | | | curren | | | tly no | | | ED | | | Care | | | Guidel | | | autumn | | | for | | | this | | | patien | | | t. | | | Please | | | check | | | your | | | facili | | | ty's | | | medica | | | l | | | record | | | s | | | system | | | .Flags | | | | | | [facility] | | | ED | | | Dispar | | | ity | | | Measur | | | e - | | | [facility] | | | has | | | develo | | | ped a | | | flag | | | ([place] | | | n ED | | | Dispar | | | ity | | | Measur | | | e) to | | | help | | | suppor | | | t | | | Medica | | | id | | | member | | | s with | | | | | | mental | | | | | | illnes | | | s. | | | [facility] | | | | | | Health | | | | | | Author | | | ity | | | uses | | | claims | | | data | | | with a | | | | | | 36-mon | | | th | | | jenny | | | g look | | | back | | | period | | | to | | | identi | | | fy | | | member | | | s who | | | have | | | had | | | two or | | | more | | | diagno | | | ses of | | | | | | mental | | | | | | illnes | | | s | | | (does | | | not | | | need | | | to be | | | primar | | | y) in | | | any | | | settin | | | g | | | (e.g. | | | ED, | | | Inpati | | | ent, | | | primar | | | y | | | care). | | | | | | Flagge | | | d | | | member | | | s are | | | includ | | | ed in | | | the ED | | | | | | Dispar | | | ity | | | Measur | | | e | | | denomi | | | nator | | | popula | | | tion. | | | Flags | | | are | | | update | | | d | | | weekly | | | . / | | | Attrib | | | uted | | | By: | | | [facility] | | | | | | Health | | | | | | Author | | | ity | | | (OHA) | | | / | | | Attrib | | | uted | | | On: | | | 01/14/ | | | 2020 | | | Prescr | | | iption | | | Drug | | | Report | | | (12 | | | Mo.)PD | | | MP | | | query | | | found | | | no | | | report | | | .E.D. | | | Visit | | | Count | | | (12 | | | mo.)Fa | | | cility | | | | | | Visits | | | Low | | | [facility] | | | | | | [facility] | | | | | | [facility] | | | al | | | Medica | | | l | | | Center | | | 1 0 | | | [place] | | | | | | [facility] | | | l | | | Hospit | | | al 1 0 | | | [facility] | | | y | | | Hospit | | | al 2 0 | | | Total | | | 4 0 | | | Note: | | | Visits | | | | | | indica | | | te | | | total | | | known | | | visits | | | . | | | Medica | | | id Low | | | | | | Acuity | | | Dx | | | are | | | the | | | number | | | of | | | primar | | | y | | | diagno | | | ses on | | | the | | | Medica | | | id's | | | Low | | | Acuity | | | dx | | | list. | | | | | | Recent | | | | | | Emerge | | | ncy | | | Depart | | | ment | | | Visit | | | [facility] | | | yDate | | | Facili | | | ty | | | City | | | State | | | Type | | | Diagno | | | ses or | | | Chief | | | | | | Compla | | | int | | | Feb 5, | | | 2020 | | | [facility] | | | | | | [facility] | | | al | | | [facility] | | | [place] | | | [place] | | | Emerge | | | ncy | | | | | | Seizur | | | e | | | (Adult | | | - | | | Prior | | | Hx Of) | | | Feb | | | 5, | | | 2020 | | | [facility] [place] | | | [facility] | | | [place] | | | [place] | | | Emerge | | | ncy | | | Chief | | | Compla | | | int: | | | SEIZUR | | | E Dec | | | 2, | | | 2019 | | | [facility] | | | [facility] | | | [place] | | | [place] | | | Emerge | | | ncy | | | | | | Epilep | | | sy, | | | unsp, | | | not | | | intrac | | | table, | | | | | | withou | | | t | | | status | | | | | | epilep | | | ticus | | | | | | Unspec | | | ified | | | convul | | | sions | | | | | | Other | | | long | | | term | | | (curre | | | nt) | | | drug | | | therap | | | y Mar | | | 18, | | | 2019 | | | [place] | | | | | | [facility] | | | l [facility]. | | | [place] | | | [place] | | | Emerge | | | ncy | | | | | | Unspec | | | ified | | | convul | | | sions | | | | | | Elevat | | | ed | | | white | | | blood | | | cell | | | count, | | | | | | unspec | | | ified | | | | | | Recent | | | | | | Inpati | | | ent | | | Visit | | | [facility] | | | yNo | | | record | | | ed | | | inpati | | | ent | | | visits | | | . Care | | | | | | TeamPr | | | ovider | | | | | | Specia | | | lty | | | Phone | | | Fax | | | Servic | | | e | | | Dates | | | [facility] | | | ER, | | | [facility] | | | R, [employer] | | | Nurse | | | | | | Practi | | | tioner | | | : | | | Family | | | Dec | | | 3, | | | 2019 - | | | | | | Curren | | | t | | | [facility] | | | [facility] | | | [place], [place] | | | | | | Primar | | | y Care | | | [phone]) | | | | | | [phone] | | | [phone] | | | [phone] | | | [phone] | | | 97 Mar | | | 1, | | | 2017 - | | | | | | Curren | | | t | | | [facility] | | | tive | | | Portal | | | This | | | patien | | | t has | | | regist | | | ered | | | at the | | | | | | [facility] | | | | | | Region | | | al | | | Medica | | | l | | | Center | | | | | | Emerge | | | ncy | | | Depart | | | ment | | | For | | | more | | | inform | | | ation | | | visit: | | | | | | https: | | | //secu | | | re.col | | | lectiv | | | emedic | | | al.com | | | /notif | | | [id number] | | | [phone] | | | [phone] | | | [phone] | | | [phone] | | | [phone] | | | 12 | | | PLEASE | | | NOTE: | | | 1. | | | Any | | | care | | | recomm | | | endati | | | ons | | | and | | | other | | | clinic | | | al | | | inform | | | ation | | | are | | | provid | | | ed as | | | guidel | | | autumn | | | or for | | | | | | histor | | | ical | | | purpos | | | es | | | only, | | | and | | | provid | | | ers | | | should | | | | | | exerci | | | se | | | their | | | own | | | clinic | | | al | | | judgme | | | nt | | | when | | | provid | | | ing | | | care. | | | 2. | | | You | | | may | | | only | | | use | | | this | | | inform | | | ation | | | for | | | purpos | | | es of | | | treatm | | | ent, | | | paymen | | | t or | | | health | | | care | | | operat | | | ions | | | activi | | | ties, | | | and | | | subjec | | | t to | | | the | | | limita | | | tions | | | of | | | applic | | | able | | | Collec | | | tive | | | Polici | | | es. | | | 3. | | | You | | | should | | | | | | consul | | | t | | | direct | | | ly | | | with | | | the | | | organi | | | zation | | | that | | | provid | | | ed a | | | care | | | guidel | | | ine or | | | other | | | | | | clinic | | | al | | | histor | | | y with | | | any | | | questi | | | ons | | | about | | | additi | | | onal | | | inform | | | ation | | | or | | | accura | | | cy or | | | comple | | | teness | | | of | | | inform | | | ation | | | provid | | | ed.? | | | 2020 | | | Collec | | | tive | | | Medica | | | l | | | Techn[employer] | | | logies | | | , Inc[employer] | | | - | | | [email or web address] | | | llecti | | | vemedi | | | [email or web address] | | | m | +---+--------+ + +------+ +---+ + | CBC WITH | STAT | 07/15/2019 | | Results for this | | DIFFERENTIAL | | 3:42 PM | | procedure are in the | | | | PST | | results section. | + +------+ +---+ + | COMPREHENSIVE | STAT | 07/15/2019 | | Results for this | | METABOLIC PANEL | | 3:42 PM | | procedure are in the | | | | PST | | results section. | + +------+ +---+ + documented in this encounter Results XR Chest 1 Vw (07/15/2019 4:22 PM PST) + + | Specimen | + + | | + + + + + | Impressions | Performed At | + + + | Cardiomegaly with mild interstitial edema No superimposed acute | [facility] | | infiltrate Signed by: May Ellsworth, Arash Sign Date/Time: | | | 07/15/2019 4:30 PM | | + + + + + + | Narrative | Performed At | + + + | CHEST ONE VIEW CLINICAL INFORMATION: Fever, History of | [facility] | | seizure. COMPARISON: XR CHEST 1 VIEW (07/18/2015); XR CHEST 2 VIEW | | | (07/18/2015); FINDINGS: Cardiac size appears generous even | | | accounting for the AP lordotic projection. Pulmonary vascular | | | prominence and indistinctness consistent with a interstitial edema | | | pattern. No segmental infiltrate. No pneumothorax or significant | | | effusion evident. | | + + + + + | Procedure Note | + + | Joel, Rad Results In - 07/15/2019 4:33 PM PST | | CHEST ONE VIEW | | | | CLINICAL INFORMATION: | | Fever, History of seizure. | | | | COMPARISON: | | XR CHEST 1 VIEW (07/18/2015); XR CHEST 2 VIEW (07/18/2015); | | | | FINDINGS: | | Cardiac size appears generous even accounting for the AP lordotic | | projection. Pulmonary vascular prominence and indistinctness | | consistent with a interstitial edema pattern. No segmental infiltrate. | | No pneumothorax or significant effusion evident. | | | | IMPRESSION: | | Cardiomegaly with mild interstitial edema | | | | No superimposed acute infiltrate | | | | | | | | Signed by: May Ellsworth Dwane | | Sign Date/Time: 07/15/2019 4:30 PM | + + + +---------+ + + | Performing | Address | City/State/Zipcode | Phone Number | | Organization | | | | + +---------+ + + | [facility] | | | | + +---------+ + + Comprehensive Metabolic Panel (07/15/2019 3:42 PM PST) + + + + + + | Component | Value | Ref Range | Performed | Pathologist | | | | | At | Signature | + + + + + + | Na | 139 | 135 - 145 | [facility] | | | | | mmol/L | LABORATORY | | + + + + + + | K | 4.3 | 3.5 - 4.9 | [facility] | | | | | mmol/L | LABORATORY | | + + + + + + | Cl | 106 | 99 - 109 mmol/L | [facility] | | | | | | LABORATORY | | + + + + + + | CO2 | 26 | 23 - 32 mmol/L | [facility] | | | | | | LABORATORY | | + + + + + + | Anion Gap | 11 | 5 - 20 mmol/L | [facility] | | | | | | LABORATORY | | + + + + + + | Glucose | 104 (H) | 65 - 99 mg/dL | [facility] | | | | | | LABORATORY | | + + + + + + | BUN | 10 | 8 - 25 mg/dL | [facility] | | | | | | LABORATORY | | + + + + + + | Creatinine | 1.09 | 0.70 - 1.30 | [facility] | | | | | mg/dL | LABORATORY | | + + + + + + | BUN/Creatin | 9 | | [facility] | | | ine Ratio | | | LABORATORY | | + + + + + + | Calcium | 9.2 | 8.5 - 10.5 | [facility] | | | | | mg/dL | LABORATORY | | + + + + + + | Protein, | 6.9 | 6.3 - 8.2 g/dL | [facility] | | | Total | | | LABORATORY | | + + + + + + | Albumin | 4.7 | 3.6 - 5.0 g/dL | [facility] | | | | | | LABORATORY | | + + + + + + | Globulin | 2.2 | 1.3 - 4.9 g/dL | [facility] | | | | | | LABORATORY | | + + + + + + | A/G Ratio | 2.1 | 1.0 - 2.4 | [facility] | | | | | | LABORATORY | | + + + + + + | BILIRUBIN, | 0.4 | 0.1 - 1.5 mg/dL | [facility] | | | TOTAL | | | LABORATORY | | + + + + + + | ALK PHOS | 87 | 35 - 115 U/L | [facility] | | | | | | LABORATORY | | + + + + + + | AST | 46 (H) | 10 - 45 U/L | [facility] | | | | | | LABORATORY | | + + + + + + | ALT | 28 | 10 - 65 U/L | [facility] | | | | | | LABORATORY | | + + + + + + | Estimated | >60Comment: GFR <60: | >60 | [facility] | | | GFR | CHRONIC KIDNEY DISEASE, | mL/min/1.73m2 | LABORATORY | | | | IF FOUND OVER A 3 MONTH | | | | | | PERIOD.GFR <15: KIDNEY | | | | | | FAILURE.FOR | | | | | | AMERICANS, MULTIPLY THE | | | | | | CALCULATED GFR BY | | | | | | 1.210.This eGFR is | | | | | | calculated using the | | | | | | MDRD IDMS traceable | | | | | | equation.Testing | | | | | | performed at [facility] [place], [place];[address] | | | | | | [address];[place] | | | | | | [address] | | | | + + + + + + + + | Specimen | + + | Blood | + + + + + + + | Performing | Address | City/State/Zipcode | Phone Number | | Organization | | | | + + + + + | [facility] | [address] | [place] [address] | [phone] | + + + + + CBC with Differential (07/15/2019 3:42 PM PST) + + + + + + | Component | Value | Ref Range | Performed | Pathologist | | | | | At | Signature | + + + + + + | WBC | 11.73 (H) | 3.80 - 11.00 | [facility] | | | | | K/uL | LABORATORY | | + + + + + + | Red Blood | 4.50 | 4.20 - 5.70 | [facility] | | | Cells | | M/uL | LABORATORY | | + + + + + + | Hemoglobin | 14.2 | 13.2 - 17.0 | [facility] | | | | | g/dL | LABORATORY | | + + + + + + | Hematocrit | 41.9 | 39.0 - 50.0 % | [facility] | | | | | | LABORATORY | | + + + + + + | MCV | 93.1 | 80.0 - 100.0 fl | [facility] | | | | | | LABORATORY | | + + + + + + | MCH | 31.7 | 27.0 - 34.0 pg | [facility] | | | | | | LABORATORY | | + + + + + + | MCHC | 34.0 | 32.0 - 35.5 | [facility] | | | | | g/dL | LABORATORY | | + + + + + + | RDW-SD | 40.7 | 37 - 53 fl | [facility] | | | | | | LABORATORY | | + + + + + + | Platelet | 204 | 150 - 400 K/uL | [facility] | | | Count | | | LABORATORY | | + + + + + + | MPV | 8.4 | fl | [facility] | | | | | | LABORATORY | | + + + + + + | Diff Type | AUTOMATED | | [facility] | | | | | | LABORATORY | | + + + + + + | % | 83.95 | % | [facility] | | | Neutrophils | | | LABORATORY | | + + + + + + | % | 9.26 | % | [facility] | | | Lymphocytes | | | LABORATORY | | + + + + + + | Monocyte % | 6.56 | % | [facility] | | | | | | LABORATORY | | + + + + + + | Eosinophils | 0.04 | % | [facility] | | | % | | | LABORATORY | | + + + + + + | Basophils % | 0.19 | % | [facility] | | | | | | LABORATORY | | + + + + + + | Neutrophils | 9.85 (H) | 1.90 - 7.40 | [facility] | | | , Absolute | | K/uL | LABORATORY | | + + + + + + | Absolute | 1.09 | 1.00 - 3.90 | [facility] | | | Lymphocytes | | K/uL | LABORATORY | | + + + + + + | Absolute | 0.77 | 0.00 - 0.80 | [facility] | | | Monocytes | | K/uL | LABORATORY | | + + + + + + | Eosinophils | 0.00 | 0.00 - 0.50 | [facility] | | | , Absolute | | K/uL | LABORATORY | | + + + + + + | Basophils, | 0.02Comment: Testing | 0.00 - 0.10 | [facility] | | | Absolute | performed at [facility] [place] [place];[address] | [address] | LABORATORY | | | | [address];[place], [place] | | | | | | [address] | | | | + + + + + + + + | Specimen | + + | Blood | + + + + + + + | Performing | Address | City/State/Zipcode | Phone Number | | Organization | | | | + + + + + | [facility] | [address] | [place] [address] | [phone] | + + + + + documented in this encounter Visit Diagnoses + + | Diagnosis | + + | 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 | + + documented in this encounter Administered Medications + +--------+ + +------+------+ | Medication Order | MAR | Action | Dose | Rate | Site | | | Action | Date | | | | + +--------+ + +------+------+ | levETIRAcetam (KEPPRA) tablet | Given | 07/15/19 | 1,000 mg | | | | 1,000 mg 1,000 mg, Oral, ONCE, | | 20 5:39 | | | | | 07/15/19 at 1730, For 1 dose | | PM PST | | | | + +--------+ + +------+------+ +---+---+ | | | +---+---+ + +-------+ +--------+---+---+ | OXcarbazepine (TRILEPTAL) | Given | 07/15/19 | 300 mg | | | | tablet 300 mg 300 mg, Oral, | | 20 5:39 | | | | | ONCE, 07/15/19 at 1730, For 1 | | PM PST | | | | | dose, Hazardous: Use appropriate | | | | | | | handling precautions., | | | | | | + +-------+ +--------+---+---+ +---+---+ | | | +---+---+ documented in this encounter"
--- OUTSIDE RECORDS SUMMARY | ~2020-03-20 | XMS | Encounter Summary ---
Demographics + + + | Address | [address] | | | [place] [address] | + + + | Home Phone | | + + + | Preferred Language | Unknown | + + + | Marital Status | Single | + + + | Oriental Orthodox Affiliation | 1041 | + + + | Race | White | + + + | Ethnic Group | Not or | + + + Author + + + | Author | [facility] | | | and Chrisana | + + + | Organization | [facility] | | | [...] Team Providers + +------+ + | Care Cell Attendant Helper Name | Role | Phone | + +------+ + | Kun Artis MD | PCP | | + +------+ + Reason for Visit + +--------+ + | Reason | Onset | Comments | | | Date | | + +--------+ + | Lab Results | 09/04/ | | | | 2020 | | + +--------+ + Encounter Details +--------+ + + + + | Date | Type | Department | Care Team | Description | +--------+ + + + + | 09/04/ | Telephone | [facility] | Mendoza Mcgarry MD | Lab Results | | 2020 | | [facility] | [address] | | | | | CL[address] | [place] | | | | | [address] [place], | [address] | | | | | [place] [address] | | | | | | [phone] | | | +--------+ + + + [...] this encounter Miscellaneous Notes Telephone Encounter - Mendoza Mcgarry MD - 09/05/2019 10:21 AM PDTcalled and left a message to call us back for subtherapeutic level of oxcarbazepine and keppra documented in this encounter Plan of Treatment +--------+---------+ + + + | Date | Type | Specialty | Care Team | Description | +--------+---------+ + + + | 07/04/ | Office | Neurology | Mendoza Mcgarry MD | | | 2020 | Visit | | [address] | | | | | | [place] | | | | | | [address] | | | | | | | | +--------+---------+ + + + documented as of this encounter Visit Diagnoses Not on filedocumented in this encounter"
--- OUTSIDE RECORDS SUMMARY | ~2020-03-20 | XMS | Encounter Summary ---
Demographics + + + | Address | [address] | | | [place] [address] | + + + | Home Phone | | + + + | Preferred Language | Unknown | + + + | Marital Status | Single | + + + | Spiritism Affiliation | 1041 | + + + | Race | White | + + + | Ethnic Group | Not or | + + + Author + + + | Author | [facility] | | | and [place] | + + + | Organization | [facility] | | | and [...] Team Providers + +------+ + | Care Post Office Manager Name | Role | Phone | + +------+ + | Kun Artis MD | PCP | | + +------+ + Reason for Visit + +--------+ + | Reason | Onset | Comments | | | Date | | + +--------+ + | Test Results | 08/18/ | | | | 2020 | | + +--------+ + Encounter Details +--------+ + + + + | Date | Type | Department | Care Team | Description | +--------+ + + + + | 08/18/ | Telephone | [facility] | eMndoza Mcgarry MD | Test Results | | 2020 | | [facility] | [address] | | | | | CL[address] | [place] | | | | | [address] [place], | [address] | | | | | [place] [address] | | | | | | [phone] | | | +--------+ + + + [...] this encounter Miscellaneous Notes Telephone Encounter - Gertrude Garcia RN - 08/26/2019 10:53 AM PDTLetter written [facility]MADDY Miranda elephone Encounter - Gifty Ayala - 08/19/2019 4:54 PM PDTPt returned call for results. elephone Encounter - Mendoza Mcgarry MD - 08/19/2019 4:45 PM PDTcalled and left a message for resul ts EEG are avialable for review 4:4 7 PM PDTdocumented in this encounter Plan of Treatment +--------+---------+ + + + | Date | Type | Specialty | Care Team | Description | +--------+---------+ + + + | 07/04/ | Office | Neurology | Mendoza Mcgarry MD | | | 2020 | Visit | | [address] | | | | | | [place] | | | | | | [phone] | | | | | | | | +--------+---------+ + + + documented as of this encounter Visit Diagnoses Not on filedocumented in this encounter"
--- OUTSIDE RECORDS SUMMARY | ~2020-03-20 | XMS | Encounter Summary ---
Demographics + + + | Address | [address] | | | [place] [address] | + + + | Home Phone | | + + + | Preferred Language | Unknown | + + + | Marital Status | Unknown | + + + | Adventism Affiliation | Unknown | + + + | Race | Unknown | + + + | Ethnic Group | Unknown | + + + Author + + + | Author | [facility] | + + + | Organization | [facility] | + + + | Address | Unknown | + + + | Phone | Unavailable | + + + Care Team Providers + +------+ + | Care Mechanical Drawing Teacher Name | Role | Phone | + +------+ + PCP | Unavailable | + +------+ + Encounter Details +--------+ + + + + | Date | Type | Department | Care Team | Description | +--------+ + + + + | 07/27/ | Outside | Neurophysiology | Adria Artis, | | | 2017 | Referral | EEG at [facility] [address] | [address] | | | | Order | [address] | [facility] | | | | | [facility] | CLINIC [address] | | | | | [address] | [place], [place] | | | | | [place], [place] | [address] | | | | | [address] | | | | | | [phone] | | | +--------+ + + + [...] Not on filedocumented as of this encounter Procedures + +--------+ + + + | Procedure Name | Priori | Date/Time | Associated Diagnosis | Comments | | | ty | | | | + +--------+ + + + | EEG ROUTINE | Routin | 07/27/2016 | | Results for this | | | e | | | procedure are in the | | | | | | results section. | + +--------+ + + + documented in this encounter Results EEG ROUTINE (07/27/2016) + + + | Narrative | Performed At | + + + | Patient Name: Syed Koenig Date of : 1990 Medical | | | Record Number: [id number] Date of Test: 07/27/2016 Place of | | | Service: [facility] Department: EEG [facility] - [id number] ROUTINE | | | EEG Reason for Exam: evaluate for epileptiform discharges or | | | focal abnormalities History: 25 year old man with recurrent | | | seizures on Keppra and Dilantin dual therapy. Medications: No | | | current outpatient prescriptions on file. No current | | | facility-administered medications for this visit. Methods: | | | This study was a Routine EEG with a duration of 31 minutes. The | | | recording was performed with routine electrodes applied according to | | | the 10-20 electrode placement system. Video, EKG, and EOG monitoring | | | were utilized. The recording was obtained on a digital system. EEG | | | computer review was utilized. Automated digital spike and seizure | | | detection analysis was used, along with patient-activated alarms and | | | nursing observations. EEG Description: Background: The record | | | was obtained in awake and drowsy states. No sedation was used. The | | | awake background consisted of a well organized mixture of alpha | | | frequencies with overriding symmetric diffuse frontocentral beta | | | activity arranged in a normal anterior to posterior gradient. There | | | was a 8.5 Hz posterior dominant rhythm, which was symmetric and well | | | modulated, and attenuated with eye opening. There is electrode | | | artifact at C3. In drowsiness, there was attenuation of the | | | posterior dominant rhythm, and emergence of central theta rhythms. | | | Interictal Findings: Abnormal slow wave activity: None | | | Epileptiform activity: None Ictal Activity: No seizures were | | | observed. Clinical Events: None Other variants: None | | | Activation: a) HV: Hyperventilation was performed for 3 minutes with | | | good effort that was noncontributory. b) IPS: During IPS at 1, 3, 6, | | | 8, 10, 12, 15, 20, 30 Hz, symmetric bilateral driving of the | | | occipital rhythms appeared. Extra leads: Single EKG lead showed a | | | normal sinus rhythm. IMPRESSION This awake and drowsy routine | | | EEG is within normal limits. No abnormal slowing or epileptiform | | | activity is seen. Caro Vila M.D. Suggested CPT: 69250 | | | - EEG Routine Awake Only Suggested Dx: R56.9 Unspecified convulsions | | | | | + + + documented in this encounter Visit Diagnoses Not on filedocumented in this encounter"
--- OUTSIDE RECORDS SUMMARY | ~2020-03-20 | XMS | Encounter Summary ---
Demographics + + + | Address | [address] | | | [place] [address] | + + + | Home Phone | | + + + | Preferred Language | Unknown | + + + | Marital Status | Single | + + + | Cheondoism Affiliation | 1041 | + + + | Race | White | + + + | Ethnic Group | Not or | + + + Author + + + | Author | [facility] | | | and [place] | + + + | Organization | [facility] | | | [...] + +------+ + | Care Sheet Metal Worker Name | Role | Phone | + +------+ + | Kun Artis MD | PCP | | + +------+ + Reason for Visit + +--------+ + | Reason | Onset | Comments | | | Date | | + +--------+ + | Results, Imaging | 08/24/ | | | | 2020 | | + +--------+ + Encounter Details +--------+ + + + + | Date | Type | Department | Care Team | Description | +--------+ + + + + | 08/24/ | Telephone | [facility] | Mendoza Mcgarry MD | Results, Imaging | | 2020 | | [facility]OSP[facility] | [address] | | | | | CL[address] | [place] | | | | | [address] [place], | [address] | | | | | [place] [address] | | | | | | [phone] | | | +--------+ + + + [...] Telephone Encounter - Mendoza Mcgarry MD - 08/25/2019 2:14 PM PDTTried to call and unsucce panda, kindly send a letter that [facility] MRI of brain results is available for reiview or call u s , thanks documented in this encounter Plan of Treatment +--------+---------+ + + + | Date | Type | Specialty | Care Team | Description | +--------+---------+ + + + | 07/04/ | Office | Neurology | Mendoza Mcgarry MD | | | 2020 | Visit | | [address] | | | | | | [place] | | | | | | [phone] | | | | | | | | +--------+---------+ + + + documented as of this encounter Visit Diagnoses Not on filedocumented in this encounter"
--- OUTSIDE RECORDS SUMMARY | ~2020-03-20 | XMS | Encounter Summary ---
Demographics + + + | Address | [address] | | | [place] [address] | + + + | Home Phone | | + + + | Preferred Language | Unknown | + + + | Marital Status | Single | + + + | Islam Affiliation | 1041 | + + + | Race | White | + + + | Ethnic Group | Not or | + + + Author + + + | Author | [facility] | | | and [place] | + + + | Organization | [facility] | | [...] Team Providers + +------+ + | Care Greens Or Grounds Superintendent Name | Role | Phone | + +------+ + | Kun Artis MD | PCP | | + +------+ + Reason for Visit + +--------+ + | Reason | Onset | Comments | | | Date | | + +--------+ + | Lab Results | 08/09/ | | | | 2020 | | + +--------+ + Encounter Details +--------+ + + + + | Date | Type | Department | Care Team | Description | +--------+ + + + + | 08/09/ | Telephone | [facility] | Mendoza Mcgarry MD | Lab Results | | 2020 | | [facility] | [address] | | | | | CL[address] | [place] | | | | | [place], | [address] | | | | | [place] [address] | | | | | | [phone] | | | +--------+ + + + [...] Telephone Encounter - Mendoza Mcgarry MD - 08/10/2019 10:06 AM PSTcalled and left a message to call us back for blood test results,oxcarbazepine 11 and keppra, 20 mg/dl, both therapeu tic documented in this e ncounter Plan of Treatment +--------+---------+ + + + [...]
--- OUTSIDE RECORDS SUMMARY | ~2020-03-20 | XMS | Encounter Summary ---
Demographics + + + | Address | [address] | | | [place] [address] | + + + | Home Phone | | + + + | Preferred Language | Unknown | + + + | Marital Status | Single | + + + | Temple Affiliation | 1041 | + + + | Race | White | + + + | Ethnic Group | Not or | + + + Author + + + | Author | [facility] | | | and [place] | + + + | Organization | [facility] | | | [...] Team Providers + +------+ + | Care Store Sales Consultant Name | Role | Phone | + +------+ + | Adria Artis NP | PCP | | + +------+ + Reason for Visit + + + | Reason | Comments | + + + | Follow-up | seizures | + + + Encounter Details +--------+---------+ + + + | Date | Type | Department | Care Team | Description | +--------+---------+ + + + | 12/21/ | Office | [facility] | Elba Obando NP | Seizure disorder | | 2020 | Visit | [facility] | [address] [place] | (HCC) (Primary Dx); | | | | CLINIC [address] | [place], [place] | Partial symptomatic | | | | [place], | [address] | epilepsy with | | | | [place] [address] | [phone] | complex partial | | | | [phone] | | seizures, | | | | | | intractable, without | | | | | | status epilepticus | | | | | | (HCC) | +--------+---------+ + + + Social History + +-------+ [...] + + + | Blood Pressure | 102/78 | 12/22/2019 4:12 PM | | | | | PDT | | + + + + + | Pulse | 58 | 12/22/2019 4:12 PM | | | | | PDT | | + + + + + | Temperature | 37.3 C (99.2 F) | 12/22/2019 4:12 PM | | | | | PDT | | + + + + + | Respiratory Rate | 14 | 12/22/2019 4:12 PM | | | | | PDT | | + + + + + | Oxygen Saturation | 97% | 12/22/2019 4:12 PM | | | | | PDT | | + + + + + | Inhaled Oxygen | - | - | | | Concentration | | | | + + + + + | Weight | 80.3 kg (177 lb 1.6 | 12/22/2019 4:12 PM | | | | oz) | PDT | | + + + + + | Height | 172.7 cm (5' 8") | 12/22/2019 4:12 PM | | | | | PDT | | + + + + + | Body Mass Index | 26.93 | 12/22/2019 4:12 PM | | | | | PDT | | + + + + + documented in this encounter Patient Instructions Patient Instructions Elba Obando NP - 12/22/2019 4:00 PM PDTWe will call with your lab re anand. We will fax your DMV paperwork once completed. We will call to schedule your next follow-up. Electronically signed by Elba Obando NP at 5:07 PM PDT documented in this encounter Progress Notes Elba Obando NP - 12/22/2019 4:00 PM PDTFormatting of this note might be different from tom wells original. NEUROLOGY FOLLOW UP OFFICE VISIT Patient: Syed Koenig Medical Record: [id number] Date of Services: 12/24/2019 Referring Doctor: Adria Artis NP HISTORY Chief Complaint: seizure History of Present Illness: Syed Koenig is a 29 y.o. patient presenting to our [facility] clinic today for follow up of complex partial seizures. The patient is an established patient of Dr. Mcgarry and new to myself. Today, the patient is accompanied by his mother. The patient has remained seizure-free sin ce his last seizure on 08/27/2019. He continues to take Keppra and Trileptal as directed. 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 Previous triggers in the [facility] include sleep deprivation and dehydration. 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 08/25/2019 MRI of the brain with and without contrast: 1. No acute finding. 2. Few white matter signal hyperintensities are noted in the right frontal region. This n onspecific finding can be seen with demyelination, vasculitis, small-vessel postischemic carrie nge, and rarely infectious process such as Lyme disease. 08/26/20192023-hour EEG: Intermittent generalized slowing was noted indicating the presence of mild bilateral cerebral dysfunction. However, there was no elect geographic evidence of a seizure disorder during the 22.5-hour duration of this recording. Encounter Problem List: Patient Active Problem List Diagnosis Seizure disorder, complex partial Seizure disorder Subarachnoid hemorrhage, nontraumatic No past surgical history on file. No Known Allergies Current Outpatient Medications Medication Sig Dispense Refill levETIRAcetam (KEPPRA) 1000 MG tablet Take 1,000 mg by mouth 2 times daily. OXcarbazepine (TRILEPTAL) 300 mg tablet Take 1 tablet by mouth 3 times daily. 90 tablet 5 No current facility-administered medications for this visit. Review of Symptoms: CONSTITUTIONAL: No weight loss, fever, chills, weakness or fatigue. HEENT: Eyes: No visual loss, blurred vision, or double vision. Ears, Nose, Throat: No hea ring loss, congestion, runny nose or sore throat. SKIN: No rash or itching. CARDIOVASCULAR: No chest pain, palpitations, or edema. RESPIRATORY: No shortness of breath, cough or sputum. GASTROINTESTINAL: No nausea, vomiting or diarrhea. NEUROLOGICAL: No headache, dizziness, syncope, ataxia. MUSCULOSKELETAL: No muscle, back pain, or joint pain. PSYCHIATRIC: No depression or anxiety. EXAMINATION Examination: Vitals: 12/22/19 1612 BP: 102/78 Pulse: 58 Resp: 14 Temp: 37.3 C (99.2 F) PainSc: 0 - No pain General Appearance: The patient is alert and in no acute distress. Mental status: The patient is alert, attentive, and oriented. Speech is clear and fluent with good repetit ion, comprehension, and naming. Cranial nerves: CN II: Visual hawley are full to confrontation. Fundoscopic exam is normal with sharp discs and no vascular changes. Pupils are 4 mm and briskly reactive to light with accomodation. CN III, IV, : Gaze in conjugate. No blurred or double vision. No visual field cuts. EOM intact. CN V: Facial sensation is intact. CN VII: Face is symmetric with normal eye closure and smile. CN VII: Hearing is normal to rubbing fingers CN IX, X: Phonation is normal. CN XI: Head turning and shoulder shrug are intact Motor: There is no pronator drift of out-stretched arms. Muscle bulk and tone are normal. Strength is 5/5 bilaterally. Sensory: Light touch, position sense, and vibration sense are intact in fingers and toes. Coordination: Rapid alternating movements and fine finger movements are intact. There is no dysmetria on akliig-ie-pxyw. There are no abnormal or extraneous movements. Romberg is absent. Reflexes: Reflexes are 2+ at the knees. Ambulation/Gait/Stance: Posture is normal. Gait is steady with normal steps, base, arm swing, and turning. Heel and toe walking without difficulty. ASSESSMENT AND PLAN Clinical Impression: ICD-10-CM ICD-9-CM 1. 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 He will continue not to [employer] and utilize either his mother or local transportation to work. We will check both Kepp ra and Trileptal levels today. We have discussed the importance of avoidance of seizure tri ggers which include sleep deprivation and dehydration for Syed. We will follow-up via tele phone with lab results. Next in office follow-up will be with Dr. Mcgarry in 6 months. They wi ll call if any seizure type activity occurs in the interim. This note was transcribed using voice recognition software. There may be speech recognitio n errors which escaped detection during review.Electronically signed by Ebla Obando NP at 8:07 PM PDTdocumented in this encounter Plan of Treatment +--------+---------+ + + + | Date | Type | Specialty | Care Team | Description | +--------+---------+ + + + | 07/04/ | Office | Neurology | Mendoza Mcgarry MD | | | 2020 | Visit | | [address], [place] | | | | | | [place], [place] | | | | | | [address] | | | | | | | | +--------+---------+ + + + documented as of this encounter Results Levetiracetam Level (12/22/2019 5:35 PM PDT) + + + + + + | Component | Value | Ref Range | Performed | Pathologist | | | | | At | Signature | + + + + + + | LEVETIRACET | 4.8 (L)Comment: Toxic | 12.0 - 46.0 | REFERENCE | | | AM | level is not well | mcg/mL | [facility] | | | | established. | | [facility] | | | | Interpretation should | | - [facility]IP | | | | include a clinical | | JOE | | | | evaluation. For | | | | | | additional information, | | | | | | please refer to | | | | | | http://education.ironSourceDi | | | | | | AgroSavfe/faq/HSA071 | | | | | | (This link is being | | | | | | provided for | | | | | | informational/educationa | | | | | | l purposes only.) This | | | | | | test was developed and | | | | | | its analytical | | | | | | performance | | | | | | characteristics have | | | | | | been determined by [facility] | | | | | | [facility] | | | | | | [facility] | | | | | | [facility]. It has not | | | | | | been cleared or approved | | | | | | by the USFood and Drug | | | | | | Administration. This | | | | | | assay has been validated | | | | | | pursuant to the CLIA | | | | | | regulations and is used | | | | | | for clinical purposes. | | | | | | @ Test Performed By: | | | | | | [facility] | | | | | | [facility] | | | | | | Alonso Magdaleno M.D., | | | | | | Ph.D., Laboratory | | | | | | Director [id number] | | | | | | [facility] | | | | | | [place] [address] | | | | | | [place] #[id number] | | | | + + + + + + + + | Specimen | + + | Blood | + + + + + + + | Performing | Address | City/State/Zipcode | Phone Number | | Organization | | | | + + + + + | REFERENCE LAB | [address] [facility] | [place], [place] | | | [facility] - | | [address] | | | [place] | | | | + + + + + Oxcarbazepine Metabolite Level (12/22/2019 5:35 PM PDT) + + + + + + | Component | Value | Ref Range | Performed | Pathologist | | | | | At | Signature | + + + + + + | 10-Hydroxyc | 10.0Comment: This test | 8.0 - 35.0 | REFERENCE | | | arbazepine | was developed and its | mcg/mL | [facility] | | | | analytical performance | | DIAGNOSTICS | | | | characteristics have | | - PHILLIP | | | | been determined by [facility] | | [facility] | | | | [facility] | | | | | | [facility] | | | | | | Joe. It has not | | | | | | been cleared or approved | | | | | | by the USFood and Drug | | | | | | Administration. This | | | | | | assay has been validated | | | | | | pursuant to the CLIA | | | | | | regulations and is used | | | | | | for clinical purposes. @ | | | | | | Test Performed By: | | | | | | [facility] | | | | | | [facility] | | | | | | Alonso Magdaleno M.D., | | | | | | Ph.D., Laboratory | | | | | | Director [id number] | | | | | | [facility] | | | | | | [place] [address] | | | | | | [place] #[id number] | | | | + + + + + + + + | Specimen | + + | Blood | + + + + + + + | Performing | Address | City/State/Zipcode | Phone Number | | Organization | | | | + + + + + | REFERENCE LAB | [address] [facility] | [place], [place] | | | [facility] - | | [address] | | | [place] | | | | + + + + + documented in this encounter Visit Diagnoses + + | Diagnosis | + + | Seizure disorder (HCC) - Primary Unspecified epilepsy without mention of intractable | | epilepsy | + + | Partial symptomatic epilepsy with complex partial seizures, intractable, without | | status epilepticus (HCC) | + + documented in this encounter
--- OUTSIDE RECORDS SUMMARY | ~2020-03-20 | XMS | Clinical Summary ---
Demographics + + + | Address | [address] | | | [place] [address] | + + + | Home Phone | | + + + | Preferred Language | Unknown | + + + | Marital Status | Single | + + + | Quaker Affiliation | 1041 | + + + | Race | White | + + + | Ethnic Group | Not or | + + + Author + + + | Author | [facility] | | | and [place]ana | + + + | Organization | [facility] | | | [...] Team Providers + +------+ + | Care Salvage Engineer Name | Role | Phone | + +------+ + | Adria Artis NP | PCP | | + +------+ + Allergies No Known Allergies Medications + + + +---------+------+------+-------+ | Medication | Sig | Dispensed | Refills | Star | End | Statu | | | | | | t | Date | s | | | | | | Date | | | + + + +---------+------+------+-------+ | levETIRAcetam | Take 1,000 mg by | | 0 | 03/0 | | Activ | | (KEPPRA) 1000 MG | mouth 2 times daily. | | | 11/27 | | e | | tablet | | | | 20 | | | + + + +---------+------+------+-------+ | OXcarbazepine | TAKE 1 TABLET BY | 90 | 2 | 01/08 | | Activ | | (TRILEPTAL) 300 mg | MOUTH THREE TIMES | tablet | | 12/27 | | e | | tablet | DAILY | | | 20 | | | + + + +---------+------+------+-------+ Active Problems + + + | Problem | Noted Date | + + + | Seizure disorder, complex partial | 08/05/2019 | + + + + + | Overview: Current tx: bernarda Mannzhahytdlljduh90.17.20 MRI Brain | | IMPRESSION: No acute finding. Few white matter signal | | hyperintensities are noted in the right frontal region. This | | nonspecific finding can be seen with demyelination, vasculitis, | | small-vessel postischemic change, and rarely infectious process | | such as Lyme disease. 08.25.19 EEG Ambulatory IMPRESSION: | | Abnormal video ambulatory EEG study. Intermittent generalized | | slowing was noted, indicating the presence of mild bilateral | | cerebral dysfunction. However, there was no electrographic | | evidence of a seizure disorder during the 22.5 hour duration of | | this recording. 08.18.19 EEG IMPRESSION: Abnormal EEG | | demonstrating the presence of mild bilateral cerebral | | dysfunction. No epileptiform discharges were seen. However, | | if seizures are strongly suspected clinically, a repeat EEG with | | prolonged sleep recording is recommended. | + + + + + | Seizure disorder | 07/16/2015 | + + + | Subarachnoid hemorrhage, nontraumatic | 07/16/2015 | + + + Encounters +--------+ + + + + | Date | Type | Specialty | Care Team | Description | +--------+ + + + + | 01/23/ | Refill | Neurology | Mendoza Mcgarry MD | Medication Refill | | 2019 | | | | | +--------+ + + + + | 01/04/ | Telephone | Neurology | Elba Obando NP | Lab Results | | 2019 | | | | | +--------+ + + + + | 12/21/ | Office | Neurology | Elba Obando NP | Seizure disorder | | 2019 | Visit | | | ([facility]) (Primary Dx); | | | | | | Partial symptomatic | | | | | | epilepsy with | | | | | | complex partial | | | | | | seizures, | | | | | | intractable, without | | | | | | status epilepticus | | | | | | ([facility]) | +--------+ + + + + from Last 3 Months Immunizations + + + + | Name | Administration Dates | Next Due | + + + + | PNEUMOCOCCAL | 07/18/2015 | | | POLYSACCHARIDE | | | | 23-VALENT (PPSV23) | | | + + + + Family History + + +------+ + | Medical History | Relation | Name | Comments | + + +------+ + | Alcohol abuse | Mother | | | + + +------+ + | Other (see comment) | Mother | | Other (see comments) - cerebral bleed | + + +------+ + | Kidney disease | Neg Hx | | | + + +------+ + + +------+ + + | Relation | Name | Status | Comments | + +------+ + + | Father | | Alive | | + +------+ + + | Mother | | | | + +------+ + + | Mother | | | | + +------+ + + Social History + +-------+ +--------+------+ [...] + + + Last Filed Vital Signs + + + [...] | | + + + + + Plan of Treatment +--------+---------+ + + + | Date | Type | Specialty | Care Team | Description | +--------+---------+ + + + | 07/04/ | Office | Neurology | Mendoza Mcgarry MD | | | 2020 | Visit | | [address] | | | | | | [place] | | | | | | [address] | | | | | | | | +--------+---------+ + + + + + + + + | Health Maintenance | Due Date | Last | Comments | | | | Done | | + + + + + | Vaccine: Influenza | | 05/15/20 | | | (#1) | 0 | 19, | | | | | 07/16/19 | | | | | 16 | | + + + + + | Med Mgmt: Cr | | 07/15/19 | | | | 1 | 20, | | | | | 07/22/19 | | | | | 16, | | | | | 07/21/19 | | | | | 16, | | | | | Addition | | | | | al | | | | | history | | | | | exists | | + + + + + | Med Mgmt: Na | | 07/15/19 | | | | 1 | 20, | | | | | 07/22/19 | | | | | 16, | | | | | 07/21/19 | | | | | 16, | | | | | Addition | | | | | al | | | | | history | | | | | exists | | + + + + + | Med Mgmt: eGFR | | 07/15/19 | | | | 1 | 20, | | | | | 07/22/19 | | | | | 16, | | | | | 07/21/19 | | | | | 16, | | | | | Addition | | | | | al | | | | | history | | | | | exists | | + + + + + | Medication | | 07/15/19 | | | Management | 1 | 20 | | + + + + + | Vaccine: | | 06/26/19 | | | Dtap/Tdap/Td (2 - | 7 | 17 | | | Td) | | | | + + + + + | Hepatitis C | Completed | 07/17/19 | | | Screening | | 16 | | + + + + + Procedures + +--------+ + + + | Procedure Name | Priori | Date/Time | Associated Diagnosis | Comments | | | ty | | | | + +--------+ + + + | LEVETIRACETAM LEVEL | Routin | 12/22/2019 | Seizure disorder | Results for this | | | e | 5:35 PM | (HCC) | procedure are in the | | | | PDT | | results section. | + +--------+ + + + | OXCARBAZEPINE | Routin | 12/22/2019 | Seizure disorder | Results for this | | METABOLITE LEVEL | e | 5:35 PM | (HCC) | procedure are in the | | | | PDT | | results section. | + +--------+ + + + from Last 3 Months Results Oxcarbazepine Metabolite Level (12/22/2019 5:35 PM PDT) [...] | | characteristics have | | - ALEJANDRE | | | | been determined by [facility] | | [facility] | | | | [facility] | | [...] Diagnostics | | | | | | [facility] | | | | | | Alonso Mgadaleno M.D., | | | | | | Ph.D., Laboratory | | | | | | Director [id number] | | | | | | [facility] | | | | | | [place] [address] | | | | | | CLIA #[id number] | | | | + + + + + + + + | Specimen | + + | Blood | + + + + + + + | Performing | Address | City/State/Zipcode | Phone Number | | Organization | | | | + + + + + | REFERENCE LAB | [address] [facility] | [place], [place] | | | [facility] - | | [address] | | | [place] | | | | + + + + + Levetiracetam Level (12/22/2019 5:35 PM PDT) + [...] | | Interpretation should | | - ALEJANDRE | | | | include a clinical | | JULIEN | | | | evaluation. For | | | | | | additional information, | | | | | | please refer to | | | | | | [email or web address].[email or web address] RadioDi | | | | | | [employer]s.YourMechanic/faq/NYY317 | | | | | | (This [...] [facility] | | | | | | [facility] | | [...] Diagnostics | | | | | | [facility] | | | | | | Alonso Magdaleno M.D., | | | | | | Ph.D., Laboratory | | | | | | Director [id number] | | | | | | [facility] | | | | | | [place] [address] | | | | | | CLIA #[id number] | | | | + + + + + + + + | Specimen | + + | Blood | + + + + + + + | Performing | Address | City/State/Zipcode | Phone Number | | Organization | | | | + + + + + | REFERENCE LAB | [address] [facility] | [place], [place] | | | [facility] - | | [address] | | | [place] | | | | + + + + + from Last 3 Months Insurance + +--------+ +--------+ +---------+--------+ | Payer | Benefi | Subscriber | Effect | Phone | Address | Type | | | t Plan | ID | [id number] | | | | | | / | | Dates | | | | | | Group | | | | | | + +--------+ +--------+ +---------+--------+ | [employer] | [employer] | [id number] | 07/15/19 | [phone] | | Medica | | MEDICAID HMO | HEALTH | | 20-Pre | 1 | | id | | | MDCD | | sent | | | | | | [place] | | | | | | + +--------+ +--------+ +---------+--------+ | [employer] | [employer] | [id number] | 07/17/19 | [phone] | | Medica | | MEDICAID HMO | HEALTH | | 20-Pre | 1 | | id | | | MDCD | | sent | | | | | | [place] | | | | | | + +--------+ +--------+ +---------+--------+ + +--------+ +--------+ + + | Guarantor Name | Accoun | Relation to | Date | Phone | Billing Address | | | t Type | Patient | of | | | | | | | | | | + +--------+ +--------+ + + | Syed Koenig | Person | Self [birth year] | [address] | | | al/Fam | | 1990 | | [address] [place], | | | [place] | | | [address] (Home) | [place] [address] | + +--------+ +--------+ + + | Syed Koenig | Person | Self | [birth year] | [address] | | | al/Fam | | 1990 | | [address] [place], | | | [place] | | | [address] (Home) | [place] [address] | + +--------+ +--------+ + + Advance Directives + + + + + | Type | Date Recorded | Patient | Explanation | | | | Filling Layer Up | | + + + + + | Power of | | | | | Hand Endband Cutter | | | | + + + + + | Advance | 08/25/2019 4:21 | | | | Directive | PM | | | + + + + +
--- OUTSIDE RECORDS SUMMARY | ~2020-03-20 | XMS | Encounter Summary ---
Demographics + + + | Address | [address] | | | [place] [address] | + + + | Home Phone | | + + + | Preferred Language | Unknown | + + + | Marital Status | Single | + + + | Mandaen Affiliation | 1041 | + + + | Race | White | + + + | Ethnic Group | Not or | + + + Author + + + | Author | [facility] | | | and [place]ana | + + + | Organization | [facility] | | [...] Team Providers + +------+ + | Care Cook Helper Name | Role | Phone | + +------+ + | Kun Artis MD | PCP | | + +------+ + Reason for Visit + +--------+ + | Reason | Onset | Comments | | | Date | | + +--------+ + | Test Results | 08/25/ | | | | 2020 | | + +--------+ + Encounter Details +--------+ + + + + | Date | Type | Department | Care Team | Description | +--------+ + + + + | 08/25/ | Telephone | [facility] | Mendoza Mcgarry MD | Test Results | | 2020 | | HOSPITAL NEUROLOGY | [address] | | | | | CLINIC [address] | [place] | | | | | [place], | [address] | | | | | [place] [address] | | | | | | [phone] | | | +--------+ + + + [...] Telephone Encounter - Mendoza Mcgarry MD - 08/26/2019 5:15 PM PDTtried to call and unable to leave amessage; pls ssend a letter that his 24 hout ambulatory EEG results are available for review documented in this encounter Plan of Treatment [...]
--- OUTSIDE RECORDS SUMMARY | ~2020-03-20 | XMS | Encounter Summary ---
Demographics + + + | Address | [address] | | | [place] [address] | + + + | Home Phone [...] + + + | Author | [facility] | | | and Chrisana | + + + | Organization | [facility] | | | [...] Team Providers + +------+ + | Care Senior Electrical Designer Name | Role | Phone | + +------+ + | Kun Artis MD | PCP | | + +------+ + Reason for Referral Diagnostic/Screening (Routine) +--------+--------+ + + + + | Status | Reason | Specialty | Diagnoses / | Referred By | Referred To | | | | | Procedures | Contact | Contact | +--------+--------+ + + + + | Closed | | Radiology | Diagnoses | Mcgarry, | Cc Wgr Mri | | | | | Partial | Mendoza Chaidez, | [address] | | | | | symptomatic | [address] [place] | | | | | epilepsy | [address], | [place], [place] | | | | | with complex | [place] | [address] | | | | | partial | [place], [place] | Phone: | | | | | seizures, | [address] | [phone] | | | | | intractable, | Phone: | Fax: | | | | | without | [phone] | [phone] | | | | | status | Fax: | | | | | | epilepticus | [phone] | | | | | | (FORMERLY [facility]) | | | | | | | Procedures | | | | | | | MRI Brain w | | | | | | | wo Contrast | | | +--------+--------+ + + + + Reason for Visit + + + | Reason | Comments | + + + | Establish Care | unspecified convulsions | + + + Evaluate & Treat (Urgent) +--------+--------+ + + + + | Status | Reason | Specialty | Diagnoses / | Referred By | Referred To | | | | | Procedures | Contact | Contact | +--------+--------+ + + + + | Closed | | Neurology | Diagnoses | Steff, | Zeferino, | | | | | Unspecified | Adria Kincaid, | Mendoza Chaidez MD | | | | | convulsions | HOME CARE MANAGER RN [address] | [address] | | | | | (HCC) | [facility] | [place] | | | | | | [place], | [place] | | | | | | [address] | [address] Phone: | | | | | | [place], | [phone] | | | | | | [place] [address] | Fax: | | | | | | Phone: | [phone] | | | | | | [phone] | | | | | | | Fax: | | | | | | | [phone] | | +--------+--------+ + + + + Encounter Details +--------+---------+ + + + | Date | Type | Department | Care Team | Description | +--------+---------+ + + + | 08/05/ | Office | [place] [facility] | Mendoza Mcgarry MD | Partial symptomatic | | 2020 | Visit | [facility] | [address] [place] | epilepsy with | | | | CLINIC [address] | [place], [place] | complex partial | | | | [address] [place], | [address] | seizures, | | | | [place] [address] | | intractable, without | | | | [phone] | | status epilepticus | | | | | | (FORMERLY [facility]) | +--------+---------+ + + + Social History [...] + + + | Blood Pressure | 122/72 | 08/05/2019 8:08 AM | | | | | PST | | + + + + + | Pulse | 60 | 08/05/2019 8:08 AM | | | | | PST | | + + + + + | Temperature | - | - | | + + + + + | Respiratory Rate | 20 | 08/05/2019 8:08 AM | | | | | PST | | + + + + + | Oxygen Saturation | 95% | 08/05/2019 8:08 AM | | | | | PST | | + + + + + | Inhaled Oxygen | - | - | | | Concentration | | | | + + + + + | Weight | 82.6 kg (182 lb) | 08/05/2019 8:08 AM | | | | | PST | | + + + + + | Height | 172.7 cm (5' 8") | 08/05/2019 8:08 AM | | | | | PST | | + + + + + | Body Mass Index | 27.67 | 08/05/2019 8:08 AM | | | | | PST | | + + + + + documented in this encounter Patient Instructions Patient Instructions Mendoza Mcgarry MD - 08/05/2019 8:15 AM PSTFormatting of this note mi lisat be different from the original. Patient Instructions [facility] Dr. Mendoza Mcgarry, Neurologist Date:08/05/2019 Name:Syed Koenig :..1990 Please schedule next follow up appt with [facility] in 2-3 months for Seizure, complex partial w ith secondary generalization, last seizure 07/15/2019 You have the following tests/procedures ordered: Orders Placed This Encounter Procedures MRI Brain w wo Contrast Levetiracetam Level Oxcarbazepine Metabolite Level EEG EEG 24 HR AMBULATORY MONITORING Suggest reading newspapers. magazines, perform word find exercises such as cross word puzz le, and scrabble, other puzzle games like [employer], [employer]. Play computer/mobile applications such as Who@ and [employer] GAMES Increase oxcarbazepine 300 mg , one tab am and 2 tabs pm Continue Keppra 1,000 mg twice a day Gave medical education to avoid sleep deprivation, alcohol, stimulants, or any type of head trauma Advised to stop taking Marijuana at this time due to his recurrent seizures Advised not to drive a motor vehicle for at least 3 months since his last seizure was 07/15 Discussed with Mother Discussed side effects of medication such as cognitive issues and easy fatiguability Any Questions please call MADDY Loredo or Dr. Mcgarry at [facility] Partial Seizures: Know What to Do Because seizures may happen at any time, it helps to be prepared. This is true even ifmed icine usually keeps your seizures under control. Start by telling those you live and work wi th about your health condition. Make sure they know what to do if a seizure happens. Steps for your protection Most partial seizures last from a few seconds to a few minutes. During that time, those elizabeth und you should help keep you safe. What those witnessing the seizure should do is listed bel ow. What to do Seek medical attention right awayif you: Are hurt during the seizure Begin choking Have a seizure that lasts more than 5 minutes Have multiple seizures in a row Don't fully regain consciousness after the seizure is over Otherwise, they should do the following: Move any hard or sharp objects away from you. Turn you on your left side if you seem unconscious. Talk to you afterward to relieve your confusion. Note how long the seizure lasted. Note what you were doing before, during, and after the seizure. What NOT to do It is important thatthey don't do the following: Don't try to stop any jerking or twisting. Don't put anything in the mouth. Don't try to hold the tongue. Prepare family, friends, and coworkers It may seem awkward to talk to others about seizures. But telling family, friends, and cowo rkers about your seizures can help them react to a seizure in a way that will help and not hurt you. Describe to them what happens before, during, and after you have a seizure. Exp judy what they should and should not do. Date Last Reviewed: 10/08/201719996799-[address] [employer] [place] [address], [place] [address]. All righ ts reserved. This information is not intended as a substitute for professional medical care. Always follow your healthcare professional's instructions. Epilepsy: Safety During a Seizure Safety during a seizure Let family and friends know what to expect and how to react when youhave a seizure. This helps keep them calm and you safe. All seizures should be treated with care. But seizures th at cause you to lose consciousness (tonic-clonic seizures) require more attention. Think abo ut wearing a medical alert bracelet in case you are not around family members. This can aler t other people to your condition. Here are some tips for loved ones. What to know Seizures typically last less than 3 minutes, but it will feel like it is longer.People re cover safely from most seizures. During a tonic-clonic seizure, the person may appear to sto p breathing or turn slightly blue. This may be scary for you, but try to stay calm. Afterwar d, the person may be tired, confused, and achy. He or she may need to sleep for several hour s to fully recover. What to do During any seizure, stay with the personuntil it is over. Note the time when the seizure starts and ends.Don t try to stop the seizure. During a tonic-clonic seizure, also do th e following: Move hard or sharp objects out of the way. Lay the person on a flat surface and turn them on their side. Place a flat, soft object under their head. Don t try to restrain the person. Both of you could get hurt. Don t put anything in the person s mouth. The person can t swallow their tongue, a nd you risk breaking their teeth or being bitten. Don t give the person medicines during a seizure, unless you ve been trained by a [facility]. Speak quietly to the person as they recover. There is no need to call 911 if the person has a well-known cause of the seizures (such as epilepsy) and the seizure is very typical.If you are not sure or the person's condition is not known, call 911. Call 911 if any of the following occur: The seizure lasts longer than 5 minutes The person is not conscious between 2 seizures Several seizures happen in a row These things could mean the person has status epilepticus. This is a medical emergency. Hos pital treatment for this condition includes benzodiazepine medicines given by IV (intravenou s). A form of this medicine (a rectal diazepam gel) may be prescribed for at-home use. Other causes of seizures and situations that need immediate medical care include: The person has diabetes The person has a braininfection The person has heat exhaustion The person is Poisoning is known or suspected The person has low blood sugar A seizure happens after or during a high fever A head injury immediately after or within a few days after the injury happened Multiple seizures happen in a short period of time The person stops breathing A seizure that happens in water The person hit their head during a seizure and becomes difficult to wake up, is vomiting ,or complains of blurry vision It is the first time a seizure happens It is differentthan the typical seizuresfor that person The person is difficult to arouse after the seizure Alcohol or drug abuse Alcohol or drug withdrawal Date Last Reviewed: 04/10/201719995305-7385 [employer]. [address] [place] [address]. All [facility] ts reserved. This information is not intended as a substitute for professional medical care. Always follow your healthcare professional's instructions. Medicines for Partial Seizures For most people,medicines can control partial seizures. But because there are several typ es of partial seizures, it may take some time to find the bestmedicines for you. Yourhea lthcare providermay try several kinds ofmedicines at varying doses before finding what w orks best for you. You can help makemedicines a success by following these suggestions. Keep yourhealthcare providerinformed Don t be afraid to talk to yourhealthcare providerabout your medicines. Speaking up i s the only way your healthcare provider can know if yourmedicine is working right. Be sure to tell yourhealthcare providerif: You are still having seizures. Keep a seizure calendar to accurately keep track of your seizures. You notice any side effects from the medicine. You are taking any other medicines even elri-pme-bfoccso ones. It is always important to be under the regular care of a healthcare provider if you have a seizure disorder. Make it a habit Try some of these ideas to make it easier to remember to take medicine: Set a watch or clock to go off when it s time for the next dose. Keepmedicine with things you use routinely. Store it near your makeup, toothbrush, or coffee mug, for example. Use a pillbox to count out all the pills you need for a week. Ask family, friends, or coworkers to remind you when it s time to take a dose. Consider a phone or Internet-based sirena that reminds you to take your medicine. Keep your medicines out of reach from children. Takemedicine as directed You need a certain level ofmedicine in your blood at all times. This way, when a seizure happens, your body is ready for it. Never skip a dose or stop taking yourmedicine without your healthcare provider s knowledge. Doing so could result in serious consequences. It's quite common for people with epilepsy to miss a single dose once in a while. Often nothing b ad happens but your change of having a seizure may be higher. Missing one dose is more likel y to cause seizures if you're scheduled to take your medicine only once a day. Then if you m iss a dose, you've missed a full day of medicine. If you take it 2 to 4 times a day, the ris k from missing one dose is less. But if you miss several doses in a row, the likelihood of a breakthrough seizure will be higher. Therefore, take all precautions to ensure that you claudio e your medicine on time. Date Last Reviewed: 10/08/201719995814-9083 [employer]. [address] [place] [address], [place] [address]. All righ ts reserved. This information is not intended as a substitute for professional medical care. Always follow your healthcare professional's instructions. documented in this encounter Progress Notes Mendoza Mcgarry MD - 08/05/2019 8:15 AM PST Patient: Syed Koenig Medical Record: [id number] Date of Services: 08/05/2019 Referring Doctor: Kun Artis MD Chief Complaint: Recurrent seizures History of Present Illness: Mr. Koenig was a 28-year-old right-handed male, seen for neurologic evaluation, [facility] d [facility] on July 12, 2023 onset of seizures, complex partial w ith secondary generalization presently receiving Keppra thousand milligrams by mouth twice a day and oxcarbazepine 300 mg by mouth twice a day. Patient's Keppra level was increased by the ER physician at that time and CT scan of the head was apparently negative. Patient has not been able to drive a motor vehicle since his seizure and advised not to do so for the n ext 3 months until he seizure-free and compliant with medications. He was given medical education to avoid sleep deprivation, alcohol, stimulants, any type of head trauma, and stop his marijuana smoking. According to the mother, his seizures usually occur in the morning and we'll perform a Kepp ra and oxcarbazepine level today. I advised the patient to increase his oxcarbazepine and f or now 300 mg, one tablet in the morning and 2 tablets in the evening, total 600 mg per day pending his levels.. In the event that the patient cannot sleep a, advised to use melatonin and Benadryl. In the meantime, we will perform an MRI the brain with or without contrast, routine and 24- hour ambulatory EEG to determine the type of seizures and frequency. 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, 12 packs of beer/ week Drug use: Yes Types: Marijuana Comment: Drug use: Yes, using for medical & recreational Sexual activity: Not on file Lifestyle Physical activity: Days per week: Not on file Minutes per session: Not on file Stress: Not on file Relationships Social connections: Talks on phone: Not on file Gets together: Not on file Attends advent service: Not on file Active member of [...] History Narrative 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 Current Outpatient Medications Medication Sig Dispense Refill levETIRAcetam (KEPPRA) 1000 MG tablet Take 1 tablet by mouth 2 times daily for 30 days. 60 tablet 0 OXcarbazepine (TRILEPTAL) 300 mg tablet TAKE 1 TABLET BY MOUTH TWICE DAILY FOR 30 DAYS No current facility-administered medications for this visit. No Known Allergies Labs & Diagnostics: No results found for this or any previous visit (from the past 24 hour(s)). No results found. Neurological Examination: Vitals: 08/05/19 0808 BP: 122/72 Pulse: 60 Resp: 20 PainSc: 0 - No pain MENTAL STATUS: The patient is awake, alert, and oriented to time, place, and person. [facility] is fluent. Memory, attention, comprehension, and general fund of knowledge are intact. Seen with his mother CRANIAL NERVES: Funduscopy revealed distinct disc margins. There are no exudates or hemor rhages noted. Pupils are 3-4 mm, equal and reactive to light and accommodation. Extraocular muscle movements are intact. There are no visual field cuts. There is no nystagmus. There is no facial asymmetry. Facial sensation is intact. Palate elevates symmetrically. Streng th in the trapezius and sternocleidomastoid muscles is normal. Tongue is midline on protrusi on. MOTOR EXAMINATION: Strength is 5/5 throughout. Tone is normal. SENSORY EXAMINATION: Intact to light touch, pin prick, vibration, and proprioception. The re is no extinction on double simultaneous stimulation. DEEP TENDON REFLEXES: 2+ and symmetric. PLANTAR RESPONSES: Downgoing bilaterally GAIT: Gait and station are normal. Able to tandem gait, Romberg was negative CEREBELLAR EXAMINATION: There is no dysmetria on [id number] test. MISCELLANEOUS EXAM: Well kept, well nourished, Atraumatic, no evidence of frontal or maxil brad sinus tenderness, no neck masses, abdomen is soft and nontender, extremities equally pa lpable pulses Clinical Impression: Seizure, complex partial with secondary generalization, last seizure 07/15/2019 Plan: Please schedule next follow up appt with [facility] in 2-3 months for Seizure, complex partial w ith secondary generalization, last seizure 07/15/2019 You have the following tests/procedures ordered: Orders Placed This Encounter Procedures MRI Brain w wo Contrast Levetiracetam Level Oxcarbazepine Metabolite Level EEG EEG 24 HR AMBULATORY MONITORING Suggest reading newspapers. magazines, perform word find exercises such as cross word puzz le, and scrabble, other puzzle games like [employer], [employer]. Play computer/mobile applications such as Who@ and [employer] Increase oxcarbazepine 300 mg , one tab am and 2 tabs pm Continue Keppra 1,000 mg twice a day Gave medical education to avoid sleep deprivation, alcohol, stimulants, or any type of head trauma Advised to stop taking Marijuana at this time due to his recurrent seizures Advised not to drive a motor vehicle for at least 3 months since his last seizure was 07/15 Discussed with Mother Discussed side effects of medication such as cognitive issues and easy fatiguability Any Questions please call MADDY Loredo or Dr. Mcgarry at [facility] Mendoza Mcgarry MD08/05/20199:06 AM Electronically signed NOTE: Part of this report was transcribed using voice recognition software. Every effort was made to ensure accuracy. However, inadvertent computerize plaster foreman errors may be present documented in this encounter Plan of Treatment +--------+---------+ + + + | Date | Type | Specialty | Care Team | Description | +--------+---------+ + + + | 07/04/ | Office | Neurology | Mendoza Mcgarry MD | | | 2020 | Visit | | [address] [place] | | | | | | [place] | | | | | | [id number] | | | | | | | | +--------+---------+ + + + documented as of this encounter Results EEG 24 HR AMBULATORY [...] was | | | reviewed using the Wowboard EEG digital system. During the | | [...] this | | | patient. Cherelle Best MD08/26/201911:46 AM Electronically | | | signed | | + + + MRI Brain w wo Contrast (08/25/2019 8:35 AM PDT) + + | Specimen | + + | | + + + + + | Impressions | Performed At | + + + | 1. No acute finding. 2. Few white matter signal hyperintensities | [facility] | | are noted in the right frontal region. This nonspecific finding can | | | be seen with demyelination, vasculitis, small-vessel postischemic | | | change, and rarely infectious process such as Lyme disease. | | | Dictated by: Alireza Worthington | | + + + + + + | Narrative | Performed At | + + + | EXAMINATION: MRI BRAIN W WO CONTRAST HISTORY: Seizure, | [facility] | | nontraumatic (Age 18-40y); Seizures, refractory COMPARISON STUDY: | | | None TECHNIQUE: Multiplanar multi sequence MRI of the brain is | | | performed without and with contrast. mL Gadovist was injected | | | intravenously without post contrast reaction. FINDINGS: | | | Diffusion-weighted images show no evidence of restricted diffusion. | | | The alford-white matter interface is intact. No acute intracranial | | | hemorrhage, mass lesion, or midline shift. No abnormal enhancement. | | | Basilar cisterns are patent. Ventricles are symmetric. Sulci are age | | | appropriate. Major flow voids are present. Several white matter | | | FLAIR sequence hyperintensities are noted at the right frontal | | | periventricular and subcortical regions. No abnormal enhancement is | | | associated with the finding. Paranasal sinuses demonstrate mucous | | | retention cyst or polyp at the base of the left maxillary. The | | | mastoid air cells and middle ears are clear. No focal pituitary | | | abnormality is identified. Corpus callosum is unremarkable. | | | Brainstem is unremarkable. No enhancing masses are identified at | | | the cerebellopontine angle or within the internal auditory canals | | | bilaterally. Visualized seventh and eighth nerves are unremarkable. | | | The cochlea and semicircular canals are unremarkable. | | + + + + + | Procedure Note | + + | Joel, Rad Results In - 08/25/2019 8:53 AM PDT EXAMINATION:MRI BRAIN W WO | | CONTRASTHISTORY:Seizure, nontraumatic (Age 18-40y); Seizures, refractoryCOMPARISON | | STUDY:NoneTECHNIQUE:Multiplanar multi sequence MRI of the brain is performed without and | | with contrast. mL Gadovist was injected intravenously without post contrast | | reaction.FINDINGS:Diffusion-weighted images show no evidence of restricted diffusion.The | | alford-white matter interface is intact.No acute intracranial hemorrhage, mass lesion, or | | midline shift.No abnormal enhancement.Basilar cisterns are patent.Ventricles are | | symmetric.Sulci are age appropriate.Major flow voids are present.Several white matter | | FLAIR sequence hyperintensities are noted at the right frontal periventricular and | | subcortical regions. No abnormal enhancement is associated with the finding.Paranasal | | sinuses demonstrate mucous retention cyst or polyp at the base of the left maxillary. | | The mastoid air cells and middle ears are clear.No focal pituitary abnormality is | | identified.Corpus callosum is unremarkable.Brainstem is unremarkable.No enhancing masses | | are identified at the cerebellopontine angle or within the internal auditory canals | | bilaterally. Visualized seventh and eighth nerves are unremarkable. The cochlea and | | semicircular canals are unremarkable.IMPRESSION: 1. No acute finding.2. Few white matter | | signal hyperintensities are noted in the right frontal region. This nonspecific | | finding can be seen with demyelination, vasculitis, small-vessel postischemic change, | | and rarely infectious process such as Lyme disease.Dictated by: Alireza | | Ander | |Major flow voids are present. | |Several white matter FLAIR sequence hyperintensities are noted at the right frontal periven tricular and subcortical regions. No abnormal enhancement is associated with the finding. | |Paranasal sinuses demonstrate mucous retention cyst or polyp at the base of the left maxill melody. The mastoid air cells and middle ears are clear. | |No focal pituitary abnormality is identified. | |Corpus callosum is unremarkable. | |Brainstem is unremarkable. | | | |No enhancing masses are identified at the cerebellopontine angle or within the internal aud itory canals bilaterally. Visualized seventh and eighth nerves are unremarkable. The cochlea and semicircular canals are unremarkable. | | | |IMPRESSION: | |1. No acute finding. | |2. Few white matter signal hyperintensities are noted in the right frontal region. This no nspecific finding can be seen with demyelination, vasculitis, small-vessel postischemic hairston ge, and rarely infectious process such as Lyme disease. | | | |Dictated by: Alireza Worthington | | | | | + + + +---------+ + + | Performing | Address | City/State/Zipcode | Phone Number | | Organization | | | | + +---------+ + + | [facility] | | | | + +---------+ + + EEG (08/18/2019 8:00 AM PDT) + + [...] this patient. | | | Cherelle Best MD39:45 AM Electronically signed | | + + + Oxcarbazepine Metabolite Level (08/05/2019 9:35 AM PST) + + + + + + | Component | Value | Ref Range | Performed | Pathologist | | | | | At | Signature | + + + + + + | 10-Hydroxyc | 11.0Comment: This test | 8.0 - 35.0 | REFERENCE | | | arbazepine | was developed and its | mcg/mL | [facility] | | | | analytical performance | | [facility] | | | | characteristics have | | - ALEJANDRE | | | | been determined by [facility] | | [place] | | | | [facility]ostics | | | | | | [facility] | | | | | | [place]. [...] Diagnostics | | | | | | [facility] | | | | | | Alonso Magdaleno M.D., | | | | | | Ph.D., Laboratory | | | | | | Director [id number] | | | | | | [facility] | | | | | | [place] [address] | | | | | | CLIA #[id number] | | | | + + + + + + + + | Specimen | + + | Blood | + + + + + + + | Performing | Address | City/State/Zipcode | Phone Number | | Organization | | | | + + + + + | REFERENCE LAB | [id number] [facility] | [place], [place] | | | [facility] - | | [address] | | | [place] | | | | + + + + + Levetiracetam Level (08/05/2019 9:35 AM PST) + + + + + + | Component | Value | Ref Range | Performed | Pathologist | | | | | At | Signature | + + + + + + | LEVETIRACET | 20.4Comment: Toxic | 12.0 - 46.0 | REFERENCE [...] to | | | | | | http://education.[facility] | | | | | | [email or web address]/faq/VSD420 | | | | | | (This [...] | been determined by [facility] | | | | | | Diagnostics [...] | | | | | | [facility] | | | | | | [place] [facility] | | | | | | Alonso Magdaleno M.D., | | | | | | Ph.D., Laboratory | | | | | | Director [id number] | | | | | | [facility] | | | | | | [place] [address] | | | | | | CLIA #[id number] | | | | + + + + + + + + | Specimen | + + | Blood | + + + + + + + | Performing | Address | City/State/Zipcode | Phone Number | | Organization | | | | + + + + + | REFERENCE LAB | [id number] [facility] | [place], [place] | | | [facility] - | | [address] | | | [place] | | | | + + + + + documented in this encounter Visit Diagnoses + + | Diagnosis | + + | Partial symptomatic epilepsy with complex partial seizures, intractable, without | | status epilepticus (HCC) | + + documented in this encounter
--- OUTSIDE RECORDS SUMMARY | ~2020-03-20 | XMS | Encounter Summary ---
Demographics + + + | Address | [address] | | | [place] [address] | + + + | Home Phone | | + + + | Preferred Language | Unknown | + + + | Marital Status | Single | + + + | Jehovah'S Witness Affiliation | 1041 | + + + | Race | White | + + + | Ethnic Group | Not or | + + + Author + + + | Author | [facility] | | | and [place] | + + + | Organization | [facility] | | | [...] Team Providers + +------+ + | Care Yard Driver Name | Role | Phone | + +------+ + | Kun Artis MD | PCP | | + +------+ + Reason for Visit + + + | Reason | Comments | + + + | Follow-up | seizures/post ER | + + + Encounter Details +--------+---------+ + + + | Date | Type | Department | Care Team | Description | +--------+---------+ + + + | 08/30/ | Office | [facility] | Mendoza Mcgarry MD | Seizure disorder | | 2020 | Visit | HOSPITAL [facility] | [address] | ([facility]) (Primary Dx) | | | | CLINIC [address] | [place] | | | | | [place], | [address] | | | | | [place] [address] | | | | | | [phone] | | | +--------+---------+ + + + Social History [...] + + + | Blood Pressure | 118/64 | 08/31/2019 2:19 PM | | | | | PDT | | + + + + + | Pulse | 53 | 08/31/2019 2:19 PM | | | | | PDT | | + + + + + | Temperature | - | - | | + + + + + | Respiratory Rate | 20 | 08/31/2019 2:19 PM | | | | | PDT | | + + + + + | Oxygen Saturation | 98% | 08/31/2019 2:19 PM | | | | | PDT | | + + + + + | Inhaled Oxygen | - | - | | | Concentration | | | | + + + + + | Weight | 79.8 kg (176 lb) | 08/31/2019 2:19 PM | | | | | PDT | | + + + + + | Height | 172.7 cm (5' 8") | 08/31/2019 2:19 PM | | | | | PDT | | + + + + + | Body Mass Index | 26.76 | 08/31/2019 2:19 PM | | | | | PDT | | + + + + + documented in this encounter Patient Instructions Patient Instructions Mendoza Mcgarry MD - 08/31/2019 2:30 PM PDTFormatting of this note mi ght be different from the original. Patient Instructions [facility] Mendoza Mcgarry, Neurologist Date:08/31/2019 Name:Syed Koenig :..1990 Please schedule next follow up appt with Elba in 3-4 months Seizures, complex partial with secondary generalization, recurrent You have the following tests/procedures ordered: Orders Placed This Encounter Procedures Oxcarbazepine Metabolite Level Levetiracetam Level Treatment Option- massage, Acupuncture, Over the counter heat patches (icy hot, thermacare, salonpas) , over the counter creams (aspercream, bengay cream, emu oi l), Relaxation therapy, Water therapy, Cortisone shots, Toradol Injections Suggest reading newspapers. magazines, perform word find exercises such as cross word puzz le, and scrabble, other puzzle games like Plantiga, MitrAssist. Play computer/mobile applications such as Sympler and AmpliSense GAMES Increase keppra 1,500 mg BID Increase oxcarbazepine 300 mg , one tab am and 2 tabs pm Avoid sleep deprivation, alcohol, stimulants., or any type of head trauma Discussed with Mother on facetime Any Questions please call MADDY Loredo or Dr. Mcgarry at [facility] Neurology Clinic Partial Seizures: Staying Healthy With a little bit of planning, most people with partial seizures are able to lead active, f ulfilling lives. You can, too. Follow these suggestions to stay as healthy as possible and h ead off seizures before they happen. Get regular, moderate exercise Walking and biking are great ways to stay active. Make sure your seizures are under control before starting any exercise program to decrease your risk for injury. Make it safer and mo re fun by asking a friend to join you or consider organized exercise groups or classes. Don't swim until seizures are under control. Then, never swim alone. Because you could become unconscious or veer off the road due to a sudden movement, there i s the potential for danger while cycling if seizures are not well controlled. In addition to the risk for broken bones, head injuries can occur while cycling, so always wear a helmet. Find ways to deal with stress You may have stressors in your everyday life. You may also be feeling some stress from deal ing with seizures. But feeling too much stress may trigger seizures. Try some of these ideas to reduce stress: Consider switching job activities if your work is not compatible with epilepsy. Get more help around the house. Look at having seizures as a chance to review your life's goals. Focus your energy on staying well. Many successful people have coped with seizures. Talk to family and friends about your concerns. Ask your doctor about support groups for people dealing with seizures. Ask your doctor or nurse to show you relaxation methods, such as deep breathing and visu alization. Spend time on a hobby you enjoy. Don't use brain-altering substances Many chemicals can cause or trigger seizures. Even small amounts of alcohol can lead to sei zures. Many illegal drugs also cause severe seizures, even in people who don't normally have them. Listen to your body You can sometimes limit seizures by staying in touch with what your body is telling you. Identify events that may trigger your seizures. For instance, flickering lights from the TV, computer screen, or fluorescent lights trigger seizures in some people. Look for patterns that occur before a seizure happens. Some people notice certain sounds , smells, or sights that aren t really there (called an aura) just before a seizure. Keep your body from becoming overtired. Get enough sleep every night. Get plenty of rest when you are sick. The risk of getting a seizure is high when you are fighting an infection. Date Last Reviewed: 10/08/201719997813-65[address] [employer] [place] [address]. All righ ts reserved. This information is not intended as a substitute for professional medical care. Always follow your healthcare professional's instructions. Partial Seizures: Know What to Do Because [...] and should not do. Date Last Reviewed: 10/08/201719994656-6978 [employer]. [address] [place] [address]. All [facility] ts reserved. This information is not intended as a substitute for professional medical care. Always follow your healthcare professional's instructions. Medicines for Partial Seizures For most people,medicines can control partial seizures. But because there are several typ es of partial seizures, it may take some time to find the bestmedicines for you. Yourhea [facility] providermay try several kinds ofmedicines at varying [...] You are taking any other medicines even twgf-swr-wqdlgss ones. It is always important to be [...] your medicine on time. Date Last Reviewed: 10/08/201719997840-9574 [employer]. [address] [place] [address]. All righ ts reserved. This information is not intended as a substitute for professional medical care. Always follow your healthcare professional's instructions. documented in this encounter Progress Notes Mendoza Mcgarry MD - 08/31/2019 2:30 PM PDT Patient: Syed Koenig Medical Record: [id number] Date of Services: 08/31/2019 Referring Doctor: Kun Artis MD Chief Complaint: Seizures, complex partial with secondary generalization History of Present Illness: Mr. Howe was a 28-year-old right-handed male, seen for neurologic evaluation, treated fo r seizures, complex partial with secondary generalization who was last seizure was on August 27, 2019, seen in emergency room at [facility] in [place], [place]. He was d ischarged and advised to take Keppra 1,500 mg p.o. twice a day and to continue oxcarbazepin e as well. After reviewing his most recent labs performed on September 03, 2019, his oxcarbazepine level w as 11.0 mg/dL and Keppra level was 20.4 mg/dL. We will also increase oxcarbazepine 300 mg p .o., 1 tablet in a.m. and 2 tabs in p.m., total 900 mg/day. I also discussed his most recent 24-hour ambulatory EEG performed on August 25, 2019 demonst rating abnormal video ambulatory EEG demonstrating generalized slowing and mild bilateral di ffuse labral dysfunction. There were no clear evidence of seizure pattern. He was given education to avoid sleep deprivation, alcohol, stimulants, or any type of trau ma. Review of Systems: Denies headache, earache, nasal [...] 1,000 mg by mouth 2 times daily. levETIRAcetam (KEPPRA) 500 mg tablet Take 500 g by mouth 2 times daily. OXcarbazepine (TRILEPTAL) 300 mg tablet Take 1 tablet by mouth 3 times daily. 90 tablet 5 No current facility-administered medications for this visit. No Known Allergies Neurological Examination: Vitals: 08/31/19 1419 BP: 118/64 Pulse: 53 Resp: 20 PainSc: 0 - No pain MENTAL STATUS: The patient is awake, alert, and oriented to time, place, and person. Spee ch is fluent. Memory, attention, comprehension, and general fund of knowledge are intact. CRANIAL NERVES: Funduscopy revealed distinct disc margins. [...] CEREBELLAR EXAMINATION: There is no dysmetria on tpqizs-kv-njqk test. MISCELLANEOUS EXAM: Well Kept, well nourished, Atraumatic, no evidence of frontal or maxil brad sinus tenderness, no neck masses, abdomen is soft and nontender, extremities equally p alpable pulses Clinical Impression: Seizures, complex partial with secondary generalization, recurrent, last seen in the emerge ncy room at [facility], August 27 2019 Plan: Please schedule next follow up appt with Elba in 3-4 months Seizures, complex partial with secondary generalization, recurrent You have the following tests/procedures ordered: Orders Placed This Encounter Procedures Oxcarbazepine Metabolite Level Levetiracetam Level Treatment Option- massage, Acupuncture, Over the counter heat patches (icy hot, thermacare, salonpas) , over the counter creams (aspercream, bengay cream, emu oi l), Relaxation therapy, Water therapy, Cortisone shots, Toradol Injections Suggest reading newspapers. magazines, perform word find exercises such as cross word puzz le, and scrabble, other puzzle games like SudStatusNetu, Mahjong. Play computer/mobile applications such as Sympler and MIND GAMES Increase keppra 1,500 mg BID Increase oxcarbazepine 300 mg , one tab am and 2 tabs pm Avoid sleep deprivation, alcohol, stimulants., or any type of head trauma Discussed with Mother on facetime Any Questions please call MADDY Loredo or Dr. Mcgarry at [facility] Neurology Clinic Mendoza Mcgarry MD:45 PM Electronically signed NOTE: Part of this report was transcribed using voice recognition software. Every effort was made to ensure accuracy. However, inadvertent computerize mohs surgeon errors may be present documented in this enc ounter Plan of Treatment +--------+---------+ + + + | Date | Type | Specialty | Care Team | Description | +--------+---------+ + + + | 07/04/ | Office | Neurology | Mendoza Mcgarry MD | | | 2020 | Visit | | [address] | | | | | | [place] | | | | | | [address] | | | | | | | | +--------+---------+ + + + documented as of this encounter Results Levetiracetam Level (08/31/2019 3:00 PM PDT) + + + + + + | Component | Value | Ref Range | Performed | Pathologist | | | | | At | Signature | + + + + + + | LEVETIRACET | 4.5 (L)Comment: Toxic | 12.0 - 46.0 | [...] to | | | | | | [email or web address].[employer]Di | | | | | | [employer]/faq/QKY293 | | | | | | (This [...] | | | | | | Director [id number] | | | | | | [facility] | | | | | | [place] [address] | | | | | | CLIA #[id number] | | | | + + + + + + + + | Specimen | + + | Blood | + + + + + + + | Performing | Address | City/State/Zipcode | Phone Number | | Organization | | | | + + + + + | REFERENCE LAB | [address] [facility] | [place], [place] | | | [facility] - | | [address] | | | [place] | | | | + + + + + Oxcarbazepine Metabolite Level (08/31/2019 3:00 PM PDT) + + + + + + | Component | Value | Ref Range | Performed | Pathologist | | | | | At | Signature | + + + + + + | 10-Hydroxyc | 5.0 (L)Comment: This | 8.0 - 35.0 | REFERENCE | | | arbazepine | test was developed and | mcg/mL | [facility] | | | | its analytical | | DIAGNOSTICS | | | | performance | | - ALEJANDRE | | | | characteristics have | | JULIEN | | | | been determined by [...] | | | | | | Director [id number] | | | | | | [facility] | | | | | | [place] [address] | | | | | | CLIA #[id number] | | | | + + + + + + + + | Specimen | + + | Blood | + + + + + + + | Performing | Address | City/State/Zipcode | Phone Number | | Organization | | | | + + + + + | REFERENCE LAB | [address] [facility] | [place], [place] | | | [facility] - | | [address] | | | [place] | | | | + + + + + documented in this encounter Visit Diagnoses + + | Diagnosis | + + | Seizure disorder (HCC) - Primary Unspecified epilepsy without mention of intractable | | epilepsy | + + documented in this encounter
--- OUTSIDE RECORDS SUMMARY | ~2020-03-20 | XMS | Encounter Summary ---
Demographics + + + | Address | [address] | | | [place] [address] | + + + | Home Phone [...] + + + | Author | [facility] | | | and [place] | + + + | Organization | [facility] | | [...] Team Providers + +------+ + | Care Epic Director Name | Role | Phone | + +------+ + PCP | Unavailable | + +------+ + Encounter Details +--------+ + + + + | Date | Type | Department | Care Team | Description | +--------+ + + + + | 07/15/ | Hospital | C GENERIC IP | Conversion | Pain | | 2016 | Encounter | CONVERSION [address]P [address] | Transaction, | | | | | [address] | Provider Unknown | | | | | [facility] [place] | | | | | | [address] | (Fax) | | | | | [phone] | | | +--------+ + + + [...] as of this encounter Plan of Treatment +--------+---------+ + + + | Date | Type | Specialty | Care Team | Description | +--------+---------+ + + + | 07/04/ | Office | Neurology | Mendoza Mcgarry MD | | | 2020 | Visit | | [address] | | | | | | [place] | | | | | | [address] | | | | | | | | +--------+---------+ + + + documented as of this encounter Procedures + +--------+ + + + | Procedure Name | Priori | Date/Time | Associated Diagnosis | Comments | | | ty | | | | + +--------+ + + + | CT HEAD WO CONTRAST | Routin | 07/15/2015 | | Results for this | | | e | 9:01 PM | | procedure are in the | | | | PST | | results section. | + +--------+ + + + documented in this encounter Results CT Head wo Contrast (07/15/2015 9:01 PM PST) + + | Specimen | + + | | + + + + + | Narrative | Performed At | + + + | This is a non-reportable procedure without a radiologist report and | | | is used for image storage only | | + + + + + | Procedure Note | + + | Franklin Maldonado - 01/22/2019 5:14 PM PDT This is a non-reportable procedure | | without a radiologist report and isused for image storage only | + + documented in this encounter Visit Diagnoses + + | Diagnosis | + + | Pain Generalized pain | + + documented in this encounter"
--- OUTSIDE RECORDS SUMMARY | ~2020-03-20 | XMS | Encounter Summary ---
Demographics + + + | Address | [address] | | | [place] [address] | + + + | Home Phone | | + + + | Preferred Language | Unknown | + + + | Marital Status | Single | + + + | Sabianist Affiliation | 1041 | + + + | Race | White | + + + | Ethnic Group | Not or | + + + Author + + + | Author | [facility] | | | and [place] | + + + | Organization | [facility] | | | [...] Team Providers + +------+ + | Care Motorcycle Tester Name | Role | Phone | + [...] with complex | [place] | [address] | | | | | partial | [place], [place] | Phone: | | | | | seizures, | [address] | [phone] | | | | | intractable, | Phone: | Fax: | | | | | without | [phone] | [phone] | | | | | status | Fax: | | | | | | epilepticus | [phone] | | | | | | ([facility]) | | | | | | | Procedures | | | | | | | MRI Brain w | | | | | | | wo Contrast | | | +--------+--------+ + + + + Reason for Visit Diagnostic/Screening (Routine) +--------+--------+ + + + + | Status | Reason | Specialty | Diagnoses / | Referred By | Referred To | | | | | Procedures | Contact | Contact | +--------+--------+ + + + + | Closed | | Radiology | Diagnoses | Mcgarry, | Cc Wgr Mri | | | | | Partial | Mendoza R, | [address] | | | | | symptomatic | MD [address] [place] | | | | | epilepsy | [address], | [place], [place] | | | | | with complex | [place] | [address] | | | | | partial | [place], [place] | Phone: | | | | | seizures, | [address] | [phone] | | | | | intractable, | Phone: | Fax: | | | | | without | [phone] | [phone] | | | | | status | Fax: | | | | | | epilepticus | [phone] | | | | | | ([facility]) | | | | | | | Procedures | | | | | | | MRI Brain w | | | | | | | wo Contrast | | | +--------+--------+ + + + + Encounter Details +--------+ + + + + | Date | Type | Department | Care Team | Description | +--------+ + + + + | 08/24/ | Hospital | [facility] | Mendoza Mcgarry MD | Partial symptomatic | | 2020 | Encounter | Hospital MRI [address] | epilepsy with | | | | [address] [place] | [place], [place] | complex partial | | | | [place], [place] | [address] | seizures, | | | | [address] | | intractable, without | | | | [phone] | | status epilepticus | | | | | | ([facility]) | +--------+ + + + + Social [...] | +--------+---------+ + + + | 07/04/ Office | Neurology | Mendoza Mcgarry MD | | | 2020 | Visit | | [address] | | | | | | [place], [place] | | | | | | [address] | | | | | | | | +--------+---------+ + + + documented as of this encounter Procedures + +--------+ + + + | Procedure Name | Priori | Date/Time | Associated Diagnosis | Comments | | | ty | | | | + +--------+ + + + | MRI BRAIN W WO | Routin | 08/25/2019 | Partial | Results for this | | CONTRAST | e | 8:35 AM | symptomatic epilepsy | procedure are in the | | | | PDT | with complex | results section. | | | | | partial seizures, | | | | | | intractable, without | | | | | | status epilepticus | | | | | | (HCC) | | + +--------+ + + + documented in this encounter Results MRI Brain w wo Contrast (08/25/2019 8:35 [...] in this encounter Administered Medications + +--------+ +-------+------+------+ | Medication Order | MAR | Action | Dose | Rate | Site | | | Action | Date | | | | + +--------+ +-------+------+------+ | gadobutrol (GADAVIST) injection | Given | 08/25/19 | 8 mLs | | | | 8 mL 8 mL, Intravenous, ONCE | | 20 8:36 | | | | | PRN, Other, Starting 08/25/19 | | AM PDT | | | | | at 0835, For 1 dose, MRI | | | | | | + +--------+ +-------+------+------+ +---+---+ | | | +---+---+ documented in this encounter"
--- OUTSIDE RECORDS SUMMARY | ~2020-03-20 | XMS | Encounter Summary ---
Demographics + + + | Address | [address] | | | [place] [address] | + + + | Home Phone | | + + + | Preferred Language | Unknown | + + + | Marital Status | Unknown | + + + | Mormonism Affiliation | Unknown | + + + | Race | Unknown | + + + | Ethnic Group | Unknown | + + + Author + + + | Author | [facility] | + + + | Organization | [facility] | + + + | Address | Unknown | + + + | Phone | Unavailable | + + + Care Team Providers + +------+ + | Care Porcelain Finisher Name | Role | Phone | + +------+ + PCP | Unavailable | + +------+ + Encounter Details +--------+ + + + + | Date | Type | Department | Care Team | Description | +--------+ + + + + | 11/15/ | Document-Sc | Health Information | Unknown . | | | 2017 | anned | Services [address] | | | | | | Ezekiel [address] | | | | | | Mailcode: [id number] | | | | | | [facility] | | | | | | [place], [place] | | | | | | [address] | | | | | | [phone] | | | +--------+ + + + [...]
--- OUTSIDE RECORDS SUMMARY | ~2020-03-20 | XMS | Encounter Summary ---
Demographics + + + | Address | [address] | | | [place] [address] | + + + | Home Phone | | + + + | Preferred Language | Unknown | + + + | Marital Status | Single | + + + | Roman Catholic Affiliation | 1041 | + + + [...] Team Providers + +------+ + | Care Company Pilot Name | Role | Phone | + +------+ + | Kun Artis MD | PCP | | + +------+ + Reason for Visit + +--------+ + | Reason | Onset | Comments | | | Date | | + +--------+ + | Test Results | 08/19/ | | | | 2020 | | + +--------+ + Encounter Details +--------+ + + + + | Date | Type | Department | Care Team | Description | +--------+ + + + + | 08/19/ | Telephone | [facility] | Mendoza Mcgarry MD | Test Results | | 2020 | | HOSPITAL NEUROLOGY | [address] | | | | | CLINIC [address] | [place] | | | | | [place], | [address] | | | | | [place] [address] | | | | | | [phone] | | | +--------+ + + + [...] Telephone Encounter - Mendoza Mcgarry MD - 08/20/2019 4:33 PM PDTtried to call and all cir cuuits are busy, kindly send a letter that his EEG results a re available for review,thanks, 2 nd call documented in this encounter Plan of Treatment [...]
--- OUTSIDE RECORDS SUMMARY | ~2020-03-20 | XMS | Encounter Summary ---
Demographics + + + | Address | [address] | | | [place] [address] | + + + | Home Phone | | + + + | Preferred Language | Unknown | + + + | Marital Status | Unknown | + + + | Orthodox Affiliation | Unknown | + + + | Race | Unknown | + + + | Ethnic Group | Unknown | + + + Author + + + | Author | [facility] | + + + | Organization | [facility] | + + + | Address | Unknown | + + + | Phone | Unavailable | + + + Care Team Providers + +------+ + | Care Flume Maker Name | Role | Phone | + +------+ + PCP | Unavailable | + +------+ + Encounter Details +--------+ + + + + | Date | Type | Department | Care Team | Description | +--------+ + + + + | 08/14/ | Abstract | Neurology at | Clinic, Neurology | | | 2016 | | [facility] & | | | | | | Healing [address] | | | | | | [facility] | | | | | | Health and Healing, | | | | | | Building | | | | | | Floor [place], [place] | | | | | | [address] | | | | | | [phone] | | | +--------+ + + + [...]
[~2020-03-20 05:10] MED LIST changes: +KEPPRA500 MG PO; +LEVETIRACETAM1000 MG PO
--- OUTSIDE RECORDS SUMMARY | 2020-03-20 05:12 | XMS ---
PreManage Notification: ANGELO KRAUS Security Telephonic Nurse Events No recent Security Events currently on file CRITERIA MET - Group Notification - [facility] - Has Care Guidelines CARE PROVIDERS APOLLO DIAS Nurse Practitioner: Family 05/12/2019-Current PHONE: [phone] Rudolph has no Care Guidelines for this patient. Care History Medical/Surgical 07/16/2019 [facility] Patient has scheduled appointment with Apollo Dias on 08/12/2019.\T\nbsp;\T\ nbsp;Transferred to\T\nbsp;inpatient care\T\nbsp;at [facility] 05/12/2019 [facility] - PATIENT HAS AN ESTABLISHING CARE APT WITH APOLLO DIAS ON 05/15/19 @ 10: 00AM. - Patient is currently established with [facility]. If patient is seen in the ED during business hours. Please contact CHWs at [facility]. Care Recommendation: If this patient has had [...] care. E.D. VISIT COUNT (12 MO.) 1 [facility] 4 BE Bello TOTAL 5 NOTE: Visits indicate total known visits. ED/UCC VISIT TRACKING (12 MO.) 03/20/2020 05:10 [facility] [place] TYPE: Emergency COMPLAINT: - SEIZURE 08/27/2019 07:46 [facility] [place] TYPE: Emergency COMPLAINT: - SEIZURE DIAGNOSES: - Other intermediate (current) drug therapy - Epilepsy, unspecified, not intractable, without status epilep - Unspecified convulsions 07/15/2019 14:59 [facility] TYPE: Emergency DIAGNOSES: - Seizure (Adult - Prior Hx Of) - Epilepsy, unspecified, intractable, without status epilepticu 07/15/2019 06:37 [facility] TYPE: Emergency COMPLAINT: - SEIZURE DIAGNOSES: - Other intermediate (current) drug therapy - Epilepsy, unspecified, not intractable, without status epilep - Other generalized epilepsy and epileptic syndromes, not intra 05/11/2019 05:39 [facility] [place] TYPE: Emergency COMPLAINT: - SEIZURE DIAGNOSES: - Epilepsy, unspecified, not intractable, without status epilep - Unspecified convulsions - Other terminal operations manager (current) drug therapy INPATIENT VISIT TRACKING (12 MO.) No inpatient visits to display in this time frame [id number]
[2020-03-20] MEDS ORDERED: OXCARBAZEPINE300 MG PO (11:42)
[2020-03-20] MEDS ORDERED: KEPPRA500 MG PO (11:42)
== END 2020-03-20 12:00 | disposition home or self-care (01) ==
LOC: ED 05:10
DX: G40.409 Other generalized epilepsy and epileptic syndromes, not intractable, without status epilepticus (principal); Z87.891 Personal history of nicotine dependence; Z79.899 Other long term (current) drug therapy
CPT/HCPCS: 71045; 80053; 85025; 96361; 96365; 96366; 96375; 99284-25; J1953; J2060; J2405; J7030; J7121

== ENCOUNTER 2020-09-17 04:09 | Emergency (ER) | payer OTHER ==
[~2020-09-17] VITALS: Ht 175.3 cm; Wt 81.7 kg
[~2020-09-17 04:09] MED LIST changes: +OXCARBAZEPINE300 MG PO
--- OUTSIDE RECORDS SUMMARY | 2020-09-17 04:12 | XMS ---
PreManage Notification: ANGELO KRAUS Security Tow Mate Events No recent Security Events currently on file CRITERIA MET - Group Notification - [facility] - Has Care Guidelines CARE PROVIDERS APOLLO DIAS Nurse Practitioner: Family 05/12/2019-Current PHONE: [phone] Rudolph has no Care Guidelines for this patient. Care History Medical/Surgical 07/16/2019 [facility] Patient has scheduled appointment with pAollo Dais on 08/12/2019.\T\nbsp;\T\ nbsp;Transferred to\T\nbsp;inpatient care\T\nbsp;at [facility] 05/12/2019 [facility] - PATIENT HAS AN ESTABLISHING CARE APT WITH APOLLO DIAS ON 05/15/19 @ 10: 00AM. - Patient is currently established with [facility]. If patient is seen in the ED during business hours. Please contact CHWs at [facility]. Care Recommendation: If this patient has [...] providing care. E.D. VISIT COUNT (12 MO.) 2 [facility] TOTAL 2 NOTE: Visits indicate total known visits. 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
[2020-09-17] MEDS ORDERED: ZOFRAN4 MG PO (06:26)
== END 2020-09-17 06:40 | disposition home or self-care (01) ==
LOC: ED 04:09
DX: K52.9 Noninfective gastroenteritis and colitis, unspecified (principal); G40.909 Epilepsy, unspecified, not intractable, without status epilepticus; Z79.899 Other long term (current) drug therapy
CPT/HCPCS: 80053; 81001; 83735; 85025; 96374; 96376; 99284-25; J2405; J7030

== ENCOUNTER 2021-01-30 16:48 | Emergency (ER) | payer OTHER ==
[~2021-01-30] VITALS: Ht 175.3 cm; Wt 77.1 kg
[~2021-01-30 16:48] MED LIST changes: +ZOFRAN4 MG PO
--- OUTSIDE RECORDS SUMMARY | 2021-01-30 16:56 | XMS ---
PreManage Notification: ANGELO KRAUS Security Director Of Special Events Events No recent Security Events currently on file CRITERIA MET - Group Notification CARE PROVIDERS APOLLO DIAS Nurse Practitioner: Family 05/12/2019-Current PHONE: [phone] Rudolph has no Care Guidelines for this patient. Care History Medical/Surgical 07/16/2019 [facility] Patient has scheduled appointment with Apollo Dias on 08/12/2019.\T\nbsp;\T\ nbsp;Transferred to\T\nbsp;inpatient care\T\nbsp;at [facility] 05/12/2019 [facility] - PATIENT HAS AN ESTABLISHING CARE APT WITH APOLLO DIAS ON 05/15/19 @ 10: 00AM. - Patient is currently established with [facility]. If patient is seen in the ED during business hours. Please contact CHWs at [facility]. Care Recommendation: If this patient [...] providing care. E.D. VISIT COUNT (12 MO.) 3 BE Bello TOTAL 3 NOTE: Visits indicate total known visits. 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
[2021-01-30] MEDS ORDERED: KEPPRA1000 MG PO (17:18)
== END 2021-01-30 18:59 | disposition home or self-care (01) ==
LOC: ED 16:48
DX: H61.22 Impacted cerumen, left ear (principal); G40.909 Epilepsy, unspecified, not intractable, without status epilepticus; Z79.899 Other long term (current) drug therapy
CPT/HCPCS: 69209; 99282-25

== ENCOUNTER 2021-03-20 03:56 | Emergency (ER) | payer OTHER ==
[~2021-03-20] VITALS: Ht 175.3 cm; Wt 77.1 kg
[~2021-03-20 03:56] MED LIST changes: +KEPPRA1000 MG PO
--- OUTSIDE RECORDS SUMMARY | 2021-03-20 04:04 | XMS ---
PreManage Notification: ANGELO KRAUS Security K 9 Handler/ Deputy Events No recent Security Events currently on file CRITERIA MET - Group Notification CARE PROVIDERS TANYA KHALIL Emergency Medicine 01/31/2021-Current PHONE: [phone] ADRIA DIAS Nurse Practitioner: Family 05/12/2019-Current PHONE: [phone] Rudolph has no Care Guidelines for this patient. Care History Medical/Surgical 07/16/2019 [facility] Patient has scheduled appointment with Adria Dias on 08/12/2019.\T\nbsp;\T\ nbsp;Transferred to\T\nbsp;inpatient care\T\nbsp;at [facility] 05/12/2019 [facility] - Patient is currently established with [facility]. If patient is seen in the ED during business hours. Please contact CHWs at [facility]. Care Recommendation: If this patient has had 5 or more Emergency Department visits in the last 12 months.\T\nbsp; Patient will require education on the scope and purpose of the ED as an acute care provider not a Primary Care Provider and should not be utilized for chronic conditions.\T\nbsp; These are guidelines and the provider should exercise clinical judgment when providing care. Dang VISIT COUNT (12 MO.) 4 BE [facility]ello TOTAL 4 NOTE: Visits indicate total known visits. 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
== END 2021-03-20 06:30 | disposition home or self-care (01) ==
LOC: ED 03:56
DX: G40.909 Epilepsy, unspecified, not intractable, without status epilepticus (principal)
CPT/HCPCS: 70450; 80053; 85025; 96374; 96375; 99284-25; J2060; J2405

== ENCOUNTER 2023-02-13 21:11 | Emergency (ER) | payer OTHER ==
[~2023-02-13] VITALS: Ht 175.3 cm; Wt 77.1 kg
--- OUTSIDE RECORDS SUMMARY | 2023-02-13 21:16 | XMS ---
PreManage Notification: ANGELO KRAUS Security Tobacco Prevention Health Educator Events No recent Security Events currently on file CRITERIA MET - Group Notification CARE PROVIDERS DAVINA MCINTOSH Emergency Medicine 01/31/2021-Current PHONE: [phone] ADRIA DIAS Nurse Practitioner: Family 05/12/2019-Current PHONE: Unknown Guidelines Source: [facility] Guidelines Date: 03/27/2021 Other Information: Left voicemail re: seeing Dr. Alejandre if need be while PCP Davina Mcintosh is out of office. Care History Medical/Surgical 07/16/2019 [facility] Patient has scheduled appointment with Adria Dias on 08/12/2019.\T\nbsp;\T\ nbsp;Transferred to\T\nbsp;inpatient care\T\nbsp;at [facility] 05/12/2019 [facility] - Patient is currently established with [facility]. If patient is seen in the ED during business hours. Please contact CHWs at [facility]. Care Recommendation: If this patient has [...] care. E.D. VISIT COUNT (12 MO.) 1 BE [facility] TOTAL 1 NOTE: Visits indicate total known visits. ED/UCC VISIT TRACKING (12 MO.) 02/13/2023 21:11 [facility] [place] TYPE: Emergency COMPLAINT: - SEIZURE INPATIENT VISIT TRACKING (12 MO.) No inpatient visits to display in this time frame [email or web address]
[2023-02-13 21:25] LABS: BILIRUBIN, URINE NEGATIVE (negative); BLOOD/HGB, URINE NEGATIVE (Negative); KETONE, URINE NEGATIVE (Negative); LEUK ESTERASE, URINE NEGATIVE (negative); NITRITE, URINE NEGATIVE (negative)
[2023-02-13 21:28] LABS: AMPHETAMINES, UR NEGATIVE (NEGATIVE); BARBITURATES, UR NEGATIVE (NEGATIVE); BENZODIAZEPINES, UR NEGATIVE (NEGATIVE); BUPRENORPHINE,UR NEGATIVE (NEGATIVE); COCAINE, UR NEGATIVE (NEGATIVE); MARIJUANA (THC), UR POSITIVE (NEGATIVE); MDMA, UR NEGATIVE (NEGATIVE); METHADONE, UR NEGATIVE (NEGATIVE); METHAMPHETAMINE, UR NEGATIVE (NEGATIVE); OPIATES, UR NEGATIVE (NEGATIVE); OXYCODONE, UR NEGATIVE (NEGATIVE); PHENCYCLIDINE, UR NEGATIVE (NEGATIVE); TRICYCLIC ANTIDEPRESSANT, UR NEGATIVE (NEGATIVE)
[2023-02-13 21:33] LABS: BASOPHILS 0.4 % (0-2); EOSINOPHILS 2.4 % (0-6); HEMATOCRIT 44.6 % (35.0-50.0); HEMOGLOBIN 15.4 g/dL (12.0-18.0); LYMPHOCYTES 33.7 % (24-44); MCH 32.5 (27-36); MCHC 34.6 g/dl (30-36); MCV 93.9 fl (81-99); MONOCYTES 7.5 % (0-12); PLATELET COUNT 234 K/uL (140-440); RBC 4.75 M/ul (4.3-5.7); RDW 12.6 (10.5-15.0)
[2023-02-13 21:48] LABS: ALBUMIN 4.4 g/dL (3.4-5.0); ALBUMIN/GLOBULIN RATIO 1.16 (1.1-2.4); ALCOHOL, MEDICAL <3 ng/dL (<3); ALKALINE PHOSPHATASE 102 U/L (46-116); ALT (SGPT) 47 U/L (14-59); ANION GAP 10.7 (7-21); AST (SGOT) 20 U/L (15-37); BILIRUBIN, TOTAL 0.2 ng/dL (0.2-1.0); CALCIUM 9.4 mg/dL (8.5-10.1); CARBON DIOXIDE 32 mmol/L (21-32); CHLORIDE 102 mmol/L (98-107); GLOMERULAR FILTRATION RATE,EST 104 mL/min (>60); POTASSIUM 3.7 mmol/L (3.5-5.1); PROTEIN, TOTAL 8.2 g/dL (6.4-8.2); UREA NITROGEN 13 mg/dL (7-18)
[2023-02-13 22:38] VITALS: BP 124/89
[2023-02-15 14:33] LABS: KEPPRA (LEVETIRACETAM) 31 ug/mL (10-40)
== END 2023-02-13 22:40 | disposition home or self-care (01) ==
LOC: ED 21:11
PROVIDERS: Family Medicine
DX: G40.909 Epilepsy, unspecified, not intractable, without status epilepticus (principal); Z79.899 Other long term (current) drug therapy
CPT/HCPCS: 36415; 80053; 80177; 81003; 85025; 96374; 96375; 99284-25; G0480; J1953; J2405; J7121